=== PATIENT | male | born 1945 | race Caucasian/White ===

== ENCOUNTER → 2016-07-03 | Outpatient (CLI) | payer OTHER ==
[~2016-07-03] MED LIST: ALL300 PO; ATOR-22 PO; CYAN10005 PO; DABI150C PO; DIGO0.1267 PO; DILT-115 PO; FAMO20TA11 PO; GLC/500 PO; METO100T44 PO; SPIR50TA PO
[2016-07-03 13:35] LABS: BASO % 0.7 %; BASO ABS # 0.05 K/uL (0-0.2); COMPLETE YES; EOS % 1.9 %; HEMATOCRIT 44.5 % (42-52); IG% 0.3 %; LYMPH % 22.7 %; LYMPH ABS # 1.56 K/uL (1.2-3.4); MEAN CELL VOLUME 104.5 fL (80-100); MEAN CORPUSCULAR HEMOGLOBIN 35.2 pg (25-34); MEAN CORPUSCULAR HGB CONC 33.7 g/dl (32-36); MEAN PLATELET VOLUME 10.2 fL (7.4-10.4); MONO % 11.5 %; NEUT % 62.9 %; PLATELET COUNT 180 K/uL (130-400); RED BLOOD COUNT 4.26 M/uL (4.7-6.1); WHITE BLOOD COUNT 6.87 K/uL (4.8-10.8)
[2016-07-03 14:33] LABS: ALT/SGPT 30 U/L (12-78); BLOOD UREA NITROGEN 12 mg/dl (7-18); BUN/CREATININE RATIO 14.7 (10-20); CARBON DIOXIDE 28 mmol/L (21-32); CHLORIDE 102 mmol/L (98-107); CHOLESTEROL 126 mg/dl (0-200); CREATININE 0.78 mg/dl (0.60-1.40); GLUCOSE 115 mg/dl (70-99); POTASSIUM 4.1 mmol/L (3.5-5.1); SODIUM 140 mmol/L (136-145); TRIGLYCERIDES 149 mg/dl (0-150); URIC ACID 3.9 mg/dl (2.6-7.2); VERY LOW DENSITY LIPOPROT CALC 30 mg/dl
[2016-07-03 14:35] LABS: CALCIUM 9.4 mg/dl (8.5-10.1)
[2016-07-03 14:43] LABS: ALKALINE PHOSPHATASE 86 U/L (45-117); AST/SGOT 25 U/L (15-37); CHOLESTEROL/HDL RATIO 2.9; HDL CHOLESTEROL 44 mg/dl; LDL CHOLESTEROL CALCULATED 52 mg/dl; PHOSPHORUS 3.4 mg/dl (2.5-4.9)
[2016-07-04 06:00] LABS: ESTIMATED AVERAGE GLUCOSE 126 mg/dl; HA1C FLAG Normal (Normal)
[2016-07-05 12:24] LABS: C-REACTIVE PROT HIGHSEN 2.7 MG/L
--- NOTE | 2016-07-10 07:40 | CODING QUERY MEDICAL NECESSITY ---
CQSUPPORTING DIAGNOSIS NEEDED A supporting diagnosis is required for the test/procedure performed on this patient in order for us to be reimbursed by the patient's insurance. Please provide a supporting diagnosis for the following test/procedure listed below next to the test name along with your signature. *If there is no additional diagnosis for this patient that would support the following test/procedure please document that below next to the test/procedure. Test(s)/Procedure(s) that require a supporting diagnosis: DOS 07/03/16 VITAMIN D VITAMIN B12 C-RECTIVE PROTEIN HIGH SENSITIVITY Provider Signature: Date: Thank you Tiffanie Worthy Health Information Management Once completed, please kindly fax back to [phone] For questions please call [phone]
== END | disposition home or self-care (01) ==
LOC: C.LABBC 11:09
PROVIDERS: ATTEND Family Medicine
DX: E11.9 Type 2 diabetes mellitus without complications (principal); E55.9 Vitamin D deficiency, unspecified; D56.9 Thalassemia, unspecified; I71.4 Abdominal aortic aneurysm, without rupture; I48.2 Chronic atrial fibrillation

== ENCOUNTER → 2017-01-22 | Outpatient (CLI) | payer OTHER ==
[2017-01-22 15:40] LABS: BASO % 0.8 %; BASO ABS # 0.05 K/uL (0-0.2); COMPLETE YES; EOS % 1.4 %; HEMATOCRIT 43.9 % (42-52); IG% 0.3 %; LYMPH % 20.8 %; LYMPH ABS # 1.38 K/uL (1.2-3.4); MEAN CELL VOLUME 105.5 fL (80-100); MEAN CORPUSCULAR HEMOGLOBIN 36.1 pg (25-34); MEAN CORPUSCULAR HGB CONC 34.2 g/dl (32-36); MEAN PLATELET VOLUME 10.5 fL (7.4-10.4); MONO % 11.6 %; NEUT % 65.1 %; PLATELET COUNT 183 K/uL (130-400); RED BLOOD COUNT 4.16 M/uL (4.7-6.1); WHITE BLOOD COUNT 6.65 K/uL (4.8-10.8)
[2017-01-22 15:49] LABS: CHOLESTEROL/HDL RATIO 2.6
[2017-01-22 15:49] LABS: ALB/GLOB RATIO 0.8 (0.9-2); ALT/SGPT 24 U/L (12-78); AST/SGOT 16 U/L (15-37); BLOOD UREA NITROGEN 10 mg/dl (7-18); BUN/CREATININE RATIO 15.2 (10-20); CALCIUM 8.9 mg/dl (8.5-10.1); CARBON DIOXIDE 29 mmol/L (21-32); CHLORIDE 99 mmol/L (98-107); CREATININE 0.68 mg/dl (0.60-1.40); GLUCOSE 128 mg/dl (70-99); POTASSIUM 4.1 mmol/L (3.5-5.1); SODIUM 134 mmol/L (136-145); URIC ACID 4.2 mg/dl (2.6-7.2)
[2017-01-22 15:58] LABS: ALKALINE PHOSPHATASE 90 U/L (45-117); TOTAL IRON BINDING CAPACITY 364 mcg/dl (250-450)
[2017-01-23 06:44] LABS: ESTIMATED AVERAGE GLUCOSE 123 mg/dl; HA1C FLAG Normal (Normal)
== END | disposition home or self-care (01) ==
LOC: C.LABBC 10:59
PROVIDERS: ATTEND Family Medicine
DX: E88.81 Metabolic syndrome and other insulin resistance (principal); E55.9 Vitamin D deficiency, unspecified; D51.9 Vitamin B12 deficiency anemia, unspecified; R53.83 Other fatigue; I10 Essential (primary) hypertension; E78.5 Hyperlipidemia, unspecified

== ENCOUNTER 2017-10-06 22:29 | Emergency (ER) | payer OTHER ==
[~2017-10-06] VITALS: Ht 190.5 cm; Wt 117.0 kg
[2017-10-06 22:35] VITALS: TEMP 36.8; Ht 190.5 cm; Wt 117.0 kg
[2017-10-06] MEDS ORDERED: LIDOCAINE/EPINEPHRINE 1% 20 ML VIAL INFIL STA (23:24)
--- NOTE | 2017-10-07 00:50 | EMERGENCY ROOM VISIT NOTE ---
ED Visit Note First contact with patient: 23:19 I saw this patient in conjunction with Jonathon Saenz PA-C. I agree with his decision making and treatment plan.
--- NOTE | 2017-10-07 01:37 | EMERGENCY ROOM VISIT NOTE ---
ED Visit Note First contact with patient: 23:19 Chief Complaint: "Bleeding knee" History of Present Illness: This patient is a 72-year-old male who presents to the Emergency Department via private vehicle accompanied by for evaluation of their right knee laceration. Patient sustained the laceration while at home earlier today, when he lost his balance, fell to the ground striking the right knee off of the floor. They report a moderate amount of bleeding initially. He notes that he is on Eliquis. They deny any numbness or tingling. Patient rates his current discomfort as a 0/10. Patient's Tetanus status is not currently up- to-date. Medications: As noted below Allergies: Aspirin, Lasix PMH: As noted below SHx: Patient lives locally ROS: All pertinent positive and negative review of systems are appropriately documented in the History of Present Illness. Physical Exam: VITAL SIGNS - Vital signs and nursing notes were reviewed. Stable. Afebrile. GENERAL -72-year-old male appearing his stated age who is in no acute distress. Communicates well with provider and answers questions appropriately. SKIN - There is a 10 cm long laceration noted overlying the right anterior knee. The edges gape apart with traction. No foreign bodies appreciated. Upon further examination there are no deep structures including vessel, tendon, or bony structures appreciated. There is no active bleeding noted. MUSCULOSKELETAL -full range of motion assessed of the right knee. No pinpoint bony tenderness. NEUROLOGIC - Spinothalamic tract was found to be intact with ability to discriminate sharp versus dull sensation. No sensory defects of the dorsal column were appreciated utilizing light touch for evaluation. VASCULAR - Capillary refill was brisk. IMAGING: Per my interpretation the 3 views of the knee reveal no acute fracture or dislocation. Moderate degenerative change noted. ED Course: Patient was seen and evaluated by myself. Risks and benefits of performing primary wound closure versus no repair were discussed with the patient who verbalizes understanding. Verbal consent was obtained prior to performing the procedure. 6 cc of 1% buffered lidocaine with epinephrine was used to anesthetize the right anterior knee laceration. The wound was cleansed and prepped in the typical sterile fashion utilizing normal saline and Betadine. The wound was sterilely draped. Once proper anesthetization was established, the wound was further examined and demonstrated no deep involvement. The wound was copiously irrigated with normal saline and Betadine. The wound was closed using 27 simple, 4-0 nylon sutures with the wound edges being well approximated. Patient tolerated the procedure well. No complications were met. The wound was cleansed and dressed with a Bacitracin dressing. Knee immobilizer provided to decreased range of motion of the right knee to allow the wound to heal. After providing this to the patient, he expressed great concern over being able to care for this at home as well as ambulation. He notes that he is off balance at baseline, and has fallen many times recently. There is great concern expressed that he may continue to fall/fall again. I did attempt to intubate the patient and he was quite unstable on his feet. Patient received their Adacel vaccination. Decision was made to transfer the patient to [facility] for further care. Patient was in agreement. He was transferred in stable condition. Problem List Medical Problems: (1) Atrial fibrillation Status: Chronic (2) Bleeding ulcer Status: Resolved (3) Diabetes Status: Chronic Current/Historical Medications Scheduled Allopurinol (Zyloprim), 300 MG PO DAILY Apixaban (Eliquis), 5 MG PO BID Atorvastatin (Lipitor), 10 MG PO DAILY Diclofenac Sodium (Topical) (Diclofenac Sodium), 1 APPLN TOP DAILY Digoxin (Digox), 125 MCG PO DAILY Diltiazem Hcl Ext Rel (Tiazac), 240 MG PO DAILY Famotidine (Pepcid), 20 MG PO DAILY Hctz/Spironolactone 25MG/25MG (Aldactazide 25MG/25MG), 1 TAB PO DAILY Metformin HCl (Metformin HCl), 500 MG PO DAILY Metoprolol Succinate (Metoprolol Succinate ER), 200 MG PO DAILY Allergies Coded Allergies: Furosemide (Unverified Allergy, Severe, CHEST "FLUTTERY", 02/16/15) Aspirin (Unverified Adverse Reaction, Unknown, HX OF GI BLEED, 02/16/15) Vital Signs Date Time Temp Pulse Resp B/P (MAP) Pulse Ox O2 Delivery O2 Flow Rate FiO2 10/07/17 04:11 84 18 140/77 98 Room Air 10/07/17 02:13 93 16 173/100 97 Room Air 10/06/17 22:35 36.8 81 18 147/77 96 Room Air Medications Administered Medications (Trade) Dose Ordered Sig/Delisa Route Start Time Stop Time Status Last Admin Dose Admin Diphtheria/ Pertussis/Tetanus Vacc (Adacel Inj) 0.5 ml ONCE ONCE IM. 10/07/17 02:00 10/07/17 02:01 DC 10/07/17 02:00 0.5 ML Departure Information Impression Primary Impression: Laceration Dispostion Home / Self-Care Condition GOOD Referrals Chidi Burnette M.D. (PCP) Patient Instructions My [facility] Additional Instructions Discharge Instructions: You have received 27 sutures on your leg. These sutures are NOT dissolvable and WILL need to be removed by a health care provider in 14 days. You can return to the Emergency Department or contact your Primary Care Provider to have the sutures removed. Please wear the knee immobilizer so that the skin does not tear with the stitches are placed. Proper wound care is essential for adequate wound healing and infection prevention. You can shower and clean the wound with soap and water. Do not scour over the wound, pat dry with a towel. Do not submerse the wound (i.e. bathe or dish wash) until the sutures have been removed. You can use an antibiotic ointment with a dressing over the wound for the next 7 days. Please keep covered at all times. If crust develops over the wound you can use a Q- tip to apply a 1:1 peroxide:water solution to clean the wound. Look for signs of infection of the wound including: increased pain, swelling, foul discharge, streaking, or increased temperature. If any of these are noticed you should return to the Emergency Department for further assessment and treatment. As with any laceration you may have received nerve damage to the surrounding tissues. This damage may or may not be permanent. For pain control, you can use the following [id number] medicines (if >12 yo): - Regular strength (325mg/tab) Tylenol (acetaminophen) 2 tabs every 4-6 hours as needed. Do not exceed 12 tablets in a 24 hour period. Avoid taking more than 3 grams (3000 mg) of Tylenol per day. This includes any other sources of acetaminophen you may take on a regular basis. Return to the emergency department if your symptoms worsen despite treatment course outlined above.
[2017-10-07] MEDS ORDERED: DIPHTHERIA/TETANUS/PERTUSSIS 0.5 ML SYR/VIAL IM. ONE (02:00)
[2017-10-07] MEDS ORDERED: ALLO300T2 PO (03:19)
[2017-10-07] MEDS ORDERED: ATOR10TA82 PO (03:19)
[2017-10-07] MEDS ORDERED: TPRSR/100 PO (03:23)
[2017-10-07] MEDS ORDERED: SPIR1TAB72 (03:23)
[2017-10-07] MEDS ORDERED: DIGO0.1219 PO (03:23)
[2017-10-07] MEDS ORDERED: APIX1TAB3 PO (03:23)
[2017-10-07] MEDS ORDERED: GLC500 PO (03:23)
[2017-10-07] MEDS ORDERED: DICL1GEL34 TOP (03:27)
[2017-10-07 05:27] VITALS: BP 152/86; PULSE 81; O2SAT 94
--- NOTE | 2017-10-07 06:42 | DIAGNOSTIC IMAGING REPORT ---
R KNEE 3 VIEWS HISTORY: 72 years-old Male Fall, R knee laceration acute right knee pain status post fall COMPARISON: None available TECHNIQUE: 3 views of the right knee FINDINGS: No acute fracture or dislocation. Moderate sized joint effusion. Tricompartmental osteoarthritis, mild within the medial compartment, mild to moderate patellofemoral and moderate lateral compartment. Dystrophic calcifications and the suspected location of the proximal MCL. Moderate soft tissue swelling. Peripheral arterial calcifications noted. IMPRESSION: 1. No acute fracture or dislocation. 2. Soft tissue swelling with moderate-sized joint effusion. The above report was generated using voice recognition software. It may contain grammatical, syntax or spelling errors. Electronically signed by: Kuldeep Luevano M.D. 10/07/2017 6:40 AM Dictated Date/Time: 10/07/2017 6:38 AM
== END 2017-10-07 05:25 ==
LOC: C.EDB 22:31
DX: S81.011A Laceration without foreign body, right knee, initial encounter (principal); W19.XXXA Unspecified fall, initial encounter; I48.91 Unspecified atrial fibrillation; E11.9 Type 2 diabetes mellitus without complications; Z23 Encounter for immunization

== ENCOUNTER 2021-10-18 09:39 | Inpatient (IN) ==
[2021-10-18 11:48] LABS: Basophils # (auto) 0.07 K/uL (0-0.2); Basophils % (auto) 1.1 %; Eosinophils # (auto) 0.09 K/uL (0-0.50); Eosinophils % (auto) 1.4 %; Hematocrit (blood only) 35.8 % (40.1-51.0); Hemoglobin 12.2 g/dl (14.0-18.0); Immature Granulocytes # (auto) 0.02 K/uL (0.00-0.02); Immature Granulocytes % (auto) 0.3 %; Mean Corpuscular Hgb Conc 34.1 g/dL (32.0-36.0); Mean Corpuscular Volume 105.6 fL (80.0-100.0); Mean Platelet Volume 9.5 fL (9.4-12.4); Monocytes # (auto) 0.92 K/uL (0.24-0.82); Monocytes % (auto) 14.7 %; Neutrophils # (auto) 4.14 K/uL (1.4-6.5); Neutrophils % (auto) 66.5 %; Platelet Count 244 K/uL (130-400); RDW Coefficient of Variation 13.4 % (11.5-14.5); RDW Standard Deviation 52.6 fL (36.4-46.3); Red Blood Count 3.39 M/uL (4.63-6.08); White Blood Count 6.24 K/ul (4.8-10.8)
[2021-10-18 12:08] LABS: Albumin Globulin Ratio 1.1 (0.9-2); Albumin Level 4.2 gm/dl (3.4-5.0); BUN Creatinine Ratio 26.3 (10-20); Bilirubin,Total 3.3 mg/dl (0.2-1.0); C Reactive Protein 1.94 mg/dl (0-0.5); Calcium 10.2 mg/dl (8.5-10.1); Creatinine Clr Calc Pharmacy 149.4 ml/min; Est GFR (African American) 116.4 ml/min; Est GFR (Non-African American) 100.4 ml/min; Globulin 3.8 gm/dl (2.5-4.0)
--- NOTE | 2021-10-18 14:25 | Emergency Department Note ---
Impression & Plan Traumatic hematoma of left lower leg, Anticoagulant long-term use ED Provider Note CHIEF COMPLAINT: Bleeding from left jamison hematoma HISTORY OF PRESENT ILLNESS: Clifford Jose is a 76 year old male with history of a-fib on Eliquis, HTN, DLD, DM2 and alcohol use who presents to the Emergency Department via EMS for evaluation of bleeding from a traumatic left anterior jamison hematoma which he initially developed following a fall on 10/10/21, which subsequently opened up after removing the dressing when attempting to change it this morning. The patient was evaluated in the ED when he initially fell and after having imaging including a CTH, c-spine and extremity films (negative) as well as lab work, he was discharged back to home with instructions to follow up with wound care and his PCP. Since returning home, the patient states that he has been doing well and he and his have been doing their best to change his dressings regularly. Today, however, when the patient attempted to remove the bandage from his left jamison, the hematoma opened up and a very large scab avulsed back exposing deep tissue with a moderate amount of bleeding. The patient then called EMS for transport to the ED for further evaluation. Currently, the patient is resting in bed and denies being in significant discomfort. He denies suffering any additional trauma or falls since the initial event occurred. He also denies recent fevers/chills, chest pain, respiratory difficulties, abdominal pain, nausea, vomiting, diarrhea or urinary symptoms. The patient has chronic BLE edema and venous stasis changes/ulcerations, unchanged from baseline. No other acute complaints. The patient took his last dose of Eliquis this morning prior to arrival. REVIEW OF SYSTEMS: 10 systems were reviewed and were negative unless otherwise stated in HPI as above PHYSICAL EXAM: VITALS: Vitals are noted on the nurse's note and reviewed by myself. Hypertensive, vital signs stable. General: Resting in bed, no acute distress HEENT: Normocephalic, old appearing hematoma to the right posterior scalp without significant tenderness to palpation (pt states from old fall), PERRL, EOMI, mucous membranes moist, oropharynx clear Neck: No mid-line or paraspinal cervical tenderness, ROM intact without pain Resp: Good inspiratory effort on room air, lung sounds clear bilaterally CV: Irregularly irregular rate and rhythm, peripheral pulses palpated Abd: Soft, non-distended, non-tender MSK/Integumentary: 4-5+ non-pitting edema to the bilateral lower extremities with chronic venous stasis changes and chronic diabetic ulceration on the left lower jamison. Multiple areas of ecchymosis of various stages of healing scattered about the entire body. Superficial skin tears to the bilateral wrists without surrounding erythema, edema or purulent discharge. ~10 cm hematoma to the left anterior jamison that is partially avulsed down to the subcutaneous tissues, no active bleeding. There are chronic venous stasis changes and edema surrounding the area but no abnormal discharge or signs of current infection. Continues with FROM of all extremities without significant pain. Sensation decreased to the BLE secondary to neuropathy, unchanged from baseline Neuro: Awake, alert and oriented x 3, interacting and answering questions appro priately Differential diagnosis includes traumatic hematoma, infected hematoma, soft tissue injury, bacteremia, among others were considered. EMERGENCY DEPARTMENT COURSE: Physical exam and history were performed. Nursing triage notes, EMR, and medication list were personally reviewed. Patient is a 76 year old male with history of a-fib on Eliquis, HTN, DLD, DM2 and alcohol use who presents to the Emergency Department via EMS for evaluation of bleeding from a traumatic left anterior jamison hematoma which he initially developed following a fall on 10/10/21, which subsequently opened up after removing the dressing when attempting to change it this morning. Additional history as described above. See physical exam as noted above. The patient was offered medication but declined. IV access was established. Labs were obtained and reviewed by myself as below. Of note, no concern for leukocytosis with a WBC of 6.24. Mild anemia with hemoglobin 12.2 which has decreased since previous of 13.5. Mild hyponatremia with a sodium of 133 and mild hypochloremia with a chloride of 94. Renal indices stable. LFTs nondiagnostic. ESR was elevated at 53. CRP was elevated at 1.94. Procalcitonin was not elevated at <0.05. Blood cultures were obtained and are pending. I discussed the above findings with the patient at bedside. Based on his physical exam, I do feel that he will benefit from consultation with orthopedics as this wound will likely require surgical debridement. I did call and speak with Dr. Erazo of [facility]. Kevin Felix PA-C did also arrive to bedside and evaluated the patient as well. They do recommend surgical intervention, likely debridement, within the next few days. They recommended admission with medicine and will plan to consult along. I then called Dr. Angeles of the [facility]. He agreed to evaluate the patient. Please see his documentation for additional plan and disposition thereafter. The patient verbalized his understanding and agreement with the treatment plan as above The chart was completed utilizing [employer] Speech Voice Recognition Software. Grammatical errors, random word insertions, pronoun errors, and incomplete sentences are an occasional consequence of this system due to software jacobs itations, ambient noise, and hardware issues. Any formal questions or concerns about the content, text, or information contained within the body of this dictation should be directly addressed to the provider for clarification. Past Med/Surg History Medical History Acquired bilateral foot drop Afib Diverticulosis Full thickness burn of finger of right hand History of GI bleed Skin cancer Tinea pedis Surgical History S/P cholecystectomy Status post Mohs surgery Family History Other No pertinent family history Social History Smoking Status: Never smoker Hx Alcohol Use: Yes Alcohol type: hard liquor Hx Substance Use: No Preferred Language: [place] Leonean Communication Ability: Effective Visual Impairment: Diminished Hearing Ability: Normal Beliefs That Will Affect Care: None marital status: Current Living Situation: Family current occupational status: retired Feels Safe at Home: Yes during the past year weight has: remained stable Allergies Allergies Allergy/AdvReac Type Severity Reaction Status Date / Time furosemide Allergy Severe CHEST Verified 10/16/21 14:49 "FLUTTERY" NSAIDS (Non-Steroidal Allergy Unknown bleeding Verified 10/16/21 14:49 Anti-Inflamma aspirin AdvReac Unknown HX OF GI Verified 10/16/21 14:49 BLEED Home Meds Home Medications Medication Instructions Recorded Confirmed allopurinol 300 mg tablet 300 mg PO DAILY 11/11/18 10/18/21 atorvastatin 10 mg tablet 10 mg PO QPM 11/11/18 10/18/21 cyanocobalamin (vitamin B-12) 100 100 mcg PO DAILY 11/11/18 10/18/21 mcg tablet digoxin 125 mcg (0.125 mg) tablet 125 mcg PO DAILY #90 tabs 11/11/18 10/18/21 famotidine 20 mg tablet 20 mg PO DAILY 11/11/18 10/18/21 metformin 500 mg tablet 500 mg PO DAILY 11/11/18 10/18/21 cholecalciferol (vitamin D3) 25 1,000 units PO DAILY 12/16/18 10/18/21 mcg (1,000 unit) capsule diclofenac sodium 1 % topical gel 1 ea topical QID 02/01/20 10/18/21 metoprolol succinate 100 mg 100 mg PO BID #180 tabs 04/24/20 10/18/21 tablet,extended release 24 hr ascorbic acid (vitamin C) 500 mg 0 mg PO DAILY 08/14/20 10/18/21 tablet (Vitamin C) spironolactone 25 mg tablet 25 mg PO DAILY 10/18/21 10/18/21 Previous Rx's Medication Instructions Recorded apixaban 5 mg tablet 5 mg PO BID #180 tabs 04/24/21 diltiazem HCl 240 mg 240 mg PO DAILY #90 caps 07/02/21 capsule,extended release 24 hr Results & Data (ED) Vital Signs Vital Signs - 24 hr 10/18/21 09:49 10/18/21 11:47 10/18/21 10:45 Temperature 36.8 C Temperature Source Oral Pulse Rate 73 75 Pulse Rate from SpO2 Sensor Pulse Strength Normal Respiratory Rate 21 14 20 Respiratory Effort / Characteristics Non-Labored Respiratory Depth Normal Normal Respiratory Pattern Regular Blood Pressure 152/75 H Blood Pressure Mean 100 Pulse Oximetry 97 Oxygen Delivery Method Room Air Room Air Sepsis Recent Fever Within 48 Hours No Sepsis New/Unexplained Change in Mental Status No Sepsis Action Taken by Nursing No Action Required 10/18/21 11:00 10/18/21 11:30 10/18/21 12:00 Temperature Temperature Source Pulse Rate 75 67 54 L Pulse Rate from SpO2 Sensor 82 55 L Pulse Strength Respiratory Rate 19 18 20 Respiratory Effort / Characteristics Respiratory Depth Respiratory Pattern Blood Pressure 152/75 H Blood Pressure Mean 100 Pulse Oximetry 94 97 Oxygen Delivery Method Sepsis Recent Fever Within 48 Hours Sepsis New/Unexplained Change in Mental Status Sepsis Action Taken by Nursing 10/18/21 12:30 10/18/21 13:00 10/18/21 13:30 Temperature Temperature Source Pulse Rate 66 54 L 65 Pulse Rate from SpO2 Sensor Pulse Strength Respiratory Rate 17 17 27 H Respiratory Effort / Characteristics Respiratory Depth Respiratory Pattern Blood Pressure Blood Pressure Mean Pulse Oximetry Oxygen Delivery Method Sepsis Recent Fever Within 48 Hours Sepsis New/Unexplained Change in Mental Status Sepsis Action Taken by Nursing 10/18/21 14:00 10/18/21 14:30 10/18/21 15:00 Temperature Temperature Source Pulse Rate 66 78 63 Pulse Rate from SpO2 Sensor Pulse Strength Respiratory Rate 25 H 20 23 Respiratory Effort / Characteristics Respiratory Depth Respiratory Pattern Blood Pressure 152/75 H Blood Pressure Mean 100 Pulse Oximetry Oxygen Delivery Method Sepsis Recent Fever Within 48 Hours Sepsis New/Unexplained Change in Mental Status Sepsis Action Taken by Nursing 10/18/21 15:10 10/18/21 15:20 Temperature Temperature Source Pulse Rate 70 71 Pulse Rate from SpO2 Sensor Pulse Strength Respiratory Rate 23 22 Respiratory Effort / Characteristics Respiratory Depth Respiratory Pattern Blood Pressure Blood Pressure Mean Pulse Oximetry Oxygen Delivery Method Sepsis Recent Fever Within 48 Hours Sepsis New/Unexplained Change in Mental Status Sepsis Action Taken by Nursing Laboratory Data Result diagrams: 10/18/21 11:26 10/18/21 11:26 Lab Results 10/18/21 10/18/21 10/18/21 Range/Units 11:26 11:26 11:26 WBC 6.24 (4.8-10.8) K/ul RBC 3.39 L (4.63-6.08) M/uL Hgb 12.2 L (14.0-18.0) g/dl Hct 35.8 L (40.1-51.0) % MCV 105.6 H (80.0-100.0) fL MCH 36.0 H (25.0-34.0) pg MCHC 34.1 (32.0-36.0) g/dL RDW Std Deviation 52.6 H (36.4-46.3) fL RDW Coeff of Pau 13.4 (11.5-14.5) % Plt Count 244 (130-400) K/uL MPV 9.5 (9.4-12.4) fL Immature Gran % (Auto) 0.3 % Neut % (Auto) 66.5 % Lymph % (Auto) 16.0 % [place] % (Auto) 14.7 % Eos % (Auto) 1.4 % Baso % (Auto) 1.1 % Neut # (Auto) 4.14 (1.4-6.5) K/uL Lymph # (Auto) 1.00 L (1.2-3.4) K/uL [place] # (Auto) 0.92 H (0.24-0.82) K/uL Eos # (Auto) 0.09 (0-0.50) K/uL Baso # (Auto) 0.07 (0-0.2) K/uL Immature Gran # (Auto) 0.02 (0.00-0.02) K/uL ESR 53 H (0-20) mm/hr Sodium 133 L (136-145) mmol/L Potassium 4.0 (3.5-5.1) mmol/L Chloride 94 L (98-107) mmol/L Carbon Dioxide 32 (21-32) mmol/L Anion Gap 7 (3-11) BUN 15 (6-23) mg/dl Creatinine 0.57 L (0.6-1.4) mg/dl Est Cr Clr Drug Dosing 149.4 ml/min Est GFR ( Amer) 116.4 ml/min Est GFR (Non-Af Amer) 100.4 ml/min BUN/Creatinine Ratio 26.3 H (10-20) Glucose 96 (70-99(Fasting)) mg/dl Calcium 10.2 H (8.5-10.1) mg/dl Total Bilirubin 3.3 H (0.2-1.0) mg/dl AST 29 (13-39) U/L ALT 24 (7-52) U/L Alkaline Phosphatase 162 H (34-104) U/L C-Reactive Protein 1.94 H (0-0.5) mg/dl Total Protein 8.0 (6.0-8.3) gm/dl Albumin 4.2 (3.4-5.0) gm/dl Globulin 3.8 (2.5-4.0) gm/dl Albumin/Globulin Ratio 1.1 (0.9-2) Procalcitonin (0-0.5) ng/ml SARS-CoV-2, RNA, NAAT (NEGATIVE) 10/18/21 10/18/21 Range/Units 11:26 15:30 WBC (4.8-10.8) K/ul RBC (4.63-6.08) M/uL Hgb (14.0-18.0) g/dl Hct (40.1-51.0) % MCV (80.0-100.0) fL MCH (25.0-34.0) pg MCHC (32.0-36.0) g/dL RDW Std Deviation (36.4-46.3) fL RDW Coeff of Pau (11.5-14.5) % Plt Count (130-400) K/uL MPV (9.4-12.4) fL Immature Gran % (Auto) % Neut % (Auto) % Lymph % (Auto) % [place] % (Auto) % Eos % (Auto) % Baso % (Auto) % Neut # (Auto) (1.4-6.5) K/uL Lymph # (Auto) (1.2-3.4) K/uL [place] # (Auto) (0.24-0.82) K/uL Eos # (Auto) (0-0.50) K/uL Baso # (Auto) (0-0.2) K/uL Immature Gran # (Auto) (0.00-0.02) K/uL ESR (0-20) mm/hr Sodium (136-145) mmol/L Potassium (3.5-5.1) mmol/L Chloride (98-107) mmol/L Carbon Dioxide (21-32) mmol/L Anion Gap (3-11) BUN (6-23) mg/dl Creatinine (0.6-1.4) mg/dl Est Cr Clr Drug Dosing ml/min Est GFR ( Amer) ml/min Est GFR (Non-Af Amer) ml/min BUN/Creatinine Ratio (10-20) Glucose (70-99(Fasting)) mg/dl Calcium (8.5-10.1) mg/dl Total Bilirubin (0.2-1.0) mg/dl AST (13-39) U/L ALT (7-52) U/L Alkaline Phosphatase (34-104) U/L C-Reactive Protein (0-0.5) mg/dl Total Protein (6.0-8.3) gm/dl Albumin (3.4-5.0) gm/dl Globulin (2.5-4.0) gm/dl Albumin/Globulin Ratio (0.9-2) Procalcitonin < 0.05 (0-0.5) ng/ml SARS-CoV-2, RNA, NAAT NEGATIVE (NEGATIVE) Discharge Plan Visit Data Chief Complaint: Laceration/Cut (Suture/Dermabond) Stated Complaint: BLEEDING ED Provider: [facility] ED Midlevel Provider: Madison Villatoro Discharge Problem: Traumatic hematoma of left lower leg, Anticoagulant long-term use Forms Stand Alone Forms: My [facility] [employer] Prescriptions Prescriptions: No Action cholecalciferol (vitamin D3) 1,000 unit capsule 1,000 units PO DAILY apixaban 5 mg tablet 5 mg PO BID Qty: 180 3RF diltiazem HCl 240 mg capsule,extended release 24hr 240 mg PO DAILY Qty: 90 3RF digoxin 125 mcg tablet 125 mcg PO DAILY Qty: 90 famotidine 20 mg tablet 20 mg PO DAILY metformin 500 mg tablet 500 mg PO DAILY atorvastatin 10 mg tablet 10 mg PO QPM allopurinol 300 mg tablet 300 mg PO DAILY cyanocobalamin (vitamin B-12) 100 mcg tablet 100 mcg PO DAILY diclofenac sodium 1 % gel 1 ea topical QID Rx Instructions: topical four times daily; metoprolol succinate 100 mg tablet extended release 24 hr 100 mg PO BID Qty: 180 ascorbic acid (vitamin C) [Vitamin C] 500 mg Tablet 0 mg PO DAILY spironolactone 25 mg tablet 25 mg PO DAILY Referrals Referrals: Chidi Burnette MD [Primary Care Provider] -
--- NOTE | 2021-10-18 15:04 | Orthopedic Consultation ---
Date of Consultation October 18, 2021 Assessment & Plan (1) Hematoma of left lower extremity: Discussed with the patient that his wound will likely need debrided. He possibly may need wound VAC placement as well. Unfortunately patient is on Eliquis. We will need to hold Eliquis prior to proceeding with anything from a surgical standpoint. Eliquis will need to be held at least 48 hours. Will discuss with [facility] physicians as far as timing of surgery. We will follow. Thank you for this consult. History of Present Illness Reason for Consultation: Left lower leg wound Requesting Physician: Madison Villatoro PA-C History of Present Illness Clifford Jose is a 76 year old male with history of a-fib on Eliquis, HTN, DLD, DM2 and alcohol use who presents to the Emergency Department via EMS for evaluation of bleeding from a traumatic left anterior jamison hematoma which he initially developed following a fall on 10/10/21, which subsequently opened up after removing the dressing when attempting to change it this morning. Bleeding is now controlled but he has a large wound anterolateral aspect of his lower leg with an area of skin necrosis/eschar. He also has chronic venous stasis ulcer of his lower leg. He has chronic lower leg edema with Charcot foot. We have been asked to see the patient for consideration possible debridement. Allergies Allergy/AdvReac Type Severity Reaction Status Date / Time furosemide Allergy Severe CHEST Verified 10/16/21 14:49 "FLUTTERY" NSAIDS (Non-Steroidal Allergy Unknown bleeding Verified 10/16/21 14:49 Anti-Inflamma aspirin AdvReac Unknown HX OF GI Verified 10/16/21 14:49 BLEED Home Medications Medication Instructions Recorded Confirmed Type allopurinol 300 mg tablet 300 mg PO DAILY 11/11/18 10/16/21 History atorvastatin 10 mg tablet 10 mg PO QPM 11/11/18 10/16/21 History cyanocobalamin (vitamin B-12) 100 100 mcg PO DAILY 11/11/18 10/16/21 History mcg tablet digoxin 125 mcg (0.125 mg) tablet 125 mcg PO DAILY #90 tabs 11/11/18 10/16/21 History famotidine 20 mg tablet 20 mg PO DAILY 11/11/18 10/16/21 History metformin 500 mg tablet 500 mg PO DAILY 11/11/18 10/16/21 History cholecalciferol (vitamin D3) 25 1,000 units PO DAILY 12/16/18 10/16/21 History mcg (1,000 unit) capsule diclofenac sodium 1 % topical gel See Rx Instructions topical QID 02/01/20 10/16/21 History spironolactone 25 1 tab PO BID 03/21/20 10/16/21 History mg-hydrochlorothiazide 25 mg tablet Vitamin A 0 mg PO DAILY 04/24/20 10/16/21 History metoprolol succinate 100 mg 100 mg PO BID #180 tabs 04/24/20 10/16/21 History tablet,extended release 24 hr ascorbic acid (vitamin C) 500 mg 0 mg PO DAILY 08/14/20 10/16/21 History tablet (Vitamin C) acetaminophen 650 mg 650 mg PO Q12H 02/15/21 10/16/21 History tablet,extended release (Tylenol Arthritis Pain) apixaban 5 mg tablet 5 mg PO BID #180 tabs 04/24/21 10/16/21 Rx diltiazem HCl 240 mg 240 mg PO DAILY #90 caps 07/02/21 10/16/21 Rx capsule,extended release 24 hr magnesium carbonate PO DAILY 10/16/21 10/16/21 History Patient History Medical History Acquired bilateral foot drop Afib Diverticulosis Full thickness burn of finger of right hand History of GI bleed Skin cancer Tinea pedis Surgical History S/P cholecystectomy Status post Mohs surgery Family History Other No pertinent family history Social History Smoking Status: Never smoker Hx Alcohol Use: Yes Alcohol type: hard liquor Hx Substance Use: No Preferred Language: Bulgarian Communication Ability: Effective Visual Impairment: Diminished Hearing Ability: Normal Beliefs That Will Affect Care: None marital status: Current Living Situation: Family current occupational status: retired Feels Safe at Home: Yes during the past year weight has: remained stable Review of Systems Review of Systems: All systems reviewed & are unremarkable except as noted in Subjective Physical Exam Constitutional: WD/WN, vitals as above Respiratory: normal respiratory effort; no respiratory distress Cardiovascular: Extremities: + edema Musculoskeletal: Left lower leg: Patient has a large 10 cm x 6 cm wound anterolateral aspect of his lower leg with an overlying black that is torn away from the skin with a remaining deep open wound. Distally to this there is about a 3 cm chronic venous stasis ulcer. No erythema or drainage. He has chronic lower leg edema bilaterally. He has Charcot foot deformity on the left side. Skin: no rashes, warm and dry Neurologic: patellar DTR's 2+ bilat, sensation intact Psychiatric: A+Ox3, euthymic affect Results & Data ([facility]) Vital Signs (Past 12 Hours) Vital Signs Temp Pulse Resp BP Pulse Ox O2 Del Method 10/18/21 11:30 67 18 94 10/18/21 11:00 75 19 152/75 H 10/18/21 10:45 75 20 10/18/21 11:47 14 Room Air 10/18/21 09:49 36.8 C 73 21 152/75 H 97 Room Air Laboratory Results Lab Results 10/18/21 10/18/21 10/18/21 Range/Units 11:26 11:26 11:26 WBC 6.24 (4.8-10.8) K/ul RBC 3.39 L (4.63-6.08) M/uL Hgb 12.2 L (14.0-18.0) g/dl Hct 35.8 L (40.1-51.0) % MCV 105.6 H (80.0-100.0) fL MCH 36.0 H (25.0-34.0) pg MCHC 34.1 (32.0-36.0) g/dL RDW Std Deviation 52.6 H (36.4-46.3) fL RDW Coeff of Pau 13.4 (11.5-14.5) % Plt Count 244 (130-400) K/uL MPV 9.5 (9.4-12.4) fL Immature Gran % (Auto) 0.3 % Neut % (Auto) 66.5 % Lymph % (Auto) 16.0 % [place] % (Auto) 14.7 % Eos % (Auto) 1.4 % Baso % (Auto) 1.1 % Neut # (Auto) 4.14 (1.4-6.5) K/uL Lymph # (Auto) 1.00 L (1.2-3.4) K/uL [place] # (Auto) 0.92 H (0.24-0.82) K/uL Eos # (Auto) 0.09 (0-0.50) K/uL Baso # (Auto) 0.07 (0-0.2) K/uL Immature Gran # (Auto) 0.02 (0.00-0.02) K/uL ESR 53 H (0-20) mm/hr Sodium 133 L (136-145) mmol/L Potassium 4.0 (3.5-5.1) mmol/L Chloride 94 L (98-107) mmol/L Carbon Dioxide 32 (21-32) mmol/L Anion Gap 7 (3-11) BUN 15 (6-23) mg/dl Creatinine 0.57 L (0.6-1.4) mg/dl Est Cr Clr Drug Dosing 149.4 ml/min Est GFR ( Amer) 116.4 ml/min Est GFR (Non-Af Amer) 100.4 ml/min BUN/Creatinine Ratio 26.3 H (10-20) Glucose 96 (70-99(Fasting)) mg/dl Calcium 10.2 H (8.5-10.1) mg/dl Total Bilirubin 3.3 H (0.2-1.0) mg/dl AST 29 (13-39) U/L ALT 24 (7-52) U/L Alkaline Phosphatase 162 H (34-104) U/L C-Reactive Protein 1.94 H (0-0.5) mg/dl Total Protein 8.0 (6.0-8.3) gm/dl Albumin 4.2 (3.4-5.0) gm/dl Globulin 3.8 (2.5-4.0) gm/dl Albumin/Globulin Ratio 1.1 (0.9-2) Procalcitonin (0-0.5) ng/ml 10/18/21 Range/Units 11:26 WBC (4.8-10.8) K/ul RBC (4.63-6.08) M/uL Hgb (14.0-18.0) g/dl Hct (40.1-51.0) % MCV (80.0-100.0) fL MCH (25.0-34.0) pg MCHC (32.0-36.0) g/dL RDW Std Deviation (36.4-46.3) fL RDW Coeff of Pau (11.5-14.5) % Plt Count (130-400) K/uL MPV (9.4-12.4) fL Immature Gran % (Auto) % Neut % (Auto) % Lymph % (Auto) % [place] % (Auto) % Eos % (Auto) % Baso % (Auto) % Neut # (Auto) (1.4-6.5) K/uL Lymph # (Auto) (1.2-3.4) K/uL [place] # (Auto) (0.24-0.82) K/uL Eos # (Auto) (0-0.50) K/uL Baso # (Auto) (0-0.2) K/uL Immature Gran # (Auto) (0.00-0.02) K/uL ESR (0-20) mm/hr Sodium (136-145) mmol/L Potassium (3.5-5.1) mmol/L Chloride (98-107) mmol/L Carbon Dioxide (21-32) mmol/L Anion Gap (3-11) BUN (6-23) mg/dl Creatinine (0.6-1.4) mg/dl Est Cr Clr Drug Dosing ml/min Est GFR ( Amer) ml/min Est GFR (Non-Af Amer) ml/min BUN/Creatinine Ratio (10-20) Glucose (70-99(Fasting)) mg/dl Calcium (8.5-10.1) mg/dl Total Bilirubin (0.2-1.0) mg/dl AST (13-39) U/L ALT (7-52) U/L Alkaline Phosphatase (34-104) U/L C-Reactive Protein (0-0.5) mg/dl Total Protein (6.0-8.3) gm/dl Albumin (3.4-5.0) gm/dl Globulin (2.5-4.0) gm/dl Albumin/Globulin Ratio (0.9-2) Procalcitonin < 0.05 (0-0.5) ng/ml (1) Hematoma of left lower extremity Encounter type: initial encounter Qualified Code(s): S80.12XA - Contusion of left lower leg, initial encounter
--- NOTE | 2021-10-18 15:16 | Emergency Department Note ---
ED Visit Note I was consulted by the Advanced Practice Provider. I saw the patient personally and performed a substantive portion of the visit. This includes aspects of the HPI, MDM, diagnostic interpretations, and disposition/plan. Patient has a very large hematoma in the left leg. This injury is likely going to require orthopedic intervention, possibly skin grafting. Orthopedics has been counseled, hospitalization may be necessary. .
--- NOTE | 2021-10-18 15:32 | History & Physical Report ---
Date of Service October 18, 2021 Assessment & Plan (1) Wound of left lower extremity: Plan: -Admit to med/surge -Patient is currently afebrile, hemodynamically stable, and stable on RA -Suffered a large left lower extremity wound this AM while removing dressing, or tho evaluated, due to necrotic tissue he will need debridement and possibly wound vac -Will need to be off Eliquis for at least 48 hours prior to procedure, explained risks and benefits of holding Eliquis and patient acknowledged understanding and would like to hold the Eliquis for his upcoming procedure -Will continue with chemical DVT PPX for now -ESR and CRP are elevated but patient is afebrile, no leukocytosis, and negative procal, hold antibiotics for now -Wound nurse consult placed for now to assist with care until he has his procedure -AM CBC, CMP, PT/INR (2) Venous stasis ulcer of left lower leg with edema of left lower leg: Plan: -See LLE wound (3) PAD (peripheral artery disease): Plan: -Currently only on on Eliquis, no aspirin (4) Lower extremity edema: Plan: -Continue REFRIGERATING MACHINE OPERATOR Spironolactone (5) HTN (hypertension): Plan: -REFRIGERATING MACHINE OPERATOR metoprolol (6) Hypercholesterolemia: Plan: -REFRIGERATING MACHINE OPERATOR statin (7) Atrial fibrillation: Plan: -REFRIGERATING MACHINE OPERATOR metoprolol, diltiazem, and Digoxin -Hold REFRIGERATING MACHINE OPERATOR Eliquis in preparation for ortho procedure (8) DM II (diabetes mellitus, type II), controlled: Plan: -Will start with correction factor of 20 and carb coverage of 8 (9) Macrocytic anemia: Plan: -MCV has been elevated recently, currently at 105.6 today -Per his med rec, he has been on B12 -Will obtain B12 and folate levels today (10) Hyponatremia: Plan: -Sodium at 133, looks to be chronic -Likely from chronic health issues and diuretic use -Continue to monitor for now (11) Total bilirubin, elevated: Plan: -Total bili at 3.3 and alk phos at 162 -No abdominal symptoms -Monitor am CMP for now Plan The patinet was discussed with Dr. 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 Per chart review, the patient was initially seen in the [facility] ED on 10/10/21 for traumatic fall where he sustained a left anterior jamison wound and hematoma. The patient was treated in the ED and discharged home with instructions to change his dressing regularly and follow up with his PCP. He was doing well until this am when he and his removed his prior dressing, pulling off a large portion of his previous scab. In the ED the patient was evaluated by orthopedics who have plans to perform a possible debridement with potential for wound Vac place ment. Because he is on Eliquis for afib he will need to be admitted and monitored off of Eliquis prior to his procedure. At the time of the exam the patient was sitting comfortably in bed in no acut e distress. He states that he was in his bathroom this am when he took his chucky bandage off to clean his left lower extremity. He states that after his initial injury on 10/10 he did not have a laceration or scar, but instead he only had the hematoma. Unfortunately he has very frail skin and a large portion of the skin came off with the bandage, causing the wound. He denies any recent fevers, chills, headaches, changes in vision, hearing, taste, and smell, chest pain, SOB, abdominal pain, nausea, vomiting, diarrhea, dysuria, hematuria, and recurrent fall since his last. Allergies Allergy/AdvReac Type Severity Reaction Status Date / Time furosemide Allergy Severe CHEST Verified 10/16/21 14:49 "FLUTTERY" NSAIDS (Non-Steroidal Allergy Unknown bleeding Verified 10/16/21 14:49 Anti-Inflamma aspirin AdvReac Unknown HX OF GI Verified 10/16/21 14:49 BLEED Home Medications Medication Instructions Recorded Confirmed Type allopurinol 300 mg tablet 300 mg PO DAILY 11/11/18 10/18/21 History atorvastatin 10 mg tablet 10 mg PO QPM 11/11/18 10/18/21 History cyanocobalamin (vitamin B-12) 100 100 mcg PO DAILY 11/11/18 10/18/21 History mcg tablet digoxin 125 mcg (0.125 mg) tablet 125 mcg PO DAILY #90 tabs 11/11/18 10/18/21 History famotidine 20 mg tablet 20 mg PO DAILY 11/11/18 10/18/21 History metformin 500 mg tablet 500 mg PO DAILY 11/11/18 10/18/21 History cholecalciferol (vitamin D3) 25 1,000 units PO DAILY 12/16/18 10/18/21 History mcg (1,000 unit) capsule diclofenac sodium 1 % topical gel 1 ea topical QID 02/01/20 10/18/21 History metoprolol succinate 100 mg 100 mg PO BID #180 tabs 04/24/20 10/18/21 History tablet,extended release 24 hr ascorbic acid (vitamin C) 500 mg 0 mg PO DAILY 08/14/20 10/18/21 History tablet (Vitamin C) apixaban 5 mg tablet 5 mg PO BID #180 tabs 04/24/21 10/18/21 Rx diltiazem HCl 240 mg 240 mg PO DAILY #90 caps 07/02/21 10/18/21 Rx capsule,extended release 24 hr spironolactone 25 mg tablet 25 mg PO DAILY 10/18/21 10/18/21 History Past Med/Surg History Medical History Acquired bilateral foot drop Afib Diverticulosis Full thickness burn of finger of right hand History of GI bleed Skin cancer Tinea pedis Surgical History S/P cholecystectomy Status post Mohs surgery Family History Other No pertinent family history Social History Smoking Status: Never smoker Hx Alcohol Use: Yes Alcohol type: hard liquor Hx Substance Use: No Preferred Language: Sammarinese Communication Ability: Effective Visual Impairment: Diminished Hearing Ability: Normal Beliefs That Will Affect Care: None marital status: Current Living Situation: Family current occupational status: retired Feels Safe at Home: Yes during the past year weight has: remained stable Review of Systems Review of Systems: Denies current fever, chills, headache, changes in vision, hearing, taste, and smell, chest pain, SOB, cough, abdominal pain, nausea, vomiting, diarrhea, hematemesis, melena, dysuria, hematuria, and recent falls. All systems have been reviewed and are otherwise negative. Physical Exam Physical Exam: Physical Exam: General: In no acute distress, stated age, chronically ill-appearing HEENT: Normocephalic, atraumatic, no scleral icterus, pupils around round, symmetrical, and reactive to light, moist mucus membranes, trachea midline, no thyromegaly Chest/Pulm: No respiratory distress, symmetrical chest expansion, clear breath sounds throughout Cardiac: RRR, no murmurs noted Abdomen: Negative for ascites and bruising, normoactive bowel sounds, soft, non-tender to palpation throughout Musculoskeletal: patient with chronically flexed fingers from arthritis, RLE without sings of acute trauma, LLE wound currently wrapped and without signs of drainage (see ortho note for detailed description), venous stasis ulcer currently with large scab located just proximal to the left foot, chronic Charcot foot of the left foot Extremities: Radial, dorsalis pedis, and posterior tibial pulses are intact and symmetrical, patient with intact cap refill less than 2 seconds in the BL toes, significant pitting edema noted in the BL lower extremities Skin: Multiple bruises in different stages of healing located on the BL upper and lower extremities, old bruise from previous fall on the right neck in multiple stages of healing Neuro: Alert and oriented to person, place, month, year, and president, no focal defects, CN II-XII tested and intact, finger to nose test negative, no tremors noted Psych: No acute distress, calm and cooperative during the exam Results & Data Results & Data ([facility]) Vital Signs (Past 12 Hours) Vital Signs Temp Pulse Resp BP Pulse Ox O2 Del Method 10/18/21 11:30 67 18 94 10/18/21 11:00 75 19 152/75 H 10/18/21 10:45 75 20 10/18/21 11:47 14 Room Air 10/18/21 09:49 36.8 C 73 21 152/75 H 97 Room Air Laboratory Results Abnormal lab results 10/18/21 10/18/21 10/18/21 Range/Units 11:26 11:26 11:26 RBC 3.39 L (4.63-6.08) M/uL Hgb 12.2 L (14.0-18.0) g/dl Hct 35.8 L (40.1-51.0) % MCV 105.6 H (80.0-100.0) fL MCH 36.0 H (25.0-34.0) pg RDW Std Deviation 52.6 H (36.4-46.3) fL Lymph # (Auto) 1.00 L (1.2-3.4) K/uL [place] # (Auto) 0.92 H (0.24-0.82) K/uL ESR 53 H (0-20) mm/hr Sodium 133 L (136-145) mmol/L Chloride 94 L (98-107) mmol/L Creatinine 0.57 L (0.6-1.4) mg/dl BUN/Creatinine Ratio 26.3 H (10-20) Calcium 10.2 H (8.5-10.1) mg/dl Total Bilirubin 3.3 H (0.2-1.0) mg/dl Alkaline Phosphatase 162 H (34-104) U/L C-Reactive Protein 1.94 H (0-0.5) mg/dl ECG Additional Comments: No ECG at the time of admission, will order one now and review when available Code Status & VTE Plan Code Status Limited code; patient would only want intubation for a short period of time if needed but not chcf, does NOT want CPR or defibrillation VTE Prophylaxis Plan VTE Prophylaxis will be ordered: Yes Supervising Physician Co-Signing Physician Notes I supervised Jimbo Nassar PA-C on this admission. I interviewed and examined the patient independently of him. The plan is as written in his note except for any following changes/exceptions: None 76yo M w/ hx of afib who presents with LLE wound after hitting his leg on 10/10. At that time, he had a hematoma and was seen in the ER, but no external bleeding. Today, he pulled the bandage from around the leg and a large amount of skin came with it and started bleeding profusely. Came to the ER. Orthopedics saw the patient and plan for an I&D on Friday to allow for his Eliquis to wash out. PG Care Time/CCT Total # of Minutes Spent Total Time Spent with Patient: Total time spent is greater than 50% in coordination of care (as documented) at patient's floor/unit and/or counseling patient: [place] [address] Initial Inpt Care Lvl 3 Patient Type Established Medical Decision Making High Complexity Diagnoses Wound of left lower extremity S81.802A Venous stasis ulcer of left lower leg with edema of left lower leg I83.029; I83.892; L97.929; R60.9 PAD (peripheral artery disease) I73.9 Lower extremity edema R60.0 HTN (hypertension) I10 Hypercholesterolemia E78.00 Atrial fibrillation I48.91 DM II (diabetes mellitus, type II), controlled E11.9 Macrocytic anemia D53.9 Hyponatremia E87.1 Total bilirubin, elevated R17
[2021-10-18] MEDS ORDERED: INSULIN ASPART PER UNIT SC SCH (19:37)
[2021-10-18] MEDS ORDERED: DEXTROSE 50% 50 ML SYRINGE IV PRN (19:37)
[2021-10-18] MEDS ORDERED: GLUCOSE 40% GEL 15 GM TUBE PO PRN (19:37)
[2021-10-18] MEDS ORDERED: CARBOHYDRATES FOR HYPOGLYCEMIA PO PRN (19:37)
[2021-10-18] MEDS ORDERED: POLYETHYLENE (MIRALAX) 17 GM PACK PO PRN (19:37)
[2021-10-18] MEDS ORDERED: GLUCOSE 10 TAB/TUBE PO PRN (19:37)
[2021-10-18] MEDS ORDERED: GLUCAGON FOR INJ 1 MG VIAL SQ PRN (19:37)
[2021-10-18] MEDS: ATORVASTATIN 10 MG TAB PO SCH (20:38)
[2021-10-18] MEDS: METOPROLOL SUCC 50MG EXT REL TAB PO SCH (20:38)
[2021-10-18 20:45] LABS: Folate (Folic Acid) 7.61 ng/ml (>5.38)
[2021-10-18 20:46] LABS: Vitamin B12 > 1500 pg/ml (180-914)
[2021-10-18] MEDS: INSULIN ASPART PER UNIT SC SCH (20:59)
[2021-10-18] MEDS: ENOXAPARIN INJ 40 MG/0.4 ML SYR SQ SCH (21:00)
[2021-10-19] MEDS: INSULIN ASPART PER UNIT SC SCH ×3 (00:47→13:32)
[2021-10-19] MEDS ORDERED: Nursing to Pharmacy Communication SCH ×2 (02:45→12:30)
[2021-10-19 07:08] LABS: Hematocrit (blood only) 31.7 % (40.1-51.0); Hemoglobin 10.9 g/dl (14.0-18.0); Mean Corpuscular Hemoglobin 36.3 pg (25.0-34.0); Mean Corpuscular Hgb Conc 34.4 g/dL (32.0-36.0); Mean Corpuscular Volume 105.7 fL (80.0-100.0); Mean Platelet Volume 9.6 fL (9.4-12.4); Platelet Count 217 K/uL (130-400); RDW Coefficient of Variation 13.3 % (11.5-14.5); White Blood Count 6.86 K/ul (4.8-10.8)
[2021-10-19 07:16] LABS: INR 1.1 (0.9-1.1); Prothrombin Time 12.1 Seconds (9.0-12.0)
[2021-10-19 07:31] LABS: Albumin Globulin Ratio 1.1 (0.9-2); Albumin Level 3.4 gm/dl (3.4-5.0); BUN Creatinine Ratio 21.6 (10-20); Bilirubin,Total 2.3 mg/dl (0.2-1.0); Calcium 9.3 mg/dl (8.5-10.1); Creatinine Clr Calc Pharmacy 161.8 ml/min; Est GFR (African American) 121.9 ml/min; Est GFR (Non-African American) 105.2 ml/min; Globulin 3.1 gm/dl (2.5-4.0); Magnesium 1.3 mg/dl (1.7-2.4); Potassium 3.6 mmol/L (3.5-5.1); Total Protein 6.5 gm/dl (6.0-8.3)
[2021-10-19] MEDS: ENOXAPARIN INJ 40 MG/0.4 ML SYR SQ SCH (07:31)
[2021-10-19] MEDS: dilTIAZem HCL 240 MG CAPCR PO SCH (07:47)
[2021-10-19] MEDS: allopurinoL 300 MG TAB PO SCH (07:47)
[2021-10-19] MEDS: DIGOXIN 0.125 MG TAB PO SCH (07:47)
[2021-10-19] MEDS: FAMOTIDINE 20 MG TAB PO SCH (07:47)
[2021-10-19] MEDS: SPIRONOLACTONE 25 MG TAB PO SCH (07:47)
[2021-10-19] MEDS: METOPROLOL SUCC 50MG EXT REL TAB PO SCH ×2 (07:48→20:18)
[2021-10-19 10:30] LABS: A calco-baum cmplx NotReported Not Detected (NotDetected); Bact fragilis Not Reported Not Detected (NotDetected); C auris Not Reported Not Detected (NotDetected); Calbicans Not Reported Not Detected (NotDetected); Candida glabrata Not Reported Not Detected (NotDetected); Candida krusei Not Reported Not Detected (NotDetected); Cneoformans/gatti Not Reported Not Detected (NotDetected); Cparapsilosis Not Reported Not Detected (NotDetected); Ctropicalis Not Reported Not Detected (NotDetected); E cloacae compx Not Reported Not Detected (NotDetected); Efaecalis Not Reported Not Detected (NotDetected); Efaecium Not Reported Not Detected (NotDetected); Enterobacterales Not Reported Not Detected (NotDetected); Escherichia coli Not Reported Not Detected (NotDetected); H influenzae Not Reported Not Detected (NotDetected); K aerogenes Not Reported Not Detected (NotDetected); Koxytoca Not Reported Not Detected (NotDetected); Kpneumoniae grp Not Reported Not Detected (NotDetected); Lmonocyt Not Reported Not Detected (NotDetected); N meningitidis Not Reported Not Detected (NotDetected); P aeruginosa Not Reported Not Detected (NotDetected); Proteus spp Not Reported Not Detected (NotDetected); Salmonella spp Not Reported Not Detected (NotDetected); Smarcescens Not Reported Not Detected (NotDetected); Staph lugdunensis Not Reported Not Detected (NotDetected); Staphaureus Not Reported Not Detected (NotDetected); Staphepi Not Reported DETECTED (NotDetected); Staphylococcus epidermidis DETECTED (NotDetected); Staphylococcus spp. DETECTED (NotDetected); Stenmaltophilia Not Reported Not Detected (NotDetected); Strep agal(GrpB) Not Reported Not Detected (NotDetected); Strep pneum Not Reported Not Detected (NotDetected); Strep pyog (GrpA) Not Reported Not Detected (NotDetected); Strep spp Not Reported Not Detected (NotDetected); mecAC Resistant Gene DETECTED (NotDetected)
[2021-10-19 10:40] LABS: Staph spp. Not Reported DETECTED (NotDetected)
--- NOTE | 2021-10-19 17:37 | Hospitalist Progress Note ---
Date of Service October 19, 2021 Assessment & Plan (1) Wound of left lower extremity: Plan: -Admit to med/surge -Patient is currently afebrile, hemodynamically stable, and stable on RA -Suffered a large left lower extremity wound this AM while removing dressing, or tho evaluated, due to necrotic tissue he will need debridement and possibly wound vac -Will need to be off Eliquis for at least 48 hours prior to procedure, explained risks and benefits of holding Eliquis and patient acknowledged understanding and would like to hold the Eliquis for his upcoming procedure -Will continue with chemical DVT PPX for now -ESR and CRP are elevated but patient is afebrile, no leukocytosis, and negative procal, hold antibiotics for now -Wound nurse consult placed for now to assist with care until he has his procedure -AM CBC, CMP, PT/INR On 10/19, patient appears to be doing well. He is hungry. restarted diet. (2) Venous stasis ulcer of left lower leg with edema of left lower leg: Plan: -See LLE wound (3) PAD (peripheral artery disease): Plan: -Currently only on on Eliquis, no aspirin (4) Lower extremity edema: Plan: -Continue SITE TECHNICIAN Spironolactone (5) HTN (hypertension): Plan: -SITE TECHNICIAN metoprolol (6) Hypercholesterolemia: Plan: -SITE TECHNICIAN statin (7) Atrial fibrillation: Plan: -SITE TECHNICIAN metoprolol, diltiazem, and Digoxin -Hold SITE TECHNICIAN Eliquis in preparation for ortho procedure (8) DM II (diabetes mellitus, type II), controlled: Plan: will stop insulin given his low A1C. will only check glucose fasting. (9) Macrocytic anemia: Plan: -MCV has been elevated recently, currently at 105.6 today -Per his med rec, he has been on B12 -Will obtain B12 and folate levels today (10) Hyponatremia: Plan: -Sodium at 133, looks to be chronic -Likely from chronic health issues and diuretic use -Continue to monitor for now (11) Total bilirubin, elevated: Plan: -Total bili at 3.3 and alk phos at 162 -No abdominal symptoms -Monitor am CMP for now Plan The patinet was discussed with Dr. Angeles at the time of admission Admission and Anticipated Discharge Date Admission Date: October 18, 2021 Subjective Patient reports no new symptoms Review of Systems Review of Systems: All systems reviewed & are unremarkable except as noted in HPI & below Physical Exam Physical Exam: General:In no acute distress, stated age, chronically ill- appearing HEENT:Normocephalic, atraumatic, no scleral icterus, pupils around round, symmetrical, and reactive to light, moist mucus membranes, trachea midline, no thyromegaly Chest/Pulm:No respiratory distress, symmetrical chest expansion, clear breath sounds throughout Cardiac:RRR, no murmurs noted Abdomen:Negative for ascites and bruising, normoactive bowel sounds, soft, non-tender to palpation throughout Musculoskeletal:patient with chronically flexed fingers from arthritis, RLE without sings of acute trauma, LLE wound currently wrapped and without signs of drainage (see ortho note for detailed description), venous stasis ulcer currently with large scab located just proximal to the left foot, chronic Charcot foot of the left foot Extremities:Radial, dorsalis pedis, and posterior tibial pulses are intact and symmetrical, patient with intact cap refill less than 2 seconds in the BL toes, significant pitting edema noted in the BL lower extremities Skin:Multiple bruises in different stages of healing located on the BL upper and lower extremities, old bruise from previous fall on the right neck in multiple stages of healing Neuro:Alert and oriented to person, place, month, year, and president, no focal defects, CN II-XII tested and intact, finger to nose test negative, no tremors noted Psych:No acute distress, calm and cooperative during the exam Results & Data Results & Data ([facility]) Vital Signs (Past 12 Hours) Vital Signs Temp Pulse Pulse Resp BP Pulse Ox 10/19/21 15:25 36.6 C 71 16 126/68 96 10/19/21 08:18 36.7 C 70 16 126/74 97 10/19/21 07:47 80 PG Care Time/CCT Total # of Minutes Spent Total Time Spent with Patient: Total time spent is greater than 50% in coordination of care (as documented) at patient's floor/unit and/or counseling patient: Coding Level of Care Code 22584 Subseq Hosp Care Lvl 2 Diagnoses Wound of left lower extremity S81.802A Venous stasis ulcer of left lower leg with edema of left lower leg I83.029; I83.892; L97.929; R60.9 PAD (peripheral artery disease) I73.9 Lower extremity edema R60.0 HTN (hypertension) I10 Hypercholesterolemia E78.00 Atrial fibrillation I48.91 DM II (diabetes mellitus, type II), controlled E11.9 Macrocytic anemia D53.9 Hyponatremia E87.1 Total bilirubin, elevated R17 Time Spent (min) 25
[2021-10-19] MEDS: ATORVASTATIN 10 MG TAB PO SCH (20:18)
--- NOTE | 2021-10-19 21:18 | Electrocardiogram Report ---
Test Reason : Blood Pressure : / mmHG Vent. Rate : 072 BPM Atrial Rate : 045 BPM P-R Int : 000 ms QRS Dur : 082 ms QT Int : 380 ms P-R-T Axes : 000 022 -82 degrees QTc Int : 416 ms Poor data quality, interpretation may be adversely affected Atrial fibrillation Nonspecific T wave abnormality Abnormal ECG When compared with ECG of 10-OCT-2021 13:07, No significant change was found Confirmed by Avelino Mai ([id number]) on 10/19/2021 9:17:36 PM Referred By: REFERRED SELF Confirmed By:Avelino Mai
[2021-10-20] MEDS ORDERED: INSULIN ASPART PER UNIT SC SCH
[2021-10-20 06:50] LABS: Hematocrit (blood only) 30.9 % (40.1-51.0); Hemoglobin 10.7 g/dl (14.0-18.0); Mean Corpuscular Hemoglobin 35.7 pg (25.0-34.0); Mean Corpuscular Hgb Conc 34.6 g/dL (32.0-36.0); Mean Platelet Volume 9.6 fL (9.4-12.4); Platelet Count 228 K/uL (130-400); RDW Coefficient of Variation 13.3 % (11.5-14.5); RDW Standard Deviation 50.1 fL (36.4-46.3); White Blood Count 6.82 K/ul (4.8-10.8)
[2021-10-20 07:00] LABS: INR 1.1 (0.9-1.1); Prothrombin Time 12.1 Seconds (9.0-12.0)
[2021-10-20 07:28] LABS: Albumin Globulin Ratio 1.2 (0.9-2); Albumin Level 3.5 gm/dl (3.4-5.0); BUN Creatinine Ratio 22.6 (10-20); Bilirubin,Total 1.9 mg/dl (0.2-1.0); Calcium 9.4 mg/dl (8.5-10.1); Creatinine Clr Calc Pharmacy 133.1 ml/min; Est GFR (African American) 112.5 ml/min; Globulin 2.9 gm/dl (2.5-4.0); Magnesium 1.3 mg/dl (1.7-2.4); Total Protein 6.4 gm/dl (6.0-8.3)
[2021-10-20] MEDS: dilTIAZem HCL 240 MG CAPCR PO SCH (09:52)
[2021-10-20] MEDS: DIGOXIN 0.125 MG TAB PO SCH (09:52)
[2021-10-20] MEDS: allopurinoL 300 MG TAB PO SCH (09:52)
[2021-10-20] MEDS: SPIRONOLACTONE 25 MG TAB PO SCH (09:52)
[2021-10-20] MEDS: FAMOTIDINE 20 MG TAB PO SCH (09:52)
[2021-10-20] MEDS: METOPROLOL SUCC 50MG EXT REL TAB PO SCH ×2 (09:52→20:41)
--- NOTE | 2021-10-20 12:22 | Consultation Report ---
ORTHOPEDIC SURGERY CONSULTATION DATE OF SERVICE: 10/20/2021. HISTORY OF PRESENT ILLNESS: This is a 76-year-old gentleman who sustained a traumatic fall with subsequent hematoma due to being on Eliquis. He has a large hematoma in the left lower extremity, was admitted to the hospital for this. PAST MEDICAL HISTORY: Includes 1. Peripheral arterial disease, venous stasis ulcer, left lower leg with edema, left lower leg. 2. Hypertension. 3. Hypercholesterolemia. 4. Atrial fibrillation, on Eliquis. 5. Diabetes type 2. 6. Macrocytic anemia. 7. Hyponatremia. PHYSICAL EXAMINATION: Left lower extremity examination. The patient exhibits a 10 cm x 6 cm hematoma, which is a burst. He has clotted blood and a large open wound with complete full-thickness skin loss. I do not see evidence of exposed tendon, but he has a huge eschar over the open wound. He has a smaller wound in the size of a quarter distal to this in the distal lower leg. There is foul smell and fibrinous exudate and drainage from this. He has brawny edema in the leg, but no streaking erythema. ASSESSMENT: 1. Left leg hematoma. 2. Left leg open wound with possible coexisting infection. PLAN: I discussed findings and treatment with him. Recommendation for him is for: 1. I and D, left leg hematoma. 2. I and D, left leg open wound for infection. 3. Left leg split-thickness skin graft. Once hematoma has been unroofed, there will likely be a large open wound. I feel this would be amenable to a split-thickness skin graft. We will take this from the lateral thigh and place a VAC for 5 days. This should represent definitive treatment and he will be able to be discharged with a VAC for [address] possibly [address] a Prevena, so he does not need additional VAC equipment. I will take cultures on the second lower extremity wound. This may or may not be amenable to skin grafting depending on any infection status. Plan for surgical treatment in the morning. May eat today. He was booked for the OR and we will obtain appropriate equipment for a split-thickness skin graft. Job ID: [id number] [facility]
--- NOTE | 2021-10-20 17:39 | Hospitalist Progress Note ---
Date of Service October 20, 2021 Assessment & Plan (1) Wound of left lower extremity: Plan: -Admit to med/surge -Patient is currently afebrile, hemodynamically stable, and stable on RA -Suffered a large left lower extremity wound this AM while removing dressing, o rtho evaluated, due to necrotic tissue he will need debridement and possibly wound vac -Will need to be off Eliquis for at least 48 hours prior to procedure, explained risks and benefits of holding Eliquis and patient acknowledged understanding and would like to hold the Eliquis for his upcoming procedure -Will continue with chemical DVT PPX for now -ESR and CRP are elevated but patient is afebrile, no leukocytosis, and negative procal, hold antibiotics for now -Wound nurse consult placed for now to assist with care until he has his procedure -AM CBC, CMP, PT/INR On 10/19, patient appears to be doing well. He is hungry. restarted diet. On 10/20, patient reports no new symptoms. (2) Venous stasis ulcer of left lower leg with edema of left lower leg: Plan: -See LLE wound (3) PAD (peripheral artery disease): Plan: -Currently only on on Eliquis, no aspirin eliquis on hold for procedure. (4) Lower extremity edema: Plan: -Continue [employer] Spironolactone (5) HTN (hypertension): Plan: -[employer] metoprolol (6) Hypercholesterolemia: Plan: -[employer] statin (7) Atrial fibrillation: Plan: -[employer] metoprolol, diltiazem, and Digoxin -Hold [employer] Eliquis in preparation for ortho procedure (8) DM II (diabetes mellitus, type II), controlled: Plan: will stop insulin given his low A1C. will only check glucose fasting. (9) Macrocytic anemia: Plan: -MCV has been elevated recently, currently at 105.6 today -Per his med rec, he has been on B12 -Will obtain B12 and folate levels today (10) Hyponatremia: Plan: -Sodium at 133, looks to be chronic -Likely from chronic health issues and diuretic use -Continue to monitor for now (11) Total bilirubin, elevated: Plan: -Total bili at 3.3 and alk phos at 162 -No abdominal symptoms -Monitor am CMP for now Plan The patinet was discussed with Dr. Angeles at the time of admission Admission and Anticipated Discharge Date Admission Date: October 18, 2021 Subjective Patient denies any fever, chills, nausea, vomiting. Review of Systems Review of Systems: All systems reviewed & are unremarkable except as noted in HPI & below Physical Exam Physical Exam: General:In no acute distress, stated age, chronically ill- appearing HEENT:Normocephalic, atraumatic, no scleral icterus, pupils around round, symmetrical, and reactive to light, moist mucus membranes, trachea midline, no thyromegaly Chest/Pulm:No respiratory distress, symmetrical chest expansion, clear breath sounds throughout Cardiac:RRR, no murmurs noted Abdomen:Negative for ascites and bruising, normoactive bowel sounds, soft, non-tender to palpation throughout Musculoskeletal:patient with chronically flexed fingers from arthritis, RLE without sings of acute trauma, LLE wound currently wrapped and without signs of drainage (see ortho note for detailed description), venous stasis ulcer currently with large scab located just proximal to the left foot, chronic Charcot foot of the left foot Extremities:Radial, dorsalis pedis, and posterior tibial pulses are intact and symmetrical, patient with intact cap refill less than 2 seconds in the BL toes, significant pitting edema noted in the BL lower extremities Skin:Multiple bruises in different stages of healing located on the BL upper and lower extremities, old bruise from previous fall on the right neck in multiple stages of healing Neuro:Alert and oriented to person, place, month, year, and president, no focal defects, CN II-XII tested and intact, finger to nose test negative, no tremors noted Psych:No acute distress, calm and cooperative during the exam Results & Data Results & Data ([facility]) Vital Signs (Past 12 Hours) Vital Signs Temp Pulse Pulse Resp BP Pulse Ox O2 Del Method 10/20/21 15:27 36.7 C 64 16 115/67 99 Room Air 10/20/21 09:52 70 10/20/21 07:32 37.1 C 71 16 124/60 95 Room Air PG Care Time/CCT Total # of Minutes Spent Total Time Spent with Patient: Total time spent is greater than 50% in coordination of care (as documented) at patient's floor/unit and/or counseling patient: Coding Level of Care Code 01984 Subseq Hosp Care Lvl 2 Diagnoses Wound of left lower extremity S81.802A Venous stasis ulcer of left lower leg with edema of left lower leg I83.029; I83.892; L97.929; R60.9 PAD (peripheral artery disease) I73.9 Lower extremity edema R60.0 HTN (hypertension) I10 Hypercholesterolemia E78.00 Atrial fibrillation I48.91 DM II (diabetes mellitus, type II), controlled E11.9 Macrocytic anemia D53.9 Hyponatremia E87.1 Total bilirubin, elevated R17 Time Spent (min) 25
[2021-10-20] MEDS: ATORVASTATIN 10 MG TAB PO SCH (20:41)
[2021-10-20] MEDS: ENOXAPARIN INJ 40 MG/0.4 ML SYR SQ SCH (20:42)
[2021-10-21 07:04] LABS: Hematocrit (blood only) 33.2 % (40.1-51.0); Hemoglobin 11.4 g/dl (14.0-18.0); Mean Corpuscular Hemoglobin 35.6 pg (25.0-34.0); Mean Corpuscular Hgb Conc 34.3 g/dL (32.0-36.0); Mean Corpuscular Volume 103.8 fL (80.0-100.0); Mean Platelet Volume 9.5 fL (9.4-12.4); Platelet Count 248 K/uL (130-400); RDW Coefficient of Variation 13.2 % (11.5-14.5); RDW Standard Deviation 50.4 fL (36.4-46.3); White Blood Count 7.69 K/ul (4.8-10.8)
[2021-10-21] MEDS ORDERED: MINERAL OIL LIGHT 10 ML BTL ONE (07:05)
[2021-10-21] MEDS ORDERED: LIDOCAINE 1%/EPINEPHRINE 1:100,000 50 ML VIAL ONE (07:06)
--- NOTE | 2021-10-21 07:18 | Anesthesiology Consultation ---
Date of Service October 21, 2021 Assessment & Plan Chart Review Chart Review: Acceptable Risk for Surgery and Patient NOT seen in Pre Admission Testing Consults Requested none ASA ASA4 Proposed Anesthesia Anesthesia Type: General History Surgery Operation Date: 10/21/21 07:30 Proposed Procedures p Left leg split thickness skin graft and Irrigation and debridement open w ound(Left) - Bridger Padilla MD Height/Weight Height: 6 ft 3 in Weight: 101.8 kg Allergies Allergy/AdvReac Type Severity Reaction Status Date / Time furosemide Allergy Severe CHEST Verified 10/16/21 14:49 "FLUTTERY" NSAIDS (Non-Steroidal Allergy Unknown bleeding Verified 10/16/21 14:49 Anti-Inflamma aspirin AdvReac Unknown HX OF GI Verified 10/16/21 14:49 BLEED Medications Home Medications Medication Instructions Recorded Confirmed Last Taken allopurinol 300 mg tablet 300 mg PO DAILY 11/11/18 10/18/21 Unknown atorvastatin 10 mg tablet 10 mg PO QPM 11/11/18 10/18/21 Unknown cyanocobalamin (vitamin B-12) 100 100 mcg PO DAILY 11/11/18 10/18/21 Unknown mcg tablet digoxin 125 mcg (0.125 mg) tablet 125 mcg PO DAILY #90 tabs 11/11/18 10/18/21 Unknown famotidine 20 mg tablet 20 mg PO DAILY 11/11/18 10/18/21 Unknown metformin 500 mg tablet 500 mg PO DAILY 11/11/18 10/18/21 Unknown cholecalciferol (vitamin D3) 25 1,000 units PO DAILY 12/16/18 10/18/21 Unknown mcg (1,000 unit) capsule diclofenac sodium 1 % topical gel 1 ea topical QID 02/01/20 10/18/21 Unknown metoprolol succinate 100 mg 100 mg PO BID #180 tabs 04/24/20 10/18/21 Unknown tablet,extended release 24 hr ascorbic acid (vitamin C) 500 mg 0 mg PO DAILY 08/14/20 10/18/21 Unknown tablet (Vitamin C) apixaban 5 mg tablet 5 mg PO BID #180 tabs 04/24/21 10/18/21 Unknown diltiazem HCl 240 mg 240 mg PO DAILY #90 caps 07/02/21 10/18/21 Unknown capsule,extended release 24 hr spironolactone 25 mg tablet 25 mg PO DAILY 10/18/21 10/18/21 Unknown Active Medications Generic Name Dose Route Start Last Admin Trade Name Alexq PRN Reason Stop Dose Admin Allopurinol 300 mg 10/19/21 09:00 10/20/21 09:52 Allopurinol 300 Mg Tab PO 11/18/21 08:59 300 mg DAILY SORAIDA Administration Atorvastatin Calcium 10 mg 10/18/21 21:00 10/20/21 20:41 Atorvastatin 10 Mg Tab PO 11/17/21 20:59 10 mg QPM SORAIDA Administration Digoxin 0.125 mg 10/19/21 09:00 10/20/21 09:52 Digoxin 0.125 Mg Tab PO 11/18/21 08:59 0.125 mg DAILY SORAIDA Administration Diltiazem HCl 240 mg 10/19/21 09:00 10/20/21 09:52 Diltiazem Hcl 240 Mg Capcr PO 11/18/21 08:59 240 mg DAILY SORAIDA Administration Enoxaparin Sodium 40 mg 10/18/21 21:00 10/20/21 20:42 Enoxaparin Inj 40 Mg/0.4 Ml Syr SQ 11/17/21 20:59 40 mg Q24H SORAIDA Administration Famotidine 20 mg 10/19/21 09:00 10/20/21 09:52 Famotidine 20 Mg Tab PO 11/18/21 08:59 20 mg DAILY SORAIDA Administration Metoprolol Succinate 100 mg 10/18/21 21:00 10/20/21 20:41 Metoprolol Succ 50mg Ext Rel Tab PO 11/17/21 20:59 100 mg BID SORAIDA Administration Spironolactone 25 mg 10/19/21 09:00 10/20/21 09:52 Spironolactone 25 Mg Tab PO 11/18/21 08:59 25 mg DAILY SORAIDA Administration Past Medical History Medical History Acquired bilateral foot drop Afib Diverticulosis Full thickness burn of finger of right hand History of GI bleed Skin cancer Tinea pedis Exercise / Class Metabolic Activity III < 4 Walking/Shop/Light housework Past Family History Family History Other No pertinent family history Past Surgical History Surgical History S/P cholecystectomy Status post Mohs surgery Past Anesthesia History No Hx of Anesthesia Complications and No Family Hx of Anesthesia Complications History of PONV No Hx of PONV and No Hx of Motion Sickness Social History Smoking Status: Never smoker Hx Alcohol Use: Yes Alcohol type: hard liquor alcohol intake frequency: 0-2 drinks per day Alcohol Intake Frequency Comment: vodka Hx Substance Use: No substance use type: does not use Physical Exam Vital Signs Last Vital Signs Temp 37.5 C 10/21/21 07:04 Pulse 74 10/21/21 07:04 Resp 16 10/21/21 07:04 BP 122/71 10/21/21 07:04 Pulse Ox 98 10/21/21 07:04 O2 Del Method 10/21/21 07:04 Testing Laboratory Results 10/21/21 06:29 PT 12.1 Seconds (9.0-12.0) H 10/20/21 06:07 INR 1.1 (0.9-1.1) 10/20/21 06:07 10/19/21 11:52 Aerobic Blood Culture - Preliminary Blood No growth in Aerobic bottle after 24 hours. Anaerobic Blood Culture - Final 10/19/21 11:33 Aerobic Blood Culture - Preliminary Blood No growth in Aerobic bottle after 24 hours. Anaerobic Blood Culture - Preliminary No growth in Anaerobic bottle after 24 hours. 10/18/21 11:26 Aerobic Blood Culture - Preliminary Blood Coag neg staph not lugdunensis Corynebacterium species Anaerobic Blood Culture - Preliminary No growth in Anaerobic bottle after 48 hours. 10/18/21 11:19 Aerobic Blood Culture - Preliminary Blood No growth in Aerobic bottle after 48 hours. Anaerobic Blood Culture - Preliminary No growth in Anaerobic bottle after 48 hours. Electrocardiogram Date: 10/18/21 Findings: + NSST changes and + AFIB @ (@ 72) Chest X-Ray Date: 10/10/21 Findings: + pulmonary vascular congestion Echocardiogram Date: 07/03/20 EF: 60% LV Function: normal RWMA: + none Other Findings: + LVH (mild) and + diastolic dysfunction (Grade 1) Valvular Disease: + AI (mild) and + MR (mild) TR-mild mild Ao root and Asc. Ao dilation
[2021-10-21] MEDS ORDERED: LIDOCAINE 2% 2 ML VIAL/AMP(20MG/ML) INFIL ONE (07:24)
[2021-10-21] MEDS ORDERED: DEXAMETHASONE SOD INJ 4 MG/ML VIAL ONE (07:24)
[2021-10-21] MEDS ORDERED: PROPOFOL IV EMULSION 10 MG/ML 20 ML VIAL IV ONE (07:24)
[2021-10-21] MEDS ORDERED: ONDANSETRON INJ 2 MG/ML 2 ML VIAL ONE (07:24)
[2021-10-21] MEDS ORDERED: fentaNYL citrate 100 MCG/2 ML VIAL ONE (07:24)
[2021-10-21 07:32] LABS: Albumin Globulin Ratio 1.1 (0.9-2); Albumin Level 3.7 gm/dl (3.4-5.0); BUN Creatinine Ratio 31.1 (10-20); Bilirubin,Total 1.9 mg/dl (0.2-1.0); Calcium 9.5 mg/dl (8.5-10.1); Creatinine Clr Calc Pharmacy 135.3 ml/min; Est GFR (African American) 113.2 ml/min; Est GFR (Non-African American) 97.7 ml/min; Globulin 3.3 gm/dl (2.5-4.0); Magnesium 1.4 mg/dl (1.7-2.4)
[2021-10-21 07:34] LABS: INR 1.1 (0.9-1.1); Prothrombin Time 11.6 Seconds (9.0-12.0)
--- NOTE | 2021-10-21 07:50 | History & Physical Bridge Note ---
Date of Service October 21, 2021 History & Physical Bridge Note I have examined the patient, reviewed the History & Physical and in the interval since the performance of the History & Physical I have noted the following changes of clinical significance: no changes noted I saw Clifford in the preoperative holding area we discussed risk benefits reasonable outcomes and expectations for surgery. We will plan for: Left lower extremity irrigation debridement with split thickness skin graft
[2021-10-21] MEDS ORDERED: fentaNYL citrate 100 MCG/2 ML VIAL IV PRN (07:52)
[2021-10-21] MEDS ORDERED: HYDROmorphone INJ 1 MG/ML SYRINGE IV PRN (07:52)
[2021-10-21] MEDS ORDERED: LABETALOL HCL IV 5 MG/ML 20ML IV PRN (07:52)
[2021-10-21] MEDS ORDERED: ATROPINE SULFATE 0.1 MG/ML 10ML SYR IV PRN (07:52)
[2021-10-21] MEDS ORDERED: NALOXONE HCL 0.4 MG/1 ML VIAL/CARP IV PRN ×2 (07:52→11:05)
[2021-10-21] MEDS ORDERED: FLUMAZENIL 0.1 MG/1 ML 10 ML VIAL IV PRN (07:52)
[2021-10-21] MEDS ORDERED: ONDANSETRON INJ 2 MG/ML 2 ML VIAL IV PRN ×2 (07:52→11:05)
[2021-10-21] MEDS ORDERED: ePHEDrine sulfate 50 MG/ML AMP IV PRN (07:52)
[2021-10-21] MEDS ORDERED: PROMETHAZINE HCL 12.5 MG in SODIUM CHLORIDE 0.9% 50 ML IV PRN (07:52)
[2021-10-21] MEDS ORDERED: ceFAZolin 330 MG/ML 1 GM VIAL ONE (08:14)
[2021-10-21] MEDS ORDERED: TISSEEL FIBRIN SEALANT 4ML TOP ONE (09:27)
--- NOTE | 2021-10-21 09:46 | Post Operative Brief Note ---
Immediate Post Op Note v1 Date of Surgery October 21, 2021 Pre & Post Diagnosis Operation Date: 10/21/21 07:30 Pre-Op Diagnosis: Left leg hematoma, left leg open wound Post-Op Diagnosis: Left leg hematoma, left leg open wound I identified the patient and participated in the time-out.: Yes Procedure Operation Date: 10/21/21 07:30 Actual Procedures p Left leg Split Thickness Skin Graft and Irrigation and Debridement Open Wound(Left) - Bridger Padilla MD Surgeon Bridger Padilla MD Travel Attendants Francesco Shultz Estimated Blood Loss 5 Findings Consistent with Post-Op Diagnosis open wounds , now covered wtih skin graft
--- NOTE | 2021-10-21 10:40 | Anesthesiology Progress Note ---
Date of Service October 21, 2021 Anesthesia Post Procedure Vital Signs Vital Signs: Temp Pulse Pulse Resp BP BP Pulse Ox 10/21/21 10:30 36.1 C L 76 20 123/68 100 10/21/21 10:20 75 16 125/67 100 10/21/21 10:10 78 16 127/68 100 10/21/21 10:00 77 16 131/77 100 10/21/21 09:52 36 C L 72 17 120/68 100 10/21/21 07:04 37.5 C 74 16 122/71 98 10/20/21 23:08 36.9 C 84 16 115/60 93 10/20/21 15:27 36.7 C 64 16 115/67 99 O2 Del Method O2 Flow Rate 10/21/21 10:30 Oxymask 2 10/21/21 10:20 Oxymask 2 10/21/21 10:10 Oxymask 4 10/21/21 10:00 Oxymask 6 10/21/21 09:52 Oxymask 6 10/21/21 07:04 Room Air 10/20/21 23:08 Room Air 10/20/21 15:27 Room Air Transfer of Care Handoff Completed per policy Notes Mental Status: alert / awake / arousable Patient Amnestic to Procedure: Yes Nausea / Vomiting: adequately controlled Pain: adequately controlled Airway Patency, RR, SpO2: stable & adequate BP & HR: stable & adequate Hydration State: stable & adequate Anesthetic Complications: no major complications apparent
--- NOTE | 2021-10-21 10:52 | Operative Report (OR) ---
DATE OF PROCEDURE: 10/21/2021 PREOPERATIVE DIAGNOSES: 1. Left leg open wound, 10 x 5 cm. 2. Left lower leg open wound, 3 x 2 cm. 3. Left leg infection. POSTOPERATIVE DIAGNOSES: 1. Left leg open wound, 10 x 5 cm. 2. Left lower leg open wound, 3 x 2 cm. 3. Left leg infection. PROCEDURE: 1. Left leg split-thickness skin graft 10 x 5 cm. 2. Left lower leg split-thickness skin graft 3 x 2 cm. 3. Left leg I and D skin and subcutaneous tissue. FINDINGS: A foul smell emanating from wounds. Distal wound had a fibrinous exudate, proximal wound had a huge eschar consistent with a dried up hematoma. Cultures taken from both wounds. INDICATIONS: This gentleman is status post very large hematoma. He presents with open wound. He pr esents for I and D with coverage. The risks and benefits have been discussed including, but not limited to, risk of infection, nerve in jury, stiffness, loss of motion, failure to improve, etc. Reasonable outcomes and options of treatmen t were discussed. An explanation of appropriate alternatives to the procedure that may be advantageou s were discussed and their risks and benefits, as well as the risks and benefits of not proceeding wi th treatment. I offered to answer any additional inquiries concerning the treatment involved. All the patients questions were answered. The patient is agreeable, understanding of the treatment plan and alternatives, and wishes to proceed with the treatment plan. DESCRIPTION OF PROCEDURE: The patient's proximal wound was inspected and with the very large hematom a I performed debridement of skin and subcutaneous tissue. Wound looked fairly clean without gross p urulence. I took cultures from the wound. I irrigated copiously 1 liter of normal saline. Debridem ent of the 10 x 8 cm wound was performed with a scalpel, scissors and curettes. The wound looked osman rly clean. I placed Tisseel in the wound in anticipation for skin grafting. I measured the appropri ate size skin graft with a dermatome. I harvested a skin graft from the upper thigh. I meshed this 1 .5. I then sutured this in place with frederic and 4-0 Vicryl Rapide. This resulted in complete cove rage of the wound. I placed an Adaptic over this and I placed a Prevena VAC over top. Attention was focused on the lower leg wound. I likewise I irrigated this 1 liter normal saline. De bridement was performed of skin and subcutaneous tissues. Wound was cultured. Once debridement was completed, I placed some Tisseel in the area to aid in hemostasis. I then harvested a skin graft, sp lit thickness. The width of both skin grafts were 13. I meshed the skin graft at 1.5 and this was s tapled in place. This resulted in complete coverage of the wound. I placed an Adaptic and a Prevena VAC over top. Both VACs were functioning well. The patient was placed in soft dressings, sent to [facility] in stable condition. POSTOPERATIVE PLAN: We will be to monitor cultures. We will remove the Prevena wound VAC at postop day 5. He will follow up with Dr. Padilla on postop day 5-7. We will remove VAC in office. Job ID: [id number]
[2021-10-21] MEDS ORDERED: MAGNESIUM HYDROXIDE SUSP 30 ML UDC PO PRN (11:05)
[2021-10-21] MEDS ORDERED: oxyCODONE HCL IR 5 MG TAB (IMMEDIATE RELEASE) PO PRN (11:05)
[2021-10-21] MEDS ORDERED: HYDROmorphone INJ 0.5 MG/0.5 ML SYR IV PRN (11:05)
[2021-10-21] MEDS ORDERED: bisacodyL 10 MG SUPP PR PRN (11:05)
[2021-10-21] MEDS: allopurinoL 300 MG TAB PO SCH (11:21)
[2021-10-21] MEDS: SPIRONOLACTONE 25 MG TAB PO SCH (11:21)
[2021-10-21] MEDS: dilTIAZem HCL 240 MG CAPCR PO SCH (11:21)
[2021-10-21] MEDS: METOPROLOL SUCC 50MG EXT REL TAB PO SCH ×2 (11:22→20:55)
[2021-10-21] MEDS: FAMOTIDINE 20 MG TAB PO SCH (11:22)
[2021-10-21] MEDS: DIGOXIN 0.125 MG TAB PO SCH (11:22)
[2021-10-21] MEDS: SODIUM CHLORIDE 0.9% 1000ML 1,000 ML IV SCH (11:22)
--- NOTE | 2021-10-21 15:56 | XRay Report ---
XR elbow LT min 3V routine HISTORY: 76 years-old Male elbow swelling acute left elbow pain without reported trauma COMPARISON: None TECHNIQUE: 3 views of the left elbow FINDINGS: IV catheter is in place. Marginal spurring of the elbow. Moderate dorsal soft tissue swelling. Modera te size joint effusion containing calcific debris. No acute fracture, dislocation or definite osseous erosion identified. IMPRESSION: 1. Soft tissue swelling without acute fracture or dislocation. 2. 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 This i s favored to be on a degenerative basis. ACT 112: Negative or not required by law. The above report was generated using voice recognition software. It may contain grammatical, syntax o r spelling errors. Electronically signed by: Rasta Luevano M.D. 10/21/2021 3:55 PM
[2021-10-21] MEDS: ACETAMINOPHEN 325 MG TAB PO PRN (17:23)
[2021-10-21] MEDS ORDERED: CLARITHROMYCIN 500 MG TAB PO ONE (18:23)
[2021-10-21] MEDS: SENNA 8.6 MG TAB PO SCH (20:54)
[2021-10-21] MEDS: ATORVASTATIN 10 MG TAB PO SCH (20:54)
--- NOTE | 2021-10-21 22:22 | Hospitalist Progress Note ---
Date of Service October 21, 2021 Assessment & Plan (1) Wound of left lower extremity: Plan: -Admit to med/surge -Patient is currently afebrile, hemodynamically stable, and stable on RA -Suffered a large left lower extremity wound this AM while removing dressing, o rtho evaluated, due to necrotic tissue he will need debridement and possibly wound vac -Will need to be off Eliquis for at least 48 hours prior to procedure, explained risks and benefits of holding Eliquis and patient acknowledged understanding and would like to hold the Eliquis for his upcoming procedure -Will continue with chemical DVT PPX for now -ESR and CRP are elevated but patient is afebrile, no leukocytosis, and negative procal, hold antibiotics for now -Wound nurse consult placed for now to assist with care until he has his procedure -AM CBC, CMP, PT/INR On 10/19, patient appears to be doing well. He is hungry. restarted diet. On 10/20, patient reports no new symptoms. On 10/21 Patient will have procedure down today. will obtain wound cultures. once cultures are finalized. x-ray completed of left elbow no fracture, severe OA. ERYTHRASMA Right groin. Ordered 1 dose of 1 gram of clarithromycin. (2) Venous stasis ulcer of left lower leg with edema of left lower leg: Plan: -See LLE wound (3) PAD (peripheral artery disease): Plan: -Currently only on on Eliquis, no aspirin eliquis on hold for procedure. (4) Lower extremity edema: Plan: -Continue PRIMARY CARE NURSE PRACTITIONER Spironolactone (5) HTN (hypertension): Plan: -PRIMARY CARE NURSE PRACTITIONER metoprolol (6) Hypercholesterolemia: Plan: -PRIMARY CARE NURSE PRACTITIONER statin (7) Atrial fibrillation: Plan: -PRIMARY CARE NURSE PRACTITIONER metoprolol, diltiazem, and Digoxin -Hold PRIMARY CARE NURSE PRACTITIONER Eliquis in preparation for ortho procedure (8) DM II (diabetes mellitus, type II), controlled: Plan: will stop insulin given his low A1C. will only check glucose fasting. (9) Macrocytic anemia: Plan: -MCV has been elevated recently, currently at 105.6 today -Per his med rec, he has been on B12 -Will obtain B12 and folate levels today (10) Hyponatremia: Plan: -Sodium at 133, looks to be chronic -Likely from chronic health issues and diuretic use -Continue to monitor for now (11) Total bilirubin, elevated: Plan: -Total bili at 3.3 and alk phos at 162 -No abdominal symptoms -Monitor am CMP for now Plan The patinet was discussed with Dr. Angeles at the time of admission Admission and Anticipated Discharge Date Admission Date: October 18, 2021 Subjective 76 yo male reports no new symptoms. EXCEPT FOR PAIN IN HIS LEFT ELBOW. Review of Systems Review of Systems: All systems reviewed & are unremarkable except as noted in HPI & below Physical Exam Physical Exam: General:In no acute distress, stated age, chronically ill- appearing HEENT:Normocephalic, atraumatic, no scleral icterus, pupils around round, symmetrical, and reactive to light, moist mucus membranes, trachea midline, no thyromegaly Chest/Pulm:No respiratory distress, symmetrical chest expansion, clear breath sounds throughout Cardiac:RRR, no murmurs noted Abdomen:Negative for ascites and bruising, normoactive bowel sounds, soft, non-tender to palpation throughout Musculoskeletal:patient with chronically flexed fingers from arthritis, RLE without sings of acute trauma, LLE wound currently wrapped and without signs of drainage (see ortho note for detailed description), venous stasis ulcer currently with large scab located just proximal to the left foot, chronic Charcot foot of the left foot Extremities:Radial, dorsalis pedis, and posterior tibial pulses are intact and symmetrical, patient with intact cap refill less than 2 seconds in the BL toes, significant pitting edema noted in the BL lower extremities Skin:Multiple bruises in different stages of healing located on the BL upper and lower extremities, old bruise from previous fall on the right neck in multiple stages of healing Neuro:Alert and oriented to person, place, month, year, and president, no focal defects, CN II-XII tested and intact, finger to nose test negative, no tremors noted Psych:No acute distress, calm and cooperative during the exam Results & Data Results & Data ([facility]) Vital Signs (Past 12 Hours) Vital Signs Temp Pulse Pulse Pulse Resp BP BP 10/21/21 20:51 37.1 C 79 18 126/68 10/21/21 19:26 36.8 C 81 20 127/69 10/21/21 18:40 36.9 C 81 18 121/68 10/21/21 14:32 37.1 C 77 18 127/70 10/21/21 13:09 36.6 C 80 18 132/83 10/21/21 12:02 36.8 C 79 16 115/64 10/21/21 11:26 37.0 C 94 H 18 127/71 10/21/21 11:22 85 10/21/21 10:50 90 18 122/70 10/21/21 10:40 82 19 125/61 10/21/21 10:30 36.1 C L 76 20 123/68 Pulse Ox O2 Del Method 10/21/21 20:51 97 Room Air 10/21/21 19:26 94 Room Air 10/21/21 18:40 92 Room Air 10/21/21 14:32 95 Room Air 10/21/21 13:09 98 Room Air 10/21/21 12:02 94 Room Air 10/21/21 11:26 98 Room Air 10/21/21 11:22 10/21/21 10:50 97 Room Air 10/21/21 10:40 97 Room Air 10/21/21 10:30 100 Room Air PG Care Time/CCT Total # of Minutes Spent Total Time Spent with Patient: Total time spent is greater than 50% in coordination of care (as documented) at patient's floor/unit and/or counseling patient: Coding Level of Care Code 82270 Subseq Hosp Care Lvl 2 Diagnoses Wound of left lower extremity S81.802A Venous stasis ulcer of left lower leg with edema of left lower leg I83.029; I83.892; L97.929; R60.9 PAD (peripheral artery disease) I73.9 Lower extremity edema R60.0 HTN (hypertension) I10 Hypercholesterolemia E78.00 Atrial fibrillation I48.91 DM II (diabetes mellitus, type II), controlled E11.9 Macrocytic anemia D53.9 Hyponatremia E87.1 Total bilirubin, elevated R17 Time Spent (min) 25
[2021-10-22] MEDS: SODIUM CHLORIDE 0.9% 1000ML 1,000 ML IV SCH (00:20)
[2021-10-22] MEDS: allopurinoL 300 MG TAB PO SCH (09:10)
[2021-10-22] MEDS: DIGOXIN 0.125 MG TAB PO SCH (09:11)
[2021-10-22] MEDS: dilTIAZem HCL 240 MG CAPCR PO SCH (09:11)
[2021-10-22] MEDS: METOPROLOL SUCC 50MG EXT REL TAB PO SCH ×2 (09:11→21:06)
[2021-10-22] MEDS: FAMOTIDINE 20 MG TAB PO SCH (09:14)
[2021-10-22] MEDS: SPIRONOLACTONE 25 MG TAB PO SCH (09:14)
[2021-10-22] MEDS ORDERED: PIPERACILLIN/TAZOBACTAM 3.375 GM in DEXTROSE 5% 100 ML IV ONE (12:15)
--- NOTE | 2021-10-22 16:38 | Orthopedic Progress Note ---
Date of Service October 22, 2021 Assessment & Plan (1) Hematoma of left lower extremity: Plan: POD 1 s/p 1. Left leg split-thickness skin graft 10 x 5 cm. 2. Left lower leg split-thickness skin graft 3 x 2 cm. 3. Left leg I and D skin and subcutaneous tissue. WBAT Wound vac's to be on for 5-7 days. Plan for dressing change of skin graft site tomorrow. Ok to restart Eliquis tomorrow AM. Admission and Anticipated Discharge Date Admission Date: October 18, 2021 Subjective POD 1 Resting comfortably in bed. No complaints. Pain controlled. Physical Exam Physical Exam: Dressings C/D/I. Prevena wound vac's functioning. Results & Data ([facility]) Vital Signs (Past 12 Hours) Vital Signs Temp Pulse Pulse Resp BP BP Pulse Ox 10/22/21 15:29 36.6 C 76 16 139/69 98 10/22/21 09:11 88 10/22/21 07:47 36.8 C 88 16 128/65 97 O2 Del Method 10/22/21 15:29 Room Air 10/22/21 09:11 10/22/21 07:47 Room Air (1) Hematoma of left lower extremity Encounter type: initial encounter Qualified Code(s): S80.12XA - Contusion of left lower leg, initial encounter
[2021-10-22] MEDS: PIPERACILLIN/TAZOBACTAM 3.375 GM in DEXTROSE 5% 100 ML IV SCH (18:00)
[2021-10-22] MEDS: SENNA 8.6 MG TAB PO SCH (21:06)
[2021-10-22] MEDS: ATORVASTATIN 10 MG TAB PO SCH (21:06)
--- NOTE | 2021-10-22 22:11 | Hospitalist Progress Note ---
Date of Service October 22, 2021 Assessment & Plan (1) Wound of left lower extremity: Plan: -Admit to med/surge -Patient is currently afebrile, hemodynamically stable, and stable on RA -Suffered a large left lower extremity wound this AM while removing dressing, o rtho evaluated, due to necrotic tissue he will need debridement and possibly wound vac -Will need to be off Eliquis for at least 48 hours prior to procedure, explained risks and benefits of holding Eliquis and patient acknowledged understanding and would like to hold the Eliquis for his upcoming procedure -Will continue with chemical DVT PPX for now -ESR and CRP are elevated but patient is afebrile, no leukocytosis, and negative procal, hold antibiotics for now -Wound nurse consult placed for now to assist with care until he has his procedure -AM CBC, CMP, PT/INR On 10/19, patient appears to be doing well. He is hungry. restarted diet. On 10/20, patient reports no new symptoms. On 10/21 Patient will have procedure down today. will obtain wound cultures. once cultures are finalized. 10/[address] started antibiotics x-ray completed of left elbow no fracture, severe OA. ERYTHRASMA Right groin. Ordered 1 dose of 1 gram of clarithromycin. (2) Venous stasis ulcer of left lower leg with edema of left lower leg: Plan: -See LLE wound (3) PAD (peripheral artery disease): Plan: -Currently only on on Eliquis, no aspirin eliquis on hold for procedure. (4) Lower extremity edema: Plan: -Continue DIRECTOR RADIO Spironolactone (5) HTN (hypertension): Plan: -DIRECTOR RADIO metoprolol (6) Hypercholesterolemia: Plan: -DIRECTOR RADIO statin (7) Atrial fibrillation: Plan: -DIRECTOR RADIO metoprolol, diltiazem, and Digoxin -Hold DIRECTOR RADIO Eliquis in preparation for ortho procedure (8) DM II (diabetes mellitus, type II), controlled: Plan: will stop insulin given his low A1C. will only check glucose fasting. (9) Macrocytic anemia: Plan: -MCV has been elevated recently, currently at 105.6 today -Per his med rec, he has been on B12 -Will obtain B12 and folate levels today (10) Hyponatremia: Plan: -Sodium at 133, looks to be chronic -Likely from chronic health issues and diuretic use -Continue to monitor for now (11) Total bilirubin, elevated: Plan: -Total bili at 3.3 and alk phos at 162 -No abdominal symptoms -Monitor am CMP for now Admission and Anticipated Discharge Date Admission Date: October 18, 2021 Subjective Patient reports no new symptoms. Review of Systems Review of Systems: All systems reviewed & are unremarkable except as noted in HPI & below Physical Exam Physical Exam: General:In no acute distress, stated age, chronically ill- appearing HEENT:Normocephalic, atraumatic, no scleral icterus, pupils around round, symmetrical, and reactive to light, moist mucus membranes, trachea midline, no thyromegaly Chest/Pulm:No respiratory distress, symmetrical chest expansion, clear breath sounds throughout Cardiac:RRR, no murmurs noted Abdomen:Negative for ascites and bruising, normoactive bowel sounds, soft, non-tender to palpation throughout Musculoskeletal:patient with chronically flexed fingers from arthritis, RLE without sings of acute trauma, LLE with wound vac Extremities:Radial, dorsalis pedis, and posterior tibial pulses are intact and symmetrical, patient with intact cap refill less than 2 seconds in the BL toes, significant pitting edema noted in the BL lower extremities Neuro:Alert and oriented to person, place, month, year, and president, no focal defects, CN II-XII tested and intact, finger to nose test negative, no tremors noted Psych:No acute distress, calm and cooperative during the exam Results & Data Results & Data ([facility]) Vital Signs (Past 12 Hours) Vital Signs Temp Pulse Resp BP BP Pulse Ox O2 Del Method 10/22/21 21:04 36.9 C 89 16 114/54 L 93 Room Air 10/22/21 15:29 36.6 C 76 16 139/69 98 Room Air PG Care Time/CCT Total # of Minutes Spent Total Time Spent with Patient: Total time spent is greater than 50% in coordination of care (as documented) at patient's floor/unit and/or counseling patient: Coding Level of Care Code 16619 Subseq Hosp Care Lvl 2 Diagnoses Wound of left lower extremity S81.802A Venous stasis ulcer of left lower leg with edema of left lower leg I83.029; I83.892; L97.929; R60.9 PAD (peripheral artery disease) I73.9 Lower extremity edema R60.0 HTN (hypertension) I10 Hypercholesterolemia E78.00 Atrial fibrillation I48.91 DM II (diabetes mellitus, type II), controlled E11.9 Macrocytic anemia D53.9 Hyponatremia E87.1 Total bilirubin, elevated R17 Time Spent (min) 25
[2021-10-23] MEDS: PIPERACILLIN/TAZOBACTAM 3.375 GM in DEXTROSE 5% 100 ML IV SCH ×3 (02:29→17:10)
[2021-10-23 08:00] LABS: Hemoglobin 9.9 g/dl (14.0-18.0); Mean Corpuscular Hemoglobin 36.3 pg (25.0-34.0); Mean Corpuscular Hgb Conc 34.1 g/dL (32.0-36.0); Mean Corpuscular Volume 106.2 fL (80.0-100.0); Platelet Count 216 K/uL (130-400); RDW Standard Deviation 50.4 fL (36.4-46.3); Red Blood Count 2.73 M/uL (4.63-6.08); White Blood Count 8.58 K/ul (4.8-10.8)
[2021-10-23 08:24] LABS: Albumin Globulin Ratio 1.1 (0.9-2); Albumin Level 3.3 gm/dl (3.4-5.0); BUN Creatinine Ratio 27.9 (10-20); Bilirubin,Total 2.6 mg/dl (0.2-1.0); Calcium 8.9 mg/dl (8.5-10.1); Creatinine Clr Calc Pharmacy 135.3 ml/min; Est GFR (African American) 113.2 ml/min; Est GFR (Non-African American) 97.7 ml/min; Potassium 3.7 mmol/L (3.5-5.1); Total Protein 6.3 gm/dl (6.0-8.3)
[2021-10-23] MEDS: DIGOXIN 0.125 MG TAB PO SCH (08:52)
[2021-10-23] MEDS: FAMOTIDINE 20 MG TAB PO SCH (08:52)
[2021-10-23] MEDS: METOPROLOL SUCC 50MG EXT REL TAB PO SCH ×2 (08:53→21:03)
[2021-10-23] MEDS: allopurinoL 300 MG TAB PO SCH (08:53)
[2021-10-23] MEDS: SPIRONOLACTONE 25 MG TAB PO SCH (08:53)
[2021-10-23] MEDS: dilTIAZem HCL 240 MG CAPCR PO SCH (08:53)
--- NOTE | 2021-10-23 10:20 | Orthopedic Progress Note ---
Date of Service October 23, 2021 Assessment & Plan (1) Hematoma of left lower extremity: Plan: POD 2 s/p 1. Left leg split-thickness skin graft 10 x 5 cm. 2. Left lower leg split-thickness skin graft 3 x 2 cm. 3. Left leg I and D skin and subcutaneous tissue. WBAT Wound vac's to be on for 5-7 days. Daily dressing change to proximal wound. Leave xeroform in place. Ok to restart Eliquis. Admission and Anticipated Discharge Date Admission Date: October 18, 2021 Subjective POD 2 No complaints. Comfortable. Pain controlled. Physical Exam Physical Exam: Proximal dressing removed from thigh. Xeroform intact. Minimal bleeding. Redressed with ABD and Rosalio wrap. Lower dressing intact. Prevena dressings functioning. Results & Data ([facility]) Vital Signs (Past 12 Hours) Vital Signs Temp Pulse Pulse Resp BP Pulse Ox O2 Del Method 10/23/21 08:52 84 10/23/21 07:01 36.5 C 86 18 116/68 98 Room Air (1) Hematoma of left lower extremity Encounter type: initial encounter Qualified Code(s): S80.12XA - Contusion of left lower leg, initial encounter
[2021-10-23] MEDS: ATORVASTATIN 10 MG TAB PO SCH (21:03)
[2021-10-23] MEDS: APIXABAN 5 MG TABLET PO SCH (21:03)
[2021-10-23] MEDS: SENNA 8.6 MG TAB PO SCH (21:03)
[2021-10-23] MEDS: ACETAMINOPHEN 325 MG TAB PO PRN (21:05)
--- NOTE | 2021-10-23 23:06 | Hospitalist Progress Note ---
Date of Service October 23, 2021 Assessment & Plan (1) Wound of left lower extremity: Plan: -Admit to med/surge -Patient is currently afebrile, hemodynamically stable, and stable on RA -Suffered a large left lower extremity wound this AM while removing dressing, o rtho evaluated, due to necrotic tissue he will need debridement and possibly wound vac -Will need to be off Eliquis for at least 48 hours prior to procedure, explained risks and benefits of holding Eliquis and patient acknowledged understanding and would like to hold the Eliquis for his upcoming procedure -Will continue with chemical DVT PPX for now -ESR and CRP are elevated but patient is afebrile, no leukocytosis, and negative procal, hold antibiotics for now -Wound nurse consult placed for now to assist with care until he has his procedure -AM CBC, CMP, PT/INR On 10/19, patient appears to be doing well. He is hungry. restarted diet. On 10/20, patient reports no new symptoms. On 10/21 Patient will have procedure down today. will obtain wound cultures. once cultures are finalized. 10/[address] started antibiotics 10/23 due to lack of insurance, plan will be for patient to obtain antibiotics at [facility] however, patient refusing as he wants to return to [place], this will be a sub-optimal plan. x-ray completed of left elbow no fracture, severe OA. ERYTHRASMA Right groin. Ordered 1 dose of 1 gram of clarithromycin. (2) Venous stasis ulcer of left lower leg with edema of left lower leg: Plan: -See LLE wound (3) PAD (peripheral artery disease): Plan: -Currently only on on Eliquis, no aspirin eliquis on hold for procedure. (4) Lower extremity edema: Plan: -Continue EXTRUSION PRESS ADJUSTER Spironolactone (5) HTN (hypertension): Plan: -EXTRUSION PRESS ADJUSTER metoprolol (6) Hypercholesterolemia: Plan: -EXTRUSION PRESS ADJUSTER statin (7) Atrial fibrillation: Plan: -EXTRUSION PRESS ADJUSTER metoprolol, diltiazem, and Digoxin -Hold EXTRUSION PRESS ADJUSTER Eliquis in preparation for ortho procedure (8) DM II (diabetes mellitus, type II), controlled: Plan: will stop insulin given his low A1C. will only check glucose fasting. (9) Macrocytic anemia: Plan: -MCV has been elevated recently, currently at 105.6 today -Per his med rec, he has been on B12 -Will obtain B12 and folate levels today (10) Hyponatremia: Plan: -Sodium at 133, looks to be chronic -Likely from chronic health issues and diuretic use -Continue to monitor for now (11) Total bilirubin, elevated: Plan: -Total bili at 3.3 and alk phos at 162 -No abdominal symptoms -Monitor am CMP for now Admission and Anticipated Discharge Date Admission Date: October 18, 2021 Subjective 76 yo male reports feeling well. Review of Systems Review of Systems: All systems reviewed & are unremarkable except as noted in HPI & below Physical Exam Physical Exam: General:In no acute distress, stated age, chronically ill-appearing HEENT:Normocephalic, atraumatic, no scleral icterus, pupils around round, symmetrical, and reactive to light, moist mucus membranes, trachea midline, no thyromegaly Chest/Pulm:No respiratory distress, symmetrical chest expansion, clear breath sounds throughout Cardiac:RRR, no murmurs noted Abdomen:Negative for ascites and bruising, normoactive bowel sounds, soft, non-tender to palpation throughout Musculoskeletal:patient with chronically flexed fingers from arthritis, RLE without sings of acute trauma, LLE with wound vac Extremities:Radial, dorsalis pedis, and posterior tibial pulses are intact and symmetrical, patient with intact cap refill less than 2 seconds in the BL toes, significant pitting edema noted in the BL lower extremities Neuro:Alert and oriented to person, place, month, year, and president, no focal defects, CN II-XII tested and intact, finger to nose test negative, no tremors noted Psych:No acute distress, calm and cooperative during the exam Results & Data Results & Data ([facility]) Vital Signs (Past 12 Hours) Vital Signs Temp Pulse Resp BP Pulse Ox O2 Del Method 10/23/21 20:56 37.4 C 81 18 135/65 98 Room Air 10/23/21 15:56 36.9 C 88 16 141/66 H 98 Room Air PG Care Time/CCT Total # of Minutes Spent Total Time Spent with Patient: Total time spent is greater than 50% in coordination of care (as documented) at patient's floor/unit and/or counseling patient: Coding Level of Care Code 66975 Subseq Hosp Care Lvl 2 Diagnoses Wound of left lower extremity S81.802A Venous stasis ulcer of left lower leg with edema of left lower leg I83.029; I8 3.892; L97.929; R60.9 PAD (peripheral artery disease) I73.9 Lower extremity edema R60.0 HTN (hypertension) I10 Hypercholesterolemia E78.00 Atrial fibrillation I48.91 DM II (diabetes mellitus, type II), controlled E11.9 Macrocytic anemia D53.9 Hyponatremia E87.1 Total bilirubin, elevated R17 Time Spent (min) 25
[2021-10-24] MEDS: PIPERACILLIN/TAZOBACTAM 3.375 GM in DEXTROSE 5% 100 ML IV SCH ×2 (03:15→09:46)
[2021-10-24 08:42] LABS: Creatinine Clr Calc Pharmacy 147.4 ml/min; Est GFR (African American) 117.3 ml/min; Est GFR (Non-African American) 101.2 ml/min
[2021-10-24] MEDS: APIXABAN 5 MG TABLET PO SCH (08:55)
[2021-10-24] MEDS: FAMOTIDINE 20 MG TAB PO SCH (08:56)
[2021-10-24] MEDS: SPIRONOLACTONE 25 MG TAB PO SCH (08:56)
[2021-10-24] MEDS: METOPROLOL SUCC 50MG EXT REL TAB PO SCH (08:56)
[2021-10-24] MEDS: DIGOXIN 0.125 MG TAB PO SCH (08:56)
[2021-10-24] MEDS: allopurinoL 300 MG TAB PO SCH (08:57)
[2021-10-24] MEDS: dilTIAZem HCL 240 MG CAPCR PO SCH (08:57)
--- NOTE | 2021-10-30 23:07 | Discharge Summary ---
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 Per chart review, the patient was initially seen in the [facility] ED on 10/10/21 for traumatic fall where he sustained a left anterior jamison wound and hematoma. The patient was treated in the ED and discharged home with instructions to change his dressing regularly and follow up with his PCP. He was doing well until this am when he and his removed his prior dressing, pulling off a large portion of his previous scab. In the ED the patient was evaluated by orthopedics who have plans to perform a possible debridement with potential for wound Vac placement. Because he is on Eliquis for afib he will need to be admitted and monitored off of Eliquis prior to his procedure. At the time of the exam the patient was sitting comfortably in bed in no acute distress. He states that he was in his bathroom this am when he took his chucky bandage off to clean his left lower extremity. He states that after his initial injury on 10/10 he did not have a laceration or scar, but instead he only had the hematoma. Unfortunately he has very frail skin and a large portion of the skin came off with the bandage, causing the wound. He denies any recent fevers, chills, headaches, changes in vision, hearing, taste, and smell, chest pain, SOB, abdominal pain, nausea, vomiting, diarrhea, dysuria, hematuria, and recurrent fall since his last. Principal Diagnosis wound of left lower extremity Discharge Exam General:In no acute distress, stated age, chronically ill-appearing HEENT:Normocephalic, atraumatic, no scleral icterus, pupils around round, symmetrical, and reactive to light, moist mucus membranes, trachea midline, no thyromegaly Chest/Pulm:No respiratory distress, symmetrical chest expansion, clear breath sounds throughout Cardiac:RRR, no murmurs noted Abdomen:Negative for ascites and bruising, normoactive bowel sounds, soft, non-tender to palpation throughout Musculoskeletal:patient with chronically flexed fingers from arthritis, RLE without sings of acute trauma, LLE with wound vac Extremities:wound care placed Neuro:Alert and oriented to person, place, month, year, and president, no focal defects, CN II-XII tested and intact, finger to nose test negative, no tremors noted Psych:No acute distress, calm and cooperative during the exam Discharge Data Allergies Allergy/AdvReac Type Severity Reaction Status Date / Time furosemide Allergy Severe CHEST Verified 10/16/21 14:49 "FLUTTERY" NSAIDS (Non-Steroidal Allergy Unknown bleeding Verified 10/16/21 14:49 Anti-Inflamma aspirin AdvReac Unknown HX OF GI Verified 10/16/21 14:49 BLEED Consultations 10/18/21 15:24 ED Decision to Admit Stat 10/20/21 10:54 Consult Orthopedic Surgery Routine Procedures Performed Operation Date: 10/21/21 07:30 Actual Procedures p Left leg Split Thickness Skin Graft and Irrigation and Debridement Open Wound(Left) - Bridger Padilla MD Hospital Course (1) Wound of left lower extremity: -Admit to med/surge -Patient is currently afebrile, hemodynamically stable, and stable on RA -Suffered a large left lower extremity wound this AM while removing dressing, ortho evaluated, due to necrotic tissue he will need debridement and possibly wound vac -Will need to be off Eliquis for at least 48 hours prior to procedure, explained risks and benefits of holding Eliquis and patient acknowledged understanding and would like to hold the Eliquis for his upcoming procedure -Will continue with chemical DVT PPX for now -ESR and CRP are elevated but patient is afebrile, no leukocytosis, and negative procal, hold antibiotics for now -Wound nurse consult placed for now to assist with care until he has his procedure -AM CBC, CMP, PT/INR On 10/19, patient appears to be doing well. He is hungry. restarted diet. On 10/20, patient reports no new symptoms. On 10/21 Patient will have procedure down today. will obtain wound cultures. once cultures are finalized. 10/[address] started antibiotics 10/23 Continue antibiotics. awaiting culture. Patient will be going to SNF tomorrow. Patient will be discharged with wound vac. folllowup with ortho as an outpatient. x-ray completed of left elbow no fracture, severe OA. ERYTHRASMA Right groin. Ordered 1 dose of 1 gram of clarithromycin. improved (2) Venous stasis ulcer of left lower leg with edema of left lower leg: -See LLE wound (3) PAD (peripheral artery disease): -Currently only on on Eliquis, no aspirin eliquis on hold for procedure. (4) Lower extremity edema: -Continue GASKET MAKER Spironolactone (5) HTN (hypertension): -GASKET MAKER metoprolol (6) Hypercholesterolemia: -GASKET MAKER statin (7) Atrial fibrillation: -GASKET MAKER metoprolol, diltiazem, and Digoxin -Hold GASKET MAKER Eliquis in preparation for ortho procedure (8) DM II (diabetes mellitus, type II), controlled: will stop insulin given his low A1C. will only check glucose fasting. (9) Macrocytic anemia: -MCV has been elevated recently, currently at 105.6 today -Per his med rec, he has been on B12 -Will obtain B12 and folate levels today (10) Hyponatremia: -Sodium at 133, looks to be chronic -Likely from chronic health issues and diuretic use (11) Total bilirubin, elevated: -Total bili at 3.3 and alk phos at 162 -No abdominal symptoms -recommend rechecking CMP as outpatient. Total Time Total Time Spent Total Time Spent (In Minutes): 35 Discharge Plan Discharge Items Patient Disposition: Transfer Inpatient Rehab Fac Reason For Visit: LEFT LOWER EXTREMITY WOUND Discharge Diagnosis: left lower extremity wound Activity: Resume your previous activity Non-emergency contact: Primary Care Provider Call non-emergency contact if: you have any medication questions Follow-up/Referrals: hCidi Burnette MD [Primary Care Provider] - Diet: Heart Healthy Magalis Attending Provider Instructions: We will resume your Eliquis. Will recommend you recheck your LIVER FUNCTION TEST AND BLOOD COUNT IN 5 DAYS. Will discharge on antibiotics for 12 days. Take first dose tonight levaquin 750 mg PO PM. Kharitl Cuff Stitcher Provider Instructions: Follow-up with Dr. Padilla between 5 and 7 days from the date of surgery. May be discharged with Prevena wound VAC. May ambulate as tolerated. We will remove the Prevena wound VAC in the office between day 5 and 7. Keep thigh skin graft donor site with a dressing on for 48 hours. In 48 hours please remove the dressing. Please blow dry the donor site yellow Xeroform with a chair installer 3 times a day. May reapply a dry dressing over top of it after you blow dry it Pending Studies at Discharge: No Stand-Alone Forms: My [facility] Skilled Items Patient informed of condition?: Yes DNR: No Discharge Level of Care: Acute rehab Communicable Disease: No Discharge Prognosis: Stable Lines: None Urinary Catheter: No Medications and DC Order Prescriptions: New levofloxacin 750 mg tablet 750 mg PO DAILY Qty: 12 0RF Continued cholecalciferol (vitamin D3) 1,000 unit capsule 1,000 units PO DAILY apixaban 5 mg tablet 5 mg PO BID Qty: 180 3RF diltiazem HCl 240 mg capsule,extended release 24hr 240 mg PO DAILY Qty: 90 3RF digoxin 125 mcg tablet 125 mcg PO DAILY Qty: 90 famotidine 20 mg tablet 20 mg PO DAILY metformin 500 mg tablet 500 mg PO DAILY atorvastatin 10 mg tablet 10 mg PO QPM allopurinol 300 mg tablet 300 mg PO DAILY cyanocobalamin (vitamin B-12) 100 mcg tablet 100 mcg PO DAILY diclofenac sodium 1 % gel 1 ea topical QID Rx Instructions: topical four times daily; metoprolol succinate 100 mg tablet extended release 24 hr 100 mg PO BID Qty: 180 ascorbic acid (vitamin C) [Vitamin C] 500 mg Tablet 0 mg PO DAILY spironolactone 25 mg tablet 25 mg PO DAILY Discharge Orders: Discharge Order (Routine); Ordered 10/24/21 Ordered By: Stephen Sherman/Other Patient Handouts: Nutrition for Wound Healing Admission Data Admit Date/Time: 10/18/21 15:57 Attending Provider: Stephen Caldwell Admit Provider: Akash Angeles Primary Care Provider: Chidi Burnette Other Providers: Akash Angeles ; Poli Esteban ; [facility] Other Interventions: Discharge Summary Assessment (RN) Last Done: 10/24/21 12:22 Coding Level of Care Code D/C DAY MANAGEMENT >30 MINS Diagnoses Wound of left lower extremity S81.802A Venous stasis ulcer of left lower leg with edema of left lower leg I83.029; I83.892; L97.929; R60.9 PAD (peripheral artery disease) I73.9 Lower extremity edema R60.0 HTN (hypertension) I10 Hypercholesterolemia E78.00 Atrial fibrillation I48.91 DM II (diabetes mellitus, type II), controlled E11.9 Macrocytic anemia D53.9 Hyponatremia E87.1 Total bilirubin, elevated R17
== END 2021-10-24 12:47 | DRG 571 ==
LOC: ED 09:39 → SUATTDRO 15:57 → 3N 15:57

== ENCOUNTER 2022-01-03 11:33 | Inpatient (IN) ==
--- NOTE | 2022-01-03 12:02 | Emergency Department Note ---
Impression & Plan Weakness, Atrial fibrillation, Falls frequently, Laceration of leg, Anemia, Neuropathy ED Provider Note NAME: ZAYDA MCFARLAND AGE: 76 SEX: M : 1945 ARRIVES VIA: Ambulance INFORMANT: [Patient][, ] ED PROVIDER(S): [Aren Albarran MD] Chief Complaint: Fall, leg laceration HPI: Patient presents status post fall that occurred earlier today as he was trying to get out of the shower. Patient states that he slipped and hit the front of his right leg. The patient states that it was bleeding a lot. The patient does take Eliquis for history of A. fib. The patient did return home from July of her 2 days prior. Patient states that he does get around with a walker and has been able to do so although he does have a little bit of difficulty going from an area where he there are 2 stairs. Patient denies any head strike or LOC no neck pain. The patient does suffer from chronic neuropathy of his bilateral lower extremities. Patient states that he has had some issues with the right knee and this may be worsening. Patient believes his tetanus is up-to-date. ROS: See HPI for pertinent positives and negatives. A total of 10 systems were reviewed and otherwise negative. Past medical history: See below Surgical history: See below Social history: See below Physical Exam: GENERAL: NAD, [wearing a mask,] non-toxic. EYE EXAM: Normal conjunctiva. PERRL, no anisocoria and EOM's grossly intact w/o pain. Head: No TTP or obvious deformity. NECK: Supple, no nuchal rigidity, no adenopathy, non-tender. No signs of meningismus. FROM of the neck with good chin to chest and neck extension. No stridor. LUNGS: Clear to auscultation. Normal chest wall mechanics. HEART: Irregularly irregular, no MRG. ABDOMEN: Abdomen soft, non-tender, normo-active bowel sounds, no masses, no rebound or guarding. BACK: No CVA TTP. SKIN: No rashes and no bruising. UPPER EXTREMITIES: Upper extremities are grossly normal. LOWER EXTREMITIES: Grossly normal, Bilateral lower extremity edema distal to the bilateral knees, bleeding to right toe without obvious deformity, 5 cm laceration over the anterior jamison, no TTP. NEURO EXAM: A&O x3, cranial nerves II-XII grossly intact, normal speech, moves all 4 extremities. Differential diagnoses: Fracture, dislocation, contusion, intra-abdominal, pneumothorax, intrathoracic, intracranial, neurologic, compartment syndrome, rhabdomyolysis, as well as other pathologies. Course: Patient was seen and evaluated the bedside. Full history physical exam was performed. EKG interpreted by me Randall martinez, rate of 70, normal axis no ST elevations. Imaging Studies: See Below Cardiac monitoring: An order was placed for continuous cardiac monitoring. The monitor shows a rate of 72 with irregular irregular rhythm. MDM: Patient does present due to concern for a ground-level fall. Patient did sustain some skin tears as well as a traumatic laceration to the left jamison. Patient did have plain films completed which did not show any obvious fracture. The wound was repaired by tosin Hinton PA-C. Please refer to her note. Patient then had blood work completed as the patient was not stable for discharge given his ambulatory dysfunction and weakness. Patient has leukopenia and anemia. Platelet count is unremarkable. Kidney function with prerenal azotemia. COVID- negative chest x-ray shows cardiomegaly with no acute abnormality. The patient does not have any evidence of fracture in the tibia or the right knee. Foot x- ray does not show any evidence of fracture. I did speak with the on-call hospitalist Dr. Harrison and the patient was admitted to the medicine service. Past Med/Surg History Medical History (Updated 01/03/22 @ 19:16 by Aren Albarran MD) Acquired bilateral foot drop Afib Diverticulosis Full thickness burn of finger of right hand History of GI bleed Skin cancer Tinea pedis Surgical History S/P cholecystectomy Status post Mohs surgery Family History Other No pertinent family history Social History Smoking Status: Never smoker Hx Alcohol Use: Yes Alcohol type: hard liquor Hx Substance Use: No Preferred Language: Finnish Communication Ability: Effective Visual Impairment: Diminished Hearing Ability: Normal Senior Web Engineer Required: No Beliefs That Will Affect Care: None marital status: Current Living Situation: Spouse current occupational status: retired Feels Safe at Home: Yes during the past year weight has: remained stable Assistive Devices: Walker Allergies Allergies Allergy/AdvReac Type Severity Reaction Status Date / Time furosemide Allergy Severe CHEST Verified 01/03/22 15:04 "FLUTTERY" aspirin AdvReac Unknown HX OF GI Verified 01/03/22 15:04 BLEED NSAIDS (Non-Steroidal AdvReac Unknown bleeding Verified 01/03/22 15:04 Anti-Inflamma Home Meds Home Medications Medication Instructions Recorded Confirmed allopurinol 300 mg tablet 300 mg PO DAILY 11/11/18 01/03/22 atorvastatin 10 mg tablet 10 mg PO QPM 11/11/18 01/03/22 cyanocobalamin (vitamin B-12) 100 100 mcg PO DAILY 11/11/18 01/03/22 mcg tablet digoxin 125 mcg (0.125 mg) tablet 125 mcg PO DAILY #90 tabs 11/11/18 01/03/22 famotidine 20 mg tablet 20 mg PO DAILY 11/11/18 01/03/22 metformin 500 mg tablet 500 mg PO DAILY 11/11/18 01/03/22 cholecalciferol (vitamin D3) 25 1,000 units PO DAILY 12/16/18 01/03/22 mcg (1,000 unit) capsule diclofenac sodium 1 % topical gel 1 ea topical QID PRN Pain 02/01/20 01/03/22 metoprolol succinate 100 mg 100 mg PO BID #180 tabs 04/24/20 01/03/22 tablet,extended release 24 hr ascorbic acid (vitamin C) 500 mg 0 mg PO DAILY 08/14/20 01/03/22 tablet (Vitamin C) Previous Rx's Medication Instructions Recorded apixaban 5 mg tablet 5 mg PO BID #180 tabs 04/24/21 diltiazem HCl 180 mg 180 mg PO DAILY #90 caps 11/29/21 capsule,extended release 24 hr Results & Data (ED) Vital Signs Vital Signs - 24 hr 01/03/22 11:53 01/03/22 12:22 01/03/22 13:31 Temperature 36.6 C Temperature Source Oral Pulse Rate 72 Pulse Rate [Apical] 66 Pulse Rhythm Respiratory Rate 20 20 Respiratory Effort / Characteristics Non-Labored Spontaneous Respiratory Depth Normal Respiratory Pattern Regular Blood Pressure 119/75 Blood Pressure [Right Arm] 137/81 Blood Pressure Mean 89 Blood Pressure Mean [Right Arm] 99 Pulse Oximetry 100 99 98 Oxygen Delivery Method Room Air Room Air Room Air Sepsis Recent Fever Within 48 Hours No Sepsis New/Unexplained Change in Mental Status No Sepsis Action Taken by Nursing No Action Required 01/03/22 15:40 01/03/22 15:40 01/03/22 17:48 Temperature Temperature Source Pulse Rate 72 Pulse Rate [Apical] 72 72 Pulse Rhythm Irregular Respiratory Rate 18 20 Respiratory Effort / Characteristics Non-Labored Respiratory Depth Normal Respiratory Pattern Blood Pressure Blood Pressure [Right Arm] 142/82 H 132/80 Blood Pressure Mean Blood Pressure Mean [Right Arm] 102 97 Pulse Oximetry 95 95 100 Oxygen Delivery Method Room Air Room Air Room Air Sepsis Recent Fever Within 48 Hours Sepsis New/Unexplained Change in Mental Status Sepsis Action Taken by Fdc Medications Current Medication List: was personally reviewed by me Laboratory Data Result diagrams: 01/03/22 15:52 01/03/22 15:52 Lab Results 01/03/22 01/03/22 01/03/22 Range/Units 15:35 15:52 15:52 WBC 4.34 L (4.8-10.8) K/ul RBC 3.35 L (4.63-6.08) M/uL Hgb 11.9 L (14.0-18.0) g/dl Hct 34.0 L (40.1-51.0) % MCV 101.5 H (80.0-100.0) fL MCH 35.5 H (25.0-34.0) pg MCHC 35.0 (32.0-36.0) g/dL RDW Std Deviation 52.9 H (36.4-46.3) fL RDW Coeff of Pau 14.2 (11.5-14.5) % Plt Count 212 (130-400) K/uL MPV 10.2 (9.4-12.4) fL Immature Gran % (Auto) 0.2 % Neut % (Auto) 49.3 % Lymph % (Auto) 32.0 % Sabine % (Auto) 15.0 % Eos % (Auto) 2.1 % Baso % (Auto) 1.4 % Neut # (Auto) 2.14 (1.4-6.5) K/uL Lymph # (Auto) 1.39 (1.2-3.4) K/uL Sabine # (Auto) 0.65 (0.24-0.82) K/uL Eos # (Auto) 0.09 (0-0.50) K/uL Baso # (Auto) 0.06 (0-0.2) K/uL Immature Gran # (Auto) 0.01 (0.00-0.02) K/uL Sodium 139 (136-145) mmol/L Potassium 3.9 (3.5-5.1) mmol/L Chloride 106 (98-107) mmol/L Carbon Dioxide 28 (21-32) mmol/L Anion Gap 5 (3-11) BUN 15 (6-23) mg/dl Creatinine 0.59 L (0.6-1.4) mg/dl Est Cr Clr Drug Dosing 140.7 ml/min Est GFR ( Amer) 114.8 ml/min Est GFR (Non-Af Amer) 99.0 ml/min BUN/Creatinine Ratio 25.4 H (10-20) Glucose 92 (70-99(Fasting)) mg/dl Calcium 9.2 (8.5-10.1) mg/dl Total Bilirubin 1.1 H (0.2-1.0) mg/dl AST 13 (13-39) U/L ALT 8 (7-52) U/L Alkaline Phosphatase 110 H (34-104) U/L Total Protein 6.3 (6.0-8.3) gm/dl Albumin 3.4 (3.4-5.0) gm/dl Globulin 2.9 (2.5-4.0) gm/dl Albumin/Globulin Ratio 1.2 (0.9-2) TSH (0.300-4.500) uIu/ml SARS-CoV-2, RNA, NAAT NEGATIVE (NEGATIVE) 01/03/22 Range/Units 15:52 WBC (4.8-10.8) K/ul RBC (4.63-6.08) M/uL Hgb (14.0-18.0) g/dl Hct (40.1-51.0) % MCV (80.0-100.0) fL MCH (25.0-34.0) pg MCHC (32.0-36.0) g/dL RDW Std Deviation (36.4-46.3) fL RDW Coeff of Pau (11.5-14.5) % Plt Count (130-400) K/uL MPV (9.4-12.4) fL Immature Gran % (Auto) % Neut % (Auto) % Lymph % (Auto) % Sabine % (Auto) % Eos % (Auto) % Baso % (Auto) % Neut # (Auto) (1.4-6.5) K/uL Lymph # (Auto) (1.2-3.4) K/uL Sabine # (Auto) (0.24-0.82) K/uL Eos # (Auto) (0-0.50) K/uL Baso # (Auto) (0-0.2) K/uL Immature Gran # (Auto) (0.00-0.02) K/uL Sodium (136-145) mmol/L Potassium (3.5-5.1) mmol/L Chloride (98-107) mmol/L Carbon Dioxide (21-32) mmol/L Anion Gap (3-11) BUN (6-23) mg/dl Creatinine (0.6-1.4) mg/dl Est Cr Clr Drug Dosing ml/min Est GFR ( Amer) ml/min Est GFR (Non-Af Amer) ml/min BUN/Creatinine Ratio (10-20) Glucose (70-99(Fasting)) mg/dl Calcium (8.5-10.1) mg/dl Total Bilirubin (0.2-1.0) mg/dl AST (13-39) U/L ALT (7-52) U/L Alkaline Phosphatase (34-104) U/L Total Protein (6.0-8.3) gm/dl Albumin (3.4-5.0) gm/dl Globulin (2.5-4.0) gm/dl Albumin/Globulin Ratio (0.9-2) TSH 0.815 (0.300-4.500) uIu/ml SARS-CoV-2, RNA, NAAT (NEGATIVE) Imaging Data Radiologist's Impression: Foot X-Ray 01/03/22 12:15 RIGHT FOOT 3 VIEWS CLINICAL HISTORY: Fifth toenail pain. Bleeding. FINDINGS: 3 views of the right foot are obtained. No prior studies are available for comparison at the time of dictation. The skeletal structures are heterogeneously osteopenic. No acute fracture is seen. Advanced osteoarthritic change is seen throughout the midfoot. Moderate arthritic change is noted at the first metatarsophalangeal joint. Milder degenerative change is seen throughout the remaining metatarsophalangeal joints and the interphalangeal joints. Degenerative spurring is noted along the dorsal aspect of the tarsal bones. There is a large plantar heel spur. Diffuse soft tissue edema is present throughout the foot. There is atherosclerotic calcification of the regional arteries. IMPRESSION: 1. Soft tissue swelling with no acute bony abnormality identified. 2. Osteopenia, arthritic change, and large heel spur as above. Electronically signed by: Raf Gann M.D. 01/03/2022 1:25 PM Knee X-Ray 01/03/22 12:15 RIGHT KNEE 3 VIEWS. CLINICAL HISTORY: Fall with right knee pain. FINDINGS: AP, crosstable lateral, and sunrise views of the right knee are compared to study dated 05/06/2017. The skeletal structures are osteopenic. No fracture is seen. There is moderate to advanced tricompartmental degenerative joint space narrowing. There are large marginal osteophytes and patellar enthesophytes. Spurring is seen along the anterior and posterior aspect of the distal femur and proximal tibia. There is a large joint effusion. Soft tissue swelling is noted around the knee. There is advanced atherosclerotic calcif ication of the popliteal artery. IMPRESSION: 1. Soft tissue swelling and large joint effusion with no acute bony abnormality identified. 2. Osteopenia and arthritic change as above. Electronically signed by: Raf Gann M.D. 01/03/2022 1:27 PM Tibia/Fibula X-Ray 01/03/22 12:15 LEFT TIBIA AND FIBULA 2 VIEWS CLINICAL HISTORY: Laceration. FINDINGS: AP and lateral views of the left tibia and fibula are compared to study dated 10/10/2021. The skeletal structures are osteopenic. There is no radiographic evidence of left tibial or fibular fracture. The knee and ankle joints are grossly maintained noting degenerative change. There are dorsal and plantar heel spurs. Advanced arthritic change is seen in the partially imaged mid foot. Soft tissue edema is present throughout the left lower extremity. There is atherosclerotic calcification of the regional arteries. No radiodense foreign body is identified. An osteochondroma is again seen along the medial aspect of the distal femoral metaphysis. IMPRESSION: 1. Diffuse soft tissue swelling with no acute bony abnormality seen involving the left tibia or fibula. 2. No radiodense foreign body is identified. Electronically signed by: Raf Gann M.D. 01/03/2022 3:19 PM Chest X-Ray 01/03/22 14:47 SINGLE VIEW CHEST CLINICAL HISTORY: Generalized weakness. FINDINGS: An AP, portable, upright chest radiograph is compared to study dated 10/10/2021 and correlated with chest CT dated 08/18/2007. The heart is enlarged noting atherosclerotic calcification of the thoracic aorta. The pulmonary vasculature is noncongested. Chronic interstitial thickening similar to previous. There is chronic elevation of the right hemidiaphragm with bibasilar scarring/atelectasis. The lungs and pleural spaces are otherwise clear. No pneumothorax is seen. The skeletal structures are osteopenic. There are healed right-sided rib fractures. IMPRESSION: Cardiomegaly with no acute cardiopulmonary abnormality identified. ACT 112: Negative or not required by law. Electronically signed by: Raf Gann M.D. 01/03/2022 3:16 PM Discharge Plan Visit Data Chief Complaint: Fall Stated Complaint: FALL, LEG LAC. ED Provider: Aren Albarran Discharge Problem: Weakness, Atrial fibrillation, Falls frequently, Laceration of leg, Anemia, Neuropathy Patient Disposition: Admitted As Inpatient Forms Stand Alone Forms: My [facility] Prescriptions Prescriptions: No Action cholecalciferol (vitamin D3) 1,000 unit capsule 1,000 units PO DAILY apixaban 5 mg tablet 5 mg PO BID Qty: 180 3RF diltiazem HCl 180 mg capsule,extended release 24hr 180 mg PO DAILY Qty: 90 3RF digoxin 125 mcg tablet 125 mcg PO DAILY Qty: 90 famotidine 20 mg tablet 20 mg PO DAILY metformin 500 mg tablet 500 mg PO DAILY atorvastatin 10 mg tablet 10 mg PO QPM allopurinol 300 mg tablet 300 mg PO DAILY cyanocobalamin (vitamin B-12) 100 mcg tablet 100 mcg PO DAILY diclofenac sodium 1 % gel 1 ea topical QID PRN (Reason: Pain) Rx Instructions: topical four times daily; metoprolol succinate 100 mg tablet extended release 24 hr 100 mg PO BID Qty: 180 ascorbic acid (vitamin C) [Vitamin C] 500 mg Tablet 0 mg PO DAILY Referrals Referrals: Chidi Burnette MD [Primary Care Provider] -
--- NOTE | 2022-01-03 13:28 | XRay Report ---
RIGHT FOOT 3 VIEWS CLINICAL HISTORY: Fifth toenail pain. Bleeding. FINDINGS: 3 views of the right foot are obtained. No prior studies are available for comparison at th e time of dictation. The skeletal structures are heterogeneously osteopenic. No acute fracture is see n. Advanced osteoarthritic change is seen throughout the midfoot. Moderate arthritic change is noted at the first metatarsophalangeal joint. Milder degenerative change is seen throughout the remaining m etatarsophalangeal joints and the interphalangeal joints. Degenerative spurring is noted along the do rsal aspect of the tarsal bones. There is a large plantar heel spur. Diffuse soft tissue edema is pre sent throughout the foot. There is atherosclerotic calcification of the regional arteries. IMPRESSION: 1. Soft tissue swelling with no acute bony abnormality identified. 2. Osteopenia, arthritic change, and large heel spur as above. Electronically signed by: Raf Gann M.D. 01/03/2022 1:25 PM
--- NOTE | 2022-01-03 13:28 | XRay Report ---
RIGHT KNEE 3 VIEWS. CLINICAL HISTORY: Fall with right knee pain. FINDINGS: AP, crosstable lateral, and sunrise views of the right knee are compared to study dated 04/11. The skeletal structures are osteopenic. No fracture is seen. There is moderate to advanced tr icompartmental degenerative joint space narrowing. There are large marginal osteophytes and patellar enthesophytes. Spurring is seen along the anterior and posterior aspect of the distal femur and proxi mal tibia. There is a large joint effusion. Soft tissue swelling is noted around the knee. There is a dvanced atherosclerotic calcification of the popliteal artery. IMPRESSION: 1. Soft tissue swelling and large joint effusion with no acute bony abnormality identified. 2. Osteopenia and arthritic change as above. Electronically signed by: Raf Gann M.D. 01/03/2022 1:27 PM
--- NOTE | 2022-01-03 14:42 | Emergency Department Note ---
ED Visit Note EMERGENCY DEPARTMENT PROCEDURE NOTE: I was asked by Dr. Albarran to evaluate/repair the left anterior jamison wound of this 76-year-old male patient. Please refer to their dictation for the complete history, physical exam, and ED course. EMERGENCY DEPARTMENT COURSE: The wound was prepped with Betadine and draped with sterile towels. The wound was anesthetized with 1% buffered lidocaine with epinephrine. It was a large, U-shaped flap laceration measuring 12 cm in length. Wound was irrigated thoroughly with normal saline solution. The distal side of the wound was the more superficial skin edge of the flap. I did apply a double layer of benzoin and Steri-Strips to reinforce the skin edge on this half of the wound. The laceration was then reapproximated using 17, 4-0 nylon sutures. I was able to reapproximate the wound quite well with this technique. Dressing was applied prior to discharge. Patient tolerated the procedure well. Please refer to Dr. Albarran's note for the remainder of the ED course and disposition.
--- NOTE | 2022-01-03 15:17 | XRay Report ---
SINGLE VIEW CHEST CLINICAL HISTORY: Generalized weakness. FINDINGS: An AP, portable, upright chest radiograph is compared to study dated 10/10/2021 and correlat ed with chest CT dated 08/18/2007. The heart is enlarged noting atherosclerotic calcification of the th oracic aorta. The pulmonary vasculature is noncongested. Chronic interstitial thickening similar to p revious. There is chronic elevation of the right hemidiaphragm with bibasilar scarring/atelectasis. T he lungs and pleural spaces are otherwise clear. No pneumothorax is seen. The skeletal structures are osteopenic. There are healed right-sided rib fractures. IMPRESSION: Cardiomegaly with no acute cardiopulmonary abnormality identified. ACT 112: Negative or not required by law. Electronically signed by: Raf Gann M.D. 01/03/2022 3:16 PM
--- NOTE | 2022-01-03 15:21 | XRay Report ---
LEFT TIBIA AND FIBULA 2 VIEWS CLINICAL HISTORY: Laceration. FINDINGS: AP and lateral views of the left tibia and fibula are compared to study dated 10/10/2021. Th e skeletal structures are osteopenic. There is no radiographic evidence of left tibial or fibular fra cture. The knee and ankle joints are grossly maintained noting degenerative change. There are dorsal and plantar heel spurs. Advanced arthritic change is seen in the partially imaged mid foot. Soft tiss ue edema is present throughout the left lower extremity. There is atherosclerotic calcification of th e regional arteries. No radiodense foreign body is identified. An osteochondroma is again seen along the medial aspect of the distal femoral metaphysis. IMPRESSION: 1. Diffuse soft tissue swelling with no acute bony abnormality seen involving the left tibia or fibul a. 2. No radiodense foreign body is identified. Electronically signed by: Raf Gann M.D. 01/03/2022 3:19 PM
[2022-01-03 16:01] LABS: Basophils # (auto) 0.06 K/uL (0-0.2); Basophils % (auto) 1.4 %; Eosinophils # (auto) 0.09 K/uL (0-0.50); Eosinophils % (auto) 2.1 %; Hemoglobin 11.9 g/dl (14.0-18.0); Immature Granulocytes # (auto) 0.01 K/uL (0.00-0.02); Immature Granulocytes % (auto) 0.2 %; Lymphocytes # (auto) 1.39 K/uL (1.2-3.4); Mean Corpuscular Hemoglobin 35.5 pg (25.0-34.0); Mean Corpuscular Volume 101.5 fL (80.0-100.0); Mean Platelet Volume 10.2 fL (9.4-12.4); Monocytes # (auto) 0.65 K/uL (0.24-0.82); Neutrophils # (auto) 2.14 K/uL (1.4-6.5); Neutrophils % (auto) 49.3 %; Platelet Count 212 K/uL (130-400); RDW Coefficient of Variation 14.2 % (11.5-14.5); RDW Standard Deviation 52.9 fL (36.4-46.3); Red Blood Count 3.35 M/uL (4.63-6.08); White Blood Count 4.34 K/ul (4.8-10.8)
[2022-01-03 16:29] LABS: Albumin Globulin Ratio 1.2 (0.9-2); Albumin Level 3.4 gm/dl (3.4-5.0); BUN Creatinine Ratio 25.4 (10-20); Bilirubin,Total 1.1 mg/dl (0.2-1.0); Calcium 9.2 mg/dl (8.5-10.1); Creatinine Clr Calc Pharmacy 140.7 ml/min; Est GFR (African American) 114.8 ml/min; Globulin 2.9 gm/dl (2.5-4.0); Potassium 3.9 mmol/L (3.5-5.1); Total Protein 6.3 gm/dl (6.0-8.3)
--- NOTE | 2022-01-03 17:30 | History & Physical Report ---
Date of Service January 03, 2022 Assessment & Plan (1) Falls frequently: Plan: -Admit to med/surge -Patient is currently afebrile, hemodynamically stable, and stable on RA -Mechanical fall sustained today after slipping getting out of the shower, did not hit his head or lose consciousness -Will need to be evaluated by PT/OT again to try and get more home health or placed again, consults placed -AM CBC and BMP (2) Wound of left lower extremity: Plan: -Repaired in the ED, no current bleeding -No other acute trauma noted -Patient currently without pain, tylenol ordered for now (3) DM II (diabetes mellitus, type II), controlled: Plan: -Hold metformin -Will start with 5 units lantus BID -Correction factor of 40 and carb ration of 14 -Consistent carb diet (4) Afib: Plan: -Currently rate controlled -Continue diltiazem and Dig -Dig level ordered for the am -Continue Eliquis (5) HTN (hypertension): Plan: -Hemodynamically stable -Continue metoprolol (6) Hypercholesterolemia: Plan: -Continue statin Plan The patient was discussed with Dr. Harrison at the time of the admission History of Present Illness Chief Complaint: Fall, right leg laceration Primary Care Provider: Chidi Burnette MD Clifford is a 76 year old male with a PMH significant for afib on Eliquis, DM II with peripheral neuropathy, left charcot foot, HTN, hyperlipidemia, PAD, and previous falls who presented to the [facility] ED on 01/03/22 with a chief complaint of fall and right leg laceration. In the ED the patient was found to be afebrile, hemodynamically stable and stable on RA. Labs were remarkable for WBC of 4.34, stable Hgb at 11.9, MCV of 101, platelets at 212, stable renal function and electrolytes, total bili of 1.1 and alk phos of 110, stable liver function, TSH of 0.815, and covid negative. Xray of the right foot showed "Soft tissue swelling with no acute bony abnormality identified. Osteopenia, arthritic change, and large heel spur as above.". Xray of the right knee showed "Soft tissue swelling and large joint effusion with no acute bony abnormality identified. Osteopenia and arthritic change as above.". Xray of the left tib/fib showed "Diffuse soft tissue swelling with no acute bony abnormality seen involving the left tibia or fibula. No radiodense foreign body is identified.". Chest xray showed "Cardiomegaly with no acute cardiopulmonary abnormality identified.". Prior to the admission the patient's left lower extremity wound was repaired by ED staff. We were asked to admit due to concerns for recurrent falls and need for placement. At the time of the exam the patient was resting comfortably in bed in no acute distress. He states that he had just been discharged from [facility] two days ago for his previous skin graft and left leg wound. He was getting out of the shower this morning when he slipped and fell, he denies hitting his head and losing consciousness. He has no complaints at the time of the exam besides being very hungry. I spoke to him regarding getting admitted to be evaluated by PT/OT and to see if we can get him more care at home or more PT and he is agreeable. I spoke to him regarding code status, he is a DNR/DNI. Please refer to Dr. Harrison's attestation for any changes to the treatment plant. Allergies Allergy/AdvReac Type Severity Reaction Status Date / Time furosemide Allergy Severe CHEST Verified 01/03/22 15:04 "FLUTTERY" aspirin AdvReac Unknown HX OF GI Verified 01/03/22 15:04 BLEED NSAIDS (Non-Steroidal AdvReac Unknown bleeding Verified 01/03/22 15:04 Anti-Inflamma Home Medications Medication Instructions Recorded Confirmed Type allopurinol 300 mg tablet 300 mg PO DAILY 11/11/18 01/03/22 History atorvastatin 10 mg tablet 10 mg PO QPM 11/11/18 01/03/22 History cyanocobalamin (vitamin B-12) 100 100 mcg PO DAILY 11/11/18 01/03/22 History mcg tablet digoxin 125 mcg (0.125 mg) tablet 125 mcg PO DAILY #90 tabs 11/11/18 01/03/22 History famotidine 20 mg tablet 20 mg PO DAILY 11/11/18 01/03/22 History metformin 500 mg tablet 500 mg PO DAILY 11/11/18 01/03/22 History cholecalciferol (vitamin D3) 25 1,000 units PO DAILY 12/16/18 01/03/22 History mcg (1,000 unit) capsule diclofenac sodium 1 % topical gel 1 ea topical QID PRN Pain 02/01/20 01/03/22 History metoprolol succinate 100 mg 100 mg PO BID #180 tabs 04/24/20 01/03/22 History tablet,extended release 24 hr ascorbic acid (vitamin C) 500 mg 0 mg PO DAILY 08/14/20 01/03/22 History tablet (Vitamin C) apixaban 5 mg tablet 5 mg PO BID #180 tabs 04/24/21 01/03/22 Rx diltiazem HCl 180 mg 180 mg PO DAILY #90 caps 11/29/21 01/03/22 Rx capsule,extended release 24 hr Past Med/Surg History Medical History (Updated 01/03/22 @ 18:10 by Jimbo Nassar PA-C) Acquired bilateral foot drop Afib Diverticulosis Full thickness burn of finger of right hand History of GI bleed Skin cancer Tinea pedis Surgical History S/P cholecystectomy Status post Mohs surgery Family History Other No pertinent family history Social History Smoking Status: Never smoker Hx Alcohol Use: Yes Alcohol type: hard liquor Hx Substance Use: No Preferred Language: Russian Communication Ability: Effective Visual Impairment: Diminished Hearing Ability: Normal Fisher Line Required: No Beliefs That Will Affect Care: None marital status: Current Living Situation: Spouse current occupational status: retired Feels Safe at Home: Yes during the past year weight has: remained stable Assistive Devices: Walker Review of Systems Review of Systems: Denies current fever, chills, headache, changes in vision, hearing, taste, and smell, chest pain, SOB, cough, abdominal pain, nausea, vomiting, diarrhea, hematemesis, melena, dysuria, hematuria All systems have been reviewed and are otherwise negative. Physical Exam Physical Exam: Physical Exam: General: In no acute distress, stated age, chronically ill-appearing, non- toxic appearing HEENT: Normocephalic, atraumatic, no scleral icterus, pupils around round, symmetrical, and reactive to light, moist mucus membranes, trachea midline, no t hyromegaly Chest/Pulm: No respiratory distress, symmetrical chest expansion, clear breath sounds throughout Cardiac: irregular rate and rhythm, systolic murmur noted Abdomen: Negative for ascites and bruising, normoactive bowel sounds, soft, non-tender to palpation throughout Musculoskeletal: Patient with chronic bruises on the BL upper and lower extremities, new skin tear noted on the left upper forearm without drainage, patient with new large skin laceration on the left jamison which was recently repaired by the ED is currently without signs of drainage, right fift toe with damage to the nail but not currently draining, no other trauma noted on exam Extremities: Radial, dorsalis pedis, and posterior tibial pulses are intact and symmetrical, 2+ edema noted in the BL LE's Skin: As described above Neuro: Alert and oriented to person, place, month, year, and president, no focal defects, CN II-XII tested and intact, finger to nose test negative, no tremors noted Psych: No acute distress, calm and cooperative during the exam Results & Data Results & Data ([facility]) Vital Signs (Past 12 Hours) Vital Signs Temp Pulse Pulse Resp BP BP Pulse Ox 01/03/22 15:40 72 18 142/82 H 95 01/03/22 15:40 72 95 01/03/22 13:31 66 20 137/81 98 01/03/22 12:22 99 01/03/22 11:53 36.6 C 72 20 119/75 100 O2 Del Method 01/03/22 15:40 Room Air 01/03/22 15:40 Room Air 01/03/22 13:31 Room Air 01/03/22 12:22 Room Air 01/03/22 11:53 Room Air Laboratory Results Abnormal lab results 01/03/22 01/03/22 Range/Units 15:52 15:52 WBC 4.34 L (4.8-10.8) K/ul RBC 3.35 L (4.63-6.08) M/uL Hgb 11.9 L (14.0-18.0) g/dl Hct 34.0 L (40.1-51.0) % MCV 101.5 H (80.0-100.0) fL MCH 35.5 H (25.0-34.0) pg RDW Std Deviation 52.9 H (36.4-46.3) fL Creatinine 0.59 L (0.6-1.4) mg/dl BUN/Creatinine Ratio 25.4 H (10-20) Total Bilirubin 1.1 H (0.2-1.0) mg/dl Alkaline Phosphatase 110 H (34-104) U/L Diagnostic Findings Foot X-Ray 01/03/22 12:15 RIGHT FOOT 3 VIEWS CLINICAL HISTORY: Fifth toenail pain. Bleeding. FINDINGS: 3 views of the right foot are obtained. No prior studies are available for comparison at the time of dictation. The skeletal structures are heterogeneously osteopenic. No acute fracture is seen. Advanced osteoarthritic change is seen throughout the midfoot. Moderate arthritic change is noted at the first metatarsophalangeal joint. Milder degenerative change is seen throughout the remaining metatarsophalangeal joints and the interphalangeal joints. Degenerative spurring is noted along the dorsal aspect of the tarsal bones. There is a large plantar heel spur. Diffuse soft tissue edema is present throughout the foot. There is atherosclerotic calcification of the regional arteries. IMPRESSION: 1. Soft tissue swelling with no acute bony abnormality identified. 2. Osteopenia, arthritic change, and large heel spur as above. Electronically signed by: Raf Gann M.D. 01/03/2022 1:25 PM Knee X-Ray 01/03/22 12:15 RIGHT KNEE 3 VIEWS. CLINICAL HISTORY: Fall with right knee pain. FINDINGS: AP, crosstable lateral, and sunrise views of the right knee are compared to study dated 05/06/2017. The skeletal structures are osteopenic. No fracture is seen. There is moderate to advanced tricompartmental degenerative joint space narrowing. There are large marginal osteophytes and patellar enthesophytes. Spurring is seen along the anterior and posterior aspect of the distal femur and proximal tibia. There is a large joint effusion. Soft tissue swelling is noted around the knee. There is advanced atherosclerotic calcification of the popliteal artery. IMPRESSION: 1. Soft tissue swelling and large joint effusion with no acute bony abnormality identified. 2. Osteopenia and arthritic change as above. Electronically signed by: Raf Gann M.D. 01/03/2022 1:27 PM Tibia/Fibula X-Ray 01/03/22 12:15 LEFT TIBIA AND FIBULA 2 VIEWS CLINICAL HISTORY: Laceration. FINDINGS: AP and lateral views of the left tibia and fibula are compared to study dated 10/10/2021. The skeletal structures are osteopenic. There is no radiographic evidence of left tibial or fibular fracture. The knee and ankle joints are grossly maintained noting degenerative change. There are dorsal and plantar heel spurs. Advanced arthritic change is seen in the partially imaged mid foot. Soft tissue edema is present throughout the left lower extremity. There is atherosclerotic calcification of the regional arteries. No radiodense foreign body is identified. An osteochondroma is again seen along the medial aspect of the distal femoral metaphysis. IMPRESSION: 1. Diffuse soft tissue swelling with no acute bony abnormality seen involving the left tibia or fibula. 2. No radiodense foreign body is identified. Electronically signed by: Raf Gann M.D. 01/03/2022 3:19 PM Chest X-Ray 01/03/22 14:47 SINGLE VIEW CHEST CLINICAL HISTORY: Generalized weakness. FINDINGS: An AP, portable, upright chest radiograph is compared to study dated 10/10/2021 and correlated with chest CT dated 08/18/2007. The heart is enlarged noting atherosclerotic calcification of the thoracic aorta. The pulmonary vasculature is noncongested. Chronic interstitial thickening similar to previous. There is chronic elevation of the right hemidiaphragm with bibasilar scarring/atelectasis. The lungs and pleural spaces are otherwise clear. No pneumothorax is seen. The skeletal structures are osteopenic. There are healed right-sided rib fractures. IMPRESSION: Cardiomegaly with no acute cardiopulmonary abnormality identified. ACT 112: Negative or not required by law. Electronically signed by: Raf Gann M.D. 01/03/2022 3:16 PM ECG Additional Comments: Atrial fibrillation Low voltage QRS Abnormal ECG When compared with ECG of 19-OCT-2021 11:44, No significant change was found Code Status & VTE Plan Code Status DNR/DNI Supervising Physician Co-Signing Physician Notes Patient was seen and examined independently I discussed the case with Jimbo DASILVA I reviewed pertinent past medical social family history and also the plan of care and agree with the plan of care. Patient recently discharged from rehab after recuperating from a skin graft to his left lower extremity. He sustained a fall at home with a fairly significant laceration to his left anterior jamison in a different location from his previously healed wound. This was sutured however the patient is nonambulatory at this time he suffers from previous Charcot joint of his lower extremities has significant edema Patient is leg wounds approximated with multiple sutures he is chronic looking changes as well as lower extremity from chronic venous stasis he has the deformities of his feet and ankles consistent with his previous diagnosis of Charcot joint Patient will need wound care to his lower extremity wound PT OT evaluation and likely discussions with case management regarding disposition Any exceptions will be noted below PG Care Time/CCT Total # of Minutes Spent Total Time Spent with Patient: Total time spent is greater than 50% in coordination of care (as documented) at patient's floor/unit and/or counseling patient: Coding Level of Care Code Established Pt INT OBSERVATION CARE 50M LVL 2 Patient Type Established Medical Decision Making Moderate Complexity Diagnoses Falls frequently R29.6 Wound of left lower extremity S81.802A DM II (diabetes mellitus, type II), controlled E11.9 Afib I48.21 Atrial fibrillation type: permanent HTN (hypertension) I10 Hypercholesterolemia E78.00 (1) Afib Atrial fibrillation type: permanent Qualified Code(s): I48.21 - Permanent atrial fibrillation
[2022-01-03 19:31] LABS: Appearance Urine Clear (Clear); Bacteria Urine Automated Negative (Negative); Bilirubin Urine Negative (Negative); Blood Urine Negative (Negative); Cast Urine Automated 0 /lpf (0-5); Color Urine Dark Yellow; Glucose Urine UA Negative (Negative); Ketones Urine 1+ (Negative); Leukocyte Esterase Urine Negative (Negative); Nitrite Urine Negative (Negative); Protein Urine Trace (Negative); RBC Urine Automated 0-4 /hpf (0-4); Specific Gravity Urine 1.035 (1.000-1.030); Urobilinogen Urine Negative (Negative); pH Urine 6.5 (4.5-7.5)
[2022-01-03] MEDS ORDERED: ACETAMINOPHEN 325 MG TAB PO PRN (20:49)
[2022-01-03] MEDS ORDERED: GLUCAGON FOR INJ 1 MG VIAL SQ PRN (20:49)
[2022-01-03] MEDS ORDERED: GLUCOSE 40% GEL 15 GM TUBE PO PRN (20:49)
[2022-01-03] MEDS ORDERED: DEXTROSE 50% 50 ML SYRINGE IV PRN (20:49)
[2022-01-03] MEDS ORDERED: CARBOHYDRATES FOR HYPOGLYCEMIA PO PRN (20:49)
[2022-01-03] MEDS ORDERED: GLUCOSE 10 TAB/TUBE PO PRN (20:49)
[2022-01-03] MEDS: METOPROLOL SUCC 50MG EXT REL TAB PO SCH (22:10)
[2022-01-03] MEDS: ATORVASTATIN 10 MG TAB PO SCH (22:10)
[2022-01-03] MEDS: APIXABAN 5 MG TABLET PO SCH (22:10)
[2022-01-03] MEDS: INSULIN ASPART PER UNIT SC SCH (22:11)
[2022-01-03] MEDS: LANTUS PER UNIT CHARGE SQ SCH (22:11)
[2022-01-04 07:12] LABS: Hematocrit (blood only) 31.9 % (40.1-51.0); Hemoglobin 10.5 g/dl (14.0-18.0); Mean Corpuscular Hemoglobin 33.3 pg (25.0-34.0); Mean Corpuscular Hgb Conc 32.9 g/dL (32.0-36.0); Mean Corpuscular Volume 101.3 fL (80.0-100.0); Mean Platelet Volume 10.2 fL (9.4-12.4); Platelet Count 202 K/uL (130-400); RDW Coefficient of Variation 14.2 % (11.5-14.5); RDW Standard Deviation 52.6 fL (36.4-46.3); Red Blood Count 3.15 M/uL (4.63-6.08); White Blood Count 3.71 K/ul (4.8-10.8)
[2022-01-04 07:34] LABS: Albumin Globulin Ratio 1.2 (0.9-2); Albumin Level 3.1 gm/dl (3.4-5.0); BUN Creatinine Ratio 24.5 (10-20); Bilirubin,Total 1.1 mg/dl (0.2-1.0); Calcium 8.7 mg/dl (8.5-10.1); Creatinine Clr Calc Pharmacy 143.9 ml/min; Est GFR (Non-African American) 103.5 ml/min; Globulin 2.5 gm/dl (2.5-4.0); Total Protein 5.6 gm/dl (6.0-8.3)
[2022-01-04] MEDS: dilTIAZem HCL 180 MG CAPCR PO SCH (08:27)
[2022-01-04] MEDS: CYANOCOBALAMIN (B-12) 100 MCG TABLET PO SCH (08:27)
[2022-01-04] MEDS: allopurinoL 300 MG TAB PO SCH (08:27)
[2022-01-04] MEDS: DIGOXIN 0.125 MG TAB PO SCH (08:27)
[2022-01-04] MEDS: CHOLECALCIFEROL 1,000 UNITS 25 MCG TAB PO SCH (08:27)
[2022-01-04] MEDS: FAMOTIDINE 20 MG TAB PO SCH (08:28)
[2022-01-04] MEDS: METOPROLOL SUCC 50MG EXT REL TAB PO SCH ×2 (08:28→21:53)
[2022-01-04] MEDS: INSULIN ASPART PER UNIT SC SCH ×4 (08:31→21:41)
[2022-01-04] MEDS: LANTUS PER UNIT CHARGE SQ SCH (08:32)
--- NOTE | 2022-01-04 08:56 | Hospitalist Progress Note ---
Date of Service January 04, 2022 Assessment & Plan (1) Falls frequently: Plan: Recurrent admissions for falls, recently had mechanical fall getting out of the bathroom. No LOC/head trauma Hemodynamically stable/on RA Repeat PT/OT consulted -- home health (already arranged, patient stated they saw to arrange earlier this week) vs inpatient rehab (just finished inpatient rehab stay) Will also check a Lyme given no prior recent testing and falls/joint issues (hx charcot foot). Leukopenic on labs TB/ALP minimal elevation on admit --however patient w/ prior cholecystomy. Of note, murmur on exam + JVD, no recent ECHO in system however stated follows with Dr Mcdermott and believes was to have one done recently. ECHO ordered for further eval given falls as well Of note, MCV >100 for all values in system. Check peripheral smear for further eval. Recent B12/folate within past two months normal. TSH w/o elevation recently * prior reports for MRI hand in January 2021 w/ right fourth finger burn not healing, noted evidence for carpal collapse, findings suggestive of possibility for underlying rheumatoid arthritis. Deviation of MCP joints with no erosive arthropathy present at that time. * ??? Macrocytosis from possible underlying rheumatoid arthritis s/p fall, imaging with large right knee effusion. --> Ortho consulted for R knee effusion, consideration of aspiration given falls Upon review of chart, patient did have elevated CRP/ESR in October -- will repeat w/ labs Consider referral to rheumatology outpatient. (2) Wound of left lower extremity: Plan: Sutures in ER 01/03 LLE Pain control, tylenol ordered with reported control Wound RN consulted (3) DM II (diabetes mellitus, type II), controlled: Plan: Last A1c 5.2 in system -- patient frustrated that he always gets labeled as DM and had intentionally lost lots of weight/portion control and lost reported 130lb over the years On metformin 500mg daily BSG AC/HS inpatent, will d/c lantus BID ordered Monitor BSGs (4) Afib: Plan: Hx of such, on exam irregularly irregular, denies elevated rates as outpatient Continues on digoxin, eliquis Dig level pending Continue metoprolol 100mg BID, diltiazem (recently reduced from 240mg to 180mg daily) (5) HTN (hypertension): Plan: BP stable patient reported was on spironolactone at rehab, discontinued he believes. no on home medication list but had rx for such earlier in the year Continue metoprolol BID, Cardizem as above Monitor (6) Hypercholesterolemia: Plan: Continue statin (7) Knee effusion, right: Plan: noted on imaging pain control ortho consulted also has hematoma to L wrist (stated present prior to last admit), obtain xray for eval (8) Murmur: Plan: appreciated on exam checking ECHO given repeated falls, states follow with Dr Mcdermott from cardiology Plan Check ESR/CRP, consult placed for knee effusion, echo for murmur given falls PT/OT consulted continued inpatient stay Admission and Anticipated Discharge Date Admission Date: January 03, 2022 Subjective Eval this morning Feeling defeated w/ recent admit Had BM at home/EMS on Friday, on Friday EMS there for fall w/ laceration to his RLE Chronic neuropathy/Charcot foot but also does endorse neuropathy in his hands Chronic LE edema Does follow w/ Dr Mcdermott from cardiology, states believes was for echo soon when asked about a murmur. He states sometimes people hear it but sometimes not. D ifficult w/ Afib but definitely present. He believes they discontinued his spironolactone at d/c from rehab but he has them at home. will ask CM to check w/ SNF to see about instructions at d/c as he was only home a day. Wound RN to be consulted for LLE, no evidence of cellulitis presently Does also have a hematoma to his left wrist, stated here prior to last admission. Of note, had been having intention weight loss/portion control over years for his DM, not diabetic any longer but on his list. Discussed likely problem not resolved on reconciliation at d/c last visit. He also mentioned that he had his metoprolol which he thought should be decreased but no one wanted to reach out to Dr Mcdermott but then he called himself and was called back by nursing and this and maybe either his diltiazem or metoprolol was reduced. Will review -- appears diltiazem was decreased from 240 to 180mg daily. Was on metoprolol 100mg BID (continued, same at d/c last time). Review of Systems Review of Systems: All systems reviewed & are unremarkable except as noted in HPI & below Physical Exam Physical Exam: General: chronically ill appearing male, laying in bed, looking out the window, NAD, +depressed (initially, was telling jokes at end of encounter about window HEENT: eyes anicteric, pupils equal in size, trachea midline +JVD with head of bed at 30 degrees Resp: diminished in the bases, no wheezing/respiratory distress, on room air CV: irregularly irregular, systolic murmur vs S3, significant 3+ LE edema bilaterally to the thighs (reports chronic) GI: +BS, +distention, soft/nontender, no guarding/rebound MSK/Neuro: moves all extremities, charcot foot b/l feet chronic bruising to LE, laceration s/p repair with sutures to his LLE lateral aspect, approximated, nontender/nonerythematous edema b/l LE -- increased R knee swelling compared to the left, ?effusion L hand with edema/hematoma to proximal/medial wrist (states has been present for several weeks), not overtly tender (but is about the size of a golfball) Psych: alert/oriented to person/place/time, does endorse frustration/depression with recurrent hospitalizations Skin: multiple areas of ecchymosis Results & Data Results & Data ([facility]) Vital Signs (Past 12 Hours) Vital Signs Temp Pulse Pulse Resp BP Pulse Ox O2 Del Method 01/04/22 08:27 74 01/04/22 07:47 36.7 C 74 18 138/69 97 Room Air Laboratory Results 01/04/22 01/04/22 01/04/22 Range/Units 11:51 09:07 08:04 WBC (4.8-10.8) K/ul RBC (4.63-6.08) M/uL Hgb (14.0-18.0) g/dl Hct (40.1-51.0) % MCV (80.0-100.0) fL MCH (25.0-34.0) pg MCHC (32.0-36.0) g/dL RDW Std Deviation (36.4-46.3) fL RDW Coeff of Pau (11.5-14.5) % Plt Count (130-400) K/uL MPV (9.4-12.4) fL Immature Gran % (Auto) % Neut % (Auto) % Lymph % (Auto) % [place] % (Auto) % Eos % (Auto) % Baso % (Auto) % Neut # (Auto) (1.4-6.5) K/uL Lymph # (Auto) (1.2-3.4) K/uL [place] # (Auto) (0.24-0.82) K/uL Eos # (Auto) (0-0.50) K/uL Baso # (Auto) (0-0.2) K/uL Immature Gran # (Auto) (0.00-0.02) K/uL Peripher Smr Path Cons Sodium (136-145) mmol/L Potassium (3.5-5.1) mmol/L Chloride (98-107) mmol/L Carbon Dioxide (21-32) mmol/L Anion Gap (3-11) BUN (6-23) mg/dl Creatinine (0.6-1.4) mg/dl Est Cr Clr Drug Dosing ml/min Est GFR ( Amer) ml/min Est GFR (Non-Af Amer) ml/min BUN/Creatinine Ratio (10-20) Glucose (70-99(Fasting)) mg/dl POC Glucose 123 H 97 (70-99) mg/dl Calcium (8.5-10.1) mg/dl Total Bilirubin (0.2-1.0) mg/dl AST (13-39) U/L ALT (7-52) U/L Alkaline Phosphatase (34-104) U/L Total Protein (6.0-8.3) gm/dl Albumin (3.4-5.0) gm/dl Globulin (2.5-4.0) gm/dl Albumin/Globulin Ratio (0.9-2) TSH (0.300-4.500) uIu/ml Urine Color Urine Appearance (Clear) Urine pH (4.5-7.5) Ur Specific Grant (1.000-1.030) Urine Protein (Negative) Urine Glucose (UA) (Negative) Urine Ketones (Negative) Urine Blood (Negative) Urine Nitrite (Negative) Urine Bilirubin (Negative) Urine Urobilinogen (Negative) Ur Leukocyte Esterase (Negative) Urine WBC (Auto) (0-5) /hpf Urine RBC (Auto) (0-4) /hpf U Hyaline Cast (Auto) (0-5) /lpf U Epithel Cells (Auto) (0-5) /lpf Urine Bacteria (Auto) (Negative) Digoxin (0.8-2.0) ng/ml Anaplasma Smear Lyme Disease IgG Ab Negative (Negative) Lyme Disease IgM Ab Negative (Negative) SARS-CoV-2, RNA, NAAT (NEGATIVE) 01/04/22 01/04/22 01/04/22 Range/Units 06:58 06:58 06:58 WBC 3.71 L (4.8-10.8) K/ul RBC 3.15 L (4.63-6.08) M/uL Hgb 10.5 L (14.0-18.0) g/dl Hct 31.9 L (40.1-51.0) % MCV 101.3 H (80.0-100.0) fL MCH 33.3 (25.0-34.0) pg MCHC 32.9 (32.0-36.0) g/dL RDW Std Deviation 52.6 H (36.4-46.3) fL RDW Coeff of Pau 14.2 (11.5-14.5) % Plt Count 202 (130-400) K/uL MPV 10.2 (9.4-12.4) fL Immature Gran % (Auto) % Neut % (Auto) % Lymph % (Auto) % [place] % (Auto) % Eos % (Auto) % Baso % (Auto) % Neut # (Auto) (1.4-6.5) K/uL Lymph # (Auto) (1.2-3.4) K/uL [place] # (Auto) (0.24-0.82) K/uL Eos # (Auto) (0-0.50) K/uL Baso # (Auto) (0-0.2) K/uL Immature Gran # (Auto) (0.00-0.02) K/uL Peripher Smr Path Cons Sodium 140 (136-145) mmol/L Potassium 4.0 (3.5-5.1) mmol/L Chloride 108 H (98-107) mmol/L Carbon Dioxide 28 (21-32) mmol/L Anion Gap 4 (3-11) BUN 13 (6-23) mg/dl Creatinine 0.53 L (0.6-1.4) mg/dl Est Cr Clr Drug Dosing 143.9 ml/min Est GFR ( Amer) 120.0 ml/min Est GFR (Non-Af Amer) 103.5 ml/min BUN/Creatinine Ratio 24.5 H (10-20) Glucose 78 (70-99(Fasting)) mg/dl POC Glucose (70-99) mg/dl Calcium 8.7 (8.5-10.1) mg/dl Total Bilirubin 1.1 H (0.2-1.0) mg/dl AST 15 (13-39) U/L ALT 7 (7-52) U/L Alkaline Phosphatase 95 (34-104) U/L Total Protein 5.6 L (6.0-8.3) gm/dl Albumin 3.1 L (3.4-5.0) gm/dl Globulin 2.5 (2.5-4.0) gm/dl Albumin/Globulin Ratio 1.2 (0.9-2) TSH (0.300-4.500) uIu/ml Urine Color Urine Appearance (Clear) Urine pH (4.5-7.5) Ur Specific Grant (1.000-1.030) Urine Protein (Negative) Urine Glucose (UA) (Negative) Urine Ketones (Negative) Urine Blood (Negative) Urine Nitrite (Negative) Urine Bilirubin (Negative) Urine Urobilinogen (Negative) Ur Leukocyte Esterase (Negative) Urine WBC (Auto) (0-5) /hpf Urine RBC (Auto) (0-4) /hpf U Hyaline Cast (Auto) (0-5) /lpf U Epithel Cells (Auto) (0-5) /lpf Urine Bacteria (Auto) (Negative) Digoxin 0.8 (0.8-2.0) ng/ml Anaplasma Smear See Comment Lyme Disease IgG Ab (Negative) Lyme Disease IgM Ab (Negative) SARS-CoV-2, RNA, NAAT (NEGATIVE) 01/03/22 01/03/22 01/03/22 Range/Units 21:09 21:05 20:44 WBC (4.8-10.8) K/ul RBC (4.63-6.08) M/uL Hgb (14.0-18.0) g/dl Hct (40.1-51.0) % MCV (80.0-100.0) fL MCH (25.0-34.0) pg MCHC (32.0-36.0) g/dL RDW Std Deviation (36.4-46.3) fL RDW Coeff of Pau (11.5-14.5) % Plt Count (130-400) K/uL MPV (9.4-12.4) fL Immature Gran % (Auto) % Neut % (Auto) % Lymph % (Auto) % [place] % (Auto) % Eos % (Auto) % Baso % (Auto) % Neut # (Auto) (1.4-6.5) K/uL Lymph # (Auto) (1.2-3.4) K/uL [place] # (Auto) (0.24-0.82) K/uL Eos # (Auto) (0-0.50) K/uL Baso # (Auto) (0-0.2) K/uL Immature Gran # (Auto) (0.00-0.02) K/uL Peripher Smr Path Cons Sodium (136-145) mmol/L Potassium (3.5-5.1) mmol/L Chloride (98-107) mmol/L Carbon Dioxide (21-32) mmol/L Anion Gap (3-11) BUN (6-23) mg/dl Creatinine (0.6-1.4) mg/dl Est Cr Clr Drug Dosing ml/min Est GFR ( Amer) ml/min Est GFR (Non-Af Amer) ml/min BUN/Creatinine Ratio (10-20) Glucose (70-99(Fasting)) mg/dl POC Glucose 87 63 L* 76 (70-99) mg/dl Calcium (8.5-10.1) mg/dl Total Bilirubin (0.2-1.0) mg/dl AST (13-39) U/L ALT (7-52) U/L Alkaline Phosphatase (34-104) U/L Total Protein (6.0-8.3) gm/dl Albumin (3.4-5.0) gm/dl Globulin (2.5-4.0) gm/dl Albumin/Globulin Ratio (0.9-2) TSH (0.300-4.500) uIu/ml Urine Color Urine Appearance (Clear) Urine pH (4.5-7.5) Ur Specific Grant (1.000-1.030) Urine Protein (Negative) Urine Glucose (UA) (Negative) Urine Ketones (Negative) Urine Blood (Negative) Urine Nitrite (Negative) Urine Bilirubin (Negative) Urine Urobilinogen (Negative) Ur Leukocyte Esterase (Negative) Urine WBC (Auto) (0-5) /hpf Urine RBC (Auto) (0-4) /hpf U Hyaline Cast (Auto) (0-5) /lpf U Epithel Cells (Auto) (0-5) /lpf Urine Bacteria (Auto) (Negative) Digoxin (0.8-2.0) ng/ml Anaplasma Smear Lyme Disease IgG Ab (Negative) Lyme Disease IgM Ab (Negative) SARS-CoV-2, RNA, NAAT (NEGATIVE) 01/03/22 01/03/22 01/03/22 Range/Units 20:42 19:13 15:52 WBC (4.8-10.8) K/ul RBC (4.63-6.08) M/uL Hgb (14.0-18.0) g/dl Hct (40.1-51.0) % MCV (80.0-100.0) fL MCH (25.0-34.0) pg MCHC (32.0-36.0) g/dL RDW Std Deviation (36.4-46.3) fL RDW Coeff of Pau (11.5-14.5) % Plt Count (130-400) K/uL MPV (9.4-12.4) fL Immature Gran % (Auto) % Neut % (Auto) % Lymph % (Auto) % [place] % (Auto) % Eos % (Auto) % Baso % (Auto) % Neut # (Auto) (1.4-6.5) K/uL Lymph # (Auto) (1.2-3.4) K/uL [place] # (Auto) (0.24-0.82) K/uL Eos # (Auto) (0-0.50) K/uL Baso # (Auto) (0-0.2) K/uL Immature Gran # (Auto) (0.00-0.02) K/uL Peripher Smr Path Cons Sodium (136-145) mmol/L Potassium (3.5-5.1) mmol/L Chloride (98-107) mmol/L Carbon Dioxide (21-32) mmol/L Anion Gap (3-11) BUN (6-23) mg/dl Creatinine (0.6-1.4) mg/dl Est Cr Clr Drug Dosing ml/min Est GFR ( Amer) ml/min Est GFR (Non-Af Amer) ml/min BUN/Creatinine Ratio (10-20) Glucose (70-99(Fasting)) mg/dl POC Glucose 69 L* (70-99) mg/dl Calcium (8.5-10.1) mg/dl Total Bilirubin (0.2-1.0) mg/dl AST (13-39) U/L ALT (7-52) U/L Alkaline Phosphatase (34-104) U/L Total Protein (6.0-8.3) gm/dl Albumin (3.4-5.0) gm/dl Globulin (2.5-4.0) gm/dl Albumin/Globulin Ratio (0.9-2) TSH 0.815 (0.300-4.500) uIu/ml Urine Color Dark Yellow Urine Appearance Clear (Clear) Urine pH 6.5 (4.5-7.5) Ur Specific Grant 1.035 H (1.000-1.030) Urine Protein Trace H (Negative) Urine Glucose (UA) Negative (Negative) Urine Ketones 1+ H (Negative) Urine Blood Negative (Negative) Urine Nitrite Negative (Negative) Urine Bilirubin Negative (Negative) Urine Urobilinogen Negative (Negative) Ur Leukocyte Esterase Negative (Negative) Urine WBC (Auto) 1-5 (0-5) /hpf Urine RBC (Auto) 0-4 (0-4) /hpf U Hyaline Cast (Auto) 0 (0-5) /lpf U Epithel Cells (Auto) 5-10 H (0-5) /lpf Urine Bacteria (Auto) Negative (Negative) Digoxin (0.8-2.0) ng/ml Anaplasma Smear Lyme Disease IgG Ab (Negative) Lyme Disease IgM Ab (Negative) SARS-CoV-2, RNA, NAAT (NEGATIVE) 01/03/22 01/03/22 01/03/22 Range/Units 15:52 15:52 15:35 WBC 4.34 L (4.8-10.8) K/ul RBC 3.35 L (4.63-6.08) M/uL Hgb 11.9 L (14.0-18.0) g/dl Hct 34.0 L (40.1-51.0) % MCV 101.5 H (80.0-100.0) fL MCH 35.5 H (25.0-34.0) pg MCHC 35.0 (32.0-36.0) g/dL RDW Std Deviation 52.9 H (36.4-46.3) fL RDW Coeff of Pau 14.2 (11.5-14.5) % Plt Count 212 (130-400) K/uL MPV 10.2 (9.4-12.4) fL Immature Gran % (Auto) 0.2 % Neut % (Auto) 49.3 % Lymph % (Auto) 32.0 % [place] % (Auto) 15.0 % Eos % (Auto) 2.1 % Baso % (Auto) 1.4 % Neut # (Auto) 2.14 (1.4-6.5) K/uL Lymph # (Auto) 1.39 (1.2-3.4) K/uL [place] # (Auto) 0.65 (0.24-0.82) K/uL Eos # (Auto) 0.09 (0-0.50) K/uL Baso # (Auto) 0.06 (0-0.2) K/uL Immature Gran # (Auto) 0.01 (0.00-0.02) K/uL Peripher Smr Path Cons Sodium 139 (136-145) mmol/L Potassium 3.9 (3.5-5.1) mmol/L Chloride 106 (98-107) mmol/L Carbon Dioxide 28 (21-32) mmol/L Anion Gap 5 (3-11) BUN 15 (6-23) mg/dl Creatinine 0.59 L (0.6-1.4) mg/dl Est Cr Clr Drug Dosing 140.7 ml/min Est GFR ( Amer) 114.8 ml/min Est GFR (Non-Af Amer) 99.0 ml/min BUN/Creatinine Ratio 25.4 H (10-20) Glucose 92 (70-99(Fasting)) mg/dl POC Glucose (70-99) mg/dl Calcium 9.2 (8.5-10.1) mg/dl Total Bilirubin 1.1 H (0.2-1.0) mg/dl AST 13 (13-39) U/L ALT 8 (7-52) U/L Alkaline Phosphatase 110 H (34-104) U/L Total Protein 6.3 (6.0-8.3) gm/dl Albumin 3.4 (3.4-5.0) gm/dl Globulin 2.9 (2.5-4.0) gm/dl Albumin/Globulin Ratio 1.2 (0.9-2) TSH (0.300-4.500) uIu/ml Urine Color Urine Appearance (Clear) Urine pH (4.5-7.5) Ur Specific Grant (1.000-1.030) Urine Protein (Negative) Urine Glucose (UA) (Negative) Urine Ketones (Negative) Urine Blood (Negative) Urine Nitrite (Negative) Urine Bilirubin (Negative) Urine Urobilinogen (Negative) Ur Leukocyte Esterase (Negative) Urine WBC (Auto) (0-5) /hpf Urine RBC (Auto) (0-4) /hpf U Hyaline Cast (Auto) (0-5) /lpf U Epithel Cells (Auto) (0-5) /lpf Urine Bacteria (Auto) (Negative) Digoxin (0.8-2.0) ng/ml Anaplasma Smear Lyme Disease IgG Ab (Negative) Lyme Disease IgM Ab (Negative) SARS-CoV-2, RNA, NAAT NEGATIVE (NEGATIVE) Diagnostic Findings Foot X-Ray 01/03/22 12:15 RIGHT FOOT 3 VIEWS CLINICAL HISTORY: Fifth toenail pain. Bleeding. FINDINGS: 3 views of the right foot are obtained. No prior studies are available for comparison at the time of dictation. The skeletal structures are heterogeneously osteopenic. No acute fracture is seen. Advanced osteoarthritic change is seen throughout the midfoot. Moderate arthritic change is noted at the first metatarsophalangeal joint. Milder degenerative change is seen throughout the remaining metatarsophalangeal joints and the interphalangeal joints. Degenerative spurring is noted along the dorsal aspect of the tarsal bones. There is a large plantar heel spur. Diffuse soft tissue edema is present throughout the foot. There is atherosclerotic calcification of the regional arteries. IMPRESSION: 1. Soft tissue swelling with no acute bony abnormality identified. 2. Osteopenia, arthritic change, and large heel spur as above. Electronically signed by: Raf Gann M.D. 01/03/2022 1:25 PM Knee X-Ray 01/03/22 12:15 RIGHT KNEE 3 VIEWS. CLINICAL HISTORY: Fall with right knee pain. FINDINGS: AP, crosstable lateral, and sunrise views of the right knee are compared to study dated 05/06/2017. The skeletal structures are osteopenic. No fr acture is seen. There is moderate to advanced tricompartmental degenerative joint space narrowing. There are large marginal osteophytes and patellar enthesophytes. Spurring is seen along the anterior and posterior aspect of the distal femur and proximal tibia. There is a large joint effusion. Soft tissue swelling is noted around the knee. There is advanced atherosclerotic calcification of the popliteal artery. IMPRESSION: 1. Soft tissue swelling and large joint effusion with no acute bony abnormality identified. 2. Osteopenia and arthritic change as above. Electronically signed by: Raf Gann M.D. 01/03/2022 1:27 PM Tibia/Fibula X-Ray 01/03/22 12:15 LEFT TIBIA AND FIBULA 2 VIEWS CLINICAL HISTORY: Laceration. FINDINGS: AP and lateral views of the left tibia and fibula are compared to study dated 10/10/2021. The skeletal structures are osteopenic. There is no radiographic evidence of left tibial or fibular fracture. The knee and ankle joints are grossly maintained noting degenerative change. There are dorsal and plantar heel spurs. Advanced arthritic change is seen in the partially imaged mid foot. Soft tissue edema is present throughout the left lower extremity. There is atherosclerotic calcification of the regional arteries. No radiodense foreign body is identified. An osteochondroma is again seen along the medial aspect of the distal femoral metaphysis. IMPRESSION: 1. Diffuse soft tissue swelling with no acute bony abnormality seen involving the left tibia or fibula. 2. No radiodense foreign body is identified. Electronically signed by: Raf Gann M.D. 01/03/2022 3:19 PM Chest X-Ray 01/03/22 14:47 SINGLE VIEW CHEST CLINICAL HISTORY: Generalized weakness. FINDINGS: An AP, portable, upright chest radiograph is compared to study dated 10/10/2021 and correlated with chest CT dated 08/18/2007. The heart is enlarged noting atherosclerotic calcification of the thoracic aorta. The pulmonary vasculature is noncongested. Chronic interstitial thickening similar to previous. There is chronic elevation of the right hemidiaphragm with bibasilar scarring/atelectasis. The lungs and pleural spaces are otherwise clear. No pneumothorax is seen. The skeletal structures are osteopenic. There are healed right-sided rib fractures. IMPRESSION: Cardiomegaly with no acute cardiopulmonary abnormality identified. ACT 112: Negative or not required by law. Electronically signed by: Raf Gann M.D. 01/03/2022 3:16 PM PG Care Time/CCT Total # of Minutes Spent Total Time Spent with Patient: Total time spent is greater than 50% in coordination of care (as documented) at patient's floor/unit and/or counseling patient: Coding Level of Care Code 32253 Subseq Obs Care Lvl 3 Diagnoses Falls frequently R29.6 Wound of left lower extremity S81.802A DM II (diabetes mellitus, type II), controlled E11.9 Afib I48.91 Atrial fibrillation type: unspecified HTN (hypertension) I10 Hypercholesterolemia E78.00 Knee effusion, right M25.461 Murmur R01.1 (1) Afib Atrial fibrillation type: unspecified Qualified Code(s): I48.91 - Unspecified atrial fibrillation
[2022-01-04] MEDS: APIXABAN 5 MG TABLET PO SCH ×2 (09:45→21:53)
--- NOTE | 2022-01-04 10:05 | Electrocardiogram Report ---
Test Reason : Blood Pressure : / mmHG Vent. Rate : 070 BPM Atrial Rate : 150 BPM P-R Int : 000 ms QRS Dur : 084 ms QT Int : 380 ms P-R-T Axes : 000 038 051 degrees QTc Int : 410 ms Atrial fibrillation Low voltage QRS Abnormal ECG When compared with ECG of 19-OCT-2021 11:44, No significant change was found Confirmed by Ezio Weathers ([id number]) on 01/04/2022 10:04:38 AM Referred By: REFERRED SELF Confirmed By:Ezio Weathers
[2022-01-04 10:25] LABS: Lyme Ab IgG w/WB Rflx Negative (Negative)
[2022-01-04 10:26] LABS: Lyme Ab IgM w/WB Rflx Negative (Negative)
--- NOTE | 2022-01-04 16:17 | Orthopedic Consultation ---
Date of Consultation January 04, 2022 Assessment & Plan (1) Knee effusion, right: Right knee pain, s/p fall, likely secondarily to exacerbation of OA vs contusion vs ligamentous laxity unclear if that is new or old. Acute vs acute on chronic. RICE. Will obtain a hinged knee brace, which he will wear while active. WBAT with walker. Can follow up as an outpatient with myself or Dr. Beasley. Continue care per primary service. Present on Admission?: Yes History of Present Illness Reason for Consultation: Right knee pain Requesting Physician: Richard Rivera MD Attending Physician: Mark Chatman MD History of Present Illness 76 yo male who slipped in the shower and sustained a laceration over left lower leg that was repaired by the ED and injured his right knee. He has been admitted to the hospitalist service. I was consulted due to right knee pain. He has a h/o bilateral diabetic neuropathy and Charcot feet. He has seen Dr. Hess in the past, was told he had arthrisis but surgery would not help, and his sees Dr. Beasley. Allergies Allergy/AdvReac Type Severity Reaction Status Date / Time furosemide Allergy Severe CHEST Verified 01/03/22 15:04 "FLUTTERY" aspirin AdvReac Unknown HX OF GI Verified 01/03/22 15:04 BLEED NSAIDS (Non-Steroidal AdvReac Unknown bleeding Verified 01/03/22 15:04 Anti-Inflamma Home Medications Medication Instructions Recorded Confirmed Type allopurinol 300 mg tablet 300 mg PO DAILY 11/11/18 01/03/22 History atorvastatin 10 mg tablet 10 mg PO QPM 11/11/18 01/03/22 History cyanocobalamin (vitamin B-12) 100 100 mcg PO DAILY 11/11/18 01/03/22 History mcg tablet digoxin 125 mcg (0.125 mg) tablet 125 mcg PO DAILY #90 tabs 11/11/18 01/03/22 History famotidine 20 mg tablet 20 mg PO DAILY 11/11/18 01/03/22 History metformin 500 mg tablet 500 mg PO DAILY 11/11/18 01/03/22 History cholecalciferol (vitamin D3) 25 1,000 units PO DAILY 12/16/18 01/03/22 History mcg (1,000 unit) capsule diclofenac sodium 1 % topical gel 1 ea topical QID PRN Pain 02/01/20 01/03/22 History metoprolol succinate 100 mg 100 mg PO BID #180 tabs 04/24/20 01/03/22 History tablet,extended release 24 hr ascorbic acid (vitamin C) 500 mg 0 mg PO DAILY 08/14/20 01/03/22 History tablet (Vitamin C) apixaban 5 mg tablet 5 mg PO BID #180 tabs 04/24/21 01/03/22 Rx diltiazem HCl 180 mg 180 mg PO DAILY #90 caps 11/29/21 01/03/22 Rx capsule,extended release 24 hr Patient History Medical History (Updated 01/04/22 @ 16:21 by Michelle Sutton PA-C) Acquired bilateral foot drop Afib Diverticulosis Full thickness burn of finger of right hand History of GI bleed Skin cancer Tinea pedis Surgical History S/P cholecystectomy Status post Mohs surgery Family History Other No pertinent family history Social History Smoking Status: Never smoker Hx Alcohol Use: No Hx Substance Use: No Preferred Language: Yakut Communication Ability: Effective Visual Impairment: Diminished Hearing Ability: Normal Net Developer Contract Required: No Beliefs That Will Affect Care: Scientology Scientology Beliefs: TEMPLE marital status: Current Living Situation: Spouse current occupational status: retired Feels Safe at Home: Yes Safety Concerns: Feels Safe At This Time during the past year weight has: remained stable Assistive Devices: Walker Review of Systems Review of Systems: All systems reviewed & are unremarkable except as noted in HPI & below Physical Exam Physical Exam: RLE: Sensation to light touch diminished but unchanged. BCR < 2 sec. Limited motion at the ankle, unchanged per patient. Ubale to preform straight leg raise. ROM 5-100 degrees with crepitus. + effusion. Ligamentous examination: Adele testing with 3-4mm anterior translation prior to guarding, Posterior drawer testing with 1-2 mm translation with good endpoint, Varus stress at 5 and 30 degrees 3-4 mm opening without pain, Valgus stress at 5 & 30 degrees 1-2 mm opening without pain. Swelling lower leg and foot. Results & Data ([facility]) Vital Signs (Past 12 Hours) Vital Signs Temp Pulse Pulse Resp BP Pulse Ox O2 Del Method 01/04/22 15:22 36.9 C 58 L 18 118/65 96 Room Air 01/04/22 08:00 Room Air 01/04/22 08:27 74 01/04/22 07:47 36.7 C 74 18 138/69 97 Room Air Laboratory Results Laboratory Results WBC 3.71 K/ul (4.8-10.8) L 01/04/22 06:58 RBC 3.15 M/uL (4.63-6.08) L 01/04/22 06:58 Hgb 10.5 g/dl (14.0-18.0) L 01/04/22 06:58 Hct 31.9 % (40.1-51.0) L 01/04/22 06:58 MCV 101.3 fL (80.0-100.0) H 01/04/22 06:58 MCH 33.3 pg (25.0-34.0) 01/04/22 06:58 MCHC 32.9 g/dL (32.0-36.0) 01/04/22 06:58 RDW Std Deviation 52.6 fL (36.4-46.3) H 01/04/22 06:58 RDW Coeff of Pau 14.2 % (11.5-14.5) 01/04/22 06:58 Plt Count 202 K/uL (130-400) 01/04/22 06:58 MPV 10.2 fL (9.4-12.4) 01/04/22 06:58 Immature Gran % (Auto) 0.2 % 01/03/22 15:52 Neut % (Auto) 49.3 % 01/03/22 15:52 Lymph % (Auto) 32.0 % 01/03/22 15:52 [place] % (Auto) 15.0 % 01/03/22 15:52 Eos % (Auto) 2.1 % 01/03/22 15:52 Baso % (Auto) 1.4 % 01/03/22 15:52 Neut # (Auto) 2.14 K/uL (1.4-6.5) 01/03/22 15:52 Lymph # (Auto) 1.39 K/uL (1.2-3.4) 01/03/22 15:52 [place] # (Auto) 0.65 K/uL (0.24-0.82) 01/03/22 15:52 Eos # (Auto) 0.09 K/uL (0-0.50) 01/03/22 15:52 Baso # (Auto) 0.06 K/uL (0-0.2) 01/03/22 15:52 Immature Gran # (Auto) 0.01 K/uL (0.00-0.02) 01/03/22 15:52 Peripher Smr Path Cons 01/04/22 06:58 Sodium 140 mmol/L (136-145) 01/04/22 06:58 Potassium 4.0 mmol/L (3.5-5.1) 01/04/22 06:58 Chloride 108 mmol/L (98-107) H 01/04/22 06:58 Carbon Dioxide 28 mmol/L (21-32) 01/04/22 06:58 Anion Gap 4 (3-11) 01/04/22 06:58 BUN 13 mg/dl (6-23) 01/04/22 06:58 Creatinine 0.53 mg/dl (0.6-1.4) L 01/04/22 06:58 Est Cr Clr Drug Dosing 143.9 ml/min 01/04/22 06:58 Est GFR ( Amer) 120.0 ml/min 01/04/22 06:58 Est GFR (Non-Af Amer) 103.5 ml/min 01/04/22 06:58 BUN/Creatinine Ratio 24.5 (10-20) H 01/04/22 06:58 Glucose 78 mg/dl (70-99(Fasting)) 01/04/22 06:58 POC Glucose 123 mg/dl (70-99) H 01/04/22 11:51 Calcium 8.7 mg/dl (8.5-10.1) 01/04/22 06:58 Total Bilirubin 1.1 mg/dl (0.2-1.0) H 01/04/22 06:58 AST 15 U/L (13-39) 01/04/22 06:58 ALT 7 U/L (7-52) 01/04/22 06:58 Alkaline Phosphatase 95 U/L (34-104) 01/04/22 06:58 Total Protein 5.6 gm/dl (6.0-8.3) L 01/04/22 06:58 Albumin 3.1 gm/dl (3.4-5.0) L 01/04/22 06:58 Globulin 2.5 gm/dl (2.5-4.0) 01/04/22 06:58 Albumin/Globulin Ratio 1.2 (0.9-2) 01/04/22 06:58 TSH 0.815 uIu/ml (0.300-4.500) 01/03/22 15:52 Urine Color Dark Yellow 01/03/22 19:13 Urine Appearance Clear (Clear) 01/03/22 19:13 Urine pH 6.5 (4.5-7.5) 01/03/22 19:13 Ur Specific [place] 1.035 (1.000-1.030) H 01/03/22 19:13 Urine Protein Trace (Negative) H 01/03/22 19:13 Urine Glucose (UA) Negative (Negative) 01/03/22 19:13 Urine Ketones 1+ (Negative) H 01/03/22 19:13 Urine Blood Negative (Negative) 01/03/22 19:13 Urine Nitrite Negative (Negative) 01/03/22 19:13 Urine Bilirubin Negative (Negative) 01/03/22 19:13 Urine Urobilinogen Negative (Negative) 01/03/22 19:13 Ur Leukocyte Esterase Negative (Negative) 01/03/22 19:13 Urine WBC (Auto) 1-5 /hpf (0-5) 01/03/22 19:13 Urine RBC (Auto) 0-4 /hpf (0-4) 01/03/22 19:13 U Hyaline Cast (Auto) 0 /lpf (0-5) 01/03/22 19:13 U Epithel Cells (Auto) 5-10 /lpf (0-5) H 01/03/22 19:13 Urine Bacteria (Auto) Negative (Negative) 01/03/22 19:13 Digoxin 0.8 ng/ml (0.8-2.0) 01/04/22 06:58 Anaplasma Smear See Comment 01/04/22 06:58 Lyme Disease IgG Ab Negative (Negative) 01/04/22 09:07 Lyme Disease IgM Ab Negative (Negative) 01/04/22 09:07 SARS-CoV-2, RNA, NAAT NEGATIVE (NEGATIVE) 01/03/22 15:35 Impressions Foot X-Ray 01/03/22 12:15 RIGHT FOOT 3 VIEWS CLINICAL HISTORY: Fifth toenail pain. Bleeding. FINDINGS: 3 views of the right foot are obtained. No prior studies are available for comparison at the time of dictation. The skeletal structures are heterogeneously osteopenic. No acute fracture is seen. Advanced osteoarthritic change is seen throughout the midfoot. Moderate arthritic change is noted at the first metatarsophalangeal joint. Milder degenerative change is seen throughout the remaining metatarsophalangeal joints and the interphalangeal joints. Degenerative spurring is noted along the dorsal aspect of the tarsal bones. There is a large plantar heel spur. Diffuse soft tissue edema is present throughout the foot. There is atherosclerotic calcification of the regional arteries. IMPRESSION: 1. Soft tissue swelling with no acute bony abnormality identified. 2. Osteopenia, arthritic change, and large heel spur as above. Electronically signed by: Raf Gann M.D. 01/03/2022 1:25 PM Knee X-Ray 01/03/22 12:15 RIGHT KNEE 3 VIEWS. CLINICAL HISTORY: Fall with right knee pain. FINDINGS: AP, crosstable lateral, and sunrise views of the right knee are compared to study dated 05/06/2017. The skeletal structures are osteopenic. No fracture is seen. There is moderate to advanced tricompartmental degenerative joint space narrowing. There are large marginal osteophytes and patellar enthesophytes. Spurring is seen along the anterior and posterior aspect of the distal femur and proximal tibia. There is a large joint effusion. Soft tissue swelling is noted around the knee. There is advanced atherosclerotic calcific ation of the popliteal artery. IMPRESSION: 1. Soft tissue swelling and large joint effusion with no acute bony abnormality identified. 2. Osteopenia and arthritic change as above. Electronically signed by: Raf Gann M.D. 01/03/2022 1:27 PM Tibia/Fibula X-Ray 01/03/22 12:15 LEFT TIBIA AND FIBULA 2 VIEWS CLINICAL HISTORY: Laceration. FINDINGS: AP and lateral views of the left tibia and fibula are compared to study dated 10/10/2021. The skeletal structures are osteopenic. There is no radiographic evidence of left tibial or fibular fracture. The knee and ankle joints are grossly maintained noting degenerative change. There are dorsal and plantar heel spurs. Advanced arthritic change is seen in the partially imaged mid foot. Soft tissue edema is present throughout the left lower extremity. There is atherosclerotic calcification of the regional arteries. No radiodense foreign body is identified. An osteochondroma is again seen along the medial aspect of the distal femoral metaphysis. IMPRESSION: 1. Diffuse soft tissue swelling with no acute bony abnormality seen involving the left tibia or fibula. 2. No radiodense foreign body is identified. Electronically signed by: Raf Gann M.D. 01/03/2022 3:19 PM Chest X-Ray 01/03/22 14:47 SINGLE VIEW CHEST CLINICAL HISTORY: Generalized weakness. FINDINGS: An AP, portable, upright chest radiograph is compared to study dated 10/10/2021 and correlated with chest CT dated 08/18/2007. The heart is enlarged noting atherosclerotic calcification of the thoracic aorta. The pulmonary vasculature is noncongested. Chronic interstitial thickening similar to previous. There is chronic elevation of the right hemidiaphragm with bibasilar scarring/atelectasis. The lungs and pleural spaces are otherwise clear. No pneumothorax is seen. The skeletal structures are osteopenic. There are healed right-sided rib fractures. IMPRESSION: Cardiomegaly with no acute cardiopulmonary abnormality identified. ACT 112: Negative or not required by law. Electronically signed by: Raf Gann M.D. 01/03/2022 3:16 PM
--- NOTE | 2022-01-04 16:57 | XRay Report ---
XR wrist LT min 3V routine HISTORY: 76 years-old Male s/p fall prior, hematoma L wrist acute pain of the left wrist status post fall COMPARISON: Left finger radiographs 12/19/2020 TECHNIQUE: 4 views of left wrist FINDINGS: Chondrocalcinosis. Arterial calcifications. Multifocal osteoarthritis, moderate to severe within the radiocarpal articulation and triscaphe joint and severe within the first carpal metacarpal joint. No acute fracture, or dislocation identified. 4 mm negative ulnar variance. Moderate soft tissue swellin g circumferentially about the wrist. IMPRESSION: Soft tissue swelling without acute fracture or dislocation identified. ACT 112: Negative or not required by law. The above report was generated using voice recognition software. It may contain grammatical, syntax o r spelling errors. Electronically signed by: Rasta Luevano M.D. 01/04/2022 4:55 PM
[2022-01-04] MEDS: MAGNESIUM SULFATE / D5W 1 GM/100 ML BAG IV SCH ×3 (17:54→22:20)
[2022-01-04] MEDS: ATORVASTATIN 10 MG TAB PO SCH (21:52)
[2022-01-05 05:24] LABS: Hematocrit (blood only) 32.5 % (40.1-51.0); Mean Corpuscular Hemoglobin 33.5 pg (25.0-34.0); Mean Corpuscular Hgb Conc 33.8 g/dL (32.0-36.0); Mean Corpuscular Volume 99.1 fL (80.0-100.0); Mean Platelet Volume 9.9 fL (9.4-12.4); Platelet Count 179 K/uL (130-400); RDW Standard Deviation 51.4 fL (36.4-46.3); Red Blood Count 3.28 M/uL (4.63-6.08); White Blood Count 6.26 K/ul (4.8-10.8)
[2022-01-05 06:06] LABS: Albumin Globulin Ratio 1.2 (0.9-2); Albumin Level 3.2 gm/dl (3.4-5.0); BUN Creatinine Ratio 18.2 (10-20); Bilirubin,Total 2.2 mg/dl (0.2-1.0); C Reactive Protein 4.03 mg/dl (0-0.5); Calcium 8.7 mg/dl (8.5-10.1); Creatinine Clr Calc Pharmacy 115.6 ml/min; Est GFR (African American) 109.6 ml/min; Est GFR (Non-African American) 94.6 ml/min; Globulin 2.7 gm/dl (2.5-4.0); Potassium 4.1 mmol/L (3.5-5.1); Total Protein 5.9 gm/dl (6.0-8.3)
[2022-01-05] MEDS ORDERED: XYLOCAINE 1%/SOD BICARB 20 ML VIAL INFIL ONE (08:16)
[2022-01-05] MEDS ORDERED: methylPREDNISolone acetate 80 MG/ML VIAL IA ONE (08:19)
--- NOTE | 2022-01-05 09:07 | Orthopedic Progress Note ---
Date of Service January 05, 2022 Assessment & Plan (1) Knee effusion, right: Plan: Patient was fit for a roadrunner hinged knee brace. He may use this for compression, support, and anytime he is out of bed. Weight-bear as tolerated. Option of aspiration and cortisone injection of the right knee was discussed with him. Risks and benefits were discussed. He would like to proceed. We will continue to follow him while he is admitted. Importance of compression and elevation for control of his knee effusion was discussed with him. Procedure: Informed oral consent was obtained for ministration of aspiration of the right knee and administration of a cortisone injection. A timeout was taken with Dr. Rivera present, and the right knee was identified and marked. Skin was cleansed with Betadine and alcohol swabs. 18-gauge needle was used to aspirate 96 mL of straw-colored synovial fluid from the knee. There was some minor blood tingeing. No significant hemarthrosis or turbidity. The same needle patient was administered 1 mL Depo-Medrol (80 mL/mL) and 3 mL 1% plain lidocaine. Hemostasis was achieved with a Band-Aid. Patient tolerated the procedure very well. Rosalio wrap was applied to the knee for compression. He will leave this in place for the rest of the morning. May also be used for additional compression to limit any further effusion. Fluid was sent for synovial crystal analysis, gram stain, and aerobic/anaerobic cultures. Admission and Anticipated Discharge Date Admission Date: January 03, 2022 Supervising Physician Co-Signing Physician Notes I, Dr. Rivera, saw and examined the patient with my PA, personally supervised the right knee aspiration/cortisone injection and discussed the management with my PA. I reviewed my PAs note and agree with the documented findings and the plan of care I developed. Subjective Patient is seen again in his room this morning. He has no complaints other than continued knee pain. Discomfort is mild this morning. He states the swelling is the same. He is ready for breakfast. Has not been out of bed. Review of Systems Review of Systems: Unchanged from yesterday. Physical Exam Physical Exam: General: Well-developed, well-nourished, elderly white male, in no acute distress. Laying in bed. Conversive. Skin: Warm and dry with good turgor. No rashes. No change in his ecchymosis or generalized lower extremity edema. Intra-articular effusion in the right knee remains. No warmth. Musculoskeletal: Patient continues to have intact motor function to the right knee. He has full terminal extension. He is able to perform a straight leg raise. Flexion to greater than 90 degrees. No significant discomfort with palpation over the medial or lateral joint lines. No significant peripatellar discomfort. No palpable defect in the patellar tendon or quadriceps tendon. Neurologic: Gross sensation is intact across the right upper thigh and knee. He has significantly decreased sensation below the knee, and absent sensation around his ankles and feet. Results & Data ([facility]) Vital Signs (Past 12 Hours) Vital Signs Temp Pulse Resp BP Pulse Ox O2 Del Method 01/05/22 07:54 36.8 C 64 16 117/67 90 Room Air 01/04/22 22:54 37.6 C H 83 16 116/55 L 92 Room Air 01/04/22 21:48 39.0 C H 82 16 114/67 92 Room Air Laboratory Results CBC today shows a white count of 6.26. H&H of 11.0 and 32.5. Sed rate is 25. C-reactive protein elevated at 4.03.
[2022-01-05] MEDS: INSULIN ASPART PER UNIT SC SCH ×5 (09:14→20:54)
[2022-01-05] MEDS: METOPROLOL SUCC 50MG EXT REL TAB PO SCH ×2 (09:15→20:44)
[2022-01-05] MEDS: FAMOTIDINE 20 MG TAB PO SCH (09:15)
[2022-01-05] MEDS: CHOLECALCIFEROL 1,000 UNITS 25 MCG TAB PO SCH (09:15)
[2022-01-05] MEDS: CYANOCOBALAMIN (B-12) 100 MCG TABLET PO SCH (09:15)
[2022-01-05] MEDS: dilTIAZem HCL 180 MG CAPCR PO SCH (09:15)
[2022-01-05] MEDS: DIGOXIN 0.125 MG TAB PO SCH (09:15)
[2022-01-05] MEDS: allopurinoL 300 MG TAB PO SCH (09:15)
[2022-01-05] MEDS: APIXABAN 5 MG TABLET PO SCH ×2 (09:15→20:45)
--- NOTE | 2022-01-05 09:59 | XCELERA ---
[id number]
[2022-01-05 10:23] LABS: Appearance Synovial Fluid Hazy; Color Synovial Fluid Yellow; Mononuclear WBC Synovial 77.4 %; Polynuclear WBC Synovial 22.6 %; RBC Synovial Fluid Auto 6000 /uL; Source Synovial Fluid Knee; WBC Synovial Fluid Auto 464 /ul (0-200)
--- NOTE | 2022-01-05 13:26 | Hospitalist Progress Note ---
Date of Service January 05, 2022 Assessment & Plan (1) Falls frequently: Plan: Recurrent admissions for falls, recently had mechanical fall getting out of the bathroom. No LOC/head trauma - Repeat PT/OT consulted -- home health (already arranged, patient stated they saw to arrange earlier this week) vs inpatient rehab (just finished inpatient rehab stay) - Checked a Lyme given no prior recent testing and falls/joint issues -- negative - Of note, murmur on exam + JVD, no recent ECHO in system however stated follows with Dr Mcdermott and believes was to have one done recently. * ECHO ordered for further eval given falls as well--LV systolic fxn normal, borderline LA dilation, EF 60-65%, AV sclerosis (mod) w/o significant stenosis, mod AR, mod MR, RVSP 50-60 mmHg - Therapy recommending rehab - Case management consult for dc planning and rehab referrals, make full admit (2) Wound of left lower extremity: Plan: Sutures in ER 01/03 LLE - Pain control, tylenol ordered with reported control - Wound RN consulted (3) DM II (diabetes mellitus, type II), controlled: Plan: Last A1c 5.2 in system -- patient frustrated that he always gets labeled as DM and had intentionally lost lots of weight/portion control and lost reported 1 30lb over the years - On metformin 500mg daily - BSG AC/HS inpatent, will d/c lantus BID ordered (4) Afib: Plan: - Hx of such, on exam irregularly irregular, denies elevated rates as outpatient - Continues on digoxin, eliquis - Dig level pending - Continue metoprolol succinate 100mg BID, diltiazem (recently reduced from 240mg to 180mg daily) (5) HTN (hypertension): Plan: BP stable - patient reported was on spironolactone at rehab, discontinued he believes. no on home medication list but had rx for such earlier in the year - Continue metoprolol BID, Cardizem as above (6) Hypercholesterolemia: Plan: - Continue statin (7) Knee effusion, right: Plan: - noted on imaging - pain control - ortho consulted s/p joint aspiration (8) Murmur: Plan: appreciated on exam - checking ECHO given repeated falls, see results above (9) Macrocytic anemia: Plan: - Ordered peripheral smear for further eval. Recent B12/folate within past two months normal. - TSH w/o elevation recently - prior reports for MRI hand in January 2021 w/ right fourth finger burn not healing, noted evidence for carpal collapse, findings suggestive of possibility for underlying rheumatoid arthritis. Deviation of MCP joints with no erosive arthropathy present at that time. - ? Macrocytosis from possible underlying rheumatoid arthritis - Upon review of chart, patient did have elevated ESR of 53 & CRP 1.94 in 10/2021 and repeat is 25, and 4.03 respectively - Consider referral to rheumatology outpatient. Plan Continue therapy services. Advising rehab, full admit. Order a Dulcolax suppository and bedside commode. Case management consult to assist in dc jae law. D/w Dr. Caldwell. Admission and Anticipated Discharge Date Admission Date: January 03, 2022 Subjective Patient was seen this morning on daily rounds. He is resting in bed, offers no complaints. Ortho drained the fluid off of his right knee and notes that it feels better since. He denies cp or dyspnea. Refused therapy yesterday as he was feeling depressed regarding his recurrent hospitalizations, rehab stays, etc. He is in better spirits today. Notes he hasn't had a BM in 2 days and this is unusual for him. Tried to have a BM yesterday but was unsuccessful. Review of Systems Review of Systems: All systems reviewed and are unremarkable except as noted in HPI and below. Denies fever, chills, fatigue, headache, nasal congestion, sore throat, cough, chest pain, shortness of breath, palpitations, orthopnea, PND, abdominal pain, n/v/d, constipation, dysuria, hematuria, frequency, back pain, joint pain or swelling, easy bruising or bleeding, skin lesions or rashes. Physical Exam Physical Exam: GENERAL: 76 yo Well-developed, well-nourished elderly WM. NAD. LUNGS: Clear to auscultation bilaterally. No W/R/R. CARDIOVASCULAR: S1 S2 ABDOMEN: Soft, non-tender and non-distended. Bs normoactive x 4 quad. EXTREMITIES: No edema. Non-tender. Peripheral pulses +2/4. NEUROLOGIC: A&O x3 PSYCHIATRIC: Cooperative. Appropriate mood and affect. SKIN: Warm, dry, intact. Multiple areas of bruising. Large laceration to anterior LLE with sutures. Results & Data Results & Data ([facility]) Vital Signs (Past 12 Hours) Vital Signs Temp Pulse Resp BP Pulse Ox O2 Del Method 01/05/22 10:06 Room Air 01/05/22 07:54 36.8 C 64 16 117/67 90 Room Air Laboratory Results 01/05/22 05:11 01/05/22 05:11 PG Care Time/CCT Total # of Minutes Spent Total Time Spent with Patient: Total time spent is greater than 50% in coordination of care (as documented) at patient's floor/unit and/or counseling patient: Coding Level of Care Code 44859 Subseq Hosp Care Lvl 2 Diagnoses Falls frequently R29.6 Wound of left lower extremity S81.802A DM II (diabetes mellitus, type II), controlled E11.9 Afib I48.91 Atrial fibrillation type: unspecified HTN (hypertension) I10 Hypercholesterolemia E78.00 Knee effusion, right M25.461 Murmur R01.1 Macrocytic anemia D53.9 (1) Afib Atrial fibrillation type: unspecified Qualified Code(s): I48.91 - Unspecified atrial fibrillation
[2022-01-05] MEDS ORDERED: bisacodyL 10 MG SUPP PR STA (13:52)
[2022-01-05] MEDS: ATORVASTATIN 10 MG TAB PO SCH (20:45)
[2022-01-06 06:15] LABS: Hematocrit (blood only) 31.1 % (40.1-51.0); Hemoglobin 10.5 g/dl (14.0-18.0); Mean Corpuscular Hemoglobin 33.4 pg (25.0-34.0); Mean Corpuscular Hgb Conc 33.8 g/dL (32.0-36.0); Mean Platelet Volume 10.4 fL (9.4-12.4); Platelet Count 177 K/uL (130-400); RDW Coefficient of Variation 13.8 % (11.5-14.5); RDW Standard Deviation 49.9 fL (36.4-46.3); Red Blood Count 3.14 M/uL (4.63-6.08)
[2022-01-06 06:37] LABS: Albumin Globulin Ratio 1.1 (0.9-2); Albumin Level 3.2 gm/dl (3.4-5.0); BUN Creatinine Ratio 28.6 (10-20); Bilirubin,Total 1.2 mg/dl (0.2-1.0); Calcium 8.8 mg/dl (8.5-10.1); Creatinine Clr Calc Pharmacy 136.2 ml/min; Est GFR (African American) 117.3 ml/min; Est GFR (Non-African American) 101.2 ml/min; Globulin 2.9 gm/dl (2.5-4.0); Potassium 3.9 mmol/L (3.5-5.1); Total Protein 6.1 gm/dl (6.0-8.3)
[2022-01-06] MEDS: INSULIN ASPART PER UNIT SC SCH ×2 (09:40→12:05)
[2022-01-06] MEDS: APIXABAN 5 MG TABLET PO SCH ×2 (09:42→20:27)
[2022-01-06] MEDS: allopurinoL 300 MG TAB PO SCH (09:42)
[2022-01-06] MEDS: CYANOCOBALAMIN (B-12) 100 MCG TABLET PO SCH (09:42)
[2022-01-06] MEDS: CHOLECALCIFEROL 1,000 UNITS 25 MCG TAB PO SCH (09:42)
[2022-01-06] MEDS: FAMOTIDINE 20 MG TAB PO SCH (09:43)
[2022-01-06] MEDS: METOPROLOL SUCC 50MG EXT REL TAB PO SCH ×2 (09:43→20:26)
[2022-01-06] MEDS: DIGOXIN 0.125 MG TAB PO SCH (09:43)
[2022-01-06] MEDS: dilTIAZem HCL 180 MG CAPCR PO SCH (09:43)
--- NOTE | 2022-01-06 10:51 | Orthopedic Progress Note ---
Date of Service January 06, 2022 Assessment & Plan (1) Knee effusion, right: Plan: Patient was educated regarding today's findings. Conservative care measures were discussed. Rosalio wrap was removed for examination. This may be reapplied at any time. Continue using the knee brace when weightbearing and ambulating. Likelihood for intermediate facility placement versus rehab placement was discussed with him. I do not think he can go back to home yet. Patient is in agreement. He feels frustrated by his medical state. Continue with ice, elevation, and protected weightbearing. He will be reevaluated tomorrow. Patient was seen in conjunction with Dr. Rivera, who also evaluated the patient and concurred with today's diagnosis and treatment plan Admission and Anticipated Discharge Date Admission Date: January 05, 2022 Supervising Physician Co-Signing Physician Notes I, Dr. Rivera, saw and examined the patient with my PA, and discussed the management with my PA. I reviewed my PAs note and agree with the documented findings and the plan of care I developed. Subjective Patient was seen in his room this morning. He states he is feeling better today than yesterday. He has very little knee pain at this time. He was able to ambulate with assistance yesterday, and made it from his bed to the doorway. He was wearing the brace at the time. Knee pain increases with weightbearing. No other complaints at this point. Physical Exam Physical Exam: Right knee evaluation reveals a mild intra-articular effusion. It is significantly decompressed compared to yesterday. Ecchymotic areas remain present on his upper and lower extremities. No warmth to the knee. Generalized lower extremity peripheral edema. His flap laceration on the left jamison remains closed with no active drainage today. Musculoskeletal: He has full terminal extension. He is able to perform a straight leg raise. Flexion to 90 degrees. Strength is 5/5 with fair quad tone. No defect palpable in the patellar tendon or quadriceps tendon. Neurologic: Gross sensation is intact across the upper leg. He has decreased subjective sensation across the lower leg and into the ankle/foot. Results & Data ([facility]) Vital Signs (Past 12 Hours) Vital Signs Temp Pulse Resp BP Pulse Ox O2 Del Method 01/06/22 07:47 36.9 C 69 16 124/66 95 Room Air Laboratory Results H&H obtained today are 1210.5 and 31.1. WBCs stable at 5.2. PRP is unrem arkable. Glucose this morning was 173. Gram stain WBC's , no organisms 01/06/22 01/06/22 01/05/22 Range/Units 05:28 05:28 20:42 WBC 5.20 (4.8-10.8) K/ul RBC 3.14 L (4.63-6.08) M/uL Hgb 10.5 L (14.0-18.0) g/dl Hct 31.1 L (40.1-51.0) % MCV 99.0 (80.0-100.0) fL MCH 33.4 (25.0-34.0) pg MCHC 33.8 (32.0-36.0) g/dL RDW Std Deviation 49.9 H (36.4-46.3) fL RDW Coeff of Pau 13.8 (11.5-14.5) % Plt Count 177 (130-400) K/uL MPV 10.4 (9.4-12.4) fL Sodium 135 L (136-145) mmol/L Potassium 3.9 (3.5-5.1) mmol/L Chloride 102 (98-107) mmol/L Carbon Dioxide 29 (21-32) mmol/L Anion Gap 4 (3-11) BUN 16 (6-23) mg/dl Creatinine 0.56 L (0.6-1.4) mg/dl Est Cr Clr Drug Dosing 136.2 ml/min Est GFR ( Amer) 117.3 ml/min Est GFR (Non-Af Amer) 101.2 ml/min BUN/Creatinine Ratio 28.6 H (10-20) Glucose 173 H (70-99(Fasting)) mg/dl POC Glucose 266 H (70-99) mg/dl Calcium 8.8 (8.5-10.1) mg/dl Total Bilirubin 1.2 H (0.2-1.0) mg/dl AST 10 L (13-39) U/L ALT 6 L (7-52) U/L Alkaline Phosphatase 99 (34-104) U/L Total Protein 6.1 (6.0-8.3) gm/dl Albumin 3.2 L (3.4-5.0) gm/dl Globulin 2.9 (2.5-4.0) gm/dl Albumin/Globulin Ratio 1.1 (0.9-2) 01/05/22 Range/Units 11:56 WBC (4.8-10.8) K/ul RBC (4.63-6.08) M/uL Hgb (14.0-18.0) g/dl Hct (40.1-51.0) % MCV (80.0-100.0) fL MCH (25.0-34.0) pg MCHC (32.0-36.0) g/dL RDW Std Deviation (36.4-46.3) fL RDW Coeff of Pau (11.5-14.5) % Plt Count (130-400) K/uL MPV (9.4-12.4) fL Sodium (136-145) mmol/L Potassium (3.5-5.1) mmol/L Chloride (98-107) mmol/L Carbon Dioxide (21-32) mmol/L Anion Gap (3-11) BUN (6-23) mg/dl Creatinine (0.6-1.4) mg/dl Est Cr Clr Drug Dosing ml/min Est GFR ( Amer) ml/min Est GFR (Non-Af Amer) ml/min BUN/Creatinine Ratio (10-20) Glucose (70-99(Fasting)) mg/dl POC Glucose 209 H (70-99) mg/dl Calcium (8.5-10.1) mg/dl Total Bilirubin (0.2-1.0) mg/dl AST (13-39) U/L ALT (7-52) U/L Alkaline Phosphatase (34-104) U/L Total Protein (6.0-8.3) gm/dl Albumin (3.4-5.0) gm/dl Globulin (2.5-4.0) gm/dl Albumin/Globulin Ratio (0.9-2)
--- NOTE | 2022-01-06 12:43 | Hospitalist Progress Note ---
Date of Service January 06, 2022 Assessment & Plan (1) Falls frequently: Plan: Recurrent admissions for falls, recently had mechanical fall getting out of the bathroom. No LOC/head trauma - Repeat PT/OT consulted -- home health (already arranged, patient stated they saw to arrange earlier this week) vs inpatient rehab (just finished inpatient rehab stay) - Checked a Lyme given no prior recent testing and falls/joint issues -- negative - Of note, murmur on exam + JVD, no recent ECHO in system however stated follows with Dr Mcdermott and believes was to have one done recently. * ECHO ordered for further eval given falls as well--LV systolic fxn normal, borderline LA dilation, EF 60-65%, AV sclerosis (mod) w/o significant stenosis, mod AR, mod MR, RVSP 50-60 mmHg - Therapy recommending rehab - Case management consult for dc planning and rehab referrals, make full admit (2) Wound of left lower extremity: Plan: Sutures in ER 01/03 LLE - Pain control, tylenol ordered with reported control - Wound RN consulted but hasn't been seen yet d/t the holiday (3) DM II (diabetes mellitus, type II), controlled: Plan: Last A1c 5.2 in system -- patient frustrated that he always gets labeled as DM and had intentionally lost lots of weight/portion control and lost reported 130lb over the years - On metformin 500mg daily - D/C accuchecks and lispro insulin - Continue carb consistent diet (4) Afib: Plan: - Hx of such, on exam irregularly irregular, denies elevated rates as outpatient - Continues on digoxin, eliquis - Dig level pending - Continue metoprolol succinate 100mg BID, diltiazem (recently reduced from 240mg to 180mg daily) (5) HTN (hypertension): Plan: BP stable - patient reported was on spironolactone at rehab, discontinued he believes. no on home medication list but had rx for such earlier in the year - Continue metoprolol BID, Cardizem as above (6) Hypercholesterolemia: Plan: - Continue statin (7) Knee effusion, right: Plan: - noted on imaging - pain control - ortho consulted s/p joint aspiration (8) Murmur: Plan: appreciated on exam - checking ECHO given repeated falls, see results above (9) Macrocytic anemia: Plan: - Ordered peripheral smear for further eval. Recent B12/folate within past two months normal. - TSH w/o elevation recently - prior reports for MRI hand in January 2021 w/ right fourth finger burn not healing, noted evidence for carpal collapse, findings suggestive of possibility for underlying rheumatoid arthritis. Deviation of MCP joints with no erosive arthropathy present at that time. - ? Macrocytosis from possible underlying rheumatoid arthritis - Upon review of chart, patient did have elevated ESR of 53 & CRP 1.94 in 10/2021 and repeat is 25, and 4.03 respectively - Consider referral to rheumatology outpatient. Plan Continue therapy services. Advising rehab, made full admit on 01/05. Case management consult to assist in dc planning. D/w Dr. Delgado. Admission and Anticipated Discharge Date Admission Date: January 05, 2022 Supervising Physician Co-Signing Physician Notes Attending Attestation - Chart reviewed, care plan d/w LOUIS Mora. I agree w/ the olivarez components of her documentation. Mark Delgado MD Subjective Patient seen on daily rounds this morning. He reports R knee pain is better after arthrocentesis yesterday. Was able to ambulate with assistance. Therapy recommending rehab of which pt is agreeable. He denies cp or dyspnea. No n/v/d. Review of Systems Review of Systems: All systems reviewed and are unremarkable except as noted in HPI and below. Denies fever, chills, fatigue, headache, nasal congestion, sore throat, cough, chest pain, shortness of breath, palpitations, orthopnea, PND, abdominal pain, n/v/d, constipation, dysuria, hematuria, frequency, back pain, easy bruising or bleeding. Physical Exam Physical Exam: GENERAL: 76 yo Well-developed, well-nourished elderly WM. NAD. LUNGS: Clear to auscultation bilaterally. No W/R/R. CARDIOVASCULAR: S1 S2 irregular with 2/6 SHERLY ABDOMEN: Soft, non-tender and non-distended. Bs normoactive x 4 quad. EXTREMITIES: 3+ edema of b/l LE. Non-tender. Peripheral pulses +2/4. Laxity of R patella. Mild swelling of L knee but nontender joint margins. NEUROLOGIC: A&O x3 PSYCHIATRIC: Cooperative. Appropriate mood and affect. SKIN: Warm, dry, intact. Multiple areas of bruising. Large laceration to anterior LLE with sutures. Results & Data Results & Data ([facility]) Vital Signs (Past 12 Hours) Vital Signs Temp Pulse Resp BP Pulse Ox O2 Del Method 01/06/22 07:47 36.9 C 69 16 124/66 95 Room Air PG Care Time/CCT Total # of Minutes Spent Total Time Spent with Patient: Total time spent is greater than 50% in coordination of care (as documented) at patient's floor/unit and/or counseling patient: Coding Level of Care Code 18456 Subseq Hosp Care Lvl 2 Diagnoses Falls frequently R29.6 Wound of left lower extremity S81.802A DM II (diabetes mellitus, type II), controlled E11.9 Afib I48.91 Atrial fibrillation type: unspecified HTN (hypertension) I10 Hypercholesterolemia E78.00 Knee effusion, right M25.461 Murmur R01.1 Macrocytic anemia D53.9 (1) Afib Atrial fibrillation type: unspecified Qualified Code(s): I48.91 - Unspecified atrial fibrillation
[2022-01-06] MEDS: ATORVASTATIN 10 MG TAB PO SCH (20:27)
[2022-01-07] MEDS: allopurinoL 300 MG TAB PO SCH (08:27)
[2022-01-07] MEDS: CHOLECALCIFEROL 1,000 UNITS 25 MCG TAB PO SCH (08:27)
[2022-01-07] MEDS: APIXABAN 5 MG TABLET PO SCH (08:27)
[2022-01-07] MEDS: CYANOCOBALAMIN (B-12) 100 MCG TABLET PO SCH (08:28)
[2022-01-07] MEDS: dilTIAZem HCL 180 MG CAPCR PO SCH (09:35)
[2022-01-07] MEDS: DIGOXIN 0.125 MG TAB PO SCH (09:35)
[2022-01-07] MEDS: METOPROLOL SUCC 50MG EXT REL TAB PO SCH (09:37)
[2022-01-07] MEDS: FAMOTIDINE 20 MG TAB PO SCH (09:37)
--- NOTE | 2022-01-07 09:47 | Orthopedic Progress Note ---
Date of Service January 07, 2022 Assessment & Plan (1) Knee effusion, right: Plan: 76-year-old male with right knee effusion, improving There is no growth to date on cultures taken from aspirate. We will continue to follow for results of crystals. Continue with ice, compression, elevation Pain control per primary PT/OT Case management for discharge needs, likelihood for halfway facility placement versus rehab placement Pt was seen and examined with Dr Rivera who is in agreement with this plan Patient may follow up outpatient Will sign off for now, we will continue to follow final results from aspirate, please [employer] with any questions or concerns Admission and Anticipated Discharge Date Admission Date: January 05, 2022 Subjective Patient seen and examined bedside. He is sitting up eating breakfast. He says that he is doing better and his knee is better. He feelings having it drained really helped. He say he does have a history of gout a very long time ago and takes allopurinol. Physical Exam Physical Exam: Upon examination patient's right distal extremity he has lymphedema noted about his distal extremity. He has diabetic neuropathy and has diminished sensation and movement in his foot/toes at his baseline. Swelling in his right knee has improved and there is no major knee effusion noted today. Patient has full extension and is able to flex past 90 degrees. Results & Data ([facility]) Vital Signs (Past 12 Hours) Vital Signs Temp Pulse Pulse Resp BP Pulse Ox O2 Del Method 01/07/22 09:35 76 01/07/22 09:35 76 01/07/22 07:43 36.6 C 58 L 16 125/72 97 Room Air Laboratory Results Microbiology 01/05/22 Unknown Gram Stain - Final Knee,Right Aerobic and Anaerobic Culture - Preliminary No growth to date.
[2022-01-07] MEDS ORDERED: bisacodyL 10 MG SUPP PR STA ×2 (10:07→14:24)
--- NOTE | 2022-01-07 14:51 | Discharge Summary ---
Date of Service January 07, 2022 Admission HPI Per Admitting Provider Clifford is a 76 year old male with a PMH significant for afib on Eliquis, DM II with peripheral neuropathy, left charcot foot, HTN, hyperlipidemia, PAD, and previous falls who presented to the [facility] ED on 01/03/22 with a chief complaint of fall and right leg laceration. In the ED the patient was found to be afebrile, hemodynamically stable and stable on RA. Labs were remarkable for WBC of 4.34, stable Hgb at 11.9, MCV of 101, platelets at 212, stable renal function and electrolytes, total bili of 1.1 and alk phos of 110, stable liver function, TSH of 0.815, and covid negative. Xray of the right foot showed "Soft tissue swelling with no acute bony abnormality identified. Osteopenia, arthritic change, and large heel spur as above.". Xray of the right knee showed "Soft tissue swelling and large joint effusion with no acute bony abnormality identified. Osteopenia and arthritic change as above.". Xray of the left tib/fib showed "Diffuse soft tissue swelling with no acute bony abnormality seen involving the left tibia or fibula. No radiodense foreign body is identified.". Chest xray showed "Cardiomegaly with no acute cardiopulmonary abnormality identified.". Prior to the admission the patient's left lower extremity wound was repaired by ED staff. We were asked to admit due to concerns for recurrent falls and need for placement. At the time of the exam the patient was resting comfortably in bed in no acute distress. He states that he had just been discharged from [facility] two days ago for his previous skin graft and left leg wound. He was getting out of the shower this morning when he slipped and fell, he denies hitting his head and losing consciousness. He has no complaints at the time of the exam besides being very hungry. I spoke to him regarding getting admitted to be evaluated by PT/OT and to see if we can get him more care at home or more PT and he is agreeable. I spoke to him regarding code status, he is a DNR/DNI. Please refer to Dr. Harrison's attestation for any changes to the treatment plant. Principal Diagnosis 1. Debility with frequent falls 2. Laceration to LLE 3. R knee effusion s/p arthrocentesis Discharge Exam GENERAL: 76 yo Well-developed, well-nourished elderly WM. NAD. LUNGS: Clear to auscultation bilaterally. No W/R/R. CARDIOVASCULAR: S1 S2 irregular with 2/6 SHERLY ABDOMEN: Soft, non-tender and non-distended. Bs normoactive x 4 quad. EXTREMITIES: 3+ edema of b/l LE. Non-tender. Peripheral pulses +2/4. Laxity of R patella. Mild swelling of L knee but nontender joint margins. NEUROLOGIC: A&O x3 PSYCHIATRIC: Cooperative. Appropriate mood and affect. SKIN: Warm, dry, intact. Multiple areas of bruising. Large laceration to anterior LLE with sutures. Discharge Data Allergies Allergy/AdvReac Type Severity Reaction Status Date / Time furosemide Allergy Severe CHEST Verified 01/03/22 15:04 "FLUTTERY" aspirin AdvReac Unknown HX OF GI Verified 01/03/22 15:04 BLEED NSAIDS (Non-Steroidal AdvReac Unknown bleeding Verified 01/03/22 15:04 Anti-Inflamma Consultations 01/03/22 17:05 ED Decision to Admit Stat 01/04/22 12:30 Consult Orthopedic Surgery Routine Ordered Studies Foot X-Ray 01/03/22 12:15 RIGHT FOOT 3 VIEWS CLINICAL HISTORY: Fifth toenail pain. Bleeding. FINDINGS: 3 views of the right foot are obtained. No prior studies are available for comparison at the time of dictation. The skeletal structures are heterogeneously osteopenic. No acute fracture is seen. Advanced osteoarthritic change is seen throughout the midfoot. Moderate arthritic change is noted at the first metatarsophalangeal joint. Milder degenerative change is seen throughout the remaining metatarsophalangeal joints and the interphalangeal joints. Degenerative spurring is noted along the dorsal aspect of the tarsal bones. There is a large plantar heel spur. Diffuse soft tissue edema is present throughout the foot. There is atherosclerotic calcification of the regional arteries. IMPRESSION: 1. Soft tissue swelling with no acute bony abnormality identified. 2. Osteopenia, arthritic change, and large heel spur as above. Electronically signed by: Raf Gann M.D. 01/03/2022 1:25 PM Knee X-Ray 01/03/22 12:15 RIGHT KNEE 3 VIEWS. CLINICAL HISTORY: Fall with right knee pain. FINDINGS: AP, crosstable lateral, and sunrise views of the right knee are compared to study dated 05/06/2017. The skeletal structures are osteopenic. No fracture is seen. There is moderate to advanced tricompartmental degenerative joint space narrowing. There are large marginal osteophytes and patellar enthesophytes. Spurring is seen along the anterior and posterior aspect of the distal femur and proximal tibia. There is a large joint effusion. Soft tissue swelling is noted around the knee. There is advanced atherosclerotic calcification of the popliteal artery. IMPRESSION: 1. Soft tissue swelling and large joint effusion with no acute bony abnormality identified. 2. Osteopenia and arthritic change as above. Electronically signed by: Raf Gann M.D. 01/03/2022 1:27 PM Tibia/Fibula X-Ray 01/03/22 12:15 LEFT TIBIA AND FIBULA 2 VIEWS CLINICAL HISTORY: Laceration. FINDINGS: AP and lateral views of the left tibia and fibula are compared to study dated 10/10/2021. The skeletal structures are osteopenic. There is no radiographic evidence of left tibial or fibular fracture. The knee and ankle joints are grossly maintained noting degenerative change. There are dorsal and plantar heel spurs. Advanced arthritic change is seen in the partially imaged mid foot. Soft tissue edema is present throughout the left lower extremity. There is atherosclerotic calcification of the regional arteries. No radiodense foreign body is identified. An osteochondroma is again seen along the medial aspect of the distal femoral metaphysis. IMPRESSION: 1. Diffuse soft tissue swelling with no acute bony abnormality seen involving the left tibia or fibula. 2. No radiodense foreign body is identified. Electronically signed by: Raf Gann M.D. 01/03/2022 3:19 PM Chest X-Ray 01/03/22 14:47 SINGLE VIEW CHEST CLINICAL HISTORY: Generalized weakness. FINDINGS: An AP, portable, upright chest radiograph is compared to study dated 10/10/2021 and correlated with chest CT dated 08/18/2007. The heart is enlarged noting atherosclerotic calcification of the thoracic aorta. The pulmonary vasculature is noncongested. Chronic interstitial thickening similar to previous. There is chronic elevation of the right hemidiaphragm with bibasilar scarring/atelectasis. The lungs and pleural spaces are otherwise clear. No pneumothorax is seen. The skeletal structures are osteopenic. There are healed right-sided rib fractures. IMPRESSION: Cardiomegaly with no acute cardiopulmonary abnormality identified. ACT 112: Negative or not required by law. Electronically signed by: Raf Gann M.D. 01/03/2022 3:16 PM Wrist X-Ray 01/04/22 16:14 XR wrist LT min 3V routine HISTORY: 76 years-old Male s/p fall prior, hematoma L wrist acute pain of the left wrist status post fall COMPARISON: Left finger radiographs 12/19/2020 TECHNIQUE: 4 views of left wrist FINDINGS: Chondrocalcinosis. Arterial calcifications. Multifocal osteoarthritis, moderate to severe within the radiocarpal articulation and triscaphe joint and severe within the first carpal metacarpal joint. No acute fracture, or dislocation identified. 4 mm negative ulnar variance. Moderate soft tissue swelling circumferentially about the wrist. IMPRESSION: Soft tissue swelling without acute fracture or dislocation identified. ACT 112: Negative or not required by law. The above report was generated using voice recognition software. It may contain grammatical, syntax or spelling errors. Electronically signed by: Rasta Luevano M.D. 01/04/2022 4:55 PM Hospital Course (1) Falls frequently: Recurrent admissions for falls, recently had mechanical fall getting out of the bathroom. No LOC/head trauma - Repeat PT/OT consulted -- home health (already arranged, patient stated they saw to arrange earlier this week) vs inpatient rehab (just finished inpatient rehab stay) - Checked a Lyme given no prior recent testing and falls/joint issues -- negative - Of note, murmur on exam + JVD, no recent ECHO in system however stated follows with Dr Mcdermott and believes was to have one done recently. * ECHO ordered for further eval given falls as well--LV systolic fxn normal, borderline LA dilation, EF 60-65%, AV sclerosis (mod) w/o significant stenosis, mod AR, mod MR, RVSP 50-60 mmHg - Therapy recommending rehab - Case management consult for dc planning and rehab referrals, made full admit - Pt requested [facility] who can take today, CM will arrange transport (2) Wound of left lower extremity: Sutures in ER 01/03 LLE - Pain control, tylenol ordered with reported control - Wound RN consulted--advises follow up in wound clinic - Appt set for Fri 2 @ 0750 (3) DM II (diabetes mellitus, type II), controlled: Last A1c 5.2 in system -- patient frustrated that he always gets labeled as DM and had intentionally lost lots of weight/portion control and lost reported 130lb over the years - On metformin 500mg daily - D/C accuchecks and lispro insulin - Continue carb consistent diet (4) Permanent atrial fibrillation: - Hx of such, on exam irregularly irregular, denies elevated rates as outpatient - Continues on digoxin, eliquis - Dig level 0.8 - Continue metoprolol succinate 100mg BID, diltiazem (recently reduced from 240mg to 180mg daily) (5) HTN (hypertension): BP stable - patient reported was on spironolactone at rehab, discontinued he believes. no on home medication list but had rx for such earlier in the year - Continue metoprolol BID, Cardizem as above (6) Hypercholesterolemia: - Continue statin (7) Knee effusion, right: - noted on imaging - pain control - ortho consulted s/p arthrocentesis-no concern for infection but fluid c/w pseudogout - Rx for 5 dyas of Prednisone 10mg, take with food - f/u with Dr. Rivera in 2 weeks (8) Murmur: appreciated on exam - checking ECHO given repeated falls, see results above (9) Macrocytic anemia: - Ordered peripheral smear for further eval. Recent B12/folate within past two months normal. - TSH w/o elevation recently - prior reports for MRI hand in January 2021 w/ right fourth finger burn not healing, noted evidence for carpal collapse, findings suggestive of possibility for underlying rheumatoid arthritis. Deviation of MCP joints with no erosive arthropathy present at that time. - ? Macrocytosis from possible underlying rheumatoid arthritis - Upon review of chart, patient did have elevated ESR of 53 & CRP 1.94 in 10/2021 and repeat is 25, and 4.03 respectively - Consider referral to rheumatology outpatient. (10) Pseudogout of right knee: Plan Therapy recommending acute rehab, pt has requested [facility], referral sent and pt accepted. They are able to take today 01/07. Will need to follow up with Dr. Rivera in office in 2 weeks. Plan d/w Dr. Delgado who has also seen and evaluated this patient and is in agreement with aforementioned. Total Time Total Time Spent Total Time Spent (In Minutes): >30 minutes Discharge Plan Discharge Items Patient Disposition: Transfer Inpatient Rehab Fac Reason For Visit: FALL Discharge Diagnosis: fall weakness fluid on right knee Activity: As commented below Activity Comment: weight bearing as tolerated with assistance Non-emergency contact: Primary Care Provider and Surgeon Call non-emergency contact if: you have any medication questions Follow-up/Referrals: Chidi Burnette MD [Primary Care Provider] - 02/01/22 Umm Alejandra DO, FACEP [Physician] - 01/11/22 Diet: Carb Consistent or DM2 Addtl Attending Provider Instructions: You were hospitalized due to a fall that resulted in fluid in your right knee. You had the fluid removed by orthopedics. There was no concern for the fluid being infected but you will be placed on 5 days of Prednisone 10mg to assist with any knee discomfort. Please take in the morning with food. You did have a large cut on your left leg that required stitches to be placed on the . They should remain in there for 7-10 days. There is concern that this may not heal properly and you will need close follow up. You were seen by physical and occupational therapy who felt that you required ongoing therapy services. You have requested [facility] which was able to accommodate your admission today (01/07). You will be followed by the medical team during your stay at [facility]. You have a wound care appointment at the [facility] on FridayJan 11 at 0750 to follow up for your left leg wound. [facility] will assist you in arranging transportation to that appointment. It is advised to follow up with your primary care provider upon discharge from [facility]. Addtl Technical Services Coordinator Provider Instructions: Orthopedic Discharge Instructions: WBAT with walker Knee brace while active Continue with rest, compression, ice and elevation May follow up with Dr Rivera's office or Dr Beasley's office Pending Studies at Discharge: No Stand-Alone Forms: [facility] Skilled Items Patient informed of condition?: Yes DNR: Yes Discharge Level of Care: Acute rehab Communicable Disease: No Discharge Prognosis: Stable Lines: None Urinary Catheter: No Medications and DC Order Prescriptions: New prednisone 10 mg tablet 10 mg PO DAILY Qty: 5 0RF Continued cholecalciferol (vitamin D3) 1,000 unit capsule 1,000 units PO DAILY apixaban 5 mg tablet 5 mg PO BID Qty: 180 3RF diltiazem HCl 180 mg capsule,extended release 24hr 180 mg PO DAILY Qty: 90 3RF digoxin 125 mcg tablet 125 mcg PO DAILY Qty: 90 famotidine 20 mg tablet 20 mg PO DAILY metformin 500 mg tablet 500 mg PO DAILY atorvastatin 10 mg tablet 10 mg PO QPM allopurinol 300 mg tablet 300 mg PO DAILY cyanocobalamin (vitamin B-12) 100 mcg tablet 100 mcg PO DAILY diclofenac sodium 1 % gel 1 ea topical QID PRN (Reason: Pain) Rx Instructions: topical four times daily; metoprolol succinate 100 mg tablet extended release 24 hr 100 mg PO BID Qty: 180 ascorbic acid (vitamin C) [Vitamin C] 500 mg Tablet 0 mg PO DAILY Discharge Orders: Discharge Order (Routine); Ordered 01/07/22 Ordered By: Melissa Mora Admission Data Admit Date/Time: 01/05/22 13:46 Attending Provider: Mark Delgado Admit Provider: Paul Harrison Primary Care Provider: Chidi Burnette Other Providers: Paul Harrison ; Jose A Rivera ; [facility] Other Interventions: Discharge Summary Assessment (RN) Last Done: 01/07/22 16:03 Supervising Physician Co-Signing Physician Notes Attending Attestation and Discharge Note: Patient seen/examined, chart reviewed, discharge care plan d/w LOUIS Mora. I agree w/ the olivarez components of her documentation. Pleasant 76yo male with h/o permanent a.fib on Eliquis, prior morbid obesity, T2DM, HTN - presented after slipping at home and falling, sustaining a laceration of the left jamison that required suturing in the ER. He fortunately did not have any bony injuries but right knee x-rays showed a very large joint effusion. He was seen by orthopedics and underwent arthrocentesis - 96cc of fluid obtained. Crystal analysis ultimately showed evidence of pseudogout of the right knee. Although he had significant relief of pain just by simply draining the knee we plan to send him to [facility] with 5-day course of low-dose prednisone. This will hasten recovery of the knee and allow optimal rehabbing. He was informed of the pseudogout. Patient was seen by wound care for the left leg laceration. Due to his skin which is very thin & fragile there is concern of poor wound healing. Thus, he will see the [facility] on Friday, 01/11 to recheck the laceration. Discharge exam - gen - NAD, pleasant mouth - MMM neck - no JVD heart - irregularly irregular, s1 s2, 2/6 SHERLY LLSB lungs - slight dry rales both bases, otherwise CTA b/l abd - soft NT BS+ ext - 2+ edema from feet to thighs; prior skin graft harvest of L lateral thigh; L lateral jamison scar from prior grafting; fishmouthed laceration of left jamison with sutures intact, black skin in the wound bed, slight opening of the lateral most portion of laceration, scant drainage; no cellulitis skin - see above in extremities stasis changes of b/l shins Mark Delgado MD Coding Level of Care Code D/C DAY MANAGEMENT >30 MINS Diagnoses Falls frequently R29.6 Wound of left lower extremity S81.802A DM II (diabetes mellitus, type II), controlled E11.9 Permanent atrial fibrillation I48.21 HTN (hypertension) I10 Hypercholesterolemia E78.00 Knee effusion, right M25.461 Murmur R01.1 Macrocytic anemia D53.9 Pseudogout of right knee M11.261
== END 2022-01-07 17:20 | DRG 92 ==
LOC: 3N 11:33 → ED 11:33 → SUATTDRO 17:41 → 3N 20:18 → SUATTDRO 01-05 13:46

== ENCOUNTER 2024-02-13 10:51 | Inpatient (IN) ==
[2024-02-13 12:49] LABS: Basophils # (auto) 0.04 K/uL (0.00-0.20); Basophils % (auto) 0.2 %; Eosinophils # (auto) 0.01 K/uL (0.00-0.50); Eosinophils % (auto) 0.1 %; Hematocrit (blood only) 37.3 % (42.0-52.0); Hemoglobin 12.6 g/dl (14.0-18.0); Immature Granulocytes # (auto) 0.17 K/uL (0.01-0.20); Immature Granulocytes % (auto) 0.9 %; Lymphocytes # (auto) 1.01 K/uL (1.20-3.40); Lymphocytes % (auto) 5.1 %; Mean Corpuscular Hemoglobin 31.6 pg (25.0-34.0); Mean Corpuscular Hgb Conc 33.8 g/dL (32.0-36.0); Mean Corpuscular Volume 93.5 fL (80.0-100.0); Mean Platelet Volume 9.9 fL (9.4-12.4); Monocytes # (auto) 1.49 K/uL (0.11-0.59); Monocytes % (auto) 7.6 %; Neutrophils # (auto) 16.98 K/uL (1.40-6.50); Neutrophils % (auto) 86.1 %; Platelet Count 353 K/uL (130-400); RDW Coefficient of Variation 13.8 % (11.5-14.5); Red Blood Count 3.99 M/uL (4.70-6.10)
[2024-02-13 13:08] LABS: Alanine Aminotransferase 49 U/L (7-52); Albumin Globulin Ratio 0.9 (0.9-2); Albumin Level 3.6 gm/dl (3.4-5.0); Alkaline Phosphatase 164 U/L (34-104); Anion Gap 6 (3-11); Aspartate Aminotransferase 58 U/L (13-39); BUN Creatinine Ratio 29.7 (10-20); Bilirubin,Total 2.4 mg/dl (0.2-1.0); Blood Urea Nitrogen 19 mg/dl (6-23); Calcium 9.6 mg/dl (8.6-10.3); Carbon Dioxide 35 mmol/L (21-32); Chloride 90 mmol/L (98-107); Globulin 4.1 gm/dl (2.5-4.0); Glucose 141 mg/dl (70-99(Fasting)); Magnesium 1.6 mg/dl (1.7-2.4); Potassium 4.2 mmol/L (3.5-5.1); Sodium 131 mmol/L (136-145); Total Protein 7.7 gm/dl (6.0-8.3)
--- NOTE | 2024-02-13 13:29 | Emergency Department Note ---
Impression & Plan Leukocytosis, Acute hyponatremia, Hypomagnesemia, COVID-19 ED Provider Note NAME: ZAYDA MCFARLAND AGE: 78 SEX: M : 1945 ARRIVES VIA: Ambulance INFORMANT: Patient ED PROVIDER(S): Hank Hernandez DO CHIEF COMPLAINT: Cough, shortness of breath and palpitations HPI: Patient is a 78-year-old male with a past medical history of GERD, hyperlipidemia, PAD, pancreatic neoplasm, ileus, who presents to the ER for cough, congestion, and palpitations. Patient notes that the symptoms started about 2 weeks ago. Shortness of breath which has been getting worse. He notes that he has been sick. He denies any belly pain, nausea, vomiting, or diarrhea. No dysuria, urgency, or frequency. No other exacerbating or remitting factors. ADDITIONAL HISTORY OBTAINED: Per HPI Chronic Medical/Social Conditions Affecting Care: Per HPI PAST MEDICAL HISTORY:See Below PAST SURGICAL HISTORY:See Below FAMILY HISTORY:See Below SOCIAL HISTORY:See Below HOME MEDICATIONS:See Below ALLERGIES:See Below VITALS:See Below PHYSICAL EXAMINATION: GENERAL: Sitting up in bed, alert, well appearing, well nourished, no distress, non-toxic EYE EXAM: normal conjunctiva. PERRL and EOM's grossly intact. OROPHARYNX: no exudate, no erythema, lips, buccal mucosa, and tongue normal and mucous membranes are moist NECK: supple, no nuchal rigidity, no adenopathy, non-tender LUNGS: Clear to auscultation. Normal chest wall mechanics HEART: no murmurs, S1 normal and S2 normal ABDOMEN: abdomen soft, non-tender, normo-active bowel sounds, no masses, no rebound or guarding. BACK: Back is symmetrical on inspection and there is no deformity, no midline tenderness, no CVA tenderness. SKIN: no rashes and no bruising UPPER EXTREMITIES: upper extremities are grossly normal. LOWER EXTREMITIES: No pitting edema. NEURO EXAM: Normal sensorium, cranial nerves II-XII grossly intact, normal speech, no gross weakness of arms, no gross weakness of legs. MEDICAL DECISION MAKING: Patient is a 78-year-old male who presents ER for not feeling well for the past 2 weeks. IV was established and blood work was obtained. Labs show leukocytosis of 19.7 thousand. No significant anemia. BMP with mild hyponatremia at 131. Mag slightly low at 1.6. LFTs were fairly unremarkable. Troponin was elevated at 60. Patient was positive for COVID. UA was contaminated but was covered as patient was given IV Rocephin and oral azithromycin. Patient was updated bedside discussed with the hospitalist admitted for further workup. Consults/Care Managements Discussions: Per MDM Triage Nursing notes reviewed. Limited review of prior medical records performed Vital Signs: reviewed and remarkable for hypoxia Differential diagnosis: Differential diagnoses includes but is not limited to pneumonia, bronchitis, COPD/Asthma exacerbation, pneumothorax, pulmonary embolism, congestive heart failure, acute coronary syndrome ER treatment provided: See below Diagnostics interpreted by me include EKG and cardiac monitoring as listed below: -Cardiac Monitoring: An order was placed for continuous cardiac monitoring. The monitor shows a rate of 90 with afib rhythm. -ECG: A-fib rate 88 Normal axis PVCs QTc 452 -Laboratory studies:Interpreted by me as stated above in MDM and shown below. Imaging studies: Xrays: As interpreted by me: Chest x-ray suggest left lower lobe infiltrates CTs show: none Procedures:none Critical Care: None Past Med/Surg History Problem List (Updated 02/13/24 @ 17:59 by Hank Hernandez DO) COVID-19 (Acute) Hypomagnesemia (Acute) Acute hyponatremia (Acute) Leukocytosis (Acute) Elevated troponin Left lower lobe pneumonia Constipation Osteoarthritis Stool incontinence Venous stasis ulcers of both lower extremities Lymphedema Hyperlipidemia GERD (gastroesophageal reflux disease) Impaired glucose tolerance Hypertension Mitral regurgitation Protein calorie malnutrition Neuropathy (Acute) Traumatic open wound of lower leg Permanent atrial fibrillation Weakness (Acute) Laceration of leg (Acute) Pseudogout of right knee Anemia (Acute) Traumatic hematoma of left lower leg (Acute) Anticoagulant long-term use (Acute) Total bilirubin, elevated Knee effusion, right Hyponatremia Macrocytic anemia Wound of left lower extremity Partial thickness burn of finger of right hand (Acute) PAD (peripheral artery disease) (Chronic) Lower extremity edema (Acute) Venous stasis ulcer (Acute) Alcohol causing toxic effect (Acute) Former smoker (Acute) Left ventricular hypertrophy (Acute) Pancreatic neoplasm (Acute) Peripheral neuropathy (Acute) Aortic valve insufficiency Hypercholesterolemia HTN (hypertension) (Chronic) Atrial fibrillation (Chronic) Abdominal aortic aneurysm (Acute) Diabetic peripheral neuropathy associated with type 2 diabetes mellitus Emphysematous cholecystitis (Acute) Falls frequently (Acute) History of diabetic ulcer of foot Ileus (Acute) Medical History (Updated 02/13/24 @ 17:59 by Hank Hernandez DO) Charcot's arthropathy Diarrhea Murmur Full thickness burn of finger of right hand Traumatic wound Skin cancer History of GI bleed Afib Acquired bilateral foot drop Tinea pedis Diverticulosis Surgical History Status post Mohs surgery S/P cholecystectomy Family History Father Myocardial infarction Daughter Bladder cancer Other No pertinent family history Denies family history of Ovarian cancer Prostate cancer Breast cancer Lung cancer Colorectal cancer Social History Smoking Status: Never smoker Second Hand Exposure: No; Do You Dip or Chew Tobacco: No; Hx Alcohol Use: No Hx Substance Use: No Preferred Language: Eritrean Communication Ability: Effective Visual Impairment: Diminished Hearing Ability: Normal Perennial House Manager Required: No Beliefs That Will Affect Care: Hoahaoism Hoahaoism Beliefs: JEW marital status: Current Living Situation: Spouse current occupational status: retired How many Children do You have: 4 Feels Safe at Home: Yes Childhood Exposure to Second-Hand Smoke: No Diet: regular caffeine: Yes during the past year weight has: remained stable Dental Care, Regularly: Yes Physical Activity Frequency: Does not Exercise Seatbelt Use: always Sunscreen Use: Yes Assistive Devices: Glasses and Walker Allergies Allergies Allergy/AdvReac Type Severity Reaction Status Date / Time furosemide Allergy Severe CHEST Verified 02/13/24 09:28 "FLUTTERY" aspirin AdvReac Unknown HX OF GI Verified 02/13/24 09:28 BLEED NSAIDS (Non-Steroidal AdvReac Unknown bleeding Verified 02/13/24 09:28 Anti-Inflamma Home Meds Home Medications Medication Instructions Recorded Confirmed cyanocobalamin (vitamin B-12) 100 100 mcg PO DAILY 11/11/18 02/13/24 mcg tablet cholecalciferol (vitamin D3) 25 1,000 units PO DAILY 12/16/18 02/13/24 mcg (1,000 unit) capsule ascorbic acid (vitamin C) 500 mg 0 mg PO DAILY 08/14/20 02/13/24 tablet (Vitamin C) acetaminophen 650 mg 1,300 mg PO BID 02/15/22 02/13/24 tablet,extended release (Tylenol Arthritis Pain) coenzyme Q10 75 mg capsule (Ultra 75 mg PO DAILY 06/20/22 02/13/24 CoQ10) psyllium husk 6 gram oral powder 6 g PO DAILY 02/13/24 02/13/24 packet Previous Rx's Medication Instructions Recorded mupirocin 2 % topical ointment 1 applic topical DAILY #15 grams 07/16/22 allopurinol 300 mg tablet 300 mg PO DAILY #90 tabs 03/11/23 apixaban 5 mg tablet 5 mg PO BID #180 tabs 04/24/23 metoprolol succinate 100 mg 100 mg PO BID #180 tabs 05/19/23 tablet,extended release 24 hr spironolactone 25 1 tab PO DAILY #90 tabs 07/03/23 mg-hydrochlorothiazide 25 mg tablet digoxin 125 mcg (0.125 mg) tablet 125 mcg PO DAILY #90 tabs 10/20/23 diclofenac sodium 1 % topical gel 2 g topical QID #100 grams 10/28/23 famotidine 20 mg tablet 20 mg PO DAILY #90 tabs 02/13/24 Results & Data (ED) Vital Signs Vital Signs - 24 hr 02/13/24 11:32 02/13/24 11:37 Temperature 36.7 C Temperature Source Skin Pulse Rate 97 H Respiratory Rate 22 Respiratory Effort / Characteristics Non-Labored Spontaneous Respiratory Depth Normal Respiratory Pattern Agonal Blood Pressure 108/67 Blood Pressure Mean 80 Pulse Oximetry 91 Oxygen Delivery Method Room Air Room Air Oxygen Flow Rate 91 Sepsis Recent Fever Within 48 Hours No Sepsis New/Unexplained Change in Mental Status N/A Sepsis Action Taken by Nursing No Action Required Oxygen Flow Rate - Titration 2 Laboratory Data 02/13/24 12:23 02/13/24 12:23 Lab Results 02/13/24 02/13/24 02/13/24 Range/Units 12:23 14:21 14:21 WBC 19.70 H (4.8-10.8) K/ul RBC 3.99 L (4.70-6.10) M/uL Hgb 12.6 L (14.0-18.0) g/dl Hct 37.3 L (42.0-52.0) % MCV 93.5 (80.0-100.0) fL MCH 31.6 (25.0-34.0) pg MCHC 33.8 (32.0-36.0) g/dL RDW Std Deviation 47.0 H (36.4-46.3) fL RDW Coeff of Pau 13.8 (11.5-14.5) % Plt Count 353 (130-400) K/uL MPV 9.9 (9.4-12.4) fL Immature Gran % (Auto) 0.9 % Neut % (Auto) 86.1 % Lymph % (Auto) 5.1 % Irion % (Auto) 7.6 % Eos % (Auto) 0.1 % Baso % (Auto) 0.2 % Neut # (Auto) 16.98 H (1.40-6.50) K/uL Lymph # (Auto) 1.01 L (1.20-3.40) K/uL Irion # (Auto) 1.49 H (0.11-0.59) K/uL Eos # (Auto) 0.01 (0.00-0.50) K/uL Baso # (Auto) 0.04 (0.00-0.20) K/uL Immature Gran # (Auto) 0.17 (0.01-0.20) K/uL Sodium 131 L (136-145) mmol/L Potassium 4.2 (3.5-5.1) mmol/L Chloride 90 L (98-107) mmol/L Carbon Dioxide 35 H (21-32) mmol/L Anion Gap 6 (3-11) BUN 19 (6-23) mg/dl Creatinine 0.64 (0.6-1.4) mg/dl Est Cr Clr Drug Dosing Not Reportable eGFR 97.50 BUN/Creatinine Ratio 29.7 H (10-20) Glucose 141 H (70-99(Fasting)) mg/dl Calcium 9.6 (8.6-10.3) mg/dl Magnesium 1.6 L (1.7-2.4) mg/dl Total Bilirubin 2.4 H (0.2-1.0) mg/dl AST 58 H (13-39) U/L ALT 49 (7-52) U/L Alkaline Phosphatase 164 H (34-104) U/L Troponin I High Sens 57.2 H* (0-20) pg/ml Total Protein 7.7 (6.0-8.3) gm/dl Albumin 3.6 (3.4-5.0) gm/dl Globulin 4.1 H (2.5-4.0) gm/dl Albumin/Globulin Ratio 0.9 (0.9-2) Adenovirus (PCR) Not Detected (NotDetected) B. pertussis DNA (PCR) Not Detected (NotDetected) B.parapertussis DNA PCR Not Detected (NotDetected) C. pneumoniae DNA (PCR) Not Detected (NotDetected) Coronavirus OC43 (PCR) Not Detected (NotDetected) Coronavirus HKU1 (PCR) Not Detected (NotDetected) Coronavirus 229E (PCR) Not Detected (NotDetected) SARS-CoV-2 (PCR) Cancelled DETECTED A Coronavirus NL63 (PCR) Not Detected (NotDetected) Human Metapneumovir PCR Not Detected (NotDetected) Influenza Type A (PCR) Cancelled Influenza Type B (PCR) M. pneumoniae (PCR) (NotDetected) Parainfluenza 1 (PCR) (NotDetected) Parainfluenza 2 (PCR) (NotDetected) Parainfluenza 3 (PCR) (NotDetected) Parainfluenza 4 (PCR) (NotDetected) RSV (RT-PCR) RSV (PCR) (NotDetected) Entero/Rhino (PCR) (NotDetected) 02/13/24 02/13/24 Range/Units 14:21 14:21 WBC (4.8-10.8) K/ul RBC (4.70-6.10) M/uL Hgb (14.0-18.0) g/dl Hct (42.0-52.0) % MCV (80.0-100.0) fL MCH (25.0-34.0) pg MCHC (32.0-36.0) g/dL RDW Std Deviation (36.4-46.3) fL RDW Coeff of Pau (11.5-14.5) % Plt Count (130-400) K/uL MPV (9.4-12.4) fL Immature Gran % (Auto) % Neut % (Auto) % Lymph % (Auto) % Irion % (Auto) % Eos % (Auto) % Baso % (Auto) % Neut # (Auto) (1.40-6.50) K/uL Lymph # (Auto) (1.20-3.40) K/uL Irion # (Auto) (0.11-0.59) K/uL Eos # (Auto) (0.00-0.50) K/uL Baso # (Auto) (0.00-0.20) K/uL Immature Gran # (Auto) (0.01-0.20) K/uL Sodium (136-145) mmol/L Potassium (3.5-5.1) mmol/L Chloride (98-107) mmol/L Carbon Dioxide (21-32) mmol/L Anion Gap (3-11) BUN (6-23) mg/dl Creatinine (0.6-1.4) mg/dl Est Cr Clr Drug Dosing eGFR BUN/Creatinine Ratio (10-20) Glucose (70-99(Fasting)) mg/dl Calcium (8.6-10.3) mg/dl Magnesium (1.7-2.4) mg/dl Total Bilirubin (0.2-1.0) mg/dl AST (13-39) U/L ALT (7-52) U/L Alkaline Phosphatase (34-104) U/L Troponin I High Sens (0-20) pg/ml Total Protein (6.0-8.3) gm/dl Albumin (3.4-5.0) gm/dl Globulin (2.5-4.0) gm/dl Albumin/Globulin Ratio (0.9-2) Adenovirus (PCR) (NotDetected) B. pertussis DNA (PCR) (NotDetected) B.parapertussis DNA PCR (NotDetected) C. pneumoniae DNA (PCR) (NotDetected) Coronavirus OC43 (PCR) (NotDetected) Coronavirus HKU1 (PCR) (NotDetected) Coronavirus 229E (PCR) (NotDetected) SARS-CoV-2 (PCR) Coronavirus NL63 (PCR) (NotDetected) Human Metapneumovir PCR (NotDetected) Influenza Type A (PCR) Not Detected Influenza Type B (PCR) Cancelled Not Detected M. pneumoniae (PCR) Not Detected (NotDetected) Parainfluenza 1 (PCR) Not Detected (NotDetected) Parainfluenza 2 (PCR) Not Detected (NotDetected) Parainfluenza 3 (PCR) Not Detected (NotDetected) Parainfluenza 4 (PCR) Not Detected (NotDetected) RSV (RT-PCR) Cancelled RSV (PCR) Not Detected (NotDetected) Entero/Rhino (PCR) Not Detected (NotDetected) Administered Medications Discontinued Medications Azithromycin (Azithromycin 250 Mg Tab) 500 mg PO NOW ONE Stop: 02/13/24 13:26 Last Admin: 02/13/24 13:32 Dose: 500 mg Documented By: Admin: 02/13/24 13:32 Dose: 500 mg Documented By: SNS Ceftriaxone Sodium (Rocephin) 2,000 mg in 50 mls @ 100 mls/hr IV NOW STA Stop: 02/13/24 13:54 Last Infusion: 02/13/24 14:37 Dose: Infused Documented By: Admin: 02/13/24 13:32 Dose: 100 mls/hr Documented By: SNS Sodium Chloride (Nss) 500 mls @ 999 mls/hr IV .Q31M ONE Stop: 02/13/24 14:09 Last Infusion: 02/13/24 15:20 Dose: Infused Documented By: Admin: 02/13/24 14:43 Dose: 999 mls/hr Documented By: HEL Sodium Chloride (Nss) 500 mls @ 999 mls/hr IV .Q31M ONE Stop: 02/13/24 15:08 Last Infusion: 02/13/24 15:20 Dose: Infused Documented By: Admin: 02/13/24 14:43 Dose: 999 mls/hr Documented By: [facility] Imaging Data Radiologist's Impression: Chest X-Ray 02/13/24 11:37 XR chest 1V not portable CLINICAL HISTORY: Chest congestion TECHNIQUE: Single frontal radiograph of the chest was obtained. Comparison: Comparison is made to chest radiograph 01/03/2022 FINDINGS: Healed right rib fractures are seen. Cardiomegaly is noted. The aortic arch is calcified. Left lower lung airspace opacity is seen. No evidence of pleural effusion or pneumothorax. IMPRESSION: Left lower lung airspace opacity This may represent atelectasis, pneumonia, and/or aspiration. Stable cardiomegaly. ACT 112: Negative or not required by law. Electronically signed by: Henry Randolph M.D. 02/13/2024 1:27 PM Discharge Plan Visit Data Chief Complaint: Illness ED Provider: Hank Hernandez Discharge Problem: Leukocytosis, Acute hyponatremia, Hypomagnesemia, COVID-19 Patient Disposition: Admitted As Inpatient Discharge Instructions Interventions: ED Discharge Assessment Last Done: 02/13/24 17:13 Discharge Problem: Leukocytosis Qualifiers: Leukocytosis type: unspecified Qualified Code(s): D72.829 - Elevated white blood cell count, unspecified
[2024-02-13] MEDS: AZITHROMYCIN 250 MG TAB PO ONE (13:32)
[2024-02-13] MEDS: cefTRIAXone SODIUM 2,000 MG/50 ML BAG IV STA (13:32)
[2024-02-13 13:49] LABS: Troponin I High Sensitivity 57.2 pg/ml (0-20)
[2024-02-13] MEDS: SODIUM CHLORIDE 0.9% 500 ML IV ONE ×2 (14:43)
--- NOTE | 2024-02-13 14:43 | History & Physical Report ---
Date of Service February 13, 2024 Assessment & Plan (1) Left lower lobe pneumonia: (2) Elevated troponin: (3) Diabetic peripheral neuropathy associated with type 2 diabetes mellitus: Plan 78-year-old male being admitted for left lower lobe pneumonia. Risk factors include previous history of diabetes with endorgan damage of neuropathy. Permanent atrial fibrillation on chronic anticoagulation. Chronic venous stasis changes to his lower extremities, hypertension dyslipidemia Charcot foot For the pneumonia will consider this community-acquired BioFire is currently pending at this time he is on ceftriaxone and azithromycin and these will be continued. BioFire shows COVID positivity we will institute dexamethasone and since his symptoms of been present for 2 weeks will not institute remdesivir therapy Patient has abnormal urine in the emergency department urinalysis is pending but looks to be infected antibiotics will continue per respiratory antibiotics at this time awaiting sputum culture and urine culture for amendment Patient has mild elevation of his troponin without acute changes on his EKG this is likely demand ischemia additional troponins will be trended, patient follows with Dr. Mcdermott last echocardiogram was January 26, 2024 with a preserved ejection fraction mild concentric LVH, moderate MR and moderate TR With regard to his permit atrial fibrillation is usually rate controlled with metoprolol 100 digoxin 0.125 daily and anticoagulated with Eliquis. These are all continued with a digoxin level pending patient. Patient take spironolactone/hydrochlorothiazide for chronic hypertension Regarding his diabetes he does not take any long-term medications patient states that he lost a lot of weight and he considers himself no longer diabetic his A1c's have been in the 5 ranges. He is not on any insulin therapy at this time we will recheck an A1c in the morning History of gout is allopurinol be continued Patient is a full code and DVT prevention is his Eliquis History of Present Illness Primary Care Provider: Chidi Burnette MD 78-year-old male who presents to the emergency department for cough congestion and palpitations. Initially warning about his atrial fibrillation which he is permanently. He says he has had about 2 weeks of symptoms. Denies any GI distress nausea vomiting or diarrhea. He has no urinary symptoms or complaints. He has past medical history of permanent atrial fibrillation peripheral artery disease with chronic venous stasis diabetes currently diet controlled previous basal cell carcinomas gout dyslipidemia hypertension. From his diabetes he has Charcot foot there is mention of a pancreatic neoplasm without cannot see any record of such Allergies Allergy/AdvReac Type Severity Reaction Status Date / Time furosemide Allergy Severe CHEST Verified 02/13/24 09:28 "FLUTTERY" aspirin AdvReac Unknown HX OF GI Verified 02/13/24 09:28 BLEED NSAIDS (Non-Steroidal AdvReac Unknown bleeding Verified 02/13/24 09:28 Anti-Inflamma Home Medications Medication Instructions Recorded Confirmed Type cyanocobalamin (vitamin B-12) 100 100 mcg PO DAILY 11/11/18 02/13/24 History mcg tablet cholecalciferol (vitamin D3) 25 1,000 units PO DAILY 12/16/18 02/13/24 History mcg (1,000 unit) capsule ascorbic acid (vitamin C) 500 mg 0 mg PO DAILY 08/14/20 02/13/24 History tablet (Vitamin C) acetaminophen 650 mg 1,300 mg PO BID 02/15/22 02/13/24 History tablet,extended release (Tylenol Arthritis Pain) coenzyme Q10 75 mg capsule (Ultra 75 mg PO DAILY 06/20/22 02/13/24 History CoQ10) mupirocin 2 % topical ointment 1 applic topical DAILY #15 grams 07/16/22 02/13/24 Rx allopurinol 300 mg tablet 300 mg PO DAILY #90 tabs 03/11/23 02/13/24 Rx apixaban 5 mg tablet 5 mg PO BID #180 tabs 04/24/23 02/13/24 Rx metoprolol succinate 100 mg 100 mg PO BID #180 tabs 05/19/23 02/13/24 Rx tablet,extended release 24 hr spironolactone 25 1 tab PO DAILY #90 tabs 07/03/23 02/13/24 Rx mg-hydrochlorothiazide 25 mg tablet digoxin 125 mcg (0.125 mg) tablet 125 mcg PO DAILY #90 tabs 10/20/23 02/13/24 Rx diclofenac sodium 1 % topical gel 2 g topical QID #100 grams 10/28/23 02/13/24 Rx famotidine 20 mg tablet 20 mg PO DAILY #90 tabs 02/13/24 02/13/24 Rx psyllium husk 6 gram oral powder 6 g PO DAILY 02/13/24 02/13/24 History packet Past Med/Surg History Problem List (Updated 02/13/24 @ 14:40 by Paul Harrison MD) Elevated troponin Left lower lobe pneumonia Constipation Osteoarthritis Stool incontinence Venous stasis ulcers of both lower extremities Lymphedema Hyperlipidemia GERD (gastroesophageal reflux disease) Impaired glucose tolerance Hypertension Mitral regurgitation Protein calorie malnutrition Neuropathy (Acute) Traumatic open wound of lower leg Permanent atrial fibrillation Weakness (Acute) Laceration of leg (Acute) Pseudogout of right knee Anemia (Acute) Traumatic hematoma of left lower leg (Acute) Anticoagulant long-term use (Acute) Total bilirubin, elevated Knee effusion, right Hyponatremia Macrocytic anemia Wound of left lower extremity Partial thickness burn of finger of right hand (Acute) PAD (peripheral artery disease) (Chronic) Lower extremity edema (Acute) Venous stasis ulcer (Acute) Alcohol causing toxic effect (Acute) Former smoker (Acute) Left ventricular hypertrophy (Acute) Pancreatic neoplasm (Acute) Peripheral neuropathy (Acute) Aortic valve insufficiency Hypercholesterolemia HTN (hypertension) (Chronic) Atrial fibrillation (Chronic) Abdominal aortic aneurysm (Acute) Diabetic peripheral neuropathy associated with type 2 diabetes mellitus Emphysematous cholecystitis (Acute) Falls frequently (Acute) History of diabetic ulcer of foot Ileus (Acute) Medical History (Updated 02/13/24 @ 14:40 by Paul Harrison MD) Charcot's arthropathy Diarrhea Murmur Full thickness burn of finger of right hand Traumatic wound Skin cancer History of GI bleed Afib Acquired bilateral foot drop Tinea pedis Diverticulosis Surgical History Status post Mohs surgery S/P cholecystectomy Family History Father Myocardial infarction Daughter Bladder cancer Other No pertinent family history Denies family history of Ovarian cancer Prostate cancer Breast cancer Lung cancer Colorectal cancer Social History Smoking Status: Never smoker Second Hand Exposure: No; Do You Dip or Chew Tobacco: No; Hx Alcohol Use: No Hx Substance Use: No Preferred Language: Nepali Communication Ability: Effective Visual Impairment: Diminished Hearing Ability: Normal Coupon Redemption Clerk Required: No Beliefs That Will Affect Care: Sikh Sikh Beliefs: AMISH marital status: Current Living Situation: Spouse current occupational status: retired How many Children do You have: 4 Feels Safe at Home: Yes Childhood Exposure to Second-Hand Smoke: No Diet: regular caffeine: Yes during the past year weight has: remained stable Dental Care, Regularly: Yes Physical Activity Frequency: Does not Exercise Seatbelt Use: always Sunscreen Use: Yes Assistive Devices: Glasses and Walker Review of Systems Review of Systems: Moderate distress and fatigue no headache, no visual changes no speech or swallowing issues no chest pain, pressure or palpitations shortness of breath, productive cough no wheezes no abdominal pain, nausea or vomiting, diarrhea or constipation dysuria, discolored urine but no hematuria or frequency no focal joint pain chronic le swelling no back pain, CVA tenderness or radicular pain no bruising, bleeding or rashes no focal signs of weakness has peripheral neuropathy no complaints of anxiety or depression.. Physical Exam Physical Exam: The patient appeared thin chronically ill but with a good attitude Vital signs as documented. Head exam is normocephalic atraumatic Neck is without JVD, thyromegaly, or carotid bruits. Lungs are diminished at the bases bilaterally Cardiac exam, Rhythm is regular.. No murmurs, rubs or gallops. Abdominal exam reveals normal bowel sounds, soft non tender, no masses Extremities are bilateral 2+ edema with venous stasis changes and both pedal pulses are present Neurologic exam is alert and oriented, no focal loss of strength has peripheral neuropathy Skin is with changes of venous stasis dermatitis lower extremities Psychologically is without concerns for anxiety or depression.. Results & Data Results & Data Vital Signs (Past 12 Hours) Vital Signs Temp Pulse Resp BP Pulse Ox O2 Del Method O2 Flow Rate 02/13/24 11:37 Room Air 91 02/13/24 11:32 98.1 F 97 H 22 108/67 91 Room Air Laboratory Results Reviewed CBC Reviewed chemistry Reviewed chest x-ray Discussed the case with ER attending Code Status & VTE Plan VTE Prophylaxis Plan VTE Prophylaxis will be ordered: Yes PG Care Time/CCT Total # of Minutes Spent Total Time Spent with Patient: Total time spent is greater than 50% in coordination of care (as documented) at patient's floor/unit and/or counseling patient: Coding Level of Care Code 85575 INT INP/OBS CARE 3/75MIN Diagnoses Left lower lobe pneumonia J18.9 Elevated troponin R79.89 Diabetic peripheral neuropathy associated with type 2 diabetes mellitus E11.42
[2024-02-13 15:14] LABS: Appearance Urine Cloudy (Clear); Bacteria Urine Automated None Seen (None Seen); Bilirubin Urine 2+ (Negative); Blood Urine Negative (Negative); Color Urine Orange; Glucose Urine UA Negative (Negative); Hyaline Casts Urine Present /lpf (None Presnt); Ketones Urine 1+ (Negative); Leukocyte Esterase Urine 1+ (Negative); Mucus Urine Present (None Prsent); Nitrite Urine Positive (Negative); Protein Urine 3+ (Negative); Specific Gravity Urine 1.041 (1.000-1.030); Urobilinogen Urine Positive (Negative); WBC Urine Automated 0-5 /hpf (0-5); White Blood Cell Casts Urine Present /lpf (None Prsent)
--- NOTE | 2024-02-13 15:24 | Electrocardiogram Report ---
Test Reason : Blood Pressure : */* mmHG Vent. Rate : 88 BPM Atrial Rate : * BPM P-R Int : * ms QRS Dur : 84 ms QT Int : 374 ms P-R-T Axes : * 14 -82 degrees QTcB Int : 452 ms Atrial fibrillation with premature ventricular or aberrantly conducted complexes Nonspecific T wave abnormality Abnormal ECG When compared with ECG of 03-Jan-2022 15:34, Nonspecific T wave abnormality now evident in Lateral leads Confirmed by Barry Mcdermott ([id number]) on 02/13/2024 3:23:57 PM Referred By: Confirmed By: Barry Mcdermott
[2024-02-13 15:26] LABS: Adenovirus PCR Not Detected (NotDetected); Bordetella parapertussis PCR Not Detected (NotDetected); Bordetella pertussis PCR Not Detected (NotDetected); Chlamydia pneumoniae PCR Not Detected (NotDetected); Coronavirus 229E PCR Not Detected (NotDetected); Coronavirus CoV-2 (COVID19)PCR DETECTED (NotDetected); Coronavirus HKU1 PCR Not Detected (NotDetected); Coronavirus NL63 PCR Not Detected (NotDetected); Coronavirus OC43PCR Not Detected (NotDetected); Human Metapneumovirus PCR Not Detected (NotDetected); Influenza A PCR Not Detected (NotDetected); Influenza B PCR Not Detected (NotDetected); Mycoplasma pneumoniae PCR Not Detected (NotDetected); Parainfluenza Virus 1 PCR Not Detected (NotDetected); Parainfluenza Virus 2 PCR Not Detected (NotDetected); Parainfluenza Virus 3 PCR Not Detected (NotDetected); Parainfluenza Virus 4 PCR Not Detected (NotDetected); Respiratory Syncytial VirusPCR Not Detected (NotDetected); Rhinovirus/Enterovirus PCR Not Detected (NotDetected)
[2024-02-13] MEDS ORDERED: ONDANSETRON INJ 2 MG/ML 2 ML VIAL IV PRN (17:12)
[2024-02-13] MEDS ORDERED: PROMETHAZINE HCL 12.5 MG/10 ML UDP PO PRN (17:12)
[2024-02-13] MEDS ORDERED: ALUMINUM/MAGNESIUM SUSP 30 ML UDC PO PRN (17:12)
[2024-02-13] MEDS: DICLOFENAC SOD 1% GEL 100 GM TUBE EXT SCH (18:45)
[2024-02-13] MEDS: dexAMETHasone 6 MG in SYRINGE 0 ML IV SCH (18:45)
[2024-02-13] MEDS: ACETAMINOPHEN 325 MG TAB PO SCH (21:12)
[2024-02-13] MEDS: guaiFENesin 600 MG TABCR PO SCH (21:12)
[2024-02-13] MEDS: METOPROLOL SUCC 50MG EXT REL TAB PO SCH (21:13)
[2024-02-13] MEDS: APIXABAN 5 MG TABLET PO SCH (21:13)
[2024-02-14 04:44] LABS: Hematocrit (blood only) 34.8 % (42.0-52.0); Mean Corpuscular Hemoglobin 32.3 pg (25.0-34.0); Mean Corpuscular Hgb Conc 34.5 g/dL (32.0-36.0); Mean Corpuscular Volume 93.8 fL (80.0-100.0); Platelet Count 322 K/uL (130-400); RDW Coefficient of Variation 13.9 % (11.5-14.5); RDW Standard Deviation 47.5 fL (36.4-46.3); Red Blood Count 3.71 M/uL (4.70-6.10); White Blood Count 19.16 K/ul (4.8-10.8)
[2024-02-14 05:02] LABS: BUN Creatinine Ratio 30.4 (10-20); Calcium 8.9 mg/dl (8.6-10.3); Potassium 4.4 mmol/L (3.5-5.1)
[2024-02-14 06:57] LABS: Troponin I High Sensitivity 36.5 pg/ml (0-20)
[2024-02-14] MEDS: SPIRONOLACTONE 25 MG TAB PO SCH (08:05)
[2024-02-14] MEDS: AZITHROMYCIN 250 MG TAB PO SCH (08:06)
[2024-02-14] MEDS: DIGOXIN 0.125 MG TAB PO SCH (08:06)
[2024-02-14] MEDS: allopurinoL 300 MG TAB PO SCH (08:06)
[2024-02-14] MEDS: CYANOCOBALAMIN (B-12) 100 MCG TABLET PO SCH (08:07)
[2024-02-14] MEDS: FAMOTIDINE 20 MG TAB PO SCH (08:07)
[2024-02-14] MEDS: ASCORBIC ACID 500 MG TAB PO SCH (08:07)
[2024-02-14] MEDS: CHOLECALCIFEROL 25 MCG (1000 UNITS) TAB PO SCH (08:07)
[2024-02-14] MEDS: hydroCHLOROthiazide 25 MG TAB PO SCH (08:07)
[2024-02-14] MEDS: PSYLLIUM or GUAR GUM FIBER 4GM PACKET PO SCH (08:10)
[2024-02-14 08:26] LABS: Estimated Average Glucose 123 mg/dl; Hemoglobin A1C 5.9 % (4.5-5.6)
[2024-02-14] MEDS ORDERED: METOPROLOL TARTRATE 1 MG/ML VIAL IV PRN (08:41)
--- NOTE | 2024-02-14 08:47 | Hospitalist Progress Note ---
Date of Service February 14, 2024 Assessment & Plan (1) Left lower lobe pneumonia: (2) Elevated troponin: (3) Diabetic peripheral neuropathy associated with type 2 diabetes mellitus: Plan 78-year-old male being admitted for left lower lobe pneumonia. Covid positive on admission but lobar changes on imaging. Risk factors include previous history of diabetes with end organ damage of neuropathy. Permanent atrial fibrillation on chronic anticoagulation. Chronic venous stasis changes to his lower extremities, hypertension dyslipidemia Charcot foot For the pneumonia community-acquired H flu suggested on sputum culture- ceftriaxone and azithromycin. [employer] shows COVID positivity, dexamethasone and since his symptoms of been present for 2 weeks will not institute remdesivir therapy Patient has abnormal urine in the emergency department urinalysis is pending but looks to be infected antibiotics will continue per respiratory antibiotics at this time sputum culture possible Haemophilus influenza beta lactam negative and urine culture for amendment Patient has mild elevation of his troponin without acute changes on his EKG this is demand ischemia, patient follows with Dr. Mcdermott last echocardiogram was January 26, 2024 with a preserved ejection fraction mild concentric LVH, moderate MR and moderate TR With regard to his permanent atrial fibrillation is usually rate controlled with metoprolol 100 digoxin 0.125 daily and anticoagulated with Eliquis. These are a ll continued with a digoxin level therapeutic. Patient take spironolactone/hydrochlorothiazide for chronic hypertension Regarding his diabetes he does not take any long-term medications patient states that he lost a lot of weight and he considers himself no longer diabetic his A1c's have been in the 5 ranges. repeat 5.9 He is not on any insulin therapy History of gout is allopurinol be continued Patient is a full code and DVT prevention is his Eliquis Admission and Anticipated Discharge Date Admission Date: February 13, 2024 Subjective pt has loose cough, still paroxysmal discussed vitamins and is ok to stop them Physical Exam Physical Exam: The patient appeared thin chronically ill but with a good attitude Lungs are diminished at the bases bilaterally, rhonchi, loose cough Cardiac exam, Rhythm is regular.. No murmurs, rubs or gallops. Extremities are bilateral 2+ edema with venous stasis changes and both pedal pulses are present Results & Data Results & Data Vital Signs (Past 12 Hours) Vital Signs Temp Pulse Pulse Resp BP BP Pulse Ox 02/14/24 08:06 135 H 02/14/24 07:52 100 H 95 02/14/24 07:51 96 H 22 128/91 94 02/14/24 07:30 98.2 F 146 H 24 152/100 H 94 02/14/24 07:22 112 H 02/14/24 07:00 110 H 23 95 02/14/24 07:00 152/100 H 02/14/24 07:00 152/100 H 02/14/24 06:57 128 H 22 90 02/14/24 06:39 87 22 90 02/14/24 06:30 125/80 02/14/24 06:27 91 H 18 91 02/14/24 06:15 91 H 19 89 L 02/14/24 06:03 90 18 91 02/14/24 06:00 130/74 02/14/24 06:00 130/74 02/14/24 05:51 92 H 18 95 02/14/24 05:30 118 H 21 95 02/14/24 05:30 137/94 02/14/24 05:30 137/94 02/14/24 05:12 92 H 21 96 02/14/24 05:00 87 19 93 02/14/24 05:00 119/80 02/14/24 05:00 119/80 02/14/24 04:51 93 H 24 95 02/14/24 04:42 84 17 96 02/14/24 04:39 83 18 94 02/14/24 04:30 129/72 02/14/24 04:27 81 17 96 02/14/24 04:15 86 18 95 02/14/24 04:00 93 H 20 96 02/14/24 04:00 132/84 02/14/24 04:00 132/84 02/14/24 04:00 132/84 02/14/24 04:00 132/84 02/14/24 04:00 132/84 02/14/24 03:57 94 H 41 H 97 02/14/24 03:42 95 H 23 95 02/14/24 03:33 94 H 20 95 02/14/24 03:30 135/78 02/14/24 03:30 135/78 02/14/24 03:30 135/78 02/14/24 03:21 92 H 40 H 97 02/14/24 03:18 90 21 95 02/14/24 03:00 129/90 01/04/25 03:00 129/90 02/14/24 03:00 129/90 02/14/24 03:00 96 H 20 95 02/14/24 02:51 95 H 21 93 02/14/24 02:48 88 24 95 02/14/24 02:33 98 H 23 95 02/14/24 02:32 142/77 H 02/14/24 02:27 118 H 17 96 02/14/24 02:21 93 02/14/24 02:18 99 H 19 94 02/14/24 02:00 91 H 21 95 02/14/24 02:00 137/83 02/14/24 02:00 137/83 02/14/24 02:00 137/83 02/14/24 01:36 93 H 18 95 02/14/24 01:30 137/72 02/14/24 01:18 87 19 96 02/14/24 01:00 90 26 H 95 02/14/24 01:00 130/80 02/14/24 01:00 130/80 02/14/24 01:00 130/80 02/14/24 00:48 90 19 95 02/14/24 00:47 92 H 17 134/76 94 02/14/24 00:31 65 16 137/67 98 02/14/24 00:30 94 H 22 94 02/14/24 00:30 152/78 H 02/14/24 00:30 152/78 H 02/14/24 00:30 152/78 H 02/14/24 00:24 92 H 20 95 02/14/24 00:12 91 H 20 95 02/14/24 00:09 91 H 20 95 02/14/24 00:00 129/84 02/13/24 23:42 86 19 95 02/13/24 23:24 91 H 21 95 02/13/24 23:09 96 H 17 95 02/13/24 23:05 106 H 02/13/24 23:02 128/86 02/13/24 21:00 97 H 22 137/81 95 O2 Del Method O2 Flow Rate 02/14/24 08:06 02/14/24 07:52 Nasal Cannula 2 02/14/24 07:51 Nasal Cannula 2 02/14/24 07:30 Nasal Cannula 2 02/14/24 07:22 02/14/24 07:00 02/14/24 07:00 02/14/24 07:00 02/14/24 06:57 02/14/24 06:39 02/14/24 06:30 02/14/24 06:27 02/14/24 06:15 02/14/24 06:03 02/14/24 06:00 02/14/24 06:00 02/14/24 05:51 02/14/24 05:30 02/14/24 05:30 02/14/24 05:30 02/14/24 05:12 02/14/24 05:00 2 02/14/24 05:00 2 02/14/24 05:00 2 02/14/24 04:51 2 02/14/24 04:42 2 02/14/24 04:39 2 02/14/24 04:30 02/14/24 04:27 02/14/24 04:15 02/14/24 04:00 02/14/24 04:00 02/14/24 04:00 02/14/24 04:00 02/14/24 04:00 02/14/24 04:00 02/14/24 03:57 02/14/24 03:42 02/14/24 03:33 02/14/24 03:30 02/14/24 03:30 02/14/24 03:30 02/14/24 03:21 02/14/24 03:18 02/14/24 03:00 02/14/24 03:00 02/14/24 03:00 02/14/24 03:00 02/14/24 02:51 02/14/24 02:48 2 02/14/24 02:33 2 02/14/24 02:32 2 02/14/24 02:27 2 02/14/24 02:21 2 02/14/24 02:18 2 02/14/24 02:00 02/14/24 02:00 02/14/24 02:00 02/14/24 02:00 02/14/24 01:36 02/14/24 01:30 02/14/24 01:18 02/14/24 01:00 02/14/24 01:00 02/14/24 01:00 02/14/24 01:00 02/14/24 00:48 02/14/24 00:47 Nasal Cannula 2 02/14/24 00:31 Nasal Cannula 2 02/14/24 00:30 02/14/24 00:30 02/14/24 00:30 02/14/24 00:30 02/14/24 00:24 02/14/24 00:12 02/14/24 00:09 02/14/24 00:00 02/13/24 23:42 02/13/24 23:24 02/13/24 23:09 02/13/24 23:05 02/13/24 23:02 02/13/24 21:00 Laboratory Results reviewed cbc reviewed chemistry PG Care Time/CCT Total # of Minutes Spent Total Time Spent with Patient: Total time spent is greater than 50% in coordination of care (as documented) at patient's floor/unit and/or counseling patient: Coding Level of Care Code 80324 SUB INP/OBS CARE 3/50MIN Diagnoses Left lower lobe pneumonia J18.9 Elevated troponin R79.89 Diabetic peripheral neuropathy associated with type 2 diabetes mellitus E11.42
[2024-02-14] MEDS ORDERED: SPIRONOLACTONE/HCTZ 25-25 PO SCH (09:00)
[2024-02-14] MEDS ORDERED: NON-FORMULARY MEDICATION (Coenzyme Q10 [Ultra Coq10] 75 mg capsule) PO SCH (09:00)
[2024-02-14] MEDS: SODIUM CHLOR 7% 4 ML NEB NEB ONE (09:43)
[2024-02-14] MEDS: cefTRIAXone SODIUM 2,000 MG/50 ML BAG IV SCH (12:41)
--- NOTE | 2024-02-15 06:58 | Hospitalist Progress Note ---
Date of Service February 15, 2024 Assessment & Plan (1) Left lower lobe pneumonia: (2) Elevated troponin: (3) Diabetic peripheral neuropathy associated with type 2 diabetes mellitus: Plan 78-year-old male being admitted for left lower lobe pneumonia. Covid positive on admission but lobar changes on imaging. Risk factors include previous history of diabetes with end organ damage of neuropathy. Permanent atrial fibrillation on chronic anticoagulation. Chronic venous stasis changes to his lower extremities, hypertension dyslipidemia Charcot foot For the pneumonia community-acquired H flu suggested on sputum culture- ceftriaxone. [employer] shows COVID positivity, dexamethasone and since his symptoms of been present for 2 weeks will not institute remdesivir therapy Patient has mild elevation of his troponin without acute changes on his EKG this is demand ischemia, patient follows with Dr. Mcdermott last echocardiogram was January 26, 2024 with a preserved ejection fraction mild concentric LVH, moderate MR and moderate TR With regard to his permanent atrial fibrillation is usually rate controlled with metoprolol 100 digoxin 0.125 daily and anticoagulated with Eliquis. These are all continued with a digoxin level therapeutic. Patient take spironolactone/hydrochlorothiazide for chronic hypertension Regarding his diabetes he does not take any long-term medications patient states that he lost a lot of weight and he considers himself no longer diabetic his A1c's have been in the 5 ranges. repeat 5.9 He is not on any insulin therapy Hyponatremia, has been persistent low 130's, will not work up as likely from illness History of gout is allopurinol be continued Patient is a full code and DVT prevention is his Eliquis Admission and Anticipated Discharge Date Admission Date: February 13, 2024 Subjective pt improving but still has loose cough, still paroxysmal will add some robitussin dm Physical Exam Physical Exam: The patient appeared thin chronically ill but continues with a good attitude Lungs are diminished at the bases bilaterally, rhonchi, loose cough Cardiac exam, Rhythm is regular.. No murmurs, rubs or gallops. Extremities are bilateral 2+ edema with venous stasis changes and both pedal pulses are present Results & Data Results & Data Vital Signs (Past 12 Hours) Vital Signs Temp Pulse Pulse Resp BP Pulse Ox O2 Del Method 02/15/24 04:10 97.9 F 87 20 136/84 93 Nasal Cannula 02/15/24 00:00 94 H 02/14/24 23:41 97.7 F 91 H 20 132/74 93 Nasal Cannula 02/14/24 20:00 Nasal Cannula 02/14/24 18:59 97.5 F L 103 H 18 128/86 94 Nasal Cannula O2 Flow Rate 02/15/24 04:10 2 02/15/24 00:00 02/14/24 23:41 2 02/14/24 20:00 2 02/14/24 18:59 2 Laboratory Results review cbc review chemistry PG Care Time/CCT Total # of Minutes Spent Total Time Spent with Patient: Total time spent is greater than 50% in coordination of care (as documented) at patient's floor/unit and/or counseling patient: Coding Level of Care Code 73949 SUB INP/OBS CARE 3/50MIN Diagnoses Left lower lobe pneumonia J18.9 Elevated troponin R79.89 Diabetic peripheral neuropathy associated with type 2 diabetes mellitus E11.42
[2024-02-15 07:29] LABS: Hematocrit (blood only) 34.7 % (42.0-52.0); Hemoglobin 11.9 g/dl (14.0-18.0); Mean Corpuscular Hemoglobin 32.2 pg (25.0-34.0); Mean Corpuscular Hgb Conc 34.3 g/dL (32.0-36.0); Mean Corpuscular Volume 93.8 fL (80.0-100.0); Platelet Count 373 K/uL (130-400); RDW Coefficient of Variation 13.6 % (11.5-14.5); RDW Standard Deviation 46.4 fL (36.4-46.3)
[2024-02-15 07:51] LABS: Creatinine Clr Calc Pharmacy 147.9 ml/min; Potassium 4.3 mmol/L (3.5-5.1)
[2024-02-16 06:37] LABS: Hematocrit (blood only) 34.9 % (42.0-52.0); Mean Corpuscular Hemoglobin 32.1 pg (25.0-34.0); Mean Corpuscular Hgb Conc 34.4 g/dL (32.0-36.0); Mean Corpuscular Volume 93.3 fL (80.0-100.0); Mean Platelet Volume 9.8 fL (9.4-12.4); Platelet Count 370 K/uL (130-400); RDW Coefficient of Variation 13.6 % (11.5-14.5); RDW Standard Deviation 45.6 fL (36.4-46.3); Red Blood Count 3.74 M/uL (4.70-6.10); White Blood Count 13.23 K/ul (4.8-10.8)
[2024-02-16 06:47] LABS: BUN Creatinine Ratio 36.9 (10-20); Creatinine Clr Calc Pharmacy 113.8 ml/min; Potassium 4.6 mmol/L (3.5-5.1)
[2024-02-16] MEDS: guaiFENesin/DEXTROM SYRUP 200MG/20MG 10ML UDC PO PRN (07:50)
--- NOTE | 2024-02-16 17:24 | Hospitalist Progress Note ---
Date of Service February 16, 2024 Assessment & Plan (1) Left lower lobe pneumonia: (2) Elevated troponin: (3) Diabetic peripheral neuropathy associated with type 2 diabetes mellitus: Plan 78-year-old male being admitted for left lower lobe pneumonia. Covid positive on admission but lobar changes on imaging. Risk factors include previous history of diabetes with end organ damage of neuropathy. Permanent atrial fibrillation on chronic anticoagulation. Chronic venous stasis changes to his lower extremities, hypertension dyslipidemia Charcot foot For the pneumonia community-acquired H flu suggested on sputum culture- ceftriaxone. [employer] shows COVID positivity, dexamethasone and since his symptoms of been present for 2 weeks will not institute remdesivir therapy. likely bacterial pneumonia superimposed wit covid. improving with antibiotics. Patient has mild elevation of his troponin without acute changes on his EKG this is demand ischemia, patient follows with Dr. Mcdermott last echocardiogram was January 26, 2024 with a preserved ejection fraction mild concentric LVH, moderate MR and moderate TR With regard to his permanent atrial fibrillation is usually rate controlled with metoprolol 100 digoxin 0.125 daily and anticoagulated with Eliquis. These are all continued with a digoxin level therapeutic. Patient take spironolactone/hydrochlorothiazide for chronic hypertension Regarding his diabetes he does not take any long-term medications patient states that he lost a lot of weight and he considers himself no longer diabetic his A1c's have been in the 5 ranges. repeat 5.9 He is not on any insulin therapy Hyponatremia, has been persistent low 130's, will not work up as likely from illness History of gout is allopurinol be continued Patient is a full code and DVT prevention is his Eliquis Admission and Anticipated Discharge Date Admission Date: February 13, 2024 Subjective 78 yo male reports feeling better. Not quite at baseline. Continues to have productive cough Review of Systems Review of Systems: All systems reviewed & are unremarkable except as noted in HPI & below Physical Exam Physical Exam: The patient appeared thin chronically ill but continues with a good attitude Lungs are diminished at the bases bilaterally. Cardiac exam, Rhythm is regular.. No murmurs, rubs or gallops. Extremities are bilateral 2+ edema with venous stasis changes and both pedal pulses are present Results & Data Results & Data Vital Signs (Past 12 Hours) Vital Signs Temp Pulse Pulse Resp BP Pulse Ox O2 Del Method 02/16/24 14:44 36.3 C L 68 18 122/67 93 Nasal Cannula 02/16/24 11:00 36.4 C L 75 18 120/73 92 Nasal Cannula 02/16/24 08:18 Nasal Cannula 02/16/24 07:48 73 02/16/24 07:44 36.3 C L 73 20 144/77 H 98 Room Air 02/16/24 07:13 67 O2 Flow Rate 02/16/24 14:44 2 02/16/24 11:00 2 02/16/24 08:18 2 02/16/24 07:48 02/16/24 07:44 2 02/16/24 07:13 PG Care Time/CCT Total # of Minutes Spent Total Time Spent with Patient: Total time spent is greater than 50% in coordination of care (as documented) at patient's floor/unit and/or counseling patient: Coding Level of Care Code 70663 SUB INP/OBS CARE 2MIN Diagnoses Left lower lobe pneumonia J18.9 Elevated troponin R79.89 Diabetic peripheral neuropathy associated with type 2 diabetes mellitus E11.42
[2024-02-17] MEDS: MELATONIN 3 MG TAB PO PRN (00:52)
[2024-02-17 08:10] LABS: Hematocrit (blood only) 36.9 % (42.0-52.0); Hemoglobin 12.3 g/dl (14.0-18.0); Mean Corpuscular Hemoglobin 31.1 pg (25.0-34.0); Mean Corpuscular Hgb Conc 33.3 g/dL (32.0-36.0); Mean Corpuscular Volume 93.2 fL (80.0-100.0); Mean Platelet Volume 9.8 fL (9.4-12.4); Platelet Count 377 K/uL (130-400); RDW Standard Deviation 47.4 fL (36.4-46.3); Red Blood Count 3.96 M/uL (4.70-6.10); White Blood Count 12.12 K/ul (4.8-10.8)
[2024-02-17 08:16] LABS: BUN Creatinine Ratio 42.2 (10-20); C Reactive Protein 3.14 mg/dl (0-0.5); Calcium 9.2 mg/dl (8.6-10.3); Creatinine Clr Calc Pharmacy 115.5 ml/min; Potassium 4.5 mmol/L (3.5-5.1)
[2024-02-17 15:50] VITALS: RESP 18
--- NOTE | 2024-02-17 22:32 | Hospitalist Progress Note ---
Date of Service February 17, 2024 Assessment & Plan (1) Left lower lobe pneumonia: (2) Elevated troponin: (3) Diabetic peripheral neuropathy associated with type 2 diabetes mellitus: Plan 78-year-old male being admitted for left lower lobe pneumonia. Covid positive on admission but lobar changes on imaging. Risk factors include previous history of diabetes with end organ damage of neuropathy. Permanent atrial fibrillation on chronic anticoagulation. Chronic venous stasis changes to his lower extremities, hypertension dyslipidemia Charcot foot Gram-negative pneumonia, H. Influenzae For the pneumonia community-acquired H flu suggested on sputum culture- ceftriaxone. [employer] shows COVID positivity, dexamethasone and since his symptoms of been present for 2 weeks will not institute remdesivir therapy. likely bacterial pneumonia superimposed wit covid. improving with antibiotics. Now on room air. Patient has mild elevation of his troponin without acute changes on his EKG this is demand ischemia, patient follows with Dr. Mcdermott last echocardiogram was January 26, 2024 with a preserved ejection fraction mild concentric LVH, moderate MR and moderate TR With regard to his permanent atrial fibrillation is usually rate controlled with metoprolol 100 digoxin 0.125 daily and anticoagulated with Eliquis. These are all continued with a digoxin level therapeutic. Patient take spironolactone/hydrochlorothiazide for chronic hypertension Regarding his diabetes he does not take any long-term medications patient states that he lost a lot of weight and he considers himself no longer diabetic his A1c's have been in the 5 ranges. repeat 5.9 He is not on any insulin therapy Hyponatremia, has been persistent low 130's, will not work up as likely from illness History of gout is allopurinol be continued Patient is a full code and DVT prevention is his Eliquis Awaiting Physical therapy Admission and Anticipated Discharge Date Admission Date: February 13, 2024 Subjective Patient feeling better today. States he has more strength. Review of Systems Review of Systems: All systems reviewed & are unremarkable except as noted in HPI & below Physical Exam Physical Exam: The patient appeared thin chronically ill but continues with a good attitude Lungs are diminished at the bases bilaterally. Cardiac exam, Rhythm is regular.. No murmurs, rubs or gallops. Extremities are bilateral 2+ edema with venous stasis changes and both pedal pulses are present Results & Data Results & Data Vital Signs (Past 12 Hours) Vital Signs Temp Pulse Pulse Resp BP BP Pulse Ox 02/17/24 19:26 36.3 C L 62 18 122/71 93 02/17/24 15:49 36.3 C L 63 18 116/63 93 02/17/24 14:30 60 02/17/24 13:17 94 02/17/24 11:50 36.5 C 61 17 122/70 95 O2 Del Method O2 Flow Rate 02/17/24 19:26 Room Air 02/17/24 15:49 Room Air 02/17/24 14:30 02/17/24 13:17 Room Air 02/17/24 11:50 Nasal Cannula 2 PG Care Time/CCT Total # of Minutes Spent Total Time Spent with Patient: Total time spent is greater than 50% in coordination of care (as documented) at patient's floor/unit and/or counseling patient: Coding Level of Care Code 24466 SUB INP/OBS CARE 2/35MIN Diagnoses Left lower lobe pneumonia J18.9 Elevated troponin R79.89 Diabetic peripheral neuropathy associated with type 2 diabetes mellitus E11.42
[2024-02-18 03:14] VITALS: O2SAT 94
[2024-02-18 07:19] LABS: Hematocrit (blood only) 37.2 % (42.0-52.0); Hemoglobin 12.9 g/dl (14.0-18.0); Mean Corpuscular Hemoglobin 32.2 pg (25.0-34.0); Mean Corpuscular Hgb Conc 34.7 g/dL (32.0-36.0); Mean Corpuscular Volume 92.8 fL (80.0-100.0); Mean Platelet Volume 9.6 fL (9.4-12.4); Platelet Count 367 K/uL (130-400); Red Blood Count 4.01 M/uL (4.70-6.10); White Blood Count 12.88 K/ul (4.8-10.8)
[2024-02-18 07:42] LABS: BUN Creatinine Ratio 41.4 (10-20); C Reactive Protein 2.27 mg/dl (0-0.5); Calcium 9.3 mg/dl (8.6-10.3); Creatinine Clr Calc Pharmacy 105.6 ml/min; Potassium 4.7 mmol/L (3.5-5.1)
[2024-02-18 07:50] VITALS: TEMP 97.3
--- NOTE | 2024-02-18 10:09 | Discharge Summary ---
Discharge Summary Date of Service February 18, 2024 Principal Dx & Hospital Course #1 = Principal Diagnosis (1) Left lower lobe pneumonia: (2) Elevated troponin: (3) Diabetic peripheral neuropathy associated with type 2 diabetes mellitus: Plan 78-year-old male being admitted for left lower lobe pneumonia. Covid positive on admission but lobar changes on imaging. Risk factors include previous history of diabetes with end organ damage of neuropathy. Permanent atrial fibrillation on chronic anticoagulation. Chronic venous stasis changes to his lower extremities, hypertension dyslipidemia Charcot foot Gram-negative pneumonia, H. Influenzae For the pneumonia community-acquired H flu suggested on sputum culture- ceftriaxone. [employer] shows COVID positivity, dexamethasone and since his sy mptoms of been present for 2 weeks will not institute remdesivir therapy. likely bacterial pneumonia superimposed wit covid. improving with antibiotics. Now on room air. Will complete 10 days of antibiotics, 6 days of rocephin and 4 days of cefuroxime. will hold famotidine during the 4 day course. No additional decadron ordered at discharge as recent studies have shown benefit up to 6 days with no survival benefit above 7 days and patient is back on room air. Patient has mild elevation of his troponin without acute changes on his EKG this is demand ischemia, patient follows with Dr. Mcdermott last echocardiogram was January 26, 2024 with a preserved ejection fraction mild concentric LVH, moderate MR and moderate TR With regard to his permanent atrial fibrillation is usually rate controlled with metoprolol 100 digoxin 0.125 daily and anticoagulated with Eliquis. These are all continued with a digoxin level therapeutic. Patient take spironolactone/hydrochlorothiazide for chronic hypertension Regarding his diabetes he does not take any long-term medications patient states that he lost a lot of weight and he considers himself no longer diabetic his A1c's have been in the 5 ranges. repeat 5.9 He is not on any insulin therapy Hyponatremia, has been persistent low 130's, will not work up as likely from illness History of gout is allopurinol be continued Admission HPI Per Admitting Provider 78-year-old male who presents to the emergency department for cough congestion and palpitations. Initially warning about his atrial fibrillation which he is permanently. He says he has had about 2 weeks of symptoms. Denies any GI distress nausea vomiting or diarrhea. He has no urinary symptoms or complaints. He has past medical history of permanent atrial fibrillation peripheral artery disease with chronic venous stasis diabetes currently diet controlled previous basal cell carcinomas gout dyslipidemia hypertension. From his diabetes he has Charcot foot there is mention of a pancreatic neoplasm without cannot see any record of such Discharge Exam The patient appeared thin chronically ill but continues with a good attitude Lungs are slightly diminished at the bases bilaterally. Cardiac exam, Rhythm is regular.. No murmurs, rubs or gallops. Extremities are bilateral 2+ edema with venous stasis changes and both pedal pulses are present Discharge Plan Discharge Items Patient Disposition: Home - Self-Care Reason For Visit: LLL PNEUMONIA Discharge Diagnosis: Pneumonia Activity: Resume your previous activity Non-emergency contact: Primary Care Provider Call non-emergency contact if: you have any medication questions Follow-up/Referrals: Chidi Burnette MD [Primary Care Provider] - Diet: Carb Consistent or DM2 Addtl Attending Provider Instructions: Please continue to mask for the next 5 days to limit transmission of COVID 19. Recommend followup with your PCP in 1-2 weeks. Hold famotidine for the next 4 days until you complete your antibiotics. Continue with cefuroxime for 4 days datrting on 02/19/24 in the AM. Pending Studies at Discharge: No Stand-Alone Forms: My [facility], Smoking Cessation Medications and DC Order Prescriptions: New guaifenesin [Mucinex] 600 mg Tablet Extended Release 12hr 1,200 mg PO Q12 5 Days Qty: 20 0RF cefuroxime axetil 500 mg tablet 500 mg PO BID Qty: 8 0RF Rx Instructions: start first dose on 02/19/24 in the morning Continued cholecalciferol (vitamin D3) 1,000 unit capsule 1,000 units PO DAILY apixaban 5 mg tablet 5 mg PO BID Qty: 180 3RF metoprolol succinate 100 mg tablet extended release 24 hr 100 mg PO BID Qty: 180 3RF digoxin 125 mcg (0.125 mg) tablet 125 mcg PO DAILY Qty: 90 3RF acetaminophen [Tylenol Arthritis Pain] 650 mg tablet extended release 1,300 mg PO BID Ultra CoQ10 75 mg capsule 75 mg PO DAILY mupirocin 2 % ointment 1 applic topical DAILY Qty: 15 11RF allopurinol 300 mg tablet 300 mg PO DAILY Qty: 90 3RF cyanocobalamin (vitamin B-12) 100 mcg tablet 100 mcg PO DAILY diclofenac sodium 1 % gel 2 g topical QID Qty: 100 2RF Rx Instructions: apply to single elbow, wrist or hand; for hand includes palm/fingers/back of hand spironolacton-hydrochlorothiaz 25-25 mg tablet 1 tab PO DAILY Qty: 90 3RF ascorbic acid (vitamin C) [Vitamin C] 500 mg Tablet 0 mg PO DAILY psyllium husk 6 gram Powder In Packet 6 g PO DAILY Held famotidine 20 mg tablet 20 mg PO DAILY Qty: 90 3RF Hold Instructions: Resume on 02/23/24. until you completed the antibiotics Discharge Orders: Discharge Order (Routine); Ordered 02/18/24 Ordered By: Stephen Caldwell Admission Data Admit Date/Time: 02/13/24 14:32 Attending Provider: Stephen Caldwell Admit Provider: Paul Harrison Primary Care Provider: Chidi Burnette Other Providers: Lonnie Mccord Hospital Stay Data Consultations 02/13/24 13:38 ED Decision to Admit Stat Pending Results Patient Have Any Pending Studies at Discharge: No Discharge Instructions Given to Patient (Per Discharging Provider) Please continue to mask for the next 5 days to limit transmission of COVID 19. Recommend followup with your PCP in 1-2 weeks. Hold famotidine for the next 4 days until you complete your antibiotics. Continue with cefuroxime for 4 days datrting on 02/19/24 in the AM. Total Time Total Time Spent Total Time Spent (In Minutes): 35 Coding Level of Care Code 73282 INP/OBS DISCH >30 MIN Diagnoses Left lower lobe pneumonia J18.9 Elevated troponin R79.89 Diabetic peripheral neuropathy associated with type 2 diabetes mellitus E11.42
[2024-02-18 12:08] VITALS: BP 134/79; PULSE 76
== END 2024-02-18 16:39 | disposition home health service (06) | DRG 177 ==
LOC: ED 10:51 → SUATTDRO 14:32 → EDINP 14:32 → 2N 02-14 18:53

== ENCOUNTER 2025-01-11 10:13 | Inpatient (IN) ==
--- NOTE | 2025-01-11 10:45 | Emergency Department Note ---
History of Present Illness General Chief complaint: Trauma Stated complaint: WEAKNESS, SOB Time Seen by Provider: 01/11/25 10:17 Source: patient Mode of arrival: EMS Limitations: no limitations History of Present Illness Patient is a 79-year-old male with history of frontotemporal dementia, chronic lymphedema, hypertension, chronic neuropathy, atrial fibrillation on Eliquis who presents with shortness of breath while getting out of the shower today. Describes sudden onset of chest tightness and difficulty catching his breath. This is improved upon arrival. No similar symptoms in the past. Denies any lightheadedness, dizziness, chest pain, nausea, vomiting, diaphoresis. No recent fevers, chills, cough or URI symptoms. He does report that he stayed up all night in preparation for an EEG this morning. Also states that he fell yesterday when he lost his balance. He has a history of chronic weakness and neuropathy and reports recurrent falls. He did strike his head and his left hip and has a large hematoma to the left hip and back of the left thigh. Home Medications Medication Instructions Recorded Confirmed Type cyanocobalamin (vitamin B-12) 100 100 mcg PO DAILY 11/11/18 01/11/25 History mcg tablet cholecalciferol (vitamin D3) 25 1,000 units PO DAILY 12/16/18 01/11/25 History mcg (1,000 unit) capsule ascorbic acid (vitamin C) 500 mg 0 mg PO DAILY 08/14/20 01/11/25 History tablet (Vitamin C) acetaminophen 650 mg 1,300 mg PO BID 02/15/22 01/11/25 History tablet,extended release (Tylenol Arthritis Pain) coenzyme Q10 75 mg capsule (Ultra 75 mg PO DAILY 06/20/22 01/11/25 History CoQ10) famotidine 20 mg tablet 20 mg PO DAILY #90 tabs 02/13/24 01/11/25 Rx psyllium husk 6 gram oral powder 6 g PO DAILY 02/13/24 01/11/25 History packet apixaban 5 mg tablet 5 mg PO BID #180 tabs 03/08/24 01/11/25 Rx allopurinol 300 mg tablet 300 mg PO DAILY #90 tabs 04/08/24 01/11/25 Rx metoprolol succinate 100 mg 100 mg PO BID #180 tabs 04/22/24 01/11/25 Rx tablet,extended release 24 hr diclofenac sodium 1 % topical gel 2 g topical QID #100 grams 05/11/24 01/11/25 Rx spironolactone 25 1 tab PO DAILY #90 tabs 08/17/24 01/11/25 Rx mg-hydrochlorothiazide 25 mg tablet digoxin 125 mcg (0.125 mg) tablet 125 mcg PO DAILY #90 tabs 11/02/24 01/11/25 Rx mupirocin 2 % topical ointment 1 applic topical DAILY #22 grams 11/24/24 01/11/25 Rx fluorouracil 5 % topical cream 1 applic topical DAILY 01/11/25 01/11/25 History Allergies Allergy/AdvReac Type Severity Reaction Status Date / Time furosemide Allergy Severe CHEST Verified 12/06/24 13:47 "FLUTTERY" latex Allergy Unknown Unknown Verified 01/11/25 18:48 aspirin AdvReac Unknown HX OF GI Verified 12/06/24 13:47 BLEED NSAIDS (Non-Steroidal AdvReac Unknown bleeding Verified 12/06/24 13:47 Anti-Inflamma Past Med/Surg History Problem List (Updated 01/12/25 @ 06:34 by Epifanio Au MD) Acute dyspnea (Acute) Hematoma of left thigh (Acute) Anemia (Acute) Dyspnea Thigh hematoma Motor neuron disease Frontotemporal dementia Skin ulcer Mental status alteration Abrasions of multiple sites Hand deformity, acquired COVID-19 (Acute) Hypomagnesemia (Acute) Acute hyponatremia (Acute) Leukocytosis (Acute) Elevated troponin Left lower lobe pneumonia Constipation Osteoarthritis Stool incontinence Venous stasis ulcers of both lower extremities Lymphedema Hyperlipidemia GERD (gastroesophageal reflux disease) Impaired glucose tolerance Hypertension Mitral regurgitation Protein calorie malnutrition Neuropathy (Acute) Traumatic open wound of lower leg Permanent atrial fibrillation Weakness (Acute) Laceration of leg (Acute) Pseudogout of right knee Anemia (Acute) Traumatic hematoma of left lower leg (Acute) Anticoagulant long-term use (Acute) Total bilirubin, elevated Knee effusion, right Hyponatremia Macrocytic anemia Wound of left lower extremity Partial thickness burn of finger of right hand (Acute) PAD (peripheral artery disease) (Chronic) Lower extremity edema (Acute) Venous stasis ulcer (Acute) Alcohol causing toxic effect (Acute) Former smoker (Acute) Left ventricular hypertrophy (Acute) Pancreatic neoplasm (Acute) Peripheral neuropathy (Acute) Aortic valve insufficiency Hypercholesterolemia HTN (hypertension) (Chronic) Atrial fibrillation (Chronic) Abdominal aortic aneurysm (Acute) Diabetic peripheral neuropathy associated with type 2 diabetes mellitus Emphysematous cholecystitis (Acute) Falls frequently (Acute) History of diabetic ulcer of foot Ileus (Acute) Medical History Charcot's arthropathy Diarrhea Murmur Full thickness burn of finger of right hand Traumatic wound Skin cancer History of GI bleed Afib Acquired bilateral foot drop Tinea pedis Diverticulosis Surgical History Status post Mohs surgery S/P cholecystectomy Family History Father Myocardial infarction Daughter Bladder cancer Other No pertinent family history Denies family history of Ovarian cancer Prostate cancer Breast cancer Lung cancer Colorectal cancer Social History Smoking Status: Never smoker Tobacco Type: Cigarettes Second Hand Exposure: No; Do You Dip or Chew Tobacco: No; Hx Alcohol Use: No Hx Substance Use: No Preferred Language: Greek Communication Ability: Effective Visual Impairment: No Limitations Hearing Ability: Normal Ethanol Maintenance Mechanic Required: No Beliefs That Will Affect Care: None marital status: Current Living Situation: Spouse current occupational status: retired How many Children do You have: 4 Other Information That Helps Us Care for You: No Feels Safe at Home: Yes Childhood Exposure to Second-Hand Smoke: No Diet: regular caffeine: Yes during the past year weight has: remained stable Dental Care, Regularly: Yes Physical Activity Frequency: Does not Exercise Seatbelt Use: always Sunscreen Use: Yes Assistive Devices: Walker Review of Systems Review of systems negative outside of positive findings mentioned in HPI. Physical Exam Vital Signs Vital Signs - 24 hr 01/11/25 10:28 01/11/25 10:35 01/11/25 10:35 Temperature 36.7 C Temperature Source Oral Pulse Rate 78 92 H Pulse Rate [Apical] Pulse Rhythm Pulse Rhythm [Apical] Pulse Strength [Apical] Respiratory Rate 19 Respiratory Effort / Characteristics Non-Labored Spontaneous Respiratory Depth Normal Respiratory Pattern Regular Blood Pressure 91/63 L Blood Pressure [Right Arm] Blood Pressure Mean 72 Blood Pressure Mean [Right Arm] Blood Pressure Position Semi-fowlers Blood Pressure Position [Right Arm] Pulse Oximetry 98 98 Oxygen Delivery Method Room Air Room Air Oxygen Flow Rate Sepsis Recent Fever Within 48 Hours No Sepsis New/Unexplained Change in Mental Status N/A Sepsis Action Taken by Nursing No Action Required 01/11/25 10:35 01/11/25 11:18 01/11/25 11:18 Temperature 36.7 C Temperature Source Oral Pulse Rate 79 Pulse Rate [Apical] 92 H Pulse Rhythm Regular Pulse Rhythm [Apical] Pulse Strength [Apical] Respiratory Rate 17 21 Respiratory Effort / Characteristics Non-Labored Spontaneous Respiratory Depth Normal Respiratory Pattern Blood Pressure Blood Pressure [Right Arm] 91/63 L Blood Pressure Mean Blood Pressure Mean [Right Arm] 72 Blood Pressure Position Blood Pressure Position [Right Arm] Semi-fowlers Pulse Oximetry 98 98 Oxygen Delivery Method Room Air Room Air Room Air Oxygen Flow Rate Sepsis Recent Fever Within 48 Hours Sepsis New/Unexplained Change in Mental Status Sepsis Action Taken by Nursing 01/11/25 11:18 01/11/25 12:15 01/11/25 12:25 Temperature 36.7 C Temperature Source Pulse Rate 80 78 Pulse Rate [Apical] 79 Pulse Rhythm Pulse Rhythm [Apical] Regular Pulse Strength [Apical] Normal Respiratory Rate 21 20 14 Respiratory Effort / Characteristics Non-Labored Spontaneous Respiratory Depth Normal Respiratory Pattern Regular Blood Pressure 110/59 L 103/62 Blood Pressure [Right Arm] 111/81 Blood Pressure Mean 71 Blood Pressure Mean [Right Arm] 91 Blood Pressure Position Blood Pressure Position [Right Arm] Lying Pulse Oximetry 98 99 98 Oxygen Delivery Method Room Air Room Air Room Air Oxygen Flow Rate 0 Sepsis Recent Fever Within 48 Hours Sepsis New/Unexplained Change in Mental Status Sepsis Action Taken by Nursing 01/11/25 12:25 01/11/25 12:30 01/11/25 13:00 Temperature Temperature Source Pulse Rate 71 Pulse Rate [Apical] 78 69 Pulse Rhythm Pulse Rhythm [Apical] Regular Regular Pulse Strength [Apical] Normal Normal Respiratory Rate 14 14 15 Respiratory Effort / Characteristics Non-Labored Spontaneous Non-Labored Spontaneous Respiratory Depth Normal Normal Respiratory Pattern Regular Regular Blood Pressure 103/62 Blood Pressure [Right Arm] 103/62 107/57 L Blood Pressure Mean 77 Blood Pressure Mean [Right Arm] 75 73 Blood Pressure Position Blood Pressure Position [Right Arm] Lying Lying Pulse Oximetry 98 98 97 Oxygen Delivery Method Room Air Room Air Room Air Oxygen Flow Rate Sepsis Recent Fever Within 48 Hours Sepsis New/Unexplained Change in Mental Status Sepsis Action Taken by Nursing 01/11/25 13:00 01/11/25 13:27 01/11/25 14:00 Temperature Temperature Source Pulse Rate 68 83 89 Pulse Rate [Apical] Pulse Rhythm Pulse Rhythm [Apical] Pulse Strength [Apical] Respiratory Rate 13 18 20 Respiratory Effort / Characteristics Respiratory Depth Respiratory Pattern Blood Pressure 107/57 L 117/67 123/69 Blood Pressure [Right Arm] Blood Pressure Mean 66 81 101 Blood Pressure Mean [Right Arm] Blood Pressure Position Blood Pressure Position [Right Arm] Pulse Oximetry 97 Oxygen Delivery Method Room Air Room Air Oxygen Flow Rate Sepsis Recent Fever Within 48 Hours Sepsis New/Unexplained Change in Mental Status Sepsis Action Taken by Nursing See below Constitutional WD/WN, vitals as above Eyes PERRL, conjunctivae normal, anicteric sclerae ENMT SCC Lesion noted to the pinna on the left Respiratory able to speak in complete sentences; no respiratory distress, no labored breathing, no retractions and does not use accessory muscles Auscultation: lungs clear to auscultation bilaterally Cardiovascular Rate/Rhythm: + irregularly irregular Heart Sounds: normal S1 and normal S2 Vessels: no JVD Chronic non-pitting edema below the knees b/l Gastrointestinal (Abdomen) normal bowel sounds, soft, nontender, no hepatosplenomegaly Musculoskeletal Large hematoma to the posterior LLE below the left buttock Course Administered Medications Acetaminophen (Acetaminophen 500 Mg Tab) 1,000 mg PO BID [facility] Stop: 02/10/25 20:59 Last Admin: 01/11/25 20:20 Dose: 1,000 mg Documented By: JACOBW Digoxin (Digoxin 0.125 Mg Tab) 0.125 mg PO DAILY@1600 [facility] Stop: 02/10/25 15:59 Last Admin: 01/11/25 18:39 Dose: 0.125 mg Documented By: CS Melatonin (Melatonin 3 Mg Tab) 3 mg PO HS PRN PRN Reason: Insomnia Stop: 02/10/25 15:51 Last Admin: 01/11/25 20:20 Dose: 3 mg Documented By: HFW Metoprolol Succinate (Metoprolol Succ 50mg Ext Rel Tab) 100 mg PO BID [facility] Stop: 02/10/25 20:59 Last Admin: 01/11/25 20:21 Dose: 100 mg Documented By: HFW Discontinued Medications Gadobutrol (Gadobutrol 65ml Vial) 10 ml IV ONCE ONE Stop: 01/11/25 15:17 Last Admin: 01/11/25 15:18 Dose: 10 ml Documented By: [facility] Ioversol (Optiray 320 125ml) 120 ml IV ONCE ONE Stop: 01/11/25 11:45 Last Admin: 01/11/25 11:46 Dose: 120 ml Documented By: Miscellaneous (Fluorouracil 5 % Cream ~ Order Awaiting Action) 1 each N/A QS SORAIDA Stop: 02/10/25 15:59 Last Admin: 01/11/25 17:21 Dose: Not Given Documented By: [facility] Medical Decision Making Differential Diagnosis DDx includes but not limited to: CHF exacerbation, pneumonia, PE, reactive airway disease, hematoma of the lower extremity, head contusion Medical Records Attestation: I reviewed the patient's medical records. Home Medications Current Medication List: was personally reviewed by me Laboratory Data Attestation: I reviewed the patient's lab results. 01/11/25 18:09 01/11/25 10:37 Lab Results 01/11/25 01/11/25 Range/Units 10:37 11:08 WBC 7.03 (4.8-10.8) K/ul RBC 3.01 L (4.70-6.10) M/uL Hgb 9.0 L (14.0-18.0) g/dL Hct 27.0 L (42.0-52.0) % MCV 89.7 (80.0-100.0) fL MCH 29.9 (25.0-34.0) pg MCHC 33.3 (32.0-36.0) g/dL RDW Std Deviation 49.1 H (36.4-46.3) fL RDW Coeff of Pau 14.9 H (11.5-14.5) % Plt Count 198 (130-400) K/uL MPV 9.8 (9.4-12.4) fL Immature Gran % (Auto) 0.4 % Neut % (Auto) 76.7 % Lymph % (Auto) 12.5 % Amador % (Auto) 8.3 % Eos % (Auto) 1.4 % Baso % (Auto) 0.7 % Neut # (Auto) 5.39 (1.40-6.50) K/uL Lymph # (Auto) 0.88 L (1.20-3.40) K/uL Amador # (Auto) 0.58 (0.11-0.59) K/uL Eos # (Auto) 0.10 (0.00-0.50) K/uL Baso # (Auto) 0.05 (0.00-0.20) K/uL Immature Gran # (Auto) 0.03 (0.01-0.20) K/uL D-Dimer 1550 H* (0-500) ug/L FEU Sodium 135 L (136-145) mmol/L Potassium 3.8 (3.5-5.1) mmol/L Chloride 100 (98-107) mmol/L Carbon Dioxide 27 (21-32) mmol/L Anion Gap 8 (3-11) BUN 21 (6-23) mg/dl Creatinine 0.69 (0.6-1.4) mg/dl Est Cr Clr Drug Dosing 114.4 ml/min eGFR 94.72 BUN/Creatinine Ratio 30.4 H (10-20) Glucose 143 H (70-99(Fasting)) mg/dl Calcium 9.1 (8.6-10.3) mg/dl Total Bilirubin 1.7 H (0.2-1.0) mg/dl AST 17 (13-39) U/L ALT 10 (7-52) U/L Alkaline Phosphatase 114 H (34-104) U/L Troponin I High Sens 12.6 (0-20) pg/ml B-Natriuretic Peptide 146 H (0-100) pg/ml Total Protein 6.6 (6.0-8.3) gm/dl Albumin 3.9 (3.4-5.0) gm/dl Globulin 2.7 (2.5-4.0) gm/dl Albumin/Globulin Ratio 1.4 (0.9-2) Adenovirus (PCR) Not Detected (NotDetected) B. pertussis DNA (PCR) Not Detected (NotDetected) B.parapertussis DNA PCR Not Detected (NotDetected) C. pneumoniae DNA (PCR) Not Detected (NotDetected) Coronavirus OC43 (PCR) Not Detected (NotDetected) Coronavirus HKU1 (PCR) Not Detected (NotDetected) Coronavirus 229E (PCR) Not Detected (NotDetected) SARS-CoV-2 (PCR) Not Detected (NotDetected) Coronavirus NL63 (PCR) Not Detected (NotDetected) Human Metapneumovir PCR Not Detected (NotDetected) Influenza Type A (PCR) Not Detected (NotDetected) Influenza Type B (PCR) Not Detected (NotDetected) M. pneumoniae (PCR) Not Detected (NotDetected) Parainfluenza 1 (PCR) Not Detected (NotDetected) Parainfluenza 2 (PCR) Not Detected (NotDetected) Parainfluenza 3 (PCR) Not Detected (NotDetected) Parainfluenza 4 (PCR) Not Detected (NotDetected) RSV (PCR) Not Detected (NotDetected) Entero/Rhino (PCR) Not Detected (NotDetected) ECG Data Attestation: I personally reviewed and interpreted this ECG as follows: Indication: + SOB/dyspnea Rate (beats per minute): 79 Rhythm: + atrial fibrillation ECG Intervals/blocks: + Normal QRS and + Normal QT ECG Fenton: + Normal ECG ST segments: + T-wave inversions Comparison ECG Date: from (02/13/2024) Change: the following changes noted (T-wave inversions in anterior leads are new) Blood Pressure Blood Pressure Findings: Normal blood pressure MDM Narrative Patient is a 79-year-old male who presents for an episode of shortness of breath that occurred while he was getting out of the shower this morning. Symptoms have improved upon arrival. O2 sat of 100% on room air. No evidence of significant respiratory distress. Lung exam is clear. Also reports he had a fall yesterday. He uses a walker at baseline however he states that if he stands too long he eventually becomes weak and falls to the ground. He did strike his left hip and left side of his head. CT of the head nonconcerning for acute intracranial abnormality. CT of the pelvis and femur nonconcerning for acute bony abnormality. Evidence of a large subcutaneous hematoma noted on the left thigh. No active extravasation. No hard or soft vascular signs noted. Slight dip in his hemoglobin to 9. Patient is on Eliquis at baseline. I discussed the injury with trauma surgeon at [facility] who does not recommend transfer at this time and recommends monitoring for any hemodynamic instability and serial hemoglobins. Remaining lab works nonconcerning for acute cause of his shortness of breath today. Cardiac workup negative here today. CTA nonconcerning for acute cardiopulmonary abnormality. Will admit for follow-up and serial hemoglobins. Stable for admission to hospitalist service. Impression & Plan Falls frequently, Anemia, Hematoma of left thigh, Acute dyspnea Discharge Plan Visit Data Chief Complaint: Trauma Stated Complaint: WEAKNESS, SOB ED Provider: Epifanio Au Discharge Problem: Falls frequently, Anemia, Hematoma of left thigh, Acute dyspnea Patient Disposition: Admitted As Inpatient Condition: Good Discharge Instructions Interventions: ED Discharge Assessment Last Done: 01/11/25 15:53
[2025-01-11 10:54] LABS: Hematocrit (blood only) 27.0 % (42.0-52.0); Hemoglobin 9.0 g/dL (14.0-18.0); Immature Granulocytes # (auto) 0.03 K/uL (0.01-0.20); Immature Granulocytes % (auto) 0.4 %; Mean Corpuscular Hemoglobin 29.9 pg (25.0-34.0); Mean Corpuscular Volume 89.7 fL (80.0-100.0); Platelet Count 198 K/uL (130-400); RDW Standard Deviation 49.1 fL (36.4-46.3); Red Blood Count 3.01 M/uL (4.70-6.10); White Blood Count 7.03 K/ul (4.8-10.8)
[2025-01-11 11:09] LABS: Alanine Aminotransferase 10.0 U/L (7-52); Albumin Globulin Ratio 1.4 (0.9-2); Albumin Level 3.9 gm/dl (3.4-5.0); Alkaline Phosphatase 114.0 U/L (34-104); Anion Gap 8.0 (3-11); Bilirubin,Total 1.7 mg/dl (0.2-1.0); Blood Urea Nitrogen 21.0 mg/dl (6-23); Calcium 9.1 mg/dl (8.6-10.3); Carbon Dioxide 27.0 mmol/L (21-32); Chloride 100.0 mmol/L (98-107); Creatinine Clr Calc Pharmacy 114.4 ml/min; Globulin 2.7 gm/dl (2.5-4.0); Glucose 143.0 mg/dl (70-99(Fasting)); Potassium 3.8 mmol/L (3.5-5.1); Sodium 135.0 mmol/L (136-145); Total Protein 6.6 gm/dl (6.0-8.3)
--- NOTE | 2025-01-11 11:14 | XRay Report ---
XR chest 1V portable HISTORY: 79 years-old Male Dyspnea acute shortness of breath COMPARISON: February 13, 2024 TECHNIQUE: AP view of the chest FINDINGS: Cardiac silhouette is enlarged. Chronic right hemidiaphragmatic elevation. No pneumothorax, pleural e ffusion, airspace consolidation or overt pulmonary edema. Degenerative changes of the shoulders and s pine. Atherosclerosis of the aorta. Chronic right rib fracture deformities. IMPRESSION: No acute process. ACT 112: Negative or not required by law. The above report was generated using voice recognition software. It may contain grammatical, syntax o r spelling errors. Electronically signed by: Rasta Luevano M.D. 01/11/2025 11:13 AM
--- NOTE | 2025-01-11 11:17 | CT Scan Report ---
CT SCAN OF THE BRAIN WITHOUT IV CONTRAST CLINICAL HISTORY: Fall. COMPARISON STUDY: Head CT October 10, 2021. TECHNIQUE: Unenhanced axial CT scan of the brain was performed from the vertex to the skull base. A dose lowering technique was utilized adhering to the principles of ALARA. CT DOSE: 2867.18 mGy.cm FINDINGS: Brain parenchyma: No acute intracranial hemorrhage, midline shift or mass effect is present. Everett-whi te matter differentiation is preserved. There are no extra-axial fluid collections. There are no find ings to suggest acute dural sinus thrombosis or acute territorial infarct. Moderate atrophy is noted. Ventricles, sulci, cisterns: There is no hydrocephalus. The basal cisterns are patent. Calvarium: There are no calvarial fractures. Sinuses and mastoids: The visualized paranasal sinuses are clear. The mastoid air cells are well pneu matized. Orbits: The bony orbits are grossly intact. IMPRESSION: 1. No acute intracranial findings. 2. No calvarial fractures. ACT 112: Negative or not required by law. Electronically signed by: Clyde You M.D. 01/11/2025 11:15 AM
--- NOTE | 2025-01-11 11:25 | CT Scan Report ---
CT femur LT wo con CLINICAL HISTORY: Fall hematoma COMPARISON STUDY: No previous studies for comparison. FINDINGS: There is no evidence of left SI joint diastases. There are no acute fractures of the left hip. There are no fractures of the left femoral shaft. There is a joint effusion the level the left knee. There is a proximal thigh hematoma located lateral to the proximal femur. This extends over a length of approximately 18 cm. The AP diameter of the hematoma is 9.5 cm. Transverse diameter is in excess o f 5.5 cm. The lateral extent of the hematoma is not fully included in the [id number]. There is ass ociated subcutaneous edema within the lateral soft tissues of the thigh. Incidental note is made of extensive sigmoid diverticulosis. Trace free pelvic fluid is suspected. IMPRESSION: 1. No evidence of acute fracture 2. Large proximal lateral thigh hematoma extending over a length of approximately 18 cm. ACT 112: Negative or not required by law. Electronically signed by: Ned Nava M.D. 01/11/2025 11:23 AM
--- NOTE | 2025-01-11 11:39 | CT Scan Report ---
CT pelvis wo con HISTORY: 79 years-old Male Left hip injury acute pain of the pelvis and left hip status post fall COMPARISON: CT left femur same day TECHNIQUE: Multiple axial CT images of the pelvis were obtained without IV contrast. A dose lowering technique was used consistent with the principals of ALARA. FINDINGS: Moderate left with mild to moderate right hip osteoarthritis. No acute fracture or dislocation identi fied. Degenerative changes of the lumbar spine include severe intervertebral disc space narrowing at L4-L5. There is severe central canal stenosis at this level with moderate to severe right-sided neura l foraminal narrowing. Fusiform dilation of the iliac arteries with atherosclerosis. Nonspecific trac e free pelvic fluid. Mild prostatomegaly. 1.5 cm some mucosal lipoma involves a loop of ileum within the abdominal right lower quadrant. Colonic diverticulosis. Partially imaged large subcutaneous hemat rhoda lateral left hip IMPRESSION: 1. Partially imaged large subcutaneous hematoma of the lateral left hip/proximal thigh. 2. No acute fracture or dislocation identified. 3. Trace free pelvic fluid. ACT 112: Negative or not required by law. The above report was generated using voice recognition software. It may contain grammatical, syntax o r spelling errors. Electronically signed by: Rasta Luevano M.D. 01/11/2025 11:37 AM
[2025-01-11] MEDS: OPTIRAY 320 125ml IV ONE (11:46)
[2025-01-11 12:19] LABS: Chlamydia pneumoniae PCR Not Detected (NotDetected); Coronavirus 229E PCR Not Detected (NotDetected); Coronavirus CoV-2 (COVID19)PCR Not Detected (NotDetected); Coronavirus HKU1 PCR Not Detected (NotDetected); Coronavirus NL63 PCR Not Detected (NotDetected); Coronavirus OC43PCR Not Detected (NotDetected); Human Metapneumovirus PCR Not Detected (NotDetected); Parainfluenza Virus 1 PCR Not Detected (NotDetected); Parainfluenza Virus 2 PCR Not Detected (NotDetected); Parainfluenza Virus 3 PCR Not Detected (NotDetected); Parainfluenza Virus 4 PCR Not Detected (NotDetected); Respiratory Syncytial VirusPCR Not Detected (NotDetected); Rhinovirus/Enterovirus PCR Not Detected (NotDetected)
--- NOTE | 2025-01-11 12:20 | CT Scan Report ---
CT ANGIOGRAM OF THE CHEST CLINICAL HISTORY: Shortness of breath. Possible pulmonary embolism. COMPARISON STUDY: Chest x-ray dated 01/11/2025 TECHNIQUE: Following the IV administration of 120 cc of Optiray 320, CT angiogram of the chest was pe rformed from the upper abdomen to the thoracic inlet utilizing the pulmonary embolus protocol. Images are reviewed in the axial, sagittal, and coronal planes. 3-D MIPS images are created and assessed. I V contrast was administered without complication. A dose lowering technique was utilized adhering to the principles of ALARA. CT DOSE: 924.67 mGy.cm FINDINGS: Thyroid gland is unremarkable in appearance. There is dilatation of the ascending thoracic aorta which measures 48 mm at the level of the main pul monary artery. There are mitral annulus calcifications. There are mild coronary artery calcifications. The heart is enlarged, with significant dilatation of the left and right atria. Visualized portions the upper abdomen reveal a 5 cm right renal cyst. There is also a 1 cm right aron l cyst. There are no pleural effusions. There is no pneumothorax. There is no focal pulmonary consolidation. No suspicious pulmonary masses are visualized. There are no pulmonary artery filling defects to indicate acute pulmonary embolism. Subtle weblike de fects within the right lower lobe pulmonary artery are likely artifactual, although a sequela of wind tunnel technician sarai emboli cannot be excluded. There is moderate elevation of the right hemidiaphragm. No suspicious lytic or blastic skeletal lesions are visualized. Severe arthritic changes are present within the right shoulder and mild to moderate arthritic changes are present within the left shoulder. IMPRESSION: 1. No CT evidence of acute pulmonary embolism 2. Subtle weblike defects within the right lower lobe pulmonary artery are likely artifactual althoug h the sequela of chronic emboli cannot be excluded 3. Cardiomegaly with prominent biatrial enlargement. ACT 112: Negative or not required by law. Electronically signed by: Ned Nava M.D. 01/11/2025 12:18 PM
--- NOTE | 2025-01-11 12:29 | Ultrasound Report ---
BILATERAL LOWER EXTREMITY VENOUS DOPPLER HISTORY: Screening study for DVT Dyspnea COMPARISON STUDY: None. FINDINGS: Mild subcutaneous edema. There is normal compressibility, flow, and augmentation within the bilateral lower extremity deep venous systems. IMPRESSION: No DVT within the right or left lower extremity. ACT 112: Negative or not required by law. Electronically signed by: Rasta Luevano M.D. 01/11/2025 12:27 PM
--- NOTE | 2025-01-11 14:27 | History & Physical Report ---
Date of Service January 11, 2025 Assessment & Plan (1) Thigh hematoma: (2) Dyspnea: (3) Afib: (4) Mental status alteration: (5) Anemia: Plan #Traumamila is a fall/trauma patientit appears that his main injury is the left thigh hematoma (see below) but will need reevaluation/tertiary survey tomorrow, as well as vigilance for any other secondary injuries (currently I see none) #left thigh hematomadue to fall and chronic anticoagulation on Eliquis for his atrial fibrillationhemodynamically stable, but his hemoglobin is down at least 22-1/2 points from his recent baseline. Hold Eliquis. Follow closely. Typically there is not much of an intervention that will help with these, but over time they tamponade. Follow his hemoglobin, follow hemodynamics, transfuse if needed. What is reassuring as far as his hemodynamics as it sounds like the fall was the better part of 24 hours ago, so I suspect the situation is already stabilizing. Pain control, PT/OT eval and treat #dyspneapurely dyspnea with no other associated signs or symptoms, seems to have happened at the point of his most exertion since his fall and hematoma. I suspect mostly this is symptomatic anemiawith stable hemodynamics and hemoglobin well above 7, and less the dyspnea does not alleviate a transfusion would not be necessary, but at the same time given that the rate of change was probably quite rapid and the drop of his hemoglobin, I gave him the analogy of transitioning rapidly to altitude. His CT chest is very reassuring for pulmonary pathology, a normal troponin is extremely reassuring from a cardiac standpointhis EKG does show some nonspecific anterolateral flipped T'sand jasmin use of this we will get an echocardiogram for completeness, and 1 could consider formal stress testing once he is ablebut with negative troponin (will repeat in a few hours) the situation seems most likely related to the anemia. #Atrial fibrillationrate controlled. Anticoagulation on hold for now. Resume as soon as it appears to be safe #altered mental statusshe was in the midst of a workup for frontotemporal dementiaand is very distressed about missing scheduled testingdiscussed with neurology to ensure I ordered the right tests, and given that the delays of transitioning this to rescheduling as an outpatient would potentially be problematic for the patient, we will check the MRI brain and EEG here. #DVT prophylaxis pharmacologic obviously contraindicated. SCDs will be ord ered #dispositionhe comes from home living with his and [id number] that will be his ultimate goal to return home. We discussed that with his fall and hematoma, home versus rehab will be dependent on pain control and his functional status he is a DNR/DNI. History of Present Illness Chief Complaint: shortness of breath Primary Care Provider: Chidi Burnette MD patient is a very pleasant 79-year-old male who comes with 2 different main complaintshe is history over the last 24 hours is essentially that he was going to get left over deviled eggs from the refrigeratorhe took them over to his room, as he sat them on the table unfortunately they flipped over in his room and went to reach for them he lost his balancehe tried to grab his walker but he was falling backwards. (He notes that he normally uses his walker because of longstanding balance issues, and the mechanical fall was unfortunately not a surprise to him). He fell fairly hard knows that he hit his thigh on the way down, thinks he hit his head, does not have any notable loss of consciousness. Does have a headache and a stiff neck, but no other worrisome symptoms besides the headache, stiff neck and hip bruising. His son-in-law was able to help him get up, and he was able to stay at home. He was staying up most of the night due to an outpatient EEG this morning for which she was supposed to be sleep deprived. He watched the green mile, and then went to sleep around 3:30 in the morning. Whenever he got up around 6 this morning he went to get cleaned upand whenever he was in the shower he had fairly abrupt and rather significant dysp neareally just the sensation of air hunger, no chest pain/pressure/tightness, but a fairly overwhelming feeling that he could not get enough air. No cough no fevers chills or sweats again no chest pain. It was hard to discern exactly how long the dyspnea lasted, it seems to have spontaneously gotten better, and his breathing feels okay now. Allergies Allergy/AdvReac Type Severity Reaction Status Date / Time furosemide Allergy Severe CHEST Verified 12/06/24 13:47 "FLUTTERY" aspirin AdvReac Unknown HX OF GI Verified 12/06/24 13:47 BLEED NSAIDS (Non-Steroidal AdvReac Unknown bleeding Verified 12/06/24 13:47 Anti-Inflamma Home Medications Medication Instructions Recorded Confirmed Type cyanocobalamin (vitamin B-12) 100 100 mcg PO DAILY 11/11/18 01/11/25 History mcg tablet cholecalciferol (vitamin D3) 25 1,000 units PO DAILY 12/16/18 01/11/25 History mcg (1,000 unit) capsule ascorbic acid (vitamin C) 500 mg 0 mg PO DAILY 08/14/20 01/11/25 History tablet (Vitamin C) acetaminophen 650 mg 1,300 mg PO BID 02/15/22 01/11/25 History tablet,extended release (Tylenol Arthritis Pain) coenzyme Q10 75 mg capsule (Ultra 75 mg PO DAILY 06/20/22 01/11/25 History CoQ10) famotidine 20 mg tablet 20 mg PO DAILY #90 tabs 02/13/24 01/11/25 Rx psyllium husk 6 gram oral powder 6 g PO DAILY 02/13/24 01/11/25 History packet apixaban 5 mg tablet 5 mg PO BID #180 tabs 03/08/24 01/11/25 Rx allopurinol 300 mg tablet 300 mg PO DAILY #90 tabs 04/08/24 01/11/25 Rx metoprolol succinate 100 mg 100 mg PO BID #180 tabs 04/22/24 01/11/25 Rx tablet,extended release 24 hr diclofenac sodium 1 % topical gel 2 g topical QID #100 grams 05/11/24 01/11/25 Rx spironolactone 25 1 tab PO DAILY #90 tabs 08/17/24 01/11/25 Rx mg-hydrochlorothiazide 25 mg tablet digoxin 125 mcg (0.125 mg) tablet 125 mcg PO DAILY #90 tabs 11/02/24 01/11/25 Rx mupirocin 2 % topical ointment 1 applic topical DAILY #22 grams 11/24/24 01/11/25 Rx fluorouracil 5 % topical cream 1 applic topical DAILY 01/11/25 01/11/25 History Past Med/Surg History Problem List (Updated 01/11/25 @ 14:26 by Hank Marcus DO) Dyspnea Thigh hematoma Motor neuron disease Frontotemporal dementia Skin ulcer Mental status alteration Abrasions of multiple sites Hand deformity, acquired COVID-19 (Acute) Hypomagnesemia (Acute) Acute hyponatremia (Acute) Leukocytosis (Acute) Elevated troponin Left lower lobe pneumonia Constipation Osteoarthritis Stool incontinence Venous stasis ulcers of both lower extremities Lymphedema Hyperlipidemia GERD (gastroesophageal reflux disease) Impaired glucose tolerance Hypertension Mitral regurgitation Protein calorie malnutrition Neuropathy (Acute) Traumatic open wound of lower leg Permanent atrial fibrillation Weakness (Acute) Laceration of leg (Acute) Pseudogout of right knee Anemia (Acute) Traumatic hematoma of left lower leg (Acute) Anticoagulant long-term use (Acute) Total bilirubin, elevated Knee effusion, right Hyponatremia Macrocytic anemia Wound of left lower extremity Partial thickness burn of finger of right hand (Acute) PAD (peripheral artery disease) (Chronic) Lower extremity edema (Acute) Venous stasis ulcer (Acute) Alcohol causing toxic effect (Acute) Former smoker (Acute) Left ventricular hypertrophy (Acute) Pancreatic neoplasm (Acute) Peripheral neuropathy (Acute) Aortic valve insufficiency Hypercholesterolemia HTN (hypertension) (Chronic) Atrial fibrillation (Chronic) Abdominal aortic aneurysm (Acute) Diabetic peripheral neuropathy associated with type 2 diabetes mellitus Emphysematous cholecystitis (Acute) Falls frequently (Acute) History of diabetic ulcer of foot Ileus (Acute) Medical History Charcot's arthropathy Diarrhea Murmur Full thickness burn of finger of right hand Traumatic wound Skin cancer History of GI bleed Afib Acquired bilateral foot drop Tinea pedis Diverticulosis Surgical History Status post Mohs surgery S/P cholecystectomy Family History Father Myocardial infarction Daughter Bladder cancer Other No pertinent family history Denies family history of Ovarian cancer Prostate cancer Breast cancer Lung cancer Colorectal cancer Social History Smoking Status: Former smoker Tobacco Type: Cigarettes Second Hand Exposure: No; Do You Dip or Chew Tobacco: No; Hx Alcohol Use: No Hx Substance Use: No Preferred Language: Malay Communication Ability: Effective Visual Impairment: No Limitations Hearing Ability: Normal Cap Inspector Required: No Beliefs That Will Affect Care: None marital status: Current Living Situation: Spouse current occupational status: retired How many Children do You have: 4 Feels Safe at Home: Yes Childhood Exposure to Second-Hand Smoke: No Diet: regular caffeine: Yes during the past year weight has: remained stable Dental Care, Regularly: Yes Physical Activity Frequency: Does not Exercise Seatbelt Use: always Sunscreen Use: Yes Assistive Devices: Walker Review of Systems Review of Systems: All systems reviewed & are unremarkable except as noted in HPI & below Physical Exam Physical Exam: In general he is awake alert oriented x 3 pleasant no distress. HEENT normocephalic atraumatic mucous membranes moistof note he does have bloody crusts in his left ear canal, but whenever asked about this he notes that it is chronic related to skin cancer that he is having treated there. His neck is supple without any bony tenderness or notably painful range of motion. His back shows a small abrasion mid thoracic on the right just lateral to the paraspinals that is very shallow. He has no other bony tenderness anywhere notable. Cardio is regular rate without notable rubs murmurs or gallops although it is somewhat distant. Lungs are clear bilaterally no rales rhonchi or wheeze with good effort. Abdomen is soft nondistended nontender no masses organomegaly. Extremities without cyanosis clubbing or edema, he does have a very large palpable and visible hematoma on his left lateral thigh from basically the greater trochanter to about a third [address] way down the lateral thigh. Skin without other rashes pallor or icterus. Neuro without focal deficits. Musculoskeletal beyond the above he does have chronic hand contractures. Results & Data Results & Data Vital Signs (Past 12 Hours) Vital Signs Temp Pulse Pulse Resp BP BP Pulse Ox 01/11/25 13:00 69 15 107/57 L 97 01/11/25 12:25 78 14 103/62 98 01/11/25 12:25 98.1 F 78 14 103/62 98 01/11/25 11:18 79 21 111/81 98 01/11/25 11:18 01/11/25 11:18 79 21 98 01/11/25 10:35 98.1 F 92 H 17 91/63 L 98 01/11/25 10:35 98 01/11/25 10:35 98.1 F 92 H 19 91/63 L 98 01/11/25 10:28 78 O2 Del Method O2 Flow Rate 01/11/25 13:00 Room Air 01/11/25 12:25 Room Air 01/11/25 12:25 Room Air 0 01/11/25 11:18 Room Air 01/11/25 11:18 Room Air 01/11/25 11:18 Room Air 01/11/25 10:35 Room Air 01/11/25 10:35 Room Air 01/11/25 10:35 Room Air 01/11/25 10:28 Code Status & VTE Plan VTE Prophylaxis Plan VTE Prophylaxis will be ordered: Yes Reason for no VTE drug order: Contraindicated PG Care Time/CCT Total # of Minutes Spent Total Time Spent with Patient: Total time spent is greater than 50% in coordination of care (as documented) at patient's floor/unit and/or counseling patient: Coding Level of Care Code 99898 INT INP/OBS CARE 375MIN Diagnoses Thigh hematoma S70.10XA Dyspnea R06.00 Afib I48.91 Atrial fibrillation type: unspecified Mental status alteration R41.82 Anemia D64.9 Anemia type: unspecified type (3) Afib Atrial fibrillation type: unspecified Qualified Code(s): I48.91 - Unspecified atrial fibrillation (5) Anemia Anemia type: unspecified type Qualified Code(s): D64.9 - Anemia, unspecified
[2025-01-11] MEDS: GADOBUTROL 65ML VIAL IV ONE (15:18)
--- NOTE | 2025-01-11 15:26 | XCELERA ---
[id number] \\[id number]
--- NOTE | 2025-01-11 15:36 | Electrocardiogram Report ---
Test Reason : Blood Pressure : */* mmHG Vent. Rate : 79 BPM Atrial Rate : * BPM P-R Int : * ms QRS Dur : 84 ms QT Int : 346 ms P-R-T Axes : * 74 -84 degrees QTcB Int : 396 ms Atrial fibrillation Nonspecific ST and T wave abnormality Abnormal ECG When compared with ECG of 13-Feb-2024 12:15, Questionable change in QRS axis T wave inversion now evident in Anterior leads QT has shortened Confirmed by Barry Mcdermott ([id number]) on 01/11/2025 3:35:45 PM Referred By: REFERRED SELF Confirmed By: Barry Mcdermott
--- NOTE | 2025-01-11 15:46 | Magnetic Resonance Report ---
MR brain seizure wo/w con HISTORY: 79 years-old Male AMS, delusion, FTD? Acutely altered mental status COMPARISON: Head CT same day TECHNIQUE: Multiplanar multisequence MRI of the brain was obtained with and without IV contrast [facility] seizure protocol. FINDINGS: No restricted diffusion identified to suggest an acute or subacute infarct. No acute intracranial hem orrhage, midline shift, acute extra-axial collection, hydrocephalus or intra-axial mass. Involutional changes with minimal T2/FLAIR hyperintense foci in the white matter suggestive of probable chronic m icrovascular ischemic disease. Possible arachnoid cyst in the left posterior fossa on image 8 series 4 measuring approximately 3 cm. No acute seizure focus or mesial temporal sclerosis identified. Cerebral venous sinuses and major arterial flow voids appear patent. Skull, orbits and soft tissues a re unremarkable with prior bilateral lens repair. Mastoid air cells are clear. No abnormal enhancemen t. IMPRESSION: 1. No acute intracranial abnormality. 2. Involutional changes with minimal chronic microvascular ischemic disease. 3. No abnormal enhancement. ACT 112: Negative or not required by law. The above report was generated using voice recognition software. It may contain grammatical, syntax o r spelling errors. Electronically signed by: Rasta Luevano M.D. 01/11/2025 3:45 PM
[2025-01-11] MEDS ORDERED: MAGNESIUM HYDROXIDE SUSP 30 ML UDC PO PRN (15:52)
[2025-01-11] MEDS ORDERED: ONDANSETRON INJ 2 MG/ML 2 ML VIAL IV PRN (15:52)
[2025-01-11] MEDS ORDERED: POLYETHYLENE (MIRALAX) 17 GM PACK PO PRN (15:52)
[2025-01-11] MEDS ORDERED: ALUMINUM/MAGNESIUM SUSP 30 ML UDC PO PRN (15:52)
[2025-01-11] MEDS ORDERED: KETOROLAC TROMETHAMINE 15 MG/ML VIAL IV PRN (15:52)
[2025-01-11] MEDS: DIGOXIN 0.125 MG TAB PO SCH (18:39)
[2025-01-11] MEDS: ACETAMINOPHEN 500 MG TAB PO SCH (20:20)
[2025-01-11] MEDS: MELATONIN 3 MG TAB PO PRN (20:20)
[2025-01-11] MEDS: METOPROLOL SUCC 50MG EXT REL TAB PO SCH (20:21)
[2025-01-12 07:31] LABS: Hematocrit (blood only) 21.5 % (42.0-52.0); Hemoglobin 7.0 g/dL (14.0-18.0); Immature Granulocytes # (auto) 0.03 K/uL (0.01-0.20); Immature Granulocytes % (auto) 0.4 %; Mean Corpuscular Hemoglobin 29.3 pg (25.0-34.0); Mean Corpuscular Volume 90.0 fL (80.0-100.0); Platelet Count 182 K/uL (130-400); RDW Standard Deviation 49.8 fL (36.4-46.3); Red Blood Count 2.39 M/uL (4.70-6.10); White Blood Count 7.52 K/ul (4.8-10.8)
[2025-01-12 07:58] LABS: Alanine Aminotransferase 9.0 U/L (7-52); Albumin Globulin Ratio 1.5 (0.9-2); Albumin Level 3.3 gm/dl (3.4-5.0); Alkaline Phosphatase 92.0 U/L (34-104); Anion Gap 7.0 (3-11); Bilirubin,Total 1.3 mg/dl (0.2-1.0); Blood Urea Nitrogen 23.0 mg/dl (6-23); Calcium 8.6 mg/dl (8.6-10.3); Carbon Dioxide 27.0 mmol/L (21-32); Chloride 103.0 mmol/L (98-107); Creatinine Clr Calc Pharmacy 88.7 ml/min; Globulin 2.2 gm/dl (2.5-4.0); Glucose 125.0 mg/dl (70-99(Fasting)); Potassium 3.8 mmol/L (3.5-5.1); Sodium 137.0 mmol/L (136-145); Total Protein 5.5 gm/dl (6.0-8.3)
[2025-01-12 08:05] LABS: Anisocytosis Present; Ovalocytes 1+; Polychromasia 1+
[2025-01-12] MEDS ORDERED: NON-FORMULARY MEDICATION (Coenzyme Q10 [Ultra Coq10] 75 mg capsule) PO SCH (09:00)
[2025-01-12] MEDS ORDERED: SPIRONOLACTONE/HCTZ 25-25 PO SCH (09:00)
[2025-01-12] MEDS ORDERED: SODIUM CHLORIDE 0.9% 100 ML IV PRN (09:05)
[2025-01-12] MEDS: FAMOTIDINE 20 MG TAB PO SCH (09:14)
[2025-01-12] MEDS: CYANOCOBALAMIN (B-12) 100 MCG TABLET PO SCH (09:14)
[2025-01-12] MEDS: CHOLECALCIFEROL 25 MCG (1000 UNITS) TAB PO SCH (09:14)
[2025-01-12] MEDS: FLUOROURACIL TOP CR 5% 40 GM TUBE EXT SCH (09:16)
[2025-01-12] MEDS: MUPIROCIN 2% OINT 22 GM TUBE TOP SCH (09:16)
[2025-01-12] MEDS: PSYLLIUM HUSK 4GM PACKET PO SCH (09:16)
[2025-01-12] MEDS: SPIRONOLACTONE 25 MG TAB PO SCH (11:00)
[2025-01-12] MEDS: hydroCHLOROthiazide 25 MG TAB PO SCH (11:03)
--- NOTE | 2025-01-12 11:58 | Surgery Consultation ---
Date of Consultation January 12, 2025 Assessment & Plan (1) Hematoma of left thigh: This is a very pleasant 79y M with a PMH of afib on eliquis, HLD, GERD, HTN, DM2, who presents to the [facility] ED on 01/11/25 with shortness of breath and large left hematoma after sustaining a fall on friday. Mostly due to his shortness of breath he presented to the ER where he was worked up and admitted under the medical service. We are consulted today for a large left thigh hematoma. A CT of the femur on admission confirmed a large proximal lateral thigh hematoma extending over a length of approximately 18 cm. Patient states it is pretty bad in terms of pain, but no worse than yesterday. Today blood work shows WBC 7.5, Hbg 7 (9 on admission), Cr 0.8. Vitals are stable with HRs 80s and last BP 110/64. On exam there is a large left posterior hematoma on his thigh with a large area of ecchymosis/purple bruising (outlined). The central portion has open superficially as a skin blister leaking some bloody drainage. It is tender and firm. The patient has pain from it but is tolerable at the time being. He is currently receiving 1 unit of blood. Would continue conservative management for hematoma as we typically do not open these up due to inability to localize the bleeding and risk of infecting the collection. Continue to hold his Eliquis. Monitor vitals and Hbg's. Would recheck again today after blood transfusion. Consider wound care consult for skin opening over hematoma for dressing recommendations. Can consider an CHRIS wrap around the leg for compression. Elevation and ice and repositioning so that the patient is not always lying dependent on it. The bruising will likely get worse before getting better. These take a while to heal. If concerns for active extravasation, expanding hematoma, downtrending Hbg with deterioration in his vitals can consider rescanning to check for active extravasation and at that point would need transferred for IR embolization. We will follow, but no plans for intervention at this time. History of Present Illness Attending Physician: Tiffany Ayala MD History of Present Illness This is a very pleasant 79y M with a PMH of afib on eliquis, HLD, GERD, HTN, DM2, who presents to the [facility] ED on 01/11/25 with shortness of breath. This all started when patient states he fell on Friday. He has arthritic hands and went to the kitchen to get some deviled eggs. He brought the container to another room but due to his hands he was unable to hold the container properly and the eggs fell. When trying to pick them up he fell landing and striking his L upper leg and head. He was suppose to undergo an EEG on friday sleep deprived. After the fall he was assisted up and rested remainder of the night watching a movie. He went to bed around 330am and woke up at 630am and got ready for the day. After showering up he developed severe shortness of breath and he was worried he couldn't move anywhere and was having a heart issue. 911 was then called and her was brought into the ER. He was suggs scanned. We are consulted today for a large left thigh hematoma. A CT of the femur on admission confirmed a large proximal lateral thigh hematoma extending over a length of approximately 18 cm. Patient states it is pretty bad in terms of pain, but no worse than yesterday. Because of its location he is unable to see it. He last took his eliquis yesterday. He currently denies CP/SOB, RODRIGUES/dizziness, or lightheadedness. No fevers or chills. He uses a rolling walker at home for ambulation. He is hopeful for a short hospital stay as he lives with his but he manages their finances and bills. Allergies Allergy/AdvReac Type Severity Reaction Status Date / Time furosemide Allergy Severe CHEST Verified 12/06/24 13:47 "FLUTTERY" latex Allergy Unknown Unknown Verified 01/11/25 18:48 aspirin AdvReac Unknown HX OF GI Verified 12/06/24 13:47 BLEED NSAIDS (Non-Steroidal AdvReac Unknown bleeding Verified 12/06/24 13:47 Anti-Inflamma Home Medications Medication Instructions Recorded Confirmed Type cyanocobalamin (vitamin B-12) 100 100 mcg PO DAILY 11/11/18 01/11/25 History mcg tablet cholecalciferol (vitamin D3) 25 1,000 units PO DAILY 12/16/18 01/11/25 History mcg (1,000 unit) capsule ascorbic acid (vitamin C) 500 mg 0 mg PO DAILY 08/14/20 01/11/25 History tablet (Vitamin C) acetaminophen 650 mg 1,300 mg PO BID 02/15/22 01/11/25 History tablet,extended release (Tylenol Arthritis Pain) coenzyme Q10 75 mg capsule (Ultra 75 mg PO DAILY 06/20/22 01/11/25 History CoQ10) famotidine 20 mg tablet 20 mg PO DAILY #90 tabs 02/13/24 01/11/25 Rx psyllium husk 6 gram oral powder 6 g PO DAILY 02/13/24 01/11/25 History packet apixaban 5 mg tablet 5 mg PO BID #180 tabs 03/08/24 01/11/25 Rx allopurinol 300 mg tablet 300 mg PO DAILY #90 tabs 04/08/24 01/11/25 Rx metoprolol succinate 100 mg 100 mg PO BID #180 tabs 04/22/24 01/11/25 Rx tablet,extended release 24 hr diclofenac sodium 1 % topical gel 2 g topical QID #100 grams 05/11/24 01/11/25 Rx spironolactone 25 1 tab PO DAILY #90 tabs 08/17/24 01/11/25 Rx mg-hydrochlorothiazide 25 mg tablet digoxin 125 mcg (0.125 mg) tablet 125 mcg PO DAILY #90 tabs 11/02/24 01/11/25 Rx mupirocin 2 % topical ointment 1 applic topical DAILY #22 grams 11/24/24 01/11/25 Rx fluorouracil 5 % topical cream 1 applic topical DAILY 01/11/25 01/11/25 History fluorouracil 5 % topical cream applic topical 01/12/25 History Patient History Medical History Charcot's arthropathy Diarrhea Murmur Full thickness burn of finger of right hand Traumatic wound Skin cancer History of GI bleed Afib Acquired bilateral foot drop Tinea pedis Diverticulosis Surgical History Status post Mohs surgery S/P cholecystectomy Family History Father Myocardial infarction Daughter Bladder cancer Other No pertinent family history Denies family history of Ovarian cancer Prostate cancer Breast cancer Lung cancer Colorectal cancer Social History Smoking Status: Never smoker Tobacco Type: Cigarettes Second Hand Exposure: No; Do You Dip or Chew Tobacco: No; Hx Alcohol Use: No Hx Substance Use: No Preferred Language: Khmer Communication Ability: Effective Visual Impairment: No Limitations Hearing Ability: Normal Skid Wrapper Required: No Beliefs That Will Affect Care: None marital status: Current Living Situation: Spouse current occupational status: retired How many Children do You have: 4 Other Information That Helps Us Care for You: No Feels Safe at Home: Yes Childhood Exposure to Second-Hand Smoke: No Diet: regular caffeine: Yes during the past year weight has: remained stable Dental Care, Regularly: Yes Physical Activity Frequency: Does not Exercise Seatbelt Use: always Sunscreen Use: Yes Assistive Devices: Lift Chair, Raised Toilet Seat and Walker Review of Systems Constitutional: no fever and no chills Respiratory: + dyspnea (yesterday, not today) Cardiovascular: no chest pain Gastrointestinal: no nausea and no vomiting Musculoskeletal: left posterior thigh hematoma and pain Physical Exam Physical Exam: awake, alert, no distress Constitutional: well developed and comfortable Respiratory: normal respiratory effort on room air Cardiovascular: Rate/Rhythm: regular rate Skin: there is a large left posterior hematoma on his thigh, large area of ecchymosis/purple bruising. Central portion has open superficially as a skin blister leaking some bloody drainage. it is tender and firm, area of bruised skin is outlined Results & Data Vital Signs (Past 12 Hours) Vital Signs Temp Pulse Pulse Pulse Resp BP BP 01/12/25 11:36 98.1 F 86 18 110/64 01/12/25 09:12 81 102/64 01/12/25 07:45 98.2 F 71 16 101/58 L Pulse Ox O2 Del Method 01/12/25 11:36 100 01/12/25 09:12 01/12/25 07:45 97 Room Air Diagnostic Findings CT femur LT wo con CLINICAL HISTORY: Fall hematoma COMPARISON STUDY: No previous studies for comparison. FINDINGS: There is no evidence of left SI joint diastases. There are no acute fractures of the left hip. There are no fractures of the left femoral shaft. There is a joint effusion the level the left knee. There is a proximal thigh hematoma located lateral to the proximal femur. This extends over a length of approximately 18 cm. The AP diameter of the hematoma is 9.5 cm. Transverse diameter is in excess of 5.5 cm. The lateral extent of the hematoma is not fully included in the [id number]. There is associated subcutaneous edema within the lateral soft tissues of the thigh. Incidental note is made of extensive sigmoid diverticulosis. Trace free pelvic fluid is suspected. IMPRESSION: 1. No evidence of acute fracture 2. Large proximal lateral thigh hematoma extending over a length of approximately 18 cm. ACT 112: Negative or not required by law. Electronically signed by: Ned Nava M.D. 01/11/2025 11:23 AM PG Care Time/CCT Total # of Minutes Spent Total Time Spent with Patient: Total time spent is greater than 50% in coordination of care (as documented) at patient's floor/unit and/or counseling patient: Coding Level of Care Code 20712 INT INP/OBS CARE 1/40MIN Diagnoses Hematoma of left thigh S70.12XA
--- NOTE | 2025-01-12 16:32 | Hospitalist Progress Note ---
"Date of Service January 12, 2025 Assessment & Plan (1) Thigh hematoma: (2) Dyspnea: (3) Afib: (4) Mental status alteration: (5) Anemia: Plan #Trauma Alerthe is a fall/trauma patientit appears that his main injury is the left thigh hematoma #left thigh hematoma | Acute blood loss anemia due to fall and chronic anticoagulation on Eliquis for his atrial fibrillation. Remains hemodynamically stable Hold Eliquis Hgb dropped to 7 today - transfuse 1 unit PRBCs, post H/H check General surgery consulted - do not recommend drainage, monitor CBC, recommend CHRIS wrap for compression, elevation and ice, consider rescanning if expanding hematoma, downtrending hgb Pain control - scheduled tylenol PT/OT eval and treat - pt is strongly opposed to rehab stay #dyspneapurely dyspnea with no other associated signs or symptoms, seems to have happened at the point of his most exertion since his fall and hematoma. Ddimer postive, but no PE or acute pathology on chest CT. Negative troponin. Echo was obtained bc of T wave inversion - this is unchanged from 01/2024, EF 60-65, mild aortic stenosis This has resolved, suspect related to symptomatic anemia #Atrial fibrillationrate controlled. Anticoagulation on hold for now. Resume as soon as it appears to be safe #altered mental statusshe was in the midst of a workup for frontotemporal dementiaand is very distressed about missing scheduled testingdiscussed with neurology to ensure I ordered the right tests, and given that the delays of transitioning this to rescheduling as an outpatient would potentially be problematic for the patient, we will check the MRI brain and EEG here. MRI without major pathology - pt has appointment to review with Dr. Romero next week DVT proph: pharmacologic contraindicated. SCDs will be ordered Dispo: Continued inpatient stay, monitor Hgb updated at bedside 01/12 Admission and Anticipated Discharge Date Admission Date: January 11, 2025 Supervising Physician Co-Signing Physician Notes PA Supervision Note: I did not personally see or examine the patient today, but I verified all olivarez points of LOUIS Zhao's assessment and plan with the following exceptions/additions: Recommend repeat CBC again this evening and if hemoglobin not up to 8.0 after 1 unit transfusion from earlier, recommend CT lower extremity with IV contrast Subjective patient seen lying in bed this morning denies pain at rest but does report pain with palpation no further shortness of breath concerns about the spam call he got yesterday Review of Systems Review of Systems: All systems reviewed & are unremarkable except as noted in Subjective Physical Exam Physical Exam: Tertiary Trauma Survey: General: - Alert: Yes - Oriented: Yes - GCS 15: Yes HEENT: - No pain/tenderness. - Lesion to left ear - known cancer, ble eding. no pain - No numbness/tingling - PERLAA. Normal Visual Acuity. No visua l field cuts. No nystagmus. No contact lenses. Normal hearing. No relative afferent pupillary defect. No facial asymmetry. Normal palatal elevation, uvula midline. Midline tongue protrusion. Shoulder shrug with 5/5 strength bilaterally. - Mucous membranes moist. Neck: - Midline Tenderness: No - Cleared C-Spine: Yes Thorax: - Pain/Tenderness: None - Lacerations/Abrasions: None - Swelling/Ecchymosis: None - Air/Bony Crepitus: None Cardiopulmonary: - Regular Rate and Rhythm. No murmurs, r ubs or gallops. - Breath sounds CTAB. No wheezes, rales, or rhonchi. - Symmetrical Chest Rise Abdomen - Pain/Tenderness: None - Lacerations/Abrasions: None - No abdominal distension - Abdominal rigidity/guarding: None - Bowel Sounds: Present, normal Back/Spine - Lacerations/Abrasions: None - Swelling/Ecchymosis: None - Pain/Tenderness: None Extremities: - RUE: No deformity. No lacerations/yeni sions. multiple old ecchymosis.. No pain/tenderness. Full active and passive range of motion. Sensation intact to soft touch without deficit. Radial pulse intact, cap refill in the thumb <2 seconds. - LUE: No deformity. No lacerations/yeni sions. multiple old ecchymosis. No pain/tenderness. Full active and passive range of motion. Sensation intact to soft touch without deficit. Radial pulse intact, cap refill in the thumb <2 seconds. - LLE: No deformity. No lacerations/yeni sions. Significant ecchymosis to the left thigh - asked nurse to outline. small open area. tender to palpation, able to wiggle toes distally. - RLE: No deformity. No lacerations/yeni sions. No swelling/ecchymosis. No pain/tenderness. Full active and passive range of motion. Mental status Adequate for Full Exam: Yes C-Spine Cleared (Radiologically AND Clinically): Yes Results & Data Results & Data Vital Signs (Past 12 Hours) Vital Signs Temp Pulse Pulse Pulse Pulse Resp BP 01/12/25 15:31 97.9 F 81 20 01/12/25 14:33 98.1 F 85 17 106/62 01/12/25 14:30 98.1 F 79 17 106/62 01/12/25 13:40 98.1 F 85 17 111/63 01/12/25 12:40 98.2 F 73 18 103/54 L 01/12/25 12:10 98.2 F 89 17 111/57 L 01/12/25 11:55 98.6 F 84 17 117/76 01/12/25 11:54 98.1 F 77 18 114/61 01/12/25 11:36 98.1 F 86 18 110/64 01/12/25 09:12 81 01/12/25 07:45 98.2 F 71 16 BP Pulse Ox O2 Del Method 01/12/25 15:31 103/63 100 Room Air 01/12/25 14:33 100 01/12/25 14:30 01/12/25 13:40 100 01/12/25 12:40 100 01/12/25 12:10 100 01/12/25 11:55 97 01/12/25 11:54 100 01/12/25 11:36 100 01/12/25 09:12 102/64 01/12/25 07:45 101/58 L 97 Room Air Laboratory Results cbc and chemistry reviewed PG Care Time/CCT Total # of Minutes Spent Total Time Spent with Patient: Total time spent is greater than 50% in coordination of care (as documented) at patient's floor/unit and/or counseling patient: Coding Level of Care Code 64845 SUB INP/OBS CARE 3/50MIN Diagnoses Thigh hematoma S70.10XA Dyspnea R06.00 Afib I48.91 Atrial fibrillation type: unspecified Mental status alteration R41.82 Anemia D64.9 Anemia type: unspecified type (3) Afib Atrial fibrillation type: unspecified Qualified Code(s): I48.91 - Unspecified atrial fibrillation (5) Anemia Anemia type: unspecified type Qualified Code(s): D64.9 - Anemia, unspecified"
[2025-01-12 16:42] LABS: Hematocrit (blood only) 23.0 % (42.0-52.0); Hemoglobin 7.5 g/dL (14.0-18.0); Mean Corpuscular Hemoglobin 29.3 pg (25.0-34.0); Mean Corpuscular Volume 89.8 fL (80.0-100.0); Platelet Count 194 K/uL (130-400); RDW Standard Deviation 49.7 fL (36.4-46.3); Red Blood Count 2.56 M/uL (4.70-6.10); White Blood Count 8.88 K/ul (4.8-10.8)
[2025-01-12 22:09] LABS: Hematocrit (blood only) 21.5 % (42.0-52.0); Hemoglobin 7.0 g/dL (14.0-18.0); Mean Corpuscular Hemoglobin 29.0 pg (25.0-34.0); Mean Corpuscular Volume 89.2 fL (80.0-100.0); Platelet Count 169 K/uL (130-400); RDW Standard Deviation 50.2 fL (36.4-46.3); Red Blood Count 2.41 M/uL (4.70-6.10); White Blood Count 8.88 K/ul (4.8-10.8)
[2025-01-12] MEDS: OPTIRAY 320 100ml IV ONE (23:52)
--- NOTE | 2025-01-13 01:48 | CT Scan Report ---
Exam(s): CT EXTREMITY LEFT LOWER With Contrast IV Amt: 93 cc [id number] EXAM: CT Left Lower Extremity With Intravenous Contrast CLINICAL HISTORY: Reason for exam: how hgb, hematoma. TECHNIQUE: Axial computed tomography images of the left femur with intravenous contrast. CTDI is 16.54 mGy and DLP is 1055.14 mGy-cm. Automated exposure control was utilized for the study. A dose lowering technique was utilized adhering to the principles of ALARA. CONTRAST: Patient received 93 cc [id number] of IV contrast COMPARISON: 01/11/2025. FINDINGS: Bones/joints: No acute fracture. No dislocation. There are hypertrophic degenerative changes. Soft tissues: There is soft tissue edema and swelling. There is a 7.3 x 11.5 x 18.6 cm soft tissue density noted along the lateral aspect of the left upper leg. No extravasation of contrast is noted.. There are atherosclerotic changes noted. There is a knee joint effusion. IMPRESSION: There is soft tissue swelling and edema. There is a 7.3 x 11.5 x 18.6 cm soft tissue density noted along the lateral aspect of the left upper leg. There is compatible with a hematoma. It appears similar to previous examination. No extravasation of contrast is noted to suggest active bleeding at the time of this scan. Electronically signed by: Noam Crowell MD 01/13/25 01:47 AM
[2025-01-13] MEDS ORDERED: SODIUM CHLORIDE 0.9% 100 ML IV PRN (04:57)
[2025-01-13] MEDS: INFLUENZA VACC TS2025-26(65y+)/PF (IIV3) 0.5mL Syr IM ONE (09:40)
[2025-01-13 10:55] LABS: Hematocrit (blood only) 22.7 % (42.0-52.0); Hemoglobin 7.6 g/dL (14.0-18.0); Mean Corpuscular Hemoglobin 30.2 pg (25.0-34.0); Mean Corpuscular Volume 90.1 fL (80.0-100.0); Platelet Count 170 K/uL (130-400); RDW Standard Deviation 49.4 fL (36.4-46.3); Red Blood Count 2.52 M/uL (4.70-6.10); White Blood Count 7.79 K/ul (4.8-10.8)
[2025-01-13 11:04] LABS: Anion Gap 5.0 (3-11); Blood Urea Nitrogen 21.0 mg/dl (6-23); Calcium 8.8 mg/dl (8.6-10.3); Carbon Dioxide 29.0 mmol/L (21-32); Chloride 102.0 mmol/L (98-107); Creatinine Clr Calc Pharmacy 114.4 ml/min; Glucose 122.0 mg/dl (70-99(Fasting)); Potassium 3.9 mmol/L (3.5-5.1); Sodium 136.0 mmol/L (136-145)
--- NOTE | 2025-01-13 12:08 | Surgery Progress Note ---
<Statement entered by Mike Foster MD - 01/13/25 12:56> I independently saw and examined the patient, and I agree with the assessment and plan of care. Date of Service January 13, 2025 Assessment & Plan (1) Hematoma of left thigh: Plan: Pt here with large left posterior thigh hematoma s/p falling on friday Hbg this AM 7.6, was receiving another unit of blood when we were in the room. vitals are stable Yesterday evening repeat CT femur obtained revealing stable findings of hematoma regarding size without evidence of active extravasation Would recommend continuing conservative management. trend hgb s/p unit of blood Ice, elevation, compression. Continue to hold blood thinners. Wound care consult for superficial blister over area of ecchymosis Will follow but no plans for surgical intervention, if requires intervention consider tsfer for IR embolization Admission and Anticipated Discharge Date Admission Date: January 11, 2025 Subjective Patient seen and examined, reports less pain than yesterday. No other complaints regarding leg other than he hasn't moved around much yet Physical Exam Physical Exam: awake/alert, no distress Skin: Pt has large area of hematoma to the L posterior thigh, appears stable from yesterday, area's of tenderness and large area of purple bruising with superficial opening/blister Results & Data Vital Signs (Past 12 Hours) Vital Signs Temp Pulse Resp BP Pulse Ox 01/13/25 09:10 98.2 F 78 15 114/66 98 01/13/25 08:22 97.7 F 81 15 128/69 91 01/13/25 07:22 98.0 F 76 15 104/64 99 01/13/25 06:52 98.4 F 80 16 104/65 98 01/13/25 06:37 98.2 F 83 14 109/70 98 01/13/25 06:20 98.1 F 83 14 117/68 98 PG Care Time/CCT Total # of Minutes Spent Total Time Spent with Patient: Total time spent is greater than 50% in coordination of care (as documented) at patient's floor/unit and/or counseling patient: Coding Level of Care Code 70381 SUB INP/OBS CARE 03/06MIN Diagnoses Hematoma of left thigh S70.12XA
[2025-01-13 15:40] LABS: Hematocrit (blood only) 25.1 % (42.0-52.0); Hemoglobin 8.2 g/dL (14.0-18.0); Mean Corpuscular Hemoglobin 29.4 pg (25.0-34.0); Mean Corpuscular Volume 90.0 fL (80.0-100.0); Platelet Count 198 K/uL (130-400); RDW Standard Deviation 49.3 fL (36.4-46.3); Red Blood Count 2.79 M/uL (4.70-6.10); White Blood Count 9.59 K/ul (4.8-10.8)
--- NOTE | 2025-01-13 16:33 | Hospitalist Progress Note ---
"Date of Service January 13, 2025 Assessment & Plan (1) Thigh hematoma: (2) Dyspnea: (3) Afib: (4) Mental status alteration: (5) Anemia: Plan #Trauma Huberthe is a fall/trauma patientit appears that his main injury is the left thigh hematoma #left thigh hematoma | Acute blood loss anemia due to fall and chronic anticoagulation on Eliquis for his atrial fibrillation. Remains hemodynamically stable Hold Eliquis Hgb dropped to 7 and recieved 1 unit, on recheck again down to 7, received 2nd unit PRBCs and rescan - that did not show active bleeding or significantly worsened hematoma. Hgb check this afternoon and improving, recheck in AM General surgery consulted - do not recommend drainage, monitor CBC, recommend CHRIS wrap for compression, elevation and ice, consider rescanning if expanding hematoma, downtrending hgb Pain control - scheduled tylenol PT/OT eval and treat - pt is strongly opposed to rehab stay #dyspneapurely dyspnea with no other associated signs or symptoms, seems to have happened at the point of his most exertion since his fall and hematoma. Ddimer postive, but no PE or acute pathology on chest CT. Negative troponin. Echo was obtained bc of T wave inversion - this is unchanged from 01/2024, EF 60-65, mild aortic stenosis This has resolved, suspect related to symptomatic anemia #Atrial fibrillationrate controlled. Anticoagulation on hold for now. Resume as soon as it appears to be safe #altered mental statusshe was in the midst of a workup for frontotemporal dementiaand is very distressed about missing scheduled testingdiscussed with neurology to ensure I ordered the right tests, and given that the delays of transitioning this to rescheduling as an outpatient would potentially be problem atic for the patient, we will check the MRI brain and EEG here. MRI without major pathology - pt has appointment to review with Dr. Romero next week DVT proph: pharmacologic contraindicated. SCDs will be ordered Dispo: Continued inpatient stay, monitor Hgb, possible discharge tomorrow if hgb continues to improve and remains hemodynamically stable updated at bedside 01/12 Admission and Anticipated Discharge Date Admission Date: January 11, 2025 Supervising Physician Co-Signing Physician Notes PA Supervision Note: I did not personally see or examine the patient today, but I verified all olivarez points of LOUIS Zhao's assessment and plan with the following exceptions/additions: None Subjective Patient seen this morning lying bed after just finishing a blood transfusion. Patient frustrated with the conversation that he just had with his . Overall states that he is feeling better and the pain is less of a hematoma. Reports good appetite, no issues urinating Review of Systems Review of Systems: All systems reviewed & are unremarkable except as noted in Subjective Physical Exam Physical Exam: General: NAD, VS as above Resp: normal respiratory effort, lungs clear to auscultation CV: RRR, no murmur, Abd: normal bowel sounds, non tender, soft Extremities: Moves all extremities, chronic deformities to hands and feet. Hematoma to left thigh, very similar to the outline, some areas to of yellowing/healing, no signs of infection Neuro: A&O x3, Skin: multiple skin tears and resolving hematomas to bilateral arms. Results & Data Results & Data Vital Signs (Past 12 Hours) Vital Signs Temp Pulse Pulse Resp BP BP Pulse Ox 01/13/25 16:21 98.1 F 73 16 104/59 L 95 01/13/25 09:10 98.2 F 78 15 114/66 98 01/13/25 08:22 97.7 F 81 15 128/69 91 01/13/25 07:22 98.0 F 76 15 104/64 99 01/13/25 06:52 98.4 F 80 16 104/65 98 01/13/25 06:37 98.2 F 83 14 109/70 98 01/13/25 06:20 98.1 F 83 14 117/68 98 O2 Del Method 01/13/25 16:21 Room Air 01/13/25 09:10 01/13/25 08:22 01/13/25 07:22 01/13/25 06:52 01/13/25 06:37 01/13/25 06:20 Laboratory Results cbc and chemistry reviewed Diagnostic Findings repeat leg Ct reviewed PG Care Time/CCT Total # of Minutes Spent Total Time Spent with Patient: Total time spent is greater than 50% in coordination of care (as documented) at patient's floor/unit and/or counseling patient: Coding Level of Care Code 01397 SUB INP/OBS CARE 2/35MIN Diagnoses Thigh hematoma S70.10XA Dyspnea R06.00 Afib I48.91 Atrial fibrillation type: unspecified Mental status alteration R41.82 Anemia D64.9 Anemia type: unspecified type (3) Afib Atrial fibrillation type: unspecified Qualified Code(s): I48.91 - Unspecified atrial fibrillation (5) Anemia Anemia type: unspecified type Qualified Code(s): D64.9 - Anemia, unspecified"
[2025-01-14 06:08] LABS: Hematocrit (blood only) 21.1 % (42.0-52.0); Hemoglobin 7.1 g/dL (14.0-18.0); Mean Corpuscular Hemoglobin 30.2 pg (25.0-34.0); Mean Corpuscular Volume 89.8 fL (80.0-100.0); Platelet Count 179 K/uL (130-400); RDW Standard Deviation 48.4 fL (36.4-46.3); Red Blood Count 2.35 M/uL (4.70-6.10); White Blood Count 7.18 K/ul (4.8-10.8)
[2025-01-14 06:33] LABS: Anion Gap 5.0 (3-11); Calcium 8.4 mg/dl (8.6-10.3); Carbon Dioxide 28.0 mmol/L (21-32); Chloride 101.0 mmol/L (98-107); Potassium 3.6 mmol/L (3.5-5.1); Sodium 134.0 mmol/L (136-145)
[2025-01-14 06:39] LABS: Blood Urea Nitrogen 20.0 mg/dl (6-23); Creatinine Clr Calc Pharmacy 121.4 ml/min; Glucose 102.0 mg/dl (70-99(Fasting))
[2025-01-14] MEDS: ACETAMINOPHEN 325 MG TAB PO ONE (09:46)
[2025-01-14] MEDS: diphenhydrAMINE Capsule 25 MG CAP PO ONE (09:46)
[2025-01-14] MEDS: SODIUM CHLORIDE 0.9% 100 ML IV PRN (10:43)
--- NOTE | 2025-01-14 10:45 | Hospitalist Progress Note ---
"Date of Service January 14, 2025 Assessment & Plan (1) Thigh hematoma: (2) Dyspnea: (3) Afib: (4) Mental status alteration: (5) Anemia: Plan #Trauma Akilah is a fall/trauma patientit appears that his main injury is the left thigh hematoma #left thigh hematoma | Acute blood loss anemia due to fall and chronic anticoagulation on Eliquis for his atrial fibrillation. Remains hemodynamically stable Hold Eliquis Hgb dropped to 7 and received 1 unit, on recheck again down to 7, received 2nd unit PRBCs and rescan - that did not show active bleeding or significantly worsened hematoma. -Hgb down to 7.1 on 01/14, transfuse 1 unit of PRBCs, premedicate prior and transfuse when ready. General surgery consulted - do not recommend drainage, monitor CBC, recommend CHRIS wrap for compression, elevation and ice Pain control - scheduled tylenol PT/OT eval and treat - pt is strongly opposed to rehab stay Repeat CT L femur to re-evaluate size of hematoma Labs ordered to repeat tomorrow AM #dyspneapurely dyspnea with no other associated signs or symptoms, seems to have happened at the point of his most exertion since his fall and hematoma. Ddimer postive, but no PE or acute pathology on chest CT. Negative troponin. Echo was obtained bc of T wave inversion - this is unchanged from 01/2024, EF 60-65, mild aortic stenosis This has resolved, suspect related to symptomatic anemia #Atrial fibrillationrate controlled. Anticoagulation on hold for now. Resume as soon as it appears to be safe #altered mental statusshe was in the midst of a workup for frontotemporal dementiaand is very distressed about missing scheduled testingdiscussed with neurology to ensure I ordered the right tests, and given that the delays of transitioning this to rescheduling as an outpatient would potentially be problematic for the patient, we will check the MRI brain and EEG here. MRI without major pathology - pt has appointment to review with Dr. Romero next week DVT proph: pharmacologic contraindicated. SCDs will be ordered Dispo: Continued inpatient stay, monitor Hgb, possible discharge tomorrow if hgb continues to improve and remains hemodynamically stable updated at bedside 01/12 Admission and Anticipated Discharge Date Admission Date: January 11, 2025 Supervising Physician Co-Signing Physician Notes PA Supervision Note: I did not personally see or examine the patient today, but I verified all olivarez points of LOUIS Leal's assessment and plan with the following exceptions/additions: None Subjective Clifford is a 79 yo M who was admitted with left thigh hematoma and acute blood loss anemia was seen today on rounds. His hgb dropped to 7.1 g/dL. Pt is hemodynamically stable. He did have a slight interval increase in the size of his thigh hematoma on most recent femur CT. Patient denies complaints but is disappointed that he cannot go home today, was hoping to be able to visit his granddaughter. Review of Systems 2 Review of Systems: All systems reviewed and are unremarkable except as noted in HPI and below. Denies fever, chills, fatigue, headache, nasal congestion, sore throat, cough, chest pain, shortness of breath, palpitations, orthopnea, PND, abdominal pain, n/v/d, constipation, dysuria, hematuria, frequency, back pain, joint pain, skin lesions or rashes. Physical Exam 2 Physical Exam: GENERAL: 79 yo well-nourished elderly WM. No distress. LUNGS: Clear to auscultation bilaterally. No W/R/R. CARDIOVASCULAR: S1 S2 EXTREMITIES: +2 pitting edema LLE. Thigh wrapped in chris. Non-tender. Peripheral pulses +2/4. SKIN: Warm, dry, intact. No rashes or lesions. Results & Data Results & Data Vital Signs (Past 12 Hours) Vital Signs Temp Pulse Resp BP Pulse Ox O2 Del Method 01/14/25 07:26 36.7 C 74 15 107/62 98 Room Air 01/14/25 01:00 36.6 C 80 16 107/62 94 Room Air Laboratory Results 01/14/25 05:19 01/14/25 05:19 PG Care Time/CCT Total # of Minutes Spent Total Time Spent with Patient: Total time spent is greater than 50% in coordination of care (as documented) at patient's floor/unit and/or counseling patient: 37 minutes Coding Level of Care Code 00819 SUB INP/OBS CARE 2/35MIN Diagnoses Thigh hematoma S70.10XA Dyspnea R06.00 Afib I48.91 Atrial fibrillation type: unspecified Mental status alteration R41.82 Anemia D64.9 Anemia type: unspecified type (3) Afib Atrial fibrillation type: unspecified Qualified Code(s): I48.91 - Unspecified atrial fibrillation (5) Anemia Anemia type: unspecified type Qualified Code(s): D64.9 - Anemia, unspecified"
--- NOTE | 2025-01-14 11:34 | Electroencephalogram ---
EEG Procedure Note Date of Service January 14, 2025 Start / End Times Start Time: 06 End Time: [address] Marcus History 79-year-old with history of frontotemporal dementia with new altered mental status Home Medication List Medication Instructions Recorded Confirmed Type cyanocobalamin (vitamin B-12) 100 100 mcg PO DAILY 11/11/18 01/11/25 History mcg tablet cholecalciferol (vitamin D3) 25 1,000 units PO DAILY 12/16/18 01/11/25 History mcg (1,000 unit) capsule ascorbic acid (vitamin C) 500 mg 0 mg PO DAILY 08/14/20 01/11/25 History tablet (Vitamin C) acetaminophen 650 mg 1,300 mg PO BID 02/15/22 01/11/25 History tablet,extended release (Tylenol Arthritis Pain) coenzyme Q10 75 mg capsule (Ultra 75 mg PO DAILY 06/20/22 01/11/25 History CoQ10) famotidine 20 mg tablet 20 mg PO DAILY #90 tabs 02/13/24 01/11/25 Rx psyllium husk 6 gram oral powder 6 g PO DAILY 02/13/24 01/11/25 History packet apixaban 5 mg tablet 5 mg PO BID #180 tabs 03/08/24 01/11/25 Rx metoprolol succinate 100 mg 100 mg PO BID #180 tabs 04/22/24 01/11/25 Rx tablet,extended release 24 hr diclofenac sodium 1 % topical gel 2 g topical QID #100 grams 05/11/24 01/11/25 Rx spironolactone 25 1 tab PO DAILY #90 tabs 08/17/24 01/11/25 Rx mg-hydrochlorothiazide 25 mg tablet digoxin 125 mcg (0.125 mg) tablet 125 mcg PO DAILY #90 tabs 11/02/24 01/11/25 Rx mupirocin 2 % topical ointment 1 applic topical DAILY #22 grams 11/24/24 01/11/25 Rx fluorouracil 5 % topical cream 1 applic topical DAILY 01/11/25 01/11/25 History fluorouracil 5 % topical cream applic topical 01/12/25 History allopurinol 300 mg tablet 300 mg PO DAILY #90 tabs 01/13/25 Rx Inpatient Medication List Acetaminophen (Acetaminophen 500 Mg Tab) 1,000 mg PO BID [facility] Stop: 02/10/25 20:59 Last Admin: 01/14/25 08:44 Dose: 1,000 mg Documented By: asg Admin: 01/13/25 19:47 Dose: 1,000 mg Documented By: clb Admin: 01/13/25 09:36 Dose: 1,000 mg Documented By: asg Admin: 01/12/25 20:16 Dose: 1,000 mg Documented By: Admin: 01/12/25 09:13 Dose: 1,000 mg Documented By: Admin: 01/11/25 20:20 Dose: 1,000 mg Documented By: HFW Acetaminophen (Acetaminophen 325 Mg Tab) 650 mg PO PRE-TREAT ONE Stop: 01/14/25 17:19 Last Admin: 01/14/25 09:46 Dose: Not Given Documented By: asg Allopurinol (Allopurinol 300 Mg Tab) 300 mg PO DAILY [place] Stop: 02/11/25 08:59 Last Admin: 01/14/25 08:44 Dose: 300 mg Documented By: asg Admin: 01/13/25 09:30 Dose: 300 mg Documented By: asg Admin: 01/12/25 09:15 Dose: 300 mg Documented By: LAYNE Cyanocobalamin (Cyanocobalamin (B-12) 100 Mcg Tablet) 100 mcg PO DAILY [place] Stop: 02/11/25 08:59 Last Admin: 01/14/25 08:45 Dose: 100 mcg Documented By: asg Admin: 01/13/25 09:30 Dose: 100 mcg Documented By: asg Admin: 01/12/25 09:14 Dose: 100 mcg Documented By: LAYNE Digoxin (Digoxin 0.125 Mg Tab) 0.125 mg PO DAILY@1600 [place] Stop: 02/10/25 15:59 Last Admin: 01/13/25 16:56 Dose: 0.125 mg Documented By: asg Admin: 01/12/25 17:11 Dose: 0.125 mg Documented By: Admin: 01/11/25 18:39 Dose: 0.125 mg Documented By: LAYNE Diphenhydramine HCl (Diphenhydramine Capsule 25 Mg Cap) 25 mg PO PRE-TREAT ONE Stop: 01/14/25 17:19 Last Admin: 01/14/25 09:46 Dose: 25 mg Documented By: asg Famotidine (Famotidine 20 Mg Tab) 20 mg PO DAILY [place] Stop: 02/11/25 08:59 Last Admin: 01/14/25 08:48 Dose: 20 mg Documented By: asg Admin: 01/13/25 09:37 Dose: 20 mg Documented By: asg Admin: 01/12/25 09:14 Dose: 20 mg Documented By: LAYNE Fluorouracil (Fluorouracil Top Cr 5% 40 Gm Tube) 1 appln EXT DAILY [place] Stop: 02/11/25 08:59 Last Admin: 01/14/25 08:45 Dose: 1 appln Documented By: asg Admin: 01/13/25 09:31 Dose: 1 appln Documented By: asg Admin: 01/12/25 09:16 Dose: 1 appln Documented By: LAYNE Hydrochlorothiazide (Hydrochlorothiazide 25 Mg Tab) 25 mg PO DAILY [facility] Stop: 02/11/25 09:59 Last Admin: 01/14/25 08:45 Dose: 25 mg Documented By: asg Admin: 01/13/25 09:32 Dose: 25 mg Documented By: asg Admin: 01/12/25 11:03 Dose: Not Given Documented By: LAYNE Sodium Chloride (Nss) 100 mls @ 15 mls/hr IV .Q6H40M PRN PRN Reason: For Transfusion Duration Stop: 01/14/25 17:19 Last Admin: 01/14/25 10:43 Dose: 15 mls/hr Documented By: lynne Melatonin (Melatonin 3 Mg Tab) 3 mg PO HS PRN PRN Reason: Insomnia Stop: 02/10/25 15:51 Last Admin: 01/11/25 20:20 Dose: 3 mg Documented By: HARLAN Metoprolol Succinate (Metoprolol Succ 50mg Ext Rel Tab) 100 mg PO BID [facility] Stop: 02/10/25 20:59 Last Admin: 01/14/25 08:46 Dose: 100 mg Documented By: asg Admin: 01/13/25 19:48 Dose: 100 mg Documented By: clb Admin: 01/13/25 09:32 Dose: 100 mg Documented By: asg Admin: 01/12/25 20:16 Dose: 100 mg Documented By: Admin: 01/12/25 09:14 Dose: 100 mg Documented By: Admin: 01/11/25 20:21 Dose: 100 mg Documented By: HFW Mupirocin (Mupirocin 2% Oint 22 Gm Tube) 1 appln TOP DAILY [place] Stop: 02/11/25 08:59 Last Admin: 01/14/25 08:46 Dose: 1 appln Documented By: asg Admin: 01/13/25 09:41 Dose: Not Given Documented By: asg Admin: 01/12/25 09:16 Dose: 1 appln Documented By: CS Psyllium Hydrophilic Mucilloid (Psyllium Husk 4gm Packet) 4 gm PO DAILY [place] Stop: 02/11/25 08:59 Last Admin: 01/14/25 08:47 Dose: Not Given Documented By: asg Admin: 01/13/25 09:41 Dose: Not Given Documented By: asg Admin: 01/12/25 09:16 Dose: 4 gm Documented By: CS Spironolactone (Spironolactone 25 Mg Tab) 25 mg PO DAILY [place] Stop: 02/11/25 09:59 Last Admin: 01/14/25 08:47 Dose: 25 mg Documented By: asg Admin: 01/13/25 09:33 Dose: 25 mg Documented By: asg Admin: 01/12/25 11:00 Dose: 25 mg Documented By: CS Vitamin D (Cholecalciferol 25 Mcg (1000 Units) Tab) 25 mcg PO DAILY [place] Stop: 02/11/25 08:59 Last Admin: 01/14/25 08:45 Dose: 25 mcg Documented By: asg Admin: 01/13/25 09:30 Dose: 25 mcg Documented By: asg Admin: 01/12/25 09:14 Dose: 25 mcg Documented By: CS Discontinued Medications Gadobutrol (Gadobutrol 65ml Vial) 10 ml IV ONCE ONE Stop: 01/11/25 15:17 Last Admin: 01/11/25 15:18 Dose: 10 ml Documented [place] [facility] [place] Virus Vacc Triv Types A&B (Influenza Vacc [id number](65y+)/Pf (Iiv3) 0.5ml Syr) 0.5 ml IM .ONCE ONE Stop: 01/11/25 18:27 Last Admin: 01/13/25 09:40 Dose: Not Given Documented By: asg Ioversol (Optiray 320 125ml) 120 ml IV ONCE ONE Stop: 01/11/25 11:45 Last Admin: 01/11/25 11:46 Dose: 120 ml Documented By: TYREE Ioversol (Optiray 320 100ml) 93 ml IV ONCE ONE Stop: 01/12/25 23:53 Last Admin: 01/12/25 23:52 Dose: 93 ml Documented By: ANDREW Miscellaneous (Fluorouracil 5 % Cream ~ Order Awaiting Action) 1 each N/A QS [place] Stop: 02/10/25 15:59 Last Admin: 01/11/25 17:21 Dose: Not Given Documented By: NM Description This is a 21 electrode EEG with a single channel dedicated to limited EKG. The electrodes were placed in accordance with the International 10-20 system. Interpretation The predominant background activity consists of a very well modulated 10 Hz activity, of up to 75 mV in amplitude, seen symmetrically distributed over the posterior head regions bilaterally. This activity attenuates with eye-opening and other alerting procedures. Photic stimulation was performed and elicited no change in the background activity and no abnormal responses were seen. Hyperventilation was performed for three minutes with good effort and again no abnormalities were seen. A mild to moderate amount of muscle and movement artifact activity contaminated the recording, doing interpretation from time to time but not to any significant degree overall. There were P4 and P3 electrode artifact seen at times. Throughout the waking portion of the recording, no focal abnormalities, abnormal slow activity, or potentially epileptogenic discharges were seen. The patient entered the drowsy state with no further activation. Deeper stages of sleep were not recorded. In summary, this EEG was normal during wakefulness and drowsy. No focal abnormalities, potentially epileptogenic discharges, or abnormal slow activity were seen. Clinical Correlation The absence of potentially epileptogenic activity does not exclude a seizure disorder, since interictally, EEGs can be normal. Clinical correlation is required. Despite his history of altered mental status, this EEG did not show any significant slowing. [facility] EEG Procedure Codes Indication for Procedure (1) Frontotemporal dementia: (2) Mental status alteration: Neurology Neurology: 94673 EEG include record awake & drowsy
--- NOTE | 2025-01-14 12:05 | CT Scan Report ---
LEFT FEMUR AND THIGH CT WITHOUT CONTRAST CLINICAL HISTORY: Reevaluate left thigh hematoma. COMPARISON STUDY: Left lower extremity venous Doppler ultrasound January 11, 2025. CT of the left fe mur January 12, 2025. TECHNIQUE: Axial images of the left thigh and femur were obtained without IV contrast. Sagittal and c oronal reformats were viewed. A dose lowering technique was utilized adhering to the principles of [place] PRAMOD. FINDINGS: There are no fractures within the left femur. No fractures are identified within visualized portions of the pelvis. There is sigmoid diverticulosis. Incidental note is made of contrast within the bladder from recent contrast-enhanced CT. Extensive subcutaneous stranding of the left thigh is n oted. Note is again made of a large hyperdense subcutaneous fluid collection of the lateral proximal to mid thigh which measures 18.6 x 10.9 x 7.3 cm. This previously measured 18.2 x 11.7 x 7.4 cm. Ther e has been no significant change in size of this hematoma. No new sites of hemorrhage are present. Th ere is no intramuscular hematoma within the left thigh. IMPRESSION: No significant change in a 18.6 x 10.9 x 7.3 cm subcutaneous left thigh hematoma since C T of January 12, 2025. ACT 112: Negative or not required by law. Electronically signed by: Clyde You M.D. 01/14/2025 12:04 PM
--- NOTE | 2025-01-14 13:17 | Surgery Progress Note ---
Date of Service January 14, 2025 Assessment & Plan (1) Hematoma of left thigh: Plan: Currently no indication for surgical intervention. If any signs or symptoms of infection which would basically be increasing pain erythema warmth fevers leukocytosis etc. then we could consider evacuation of the hematoma. We will follow along during this admission from the periphery. Please call if any questions or concerns. Admission and Anticipated Discharge Date Admission Date: January 11, 2025 Subjective Patient seen. He is feeling much better today and anxious to go home. The discomfort from the hematoma is much improved Physical Exam Physical Exam: Alert no acute distress Leg hematoma appears stable with no acute sign of infection Results & Data Vital Signs (Past 12 Hours) Vital Signs Temp Pulse Pulse Resp BP BP Pulse Ox 01/14/25 12:55 36.5 C 76 16 114/65 99 01/14/25 11:55 36.7 C 65 18 104/59 L 98 01/14/25 11:25 36.9 C 65 18 108/61 99 01/14/25 11:10 36.8 C 70 18 123/63 100 01/14/25 10:54 36.4 C L 78 18 122/67 78 L 01/14/25 07:26 36.7 C 74 15 107/62 98 O2 Del Method 01/14/25 12:55 01/14/25 11:55 01/14/25 11:25 01/14/25 11:10 01/14/25 10:54 01/14/25 07:26 Room Air PG Care Time/CCT Total # of Minutes Spent Total Time Spent with Patient: Total time spent is greater than 50% in coordination of care (as documented) at patient's floor/unit and/or counseling patient: Coding Level of Care Code 28516 SUB INP/OBS CARE 03/06MIN Diagnoses Hematoma of left thigh S70.12XA
[2025-01-15 06:36] LABS: Hematocrit (blood only) 23.4 % (42.0-52.0); Hemoglobin 7.9 g/dL (14.0-18.0); Immature Granulocytes # (auto) 0.03 K/uL (0.01-0.20); Immature Granulocytes % (auto) 0.4 %; Mean Corpuscular Hemoglobin 30.4 pg (25.0-34.0); Mean Corpuscular Volume 90.0 fL (80.0-100.0); Platelet Count 195 K/uL (130-400); RDW Standard Deviation 47.9 fL (36.4-46.3); Red Blood Count 2.60 M/uL (4.70-6.10); White Blood Count 7.85 K/ul (4.8-10.8)
[2025-01-15 07:00] LABS: Polychromasia 1+
[2025-01-15 07:06] LABS: Anion Gap 6.0 (3-11); Blood Urea Nitrogen 18.0 mg/dl (6-23); Calcium 8.6 mg/dl (8.6-10.3); Carbon Dioxide 28.0 mmol/L (21-32); Chloride 99.0 mmol/L (98-107); Creatinine Clr Calc Pharmacy 117.8 ml/min; Glucose 97.0 mg/dl (70-99(Fasting)); Potassium 3.7 mmol/L (3.5-5.1); Sodium 133.0 mmol/L (136-145)
[2025-01-15 08:00] VITALS: BP 112/63; PULSE 80; RESP 16; TEMP 99.5; O2SAT 96
--- NOTE | 2025-01-15 19:02 | Discharge Summary ---
"Discharge Summary Date of Service January 15, 2025 Principal Dx & Hospital Course #1 = Principal Diagnosis (1) Thigh hematoma: (2) Dyspnea: (3) Afib: (4) Mental status alteration: (5) Anemia: Plan #left thigh hematoma | Acute blood loss anemia Consequence of ground level fall and blunt force trauma to left anterolateral thigh; hemoglobin intermittently downtrended during hospitalization requiring two units PRBC transfused on separate days while the patient's chronic anticoagulation was held; imaging did not reveal any active bleeding into the hematoma during hospitalization; despite intermittent need for blood transfusion, the patient was hemodynamically stable throughout the hospitalization - Resume Eliquis on day of discharge - Consulted General Surgery; did not recommend surgical intervention #Atrial fibrillation Chronic, well controlled; Eliquis resumed upon discharge #Mild cognitive impairment Outpatient assessment underway; EEG and MRI brain without contrast obtained without evidence of ongoing pathology Admission HPI Per Admitting Provider patient is a very pleasant 79-year-old male who comes with 2 different main complaintshe is history over the last 24 hours is essentially that he was going to get left over deviled eggs from the refrigeratorhe took them over to his room, as he sat them on the table unfortunately they flipped over in his room and went to reach for them he lost his balancehe tried to grab his walker but he was falling backwards. (He notes that he normally uses his walker because of longstanding balance issues, and the mechanical fall was unfortunately not a surprise to him). He fell fairly hard knows that he hit his thigh on the way down, thinks he hit his head, does not have any notable loss of consciousness. Does have a headache and a stiff neck, but no other worrisome symptoms besides the headache, stiff neck and hip bruising. His son-in-law was able to help him get up, and he was able to stay at home. He was staying up most of the night due to an outpatient EEG this morning for which she was supposed to be sleep deprived. He watched the green mile, and then went to sleep around 3:30 in the morning. Whenever he got up around 6 this morning he went to get cleaned upand whenever he was in the shower he had fairly abrupt and rather significant dyspneareally just the sensation of air hunger, no chest pain/pressure/tightness, but a fairly overwhelming feeling that he could not get enough air. No cough no fevers chills or sweats again no chest pain. It was hard to discern exactly how long the dyspnea lasted, it seems to have spontaneously gotten better, and his breathing feels okay now. Discharge Exam General: Elderly male in no acute distress Vital Signs: Reviewed Pulmonary: Symmetric chest wall excursion without restriction; clear to auscultation Cardiovascular: Irregularly irregular rhythm without murmurs, rubs, or gallops; right radial pulse 2+ with brisk capillary refills in the upper and lower extremities Skin: large left anterolateral thigh hematoma appears stable from prior images available to review provided by wound nursing staff Discharge Plan Discharge Items Patient Disposition: Home - Self-Care Reason For Visit: FALL, THIGH HEMATOMA, ACUTE BLOOD LOSS, ANEMIA Discharge Diagnosis: Left thigh hematoma with resolved acute blood loss anemia Condition on Discharge: Good Activity: Per Instructions section Non-emergency contact: Primary Care Provider Call non-emergency contact if: you have any medication questions and your symptoms worsen Follow-up/Referrals: Chidi Burnette MD [Primary Care Provider] - (Discussed with patient - he will schedule own appointment) Diet: Regular Fluids: 2000ml (8 cups) Addtl Attending Provider Instructions: You were admitted to [facility] for a left thigh hematoma sustained after a mechanical fall resulting in symptomatic anemia which has resolved with adequate transfusion. At the time of your initial presentation your hemoglobin was 9.0 with downtrend to 7.0 requiring 1 unit of transfusion; subsequent reassessment revealed repeat downtrend and requiring an additional unit of packed red blood cells. After 2 units of PRBC, your hemoglobin is stable, without evidence of significant hematoma expansion and additional imaging does not reveal any active extravasation into the hematoma. At this time, we will resume your Eliquis given the risks versus benefits of this medication given this current condition, with no additional laboratory reassessment necessary unless her symptoms were to progress. In the event that you begin to experience increasing dyspnea on exertion, chest pain, palpitations, lightheadedness, especially with position changes, we recommend that you present to the emergency department for reevaluation or contact your primary care physician for further recommendations whichever you prefer. Your hematoma will take several weeks to resolve given its size, its location, and density. You may resume your usual daily activities with an increased degree of caution to prevent future falls. Regular daily periods of elevation of this affected lower extremity will help with some of the increased edema that will likely occur given the size and location of this hematoma. Please maintain close follow-up with your primary care provider after this hospitalization for continued care. Thank you for choosing [facility] as your healthcare provider. Pending Studies at Discharge: No Stand-Alone Forms: My [facility] Medications and DC Order Prescriptions: Continued cholecalciferol (vitamin D3) 1,000 unit capsule 1,000 units PO DAILY metoprolol succinate 100 mg tablet extended release 24 hr 100 mg PO BID Qty: 180 3RF diclofenac sodium 1 % gel 2 g topical QID Qty: 100 2RF Rx Instructions: apply to single elbow, wrist or hand; for hand includes palm/fingers/back of hand spironolacton-hydrochlorothiaz 25-25 mg tablet 1 tab PO DAILY Qty: 90 3RF digoxin 125 mcg (0.125 mg) tablet 125 mcg PO DAILY Qty: 90 3RF allopurinol 300 mg tablet 300 mg PO DAILY Qty: 90 3RF acetaminophen [Tylenol Arthritis Pain] 650 mg tablet extended release 1,300 mg PO BID Ultra CoQ10 75 mg capsule 75 mg PO DAILY cyanocobalamin (vitamin B-12) 100 mcg tablet 100 mcg PO DAILY famotidine 20 mg tablet 20 mg PO DAILY Qty: 90 3RF Hold Instructions: Resume on 02/23/24. until you completed the antibiotics apixaban 5 mg tablet 5 mg PO BID Qty: 180 3RF ascorbic acid (vitamin C) [Vitamin C] 500 mg Tablet 0 mg PO DAILY psyllium husk 6 gram Powder In Packet 6 g PO DAILY fluorouracil 5 % cream 1 applic TOPICAL DAILY fluorouracil 5 % cream TOPICAL Discontinued mupirocin 2 % ointment 1 applic topical DAILY Qty: 22 11RF Discharge Orders: Discharge Order (Routine); Ordered 01/15/25 Ordered By: Henry Sherman/Other Patient Handouts: Bruises (Contusions), ED Anemia No Type Adult Admission Data Admit Date/Time: 01/11/25 14:15 Attending Provider: Henry Jacobson Admit Provider: Hank Marcus Primary Care Provider: Chidi Burnette Other Providers: Mike Foster Other Interventions: Discharge Summary Assessment (RN) Last Done: 01/15/25 13:09 Hospital Stay Data Consultations 01/12/25 09:05 Consult General Surgery Routine Diagnostic Imagining Performed 01/11/25 10:36 CT femur LT wo con Stat CT head/brain wo con Stat CT pelvis wo con Stat US venous doppler LE BI Stat 01/11/25 11:19 CT for pulmonary embolism PE [CT angio chest PE protocol] Stat 01/11/25 14:15 MR brain seizure wo/w con Routine 01/12/25 22:30 CT leg [CT femur LT w con] Urgent 01/14/25 09:18 CT femur LT wo con Routine Pending Results Patient Have Any Pending Studies at Discharge: No Discharge Instructions Given to Patient (Per Discharging Provider) You were admitted to [facility] for a left thigh hematoma sustained after a mechanical fall resulting in symptomatic anemia which has resolved with adequate transfusion. At the time of your initial presentation your hemoglobin was 9.0 with downtrend to 7.0 requiring 1 unit of transfusion; subsequent reassessment revealed repeat downtrend and requiring an additional unit of packed red blood cells. After 2 units of PRBC, your hemoglobin is stable, without evidence of significant hematoma expansion and additional imaging does not reveal any active extravasation into the hematoma. At this time, we will resume your Eliquis given the risks versus benefits of this medication given this current condition, with no additional laboratory reassessment necessary unless her symptoms were to progress. In the event that you begin to experience increasing dyspnea on exertion, chest pain, palpitations, lightheadedness, especially with position changes, we recommend that you present to the emergency department for reev aluation or contact your primary care physician for further recommendations whichever you prefer. Your hematoma will take several weeks to resolve given its size, its location, and density. You may resume your usual daily activities with an increased degree of caution to prevent future falls. Regular daily periods of elevation of this affected lower extremity will help with some of the increased edema that will likely occur given the size and location of this hematoma. Please maintain close follow-up with your primary care provider after this hospitalization for continued care. Thank you for choosing [facility] as your healthcare provider. Total Time Total Time Spent Total Time Spent (In Minutes): I personally spent 50 minutes in the coordination of discharge including bedside counselling, physical exam, and medication reconciliation Coding Level of Care Code 01794 INP/OBS DISCH >30 MIN Diagnoses Thigh hematoma S70.10XA Dyspnea R06.00 Afib I48.91 Atrial fibrillation type: unspecified Mental status alteration R41.82 Anemia D64.9 Anemia type: unspecified type"
== END 2025-01-15 14:15 | disposition home or self-care (01) | DRG 605 ==
LOC: ED 10:13 → SUATTDRO 14:15 → EDINP 14:15 → 3N 15:53